=== PATIENT | female | born 1960 | race Caucasian/White ===

== ENCOUNTER 2017-02-16 22:23 | Observation (INO) | payer BC ==
[2017-02-16] MEDS ORDERED: SODIUM CHLORIDE 0.9% 1,000 ML IV STA (23:03)
[2017-02-16] MEDS ORDERED: diphenhydrAMINE 50 MG/ML 1 ML VIAL IVP STA (23:04)
[2017-02-16] MEDS ORDERED: METOCLOPRAMIDE 5 MG/ML 2 ML VIAL IVP STA (23:04)
[2017-02-17] LABS: Basophils # (A) 0.1 k/uL (0-0.2); Basophils % (A) 1 %; CHCM 33.9; Eosinophils # (A) 0.1 k/uL (0-0.7); Eosinophils % (A) 1 %; HCT 42.1 % (34.0-46.0); HDW 2.68; HGB 14.3 gm/dL (11.4-16.0); Luc # (Auto) 0.18; Luc % (Auto) 3; Lymphocytes # (A) 1.7 k/uL (1.0-4.8); Lymphocytes % (A) 23 %; MCH 31.2 pg (25.0-35.0); MCHC 33.9 g/dL (31.0-37.0); MCV 91.9 fL (80.0-100.0); Mean Platelet Volume 8.2; Monocytes # (A) 0.3 k/uL (0-1.0); Monocytes % (A) 4 %; Neutrophils # (A) 5.1 k/uL (1.3-7.7); Neutrophils % (A) 69 %; RBC 4.58 m/uL (3.80-5.40); RDW 12.9 % (11.5-15.5); WBC 7.5 k/uL (3.8-10.6); WBC (Perox) 7.51
[2017-02-17 00:08] LABS: INR 1.1 (<1.1); Partial Thromboplastin Time 23.7 sec (22.0-30.0); Prothrombin Time 10.8 sec (9.0-12.0)
[2017-02-17 00:09] LABS: ALT 49 U/L (9-52); AST 46 U/L (14-36); Alkaline Phosphatase 124 U/L (38-126); Anion Gap 16 mmol/L; Blood Urea Nitrogen 10 mg/dL (7-17); Calcium 9.9 mg/dL (8.4-10.2); Carbon Dioxide 21 mmol/L (22-30); Chloride 105 mmol/L (98-107); Glucose 134 mg/dL (74-99); Magnesium 1.7 mg/dL (1.6-2.3); Non-African American GFR(MDRD) >60 (>60 ml/min/1.73 sqM); Potassium 4.2 mmol/L (3.5-5.1); Sodium 142 mmol/L (137-145); Total Bilirubin 0.5 mg/dL (0.2-1.3); Total Protein 7.6 g/dL (6.3-8.2)
--- NOTE | 2017-02-17 00:16 | XR ---
EXAM: XR Chest, 2 Views. CLINICAL HISTORY: Reason: Chest Pain TECHNIQUE: Frontal and lateral views of the chest. COMPARISON: None FINDINGS: Hardware: None. Lungs/pleura: Low lung volumes. Left basilar atelectasis. No focal consolidation. No pleural effusion or pneumothorax. Prominent overlying soft tissue density. Mild elevation of the right hemidiaphragm. Heart/mediastinum: Mild prominence of the cardiac silhouette is likely accentuated by low lung volumes and technique. Soft tissues: Unremarkable. Bones: No acute fracture. Upper abdomen: Normal. IMPRESSION: Low lung volumes with left basilar atelectasis. No other acute disease.
--- NOTE | 2017-02-17 00:26 | ED ---
Headache HPI - General Source: RN notes reviewed Mode of arrival: EMS Limitations: no limitations <Zoila Hernandez - Last Filed: 02/17/17 00:30> <Giles Good - Last Filed: 02/17/17 01:37> - General Chief Complaint: Headache Stated Complaint: HEADACHE Time Seen by Provider: 02/16/17 22:27 - History of Present Illness Initial Comments: Patient is 48-year-old female chief complaint of few episodes of dizziness today. Patient reports that she did start metformin today. She states that she felt dizzy enough that she had a lay down and started to sweat. She denies any chest pain or shortness of breath. She states that she has a family history of stroke. She reports that she did have some blurriness to her vision as well and this occurred. She reports that she is feeling somewhat better after coming to emergency department. She did arrive via EMS and they gave her IV fluids, Zofran. Patient denies any fever or chills. (Zoila Hernandez) - Related Data Home Medications Medication Instructions Recorded Confirmed Atenolol [Tenormin] 50 mg PO DAILY 02/16/17 02/16/17 Calcium Carbonate/Vitamin D3 1 tab PO DAILY 02/16/17 02/16/17 [Calcium 600-Vit D3 400 Caplet] Gabapentin [Neurontin] 300 mg PO HS 02/16/17 02/16/17 HYDROcodone/APAP 5-325MG [Pfeifer 1 tab PO BID PRN 02/16/17 02/16/17 5-325] Ibuprofen [Motrin] 200 - 800 mg PO Q6HR PRN 02/16/17 02/16/17 Levothyroxine Sodium [Synthroid] 50 mcg PO DAILY 02/16/17 02/16/17 Loratadine [Claritin] 10 mg PO DAILY 02/16/17 02/16/17 Losartan/Hydrochlorothiazide 1 tab PO DAILY 02/16/17 02/16/17 [Hyzaar 50-12.5 Tablet] Lovastatin [Mevacor] 20 mg PO HS 02/16/17 02/16/17 Omeprazole [PriLOSEC] 20 mg PO DAILY 02/16/17 02/16/17 metFORMIN HCL [Glucophage] 500 mg PO DAILY 02/16/17 02/16/17 Allergies Allergy/AdvReac Type Severity Reaction Status Date / Time morphine Allergy Itching Verified 02/16/17 22:46 Review of Systems ROS Other: All systems not noted in ROS Statement are negative. <Zoila Hernandez - Last Filed: 02/17/17 00:30> ROS Other: All systems not noted in ROS Statement are negative. <Giles Good - Last Filed: 02/17/17 01:37> ROS Statement: Those systems with pertinent positive or pertinent negative responses have been documented in the HPI. Past Medical History Past Medical History: Diabetes Mellitus, GERD/Reflux, Hypertension, Thyroid Disorder Additional Past Medical History / Comment(s): Seasonal Allergies History of Any Multi-Drug Resistant Organisms: None Reported Past Surgical History: No Surgical Hx Reported, Cholecystectomy, Hysterectomy Additional Past Surgical History / Comment(s): Colonoscopy Past Psychological History: No Psychological Hx Reported Smoking Status: Never smoker Past Alcohol Use History: None Reported Past Drug Use History: None Reported <Zoila Hernandez - Last Filed: 02/17/17 00:30> General Exam Limitations: no limitations General appearance: alert, in no apparent distress, other (Patient is diaphoretic.) Head exam: Present: atraumatic, normocephalic, normal inspection, other Eye exam: Present: normal appearance, PERRL, EOMI. Absent: scleral icterus, conjunctival injection, periorbital swelling ENT exam: Present: normal exam, mucous membranes moist Neck exam: Present: normal inspection. Absent: tenderness, meningismus, lymphadenopathy Respiratory exam: Present: normal lung sounds bilaterally. Absent: respiratory distress, wheezes, rales, rhonchi, stridor Cardiovascular Exam: Present: regular rate, normal rhythm, normal heart sounds, systolic murmur (Patient has a systolic murmur. She reports that this is new when she was never told this.). Absent: diastolic murmur, rubs, gallop, clicks GI/Abdominal exam: Present: soft, normal bowel sounds. Absent: distended, tenderness, guarding, rebound, rigid Extremities exam: Present: normal inspection, full ROM, normal capillary refill. Absent: tenderness, pedal edema, joint swelling, calf tenderness Back exam: Present: normal inspection Neurological exam: Present: alert, oriented X3, CN II-XII intact Psychiatric exam: Present: normal affect, normal mood <Zoila Hernandez - Last Filed: 02/17/17 00:30> General appearance: alert, in no apparent distress Head exam: Present: atraumatic, normocephalic, normal inspection Eye exam: Present: normal appearance, PERRL, EOMI. Absent: scleral icterus, conjunctival injection, periorbital swelling ENT exam: Present: normal exam, mucous membranes moist Neck exam: Present: normal inspection. Absent: tenderness, meningismus, lymphadenopathy Respiratory exam: Present: normal lung sounds bilaterally. Absent: respiratory distress, wheezes, rales, rhonchi, stridor Cardiovascular Exam: Present: regular rate, normal rhythm, normal heart sounds. Absent: systolic murmur, diastolic murmur, rubs, gallop, clicks GI/Abdominal exam: Present: soft, normal bowel sounds. Absent: distended, tenderness, guarding, rebound, rigid Extremities exam: Present: normal inspection, full ROM, normal capillary refill. Absent: tenderness, pedal edema, joint swelling, calf tenderness Back exam: Present: normal inspection Neurological exam: Present: alert, oriented X3, CN II-XII intact Psychiatric exam: Present: normal affect, normal mood Skin exam: Present: warm, dry, intact, normal color. Absent: rash <Giles Good - Last Filed: 02/17/17 01:37> - General Exam Comments Initial Comments: Pleasant 48-year-old female. Patient is on appear to be in much distress. ( Zoila Hernandez) Course <Zoila Hernandez - Last Filed: 02/17/17 00:30> <Giles Good - Last Filed: 02/17/17 01:37> Vital Signs 02/16/17 02/17/17 02/17/17 22:28 00:29 01:24 Temperature 98.3 F Pulse Rate 73 70 72 Respiratory 18 18 18 Rate Blood Pressure 152/77 136/65 144/68 Blood Pressure [Right Arm Sitting] Blood Pressure [Right Arm Standing] Blood Pressure [Right Arm Supine] O2 Sat by Pulse 97 96 96 Oximetry 02/17/17 01:30 Temperature Pulse Rate Respiratory Rate Blood Pressure Blood Pressure 159/72 [Right Arm Sitting] Blood Pressure 155/74 [Right Arm Standing] Blood Pressure 144/68 [Right Arm Supine] O2 Sat by Pulse Oximetry - Reevaluation(s) Reevaluation #1: 02/17/17 01:37 Patient sore amazes similar symptoms, no resolution (Giles Good) Medical Decision Making - Lab Data Result diagrams: 02/16/17 23:55 02/16/17 23:55 <Zoila Hernandez - Last Filed: 02/17/17 00:30> - Lab Data Result diagrams: 02/16/17 23:55 02/16/17 23:55 <Giles Good - Last Filed: 02/17/17 01:37> - Medical Decision Making Patient is 48-year-old female chief complaint of few episodes of dizziness today. Patient reports that she did start metformin today. She states that she felt dizzy enough that she had a lay down and started to sweat. She denies any chest pain or shortness of breath. She states that she has a family history of stroke. She reports that she did have some blurriness to her vision as well and this occurred. She reports that she is feeling somewhat better after coming to emergency department. She did arrive via EMS and they gave her IV fluids, Zofran. Patient denies any fever or chills. (Zoila Hernandez) 56 female here for evaluation of dizziness weakness not feeling well, patient will be admitted for chest pain observation initial EKG and troponin are negative. Patient with positive systolic murmur, patient be admitted again for cardiac observation telemetry and echocardiography (Giles Good) - Lab Data Lab Results 02/16/17 02/16/17 02/16/17 Range/Units 23:55 23:55 23:55 WBC 7.5 (3.8-10.6) k/uL RBC 4.58 (3.80-5.40) m/uL Hgb 14.3 (11.4-16.0) gm/dL Hct 42.1 (34.0-46.0) % MCV 91.9 (80.0-100.0) fL MCH 31.2 (25.0-35.0) pg MCHC 33.9 (31.0-37.0) g/dL RDW 12.9 (11.5-15.5) % Plt Count 214 (150-450) k/uL Neutrophils % 69 % Lymphocytes % 23 % Monocytes % 4 % Eosinophils % 1 % Basophils % 1 % Neutrophils # 5.1 (1.3-7.7) k/uL Lymphocytes # 1.7 (1.0-4.8) k/uL Monocytes # 0.3 (0-1.0) k/uL Eosinophils # 0.1 (0-0.7) k/uL Basophils # 0.1 (0-0.2) k/uL PT (9.0-12.0) sec INR (<1.1) APTT (22.0-30.0) sec Sodium 142 (137-145) mmol/L Potassium 4.2 (3.5-5.1) mmol/L Chloride 105 (98-107) mmol/L Carbon Dioxide 21 L (22-30) mmol/L Anion Gap 16 mmol/L BUN 10 (7-17) mg/dL Creatinine 0.60 (0.52-1.04) mg/dL Est GFR (MDRD) Af Amer >60 (>60 ml/min/1.73 sqM) Est GFR (MDRD) Non-Af >60 (>60 ml/min/1.73 sqM) Glucose 134 H (74-99) mg/dL Calcium 9.9 (8.4-10.2) mg/dL Magnesium 1.7 (1.6-2.3) mg/dL Total Bilirubin 0.5 (0.2-1.3) mg/dL AST 46 H (14-36) U/L ALT 49 (9-52) U/L Alkaline Phosphatase 124 (38-126) U/L Total Creatine Kinase 76 (30-135) U/L CK-MB (CK-2) 0.4 (0.0-2.4) ng/mL CK-MB (CK-2) Rel Index 0.5 Troponin I <0.012 (0.000-0.034) ng/mL Total Protein 7.6 (6.3-8.2) g/dL Albumin 4.3 (3.5-5.0) g/dL 02/16/17 Range/Units 23:55 WBC (3.8-10.6) k/uL RBC (3.80-5.40) m/uL Hgb (11.4-16.0) gm/dL Hct (34.0-46.0) % MCV (80.0-100.0) fL MCH (25.0-35.0) pg MCHC (31.0-37.0) g/dL RDW (11.5-15.5) % Plt Count (150-450) k/uL Neutrophils % % Lymphocytes % % Monocytes % % Eosinophils % % Basophils % % Neutrophils # (1.3-7.7) k/uL Lymphocytes # (1.0-4.8) k/uL Monocytes # (0-1.0) k/uL Eosinophils # (0-0.7) k/uL Basophils # (0-0.2) k/uL PT 10.8 (9.0-12.0) sec INR 1.1 (<1.1) APTT 23.7 (22.0-30.0) sec Sodium (137-145) mmol/L Potassium (3.5-5.1) mmol/L Chloride (98-107) mmol/L Carbon Dioxide (22-30) mmol/L Anion Gap mmol/L BUN (7-17) mg/dL Creatinine (0.52-1.04) mg/dL Est GFR (MDRD) Af Amer (>60 ml/min/1.73 sqM) Est GFR (MDRD) Non-Af (>60 ml/min/1.73 sqM) Glucose (74-99) mg/dL Calcium (8.4-10.2) mg/dL Magnesium (1.6-2.3) mg/dL Total Bilirubin (0.2-1.3) mg/dL AST (14-36) U/L ALT (9-52) U/L Alkaline Phosphatase (38-126) U/L Total Creatine Kinase (30-135) U/L CK-MB (CK-2) (0.0-2.4) ng/mL CK-MB (CK-2) Rel Index Troponin I (0.000-0.034) ng/mL Total Protein (6.3-8.2) g/dL Albumin (3.5-5.0) g/dL EKG shows normal sinus rhythm. Right bundle branch block. Heriberto 60 bpm. [place] interval 1 a formal scans. QRS duration 1. Hemocyte. QT/QTc is 44/429. No evidence of ST elevation or T-wave inversion. (Zoila Hernandez) Critical Care Time Critical Care Time: Yes Total Critical Care Time: 31 <Giles Good - Last Filed: 02/17/17 01:37> Disposition <Zoila Hernandez - Last Filed: 02/17/17 00:30> <Giles Good - Last Filed: 02/17/17 01:37> Clinical Impression: Chest pain Disposition: ADMITTED IP TO THIS HOSP Condition: Undetermined Referrals: Jarett Diana MD [Primary Care Provider] - 1-2 days
[2017-02-17 00:29] LABS: Creatine Kinase 76 U/L (30-135)
[2017-02-17 00:49] LABS: Creatine Kinase MB 0.4 ng/mL (0.0-2.4); Troponin I <0.012 ng/mL (0.000-0.034)
--- NOTE | 2017-02-17 00:51 | CT ---
EXAM: CT Head Without Intravenous Contrast. CLINICAL HISTORY: Reason: Headache TECHNIQUE: Axial computed tomography images of the head/brain without intravenous contrast. CTDI is 57.40 mGy and DLP is 926.50 mGy-cm This CT exam was performed using one or more of the following dose reduction techniques: automated exposure control, adjustment of the mA and/or kV according to patient size, and/or use of iterative reconstruction technique. COMPARISON: None FINDINGS: Brain: No acute infarct or hemorrhage. No extra-axial fluid collection. No mass effect or midline shift. Ventricles and sulci: Normal. No ventriculomegaly or intraventricular hemorrhage. Skull: Normal. No bony lesion or fracture. Subcutaneous tissues: Normal. Sinuses: Normal. No air-fluid levels or mucosal thickening. Mastoid air cells: Normal. Orbits: Grossly unremarkable. IMPRESSION: No acute intracranial abnormality.
[2017-02-17] MEDS ORDERED: ACETAMINOPHEN TAB 325 MG TAB PO PRN (01:40)
[2017-02-17] MEDS ORDERED: NALOXONE 0.4 MG/ML 1 ML VIAL IV PRN (01:40)
[2017-02-17] MEDS ORDERED: traMADol 50 MG TAB PO PRN (01:40)
[2017-02-17] MEDS ORDERED: ONDANSETRON 4 MG/2 ML VIAL IVP PRN (01:40)
[2017-02-17] MEDS: SODIUM CHLORIDE 0.45% 1,000 ML IV SCH ×2 (02:16→11:04)
[2017-02-17 02:31] VITALS: RESP 16
[2017-02-17 02:44] VITALS: BMI 38.1
[2017-02-17 07:10] LABS: Creatine Kinase MB 0.4 ng/mL (0.0-2.4); Troponin I 0.015 ng/mL (0.000-0.034)
[2017-02-17] MEDS ORDERED: FAMOTIDINE 20 MG TAB PO SCH (09:00)
[2017-02-17 09:03] LABS: Hemoglobin A1C 7.6 % (4.2-6.1)
[2017-02-17 09:12] LABS: Glucose,Whole Blood 136 mg/dL (75-99)
[2017-02-17] MEDS ORDERED: HYDROcodone/APAP 5-325MG 1 EACH TAB PO PRN (10:20)
[2017-02-17] MEDS ORDERED: LORATADINE 10 MG TAB PO SCH (10:30)
[2017-02-17] MEDS ORDERED: metFORMIN 500 MG TAB PO SCH (10:30)
[2017-02-17] MEDS ORDERED: LOSARTAN-HCTZ 50-12.5 MG 1 EACH TAB PO SCH ×2 (10:30→13:00)
[2017-02-17] MEDS ORDERED: ATENOLOL 50 MG TAB PO SCH (10:30)
--- NOTE | 2017-02-17 11:23 | ECHOF ---
Referral Reason:Systolic Murmur, Dizziness MEASUREMENTS -------- HEIGHT: 167.6 cm WEIGHT: 107.0 kg BP: RVIDd: 3.4 cm (< 3.3) IVSd: 1.3 cm (0.6 - 1.1) LVIDd: 4.5 cm (3.9 - 5.3) LVPWd: 1.2 cm (0.6 - 1.1) IVSs: 1.7 cm LVIDs: 2.7 cm LVPWs: 1.7 cm LA Diam: 3.4 cm (2.7 - 3.8) LAESV Index (A-L): 11.22 ml/m Ao Diam: 3.2 cm (2.0 - 3.7) AV Cusp: 1.9 cm (1.5 - 2.6) MV EXCURSION: 16.312 mm (> 18.000) MV EF SLOPE: 134 mm/s (70 - 150) EPSS: 0.6 cm MV E Jordan: 1.06 m/s MV DecT: 241 ms MV A Jordan: 0.88 m/s MV E/A Ratio: 1.20 AV maxP.73 mmHg AV meanP.35 mmHg FINDINGS -------- Sinus rhythm. This was a technically adequate study. The left ventricular size is normal. There is mild concentric left ventricular hypertrophy. Overall left ventricular systolic function is normal with, an EF between 55 - 60 %. The right ventricle is mildly enlarged. Normal LA size by volume 22+/-6 ml/m2. The right atrium is normal in size. There is moderate aortic valve sclerosis. There is mild aortic stenosis present. Peak/mean gradient across the Aortic Valve is 15.73mmHg / 8.35mmHg. The mitral valve is normal. The tricuspid valve appears structurally normal. Trace/mild (physiologic) pulmonic regurgitation. The aortic root size is normal. IVC Not well visulized. There is no pericardial effusion. CONCLUSIONS -------- 1. Sinus rhythm. 2. The tricuspid valve appears structurally normal. 3. Trace/mild (physiologic) pulmonic regurgitation. 4. The aortic root size is normal. 5. IVC Not well visulized. 6. There is no pericardial effusion. 7. This was a technically adequate study. 8. There is mild concentric left ventricular hypertrophy. 9. Overall left ventricular systolic function is normal with, an EF between 55 - 60 %. 10. The right ventricle is mildly enlarged. 11. Normal LA size by volume 22+/-6 ml/m2. 12. There is mild aortic stenosis present. 13. Peak/mean gradient across the Aortic Valve is 15.73mmHg / 8.35mmHg. 14. The mitral valve is normal. PSYCHIATRIC NURSE: Verónica Funes RDCS
[2017-02-17 11:55] LABS: Glucose,Whole Blood 259 mg/dL (75-99)
[2017-02-17] MEDS ORDERED: MECLIZINE 12.5 MG TAB PO PRN (12:51)
--- NOTE | 2017-02-17 12:56 | CONS ---
DATE OF CONSULTATION: This is a 56-year-old female. Primary care physician is Dr. Austin Diana. Patient is admitted to the hospital with an episode of dizziness today and the patient also feels ( ). Patient was recently started on metformin for diabetes. Patient felt dizzy and lightheaded without any clear-cut syncope. Patient also complains of headache and atypical chest pain in the intrascapular area, which is aggravated by local pressure, highly suggestive of local pain, not cardiac in nature. ( ) patient also complains of blurriness of vision and aches and pains. Patient does have a history of hypertension, takes atenolol 50 mg p.o. daily. No obvious cardiac symptoms. Patient's symptoms are consistent with possibly flu-type of symptoms. Other medications include Neurontin 300 mg p.o. at bedtime, O'Brien p.r.n. basis, ibuprofen p.r.n. basis, levothyroxine 50 mcg p.o. daily, Claritin 10 mg p.o. daily, omeprazole 20 mg p.o. daily, metformin 500 mg p.o. daily. Allergic to MORPHINE. Past history remarkable for diabetes, GERD syndrome, hypertension, thyroid disorder. Patient is a nonsmoker. PAST SURGICAL HISTORY: Remarkable for cholecystectomy, hysterectomy. Morbidly obese. Patient has 3 children. Lives with her . Review of systems are essentially unremarkable other than what is stated in the presenting illness. Physical examination revealed moderately obese 56-year-old female not in acute distress, oriented x3 with a pulse rate of 72 beats per minute and regular, blood pressure 40/72, respirations of 16. HEAD: Normocephalic. HEENT: Unremarkable. NECK: Neck is supple. No thyroid enlargement. No bruit noted. Good carotid upstroke bilaterally. Chest is symmetrical. CARDIAC EXAMINATION: Regular rate and rhythm. S1 and S2. Lungs are clinically clear to auscultation and percussion. ABDOMEN: Soft, no organomegaly. Active bowel sounds. EXTREMITIES: Fair peripheral pulses. No pedal edema. UNDERWRITING OPERATIONS MANAGER EXAMINATION: Grossly within normal limits. ASSESSMENT: 1. Possibly influenza, will look at type A and B titers. 2. Hypertension. RECOMMENDATIONS: Will get an echocardiogram to assess LV function. No other cardiac workup at the present time. Patient will be treated symptomatically and will be released and do a stress test as an outpatient at a later time.
[2017-02-17 13:50] LABS: Creatine Kinase 82 U/L (30-135)
[2017-02-17 14:03] LABS: Creatine Kinase MB 0.3 ng/mL (0.0-2.4); Troponin I <0.012 ng/mL (0.000-0.034)
--- NOTE | 2017-02-17 15:11 | US ---
EXAMINATION TYPE: US carotid duplex BILAT DATE OF EXAM: 02/17/2017 1:58 PM COMPARISON: NONE CLINICAL HISTORY: dizziness. Patient takes medication for high blood pressure EXAM MEASUREMENTS: RIGHT: Peak Systolic Velocity (PSV) cm/sec ----- Right CCA: 115.7 ----- Right ICA: 82.0 ----- Right ECA: 166.8 ICA/CCA ratio: 0.7 RIGHT: End Diastole cm/sec ----- Right CCA: 31.1 ----- Right ICA: 16.3 ----- Right ECA: 24.8 LEFT: Peak Systolic Velocity (PSV) cm/sec ----- Left CCA: 122.6 ----- Left ICA: 90.2 ----- Left ECA: 144.9 ICA/CCA ratio: 0.7 LEFT: End Diastole cm/sec ----- Left CCA: 29.3 ----- Left ICA: 31.9 ----- Left ECA: 25.2 VERTEBRALS (direction of flow): Right Vertebral: Antegrade Left Vertebral: Antegrade No significant stenosis seen. Bilateral elevated ECA velocities. Left CCA wall thickening. Plaque see n in proximal right ICA. Plaque seen in left bulb IMPRESSION: 1. No significant stenosis bilaterally.
--- NOTE | 2017-02-17 15:12 | P.HPIM ---
History of Present Illness H&P Date: 02/17/17 Chief Complaint: dizziness HISTORY AND PHYSICAL AND DISCHARGE SUMMARY: This is a 56-year-old female patient of Dr. Jarett Contreras with past medical history of diabetes mellitus type 2, hypothyroidism, hypertension, hyperlipidemia, vitamin D deficiency, gastroesophageal reflux disease, seasonal ALLERGIES, diabetic neuropathy. Patient states that at 7:30 at night she was sitting on the couch and she almost passed out because of dizziness. She had nausea at the time. She ended up running to the bedroom where she had a armando underneath the bed to throw up and when she bent over the dizziness worsened. She ended up falling back onto the couch due to the dizziness and also have profuse sweating. At the same time she had pain in her right shoulder. She complains of a headache. Every time she tried to get up after that she had dizziness and nausea and couldn't get off the couch. She apparently has had chest pain on and off for the past year and had a stress test done that was ordered by Dr. Austin Diana which was negative. This was done at the [facility]. She did not have any follow-up with cardiology. She states she has had an episode of dizziness in the past after she went to a chiropractor and her head was adjusted. She states she had dizziness for 1 day when she went back to the chiropractor and he did another adjustment the dizziness went away and she has never had it again. Patient recently started metformin yesterday. She also follows with Dr. Loera in the past for lumbar back pain and had physical therapy. Troponin was negative on 3 draws. Influenza A and B negative. chest x-ray showed low volumes with left basilar atelectasis and no acute disease. CT of the brain showed no acute intracranial abnormality. echocardiogram reveals EF 55-60%, mild concentric left ventricular hypertrophy, mild aortic stenosis. Patient was evaluated by Dr. Dietrich with no plan for cardiac workup. Carotid Doppler study shows no significant stenosis bilaterally. Patient will be started on meclizine. Noted blood pressure remains elevated and Hyzaar increased. Patient will be monitored for short period and discharged home in stable condition if blood pressure is improved. Review of Systems All systems: negative Constitutional: Denies chills, Denies fever Eyes: denies blurred vision, denies pain Ears, nose, mouth and throat: Reports vertigo, Denies headache, Denies sore throat Cardiovascular: Denies chest pain, Denies shortness of breath Respiratory: Denies cough Gastrointestinal: Denies abdominal pain, Denies diarrhea, Denies nausea, Denies vomiting Genitourinary: Denies dysuria, Denies hematuria Musculoskeletal: Denies myalgias Integumentary: Denies pruritus, Denies rash Neurological: Denies numbness, Denies weakness Psychiatric: Denies anxiety, Denies depression Endocrine: Denies fatigue, Denies weight change Past Medical History Past Medical History: Diabetes Mellitus, GERD/Reflux, Hyperlipidemia, Hypertension, Thyroid Disorder Additional Past Medical History / Comment(s): Seasonal Allergies, diabetic neuropathy, vitamin D deficiency History of Any Multi-Drug Resistant Organisms: None Reported Past Surgical History: Cholecystectomy, Hysterectomy Additional Past Surgical History / Comment(s): Colonoscopy Past Anesthesia/Blood Transfusion Reactions: Postoperative Nausea & Vomiting ( PONV) Past Psychological History: No Psychological Hx Reported Smoking Status: Never smoker Past Alcohol Use History: None Reported Additional Past Alcohol Use History / Comment(s): patient is a lifelong nonsmoker. She denies any medical marijuana, marijuana, street drug or alcohol use. She is . Past Drug Use History: None Reported - Past Family History Mother Family Medical History: CVA/TIA, Deep Vein Thrombosis (DVT), Myocardial Infarction (RI) Additional Family Medical History / Comment(s): Mother has with history of myocardial infarction, stroke, DVT. Father History Unknown: Yes Additional Family Medical History / Comment(s): Dad is alive at age 85 with history of diabetes and hypertension. Brother(s) Additional Family Medical History / Comment(s): Patient has 1 brother and 1 sister with no major medical problems. Daughter(s) Additional Family Medical History / Comment(s): patient has 2 daughters. One has history of hypertension and the second has no major medical problems. Medications and Allergies Home Medications Medication Instructions Recorded Confirmed Type Atenolol [Tenormin] 50 mg PO DAILY 02/16/17 02/16/17 History Calcium Carbonate/Vitamin D3 1 tab PO DAILY 02/16/17 02/16/17 History [Calcium 600-Vit D3 400 Caplet] Gabapentin [Neurontin] 300 mg PO HS 02/16/17 02/16/17 History HYDROcodone/APAP 5-325MG [[place] 1 tab PO BID PRN 02/16/17 02/16/17 History 5-325] Levothyroxine Sodium [Synthroid] 50 mcg PO DAILY 02/16/17 02/16/17 History Loratadine [Claritin] 10 mg PO DAILY 02/16/17 02/16/17 History Lovastatin [Mevacor] 20 mg PO HS 02/16/17 02/16/17 History Omeprazole [PriLOSEC] 20 mg PO DAILY 02/16/17 02/16/17 History metFORMIN HCL [Glucophage] 500 mg PO DAILY 02/16/17 02/16/17 History Allergies Allergy/AdvReac Type Severity Reaction Status Date / Time morphine Allergy Itching Verified 02/17/17 02:34 Physical Exam Vitals: Vital Signs Temp Pulse Pulse Resp BP BP BP 02/17/17 12:00 98 F 77 16 186/86 02/17/17 08:00 16 02/17/17 07:45 98 F 72 16 140/72 02/17/17 03:06 16 02/17/17 02:30 98.1 F 73 16 168/96 02/17/17 02:17 97.1 F L 74 18 139/64 Pulse Ox 02/17/17 12:00 95 02/17/17 08:00 02/17/17 07:45 96 02/17/17 03:06 02/17/17 02:30 97 02/17/17 02:17 97 Intake and Output 02/16/17 02/17/17 02/17/17 22:59 06:59 14:59 Other: # Voids 1 2 Weight 107.1 kg Gen: This is a 56-year-old morbidly obese female. She is sitting in bed and appears to be in no acute distress. HEENT: Head is atraumatic, normocephalic. Pupils equal, round. Sclerae is anicteric. NECK: Supple. No JVD. No lymphadenopathy. No thyromegaly. LUNGS: Clear to auscultation. No wheezes or rhonchi. No intercostal retractions. HEART: Regular rate and rhythm. Systolic murmur. ABDOMEN: Soft. Bowel sounds are present. No masses. No tenderness. EXTREMITIES: No pedal edema. No calf tenderness. NEUROLOGICAL: Patient is awake, alert and oriented x3. Cranial nerves 2 through 12 are grossly intact. Results Results: Laboratory Results WBC 7.5 k/uL (3.8-10.6) 02/16/17 23:55 RBC 4.58 m/uL (3.80-5.40) 02/16/17 23:55 Hgb 14.3 gm/dL (11.4-16.0) 02/16/17 23:55 Hct 42.1 % (34.0-46.0) 02/16/17 23:55 MCV 91.9 fL (80.0-100.0) 02/16/17 23:55 MCH 31.2 pg (25.0-35.0) 02/16/17 23:55 MCHC 33.9 g/dL (31.0-37.0) 02/16/17 23:55 RDW 12.9 % (11.5-15.5) 02/16/17 23:55 Plt Count 214 k/uL (150-450) 02/16/17 23:55 Neutrophils % 69 % 02/16/17 23:55 Lymphocytes % 23 % 02/16/17 23:55 Monocytes % 4 % 02/16/17 23:55 Eosinophils % 1 % 02/16/17 23:55 Basophils % 1 % 02/16/17 23:55 Neutrophils # 5.1 k/uL (1.3-7.7) 02/16/17 23:55 Lymphocytes # 1.7 k/uL (1.0-4.8) 02/16/17 23:55 Monocytes # 0.3 k/uL (0-1.0) 02/16/17 23:55 Eosinophils # 0.1 k/uL (0-0.7) 02/16/17 23:55 Basophils # 0.1 k/uL (0-0.2) 02/16/17 23:55 PT 10.8 sec (9.0-12.0) 02/16/17 23:55 INR 1.1 (<1.1) 02/16/17 23:55 APTT 23.7 sec (22.0-30.0) 02/16/17 23:55 Sodium 142 mmol/L (137-145) 02/16/17 23:55 Potassium 4.2 mmol/L (3.5-5.1) 02/16/17 23:55 Chloride 105 mmol/L (98-107) 02/16/17 23:55 Carbon Dioxide 21 mmol/L (22-30) L 02/16/17 23:55 Anion Gap 16 mmol/L 02/16/17 23:55 BUN 10 mg/dL (7-17) 02/16/17 23:55 Creatinine 0.60 mg/dL (0.52-1.04) 02/16/17 23:55 Est GFR (MDRD) Af Amer >60 (>60 ml/min/1.73 sqM) 02/16/17 23:55 Est GFR (MDRD) Non-Af >60 (>60 ml/min/1.73 sqM) 02/16/17 23:55 Glucose 134 mg/dL (74-99) H 02/16/17 23:55 POC Glucose (mg/dL) 259 mg/dL (75-99) H 02/17/17 11:53 POC Glu Contract Engineer ID Kimi Gracia 02/17/17 11:[address] Glu mg/dL 171 mg/dL 02/17/17 05:42 Hemoglobin A1c 7.6 % (4.2-6.1) H 02/17/17 05:42 Calcium 9.9 mg/dL (8.4-10.2) 02/16/17 23:55 Magnesium 1.7 mg/dL (1.6-2.3) 02/16/17 23:55 Total Bilirubin 0.5 mg/dL (0.2-1.3) 02/16/17 23:55 AST 46 U/L (14-36) H 02/16/17 23:55 ALT 49 U/L (9-52) 02/16/17 23:55 Alkaline Phosphatase 124 U/L (38-126) 02/16/17 23:55 Total Creatine Kinase 82 U/L (30-135) 02/17/17 12:51 CK-MB (CK-2) 0.3 ng/mL (0.0-2.4) 02/17/17 12:51 CK-MB (CK-2) Rel Index 0.4 02/17/17 12:51 Troponin I <0.012 ng/mL (0.000-0.034) 02/17/17 12:51 Total Protein 7.6 g/dL (6.3-8.2) 02/16/17 23:55 Albumin 4.3 g/dL (3.5-5.0) 02/16/17 23:55 Influenza Type A RNA Not Detected (Not Detectd) 02/17/17 10:30 Influenza Type B (PCR) Not Detected (Not Detectd) 02/17/17 10:30 CBC & Chem 7: 02/16/17 23:55 02/16/17 23:55 Labs: Abnormal Lab Results - Last 24 Hours (Table) 02/17/17 02/17/17 02/17/17 Range/Units 05:42 09:09 11:53 POC Glucose (mg/dL) 136 H 259 H (75-99) mg/dL Hemoglobin A1c 7.6 H (4.2-6.1) % Thrombosis Risk Factor Assmnt - Choose All That Apply Each Factor Represents 1 point: Age 41-60 years, Obesity (BMI >25) Each Risk Factor Represents 3 Points: Family history of DVT/PE Thrombosis Risk Factor Assessment Total Risk Factor Score: 5 Thrombosis Risk Factor Assessment Level: High Risk Assessment and Plan Plan: 1. Dizziness most likely due to vertigo. Meclizine started. Orthostatic vital signs are negative. . 2. Hypertension. Hyzaar will be increased to 100 mg. 3. History of snoring, recommend outpatient sleep study. 4. Diabetes mellitus type 2. Continue metformin. 5. Chronic back pain and sciatica. Continue gabapentin 300 mg at bedtime. 6. Hyperlipidemia. Continue lovastatin. 7. Gastroesophageal reflux disease. Continue omeprazole. 8. Hypothyroidism. Continue levothyroxine. Patient placed in the observation unit. Discharge plan:return home Impression and plan of care have been directed as dictated by the signing physician. Gloria Sanchez nurse practitioner acting as scribe for signing physician. Cc: Dr. Jarett Diana Time with Patient: Greater than 30
[2017-02-17 15:26] VITALS: BP 120/77; PULSE 65; TEMP 98.2
[2017-02-17] MEDS ORDERED: GABAPENTIN 300 MG CAP PO SCH (21:00)
[2017-02-17] MEDS ORDERED: ATORVASTATIN 10 MG TAB PO SCH (21:00)
[2017-02-18] MEDS ORDERED: LEVOTHYROXINE 50 MCG TAB PO SCH (06:30)
[2017-02-18] MEDS ORDERED: PANTOPRAZOLE 40 MG TABLET PO SCH (07:30)
[2017-02-18] MEDS ORDERED: LOSARTAN-HCTZ 50-12.5 MG 1 EACH TAB PO SCH (09:00)
== END 2017-02-17 15:50 | disposition home or self-care (01) ==
LOC: EC 22:23 → 3OBS 02-17 01:36
PROVIDERS: ADMIT Internal Medicine Geriatric Medicine; ATTEND Internal Medicine Geriatric Medicine
DX: R42 Dizziness and giddiness (principal); I10 Essential (primary) hypertension; R06.83 Snoring; E11.40 Type 2 diabetes mellitus with diabetic neuropathy, unspecified; M54.30 Sciatica, unspecified side; G89.29 Other chronic pain; E78.5 Hyperlipidemia, unspecified; K21.9 Gastro-esophageal reflux disease without esophagitis; E03.9 Hypothyroidism, unspecified; Z82.3 Family history of stroke; Z79.899 Other long term (current) drug therapy; Z79.84 Long term (current) use of oral hypoglycemic drugs; Z88.5 Allergy status to narcotic agent; E66.01 Morbid (severe) obesity due to excess calories; Z68.38 Body mass index [BMI] 38.0-38.9, adult; R61 Generalized hyperhidrosis; R11.2 Nausea with vomiting, unspecified; M25.511 Pain in right shoulder; R51 Headache; J30.2 Other seasonal allergic rhinitis; E55.9 Vitamin D deficiency, unspecified; Z82.49 Family history of ischemic heart disease and other diseases of the circulatory system; H53.8 Other visual disturbances; R53.1 Weakness; R07.89 Other chest pain
CPT/HCPCS: 96374; 96375; 96361; 99291; 36415; 93005; 93306; 80053; 83036; 82550 ×2; 82553 ×2; 83735; 84484 ×2; 85025; 85610; 85730; 87502; 71020; 93880; 70450; G0378; J1200; J2765

== ENCOUNTER → 2017-11-17 | Outpatient (CLI) | payer BC ==
--- NOTE | 2017-11-19 10:42 | MM ---
Reason for exam: screening (asymptomatic). Last mammogram was performed 1 year and 2 months ago. History: Patient is postmenopausal. Physical Findings: A clinical breast exam by your physician is recommended on an annual basis and results should be correlated with mammographic findings. MG Screening Mammo w CAD Bilateral CC and MLO view(s) were taken. Prior study comparison: September 11, 2016, bilateral MG screening mammo w CAD. September 02, 2015, bilateral MG screening mammo w CAD. There are scattered fibroglandular densities. No significant changes when compared with prior studies. ASSESSMENT: Benign, BI-RAD 2 RECOMMENDATION: Routine screening mammogram of both breasts in 1 year.
== END | disposition home or self-care (01) ==
LOC: RADMAMWWP 16:23
PROVIDERS: ATTEND Family Medicine
DX: Z12.31 Encounter for screening mammogram for malignant neoplasm of breast (principal)

== ENCOUNTER → 2018-05-16 | Outpatient (CLI) | payer BC | END | disposition home or self-care (01) | LOC: LABPAT 15:39 | PROVIDERS: ATTEND Orthopaedic Surgery | DX: Z01.812 Encounter for preprocedural laboratory examination (principal) | CPT/HCPCS: 87070 ==

== ENCOUNTER 2018-05-30 07:30 | Inpatient (IN) | payer BC ==
[2018-05-17 09:33] VITALS: BMI 37.1
--- NOTE | 2018-05-29 10:41 | HP ---
HISTORY AND PHYSICAL REASON FOR ADMISSION: Surgery is 05/30/2018 HISTORY OF PRESENT ILLNESS: Hien Gamino is a 57-year-old patient seen with symptomatic right knee osteoarthritis. We discussed options for treatment. She elected to proceed with right total knee arthroplasty. Consent was obtained, clearance was provided by Dr. Rojas. PAST MEDICAL HISTORY: Hypertension, dil-qfjcxxd-wunoscnss diabetes, gastroesophageal reflux disease, hypothyroidism. PAST SURGICAL HISTORY: Cholecystectomy, carpal tunnel release. Hysterectomy. MEDICATIONS: 1. Gabapentin. 2. Hyzaar. 3. Losartan. 4. Meclizine. 5. Metformin. 6. Metoprolol. 7. Prilosec. 8. Synthroid. ALLERGIES: MORPHINE. SOCIAL HISTORY: Patient denies current tobacco use. PHYSICAL EXAMINATION: Evaluation of the right knee range of motion -2 to 115 degrees. Tenderness along the medial joint line. Crepitus along the medial patellofemoral compartments with range of motion. Pain with patellofemoral compression. Ligaments stable. Hip rotation without pain. Distal neurovascular exam intact. RADIOGRAPHS: Right knee radiographs reveal severe medial and moderate to severe patellofemoral compartment osteoarthritis. IMPRESSION: 1. Right knee osteoarthritis. 2. Hypertension. 3. Hyperlipidemia. 4. Hypothyroidism. 5. Gastroesophageal reflux disease. 6. Neo-axrkpxz-pogynegqc diabetes mellitus. PLAN: Right total knee arthroplasty. Surgery 05/30/2018. MMODL / IJN: [id number] /
[~2018-05-30 07:30] MED LIST: ACETAMINOPHEN TAB 500 MG TAB PO ONE; DEXAMETHASONE SOD PHOSPHATE 10 MG/ML 1 ML VIAL IV ONE; MELOXICAM 7.5 MG TAB PO ONE; MIDAZOLAM 2 MG/2 ML VIAL IV PRN; ONDANSETRON 4 MG/2 ML VIAL IVP ONE; SCOPOLAMINE 1.5MG/72HR PATCH TRANSDERM ONE; TRANEXAMIC ACID 1,000 MG in SODIUM CHLORIDE 0.9% 50 ML IVPB ONE; ceFAZolin IN SWFI 2 GM/20 ML SYRINGE IVP ONE; fentaNYL (PF) 50 MCG/ML 2 ML AMP IV PRN
[2018-05-30 11:25] LABS: Glucose,Whole Blood 125 mg/dL (75-99)
[2018-05-30] MEDS: LACTATED RINGERS 1,000 ML IV SCH ×3 (11:26→22:13)
[2018-05-30] MEDS ORDERED: LIDOCAINE 1% 20 ML VIAL (10MG/ML) FOR IV START INTRADERMA ONE (11:34)
[2018-05-30] MEDS ORDERED: ROPIVACAINE 246.25 MG, EPINEPHrine 0.5 MG, KETOROLAC 30 MG, cloNIDine HCL/PF 80 MCG, WA... MISCELLANE ONE ×10 (13:06→13:45)
[2018-05-30] MEDS ORDERED: TRANEXAMIC ACID 1,000 MG/10 ML VIAL ONE (13:53)
[2018-05-30] MEDS ORDERED: SODIUM CHLORIDE 0.9% 100 ML BAG ONE (13:53)
[2018-05-30] MEDS ORDERED: fentaNYL (PF) 50 MCG/ML 2 ML AMP ONE (13:53)
[2018-05-30] MEDS ORDERED: MIDAZOLAM 2 MG/2 ML VIAL ONE (13:53)
[2018-05-30] MEDS ORDERED: PROPOFOL 10 MG/ML 20 ML VIAL IV ONE (13:53)
[2018-05-30] MEDS ORDERED: LABETALOL 5 MG/ML VIAL MDV ONE (13:53)
[2018-05-30] MEDS ORDERED: ceFAZolin 3,000 MG in SODIUM CHLORIDE 0.9% IRRIGATIO 3,000 ML IRRIGATION ONE (14:30)
[2018-05-30] MEDS ORDERED: LACTATED RINGERS 1,000 ML IV ONE (14:55)
[2018-05-30] MEDS ORDERED: ROPIVACAINE 1,100 MG, SODIUM CHLORIDE 0.9% 330 ML MISCELLANE PRN ×2 (15:31)
--- NOTE | 2018-05-30 15:32 | P.ONQ ---
Anesthesiology Proc Note - PNB - Peripheral Nerve Block Performed Right Adductor Canal Indication: Acute Post-Operative Pain, Requested by physician (Dr Hurt) Sedation Type: Sedate with meaningful contact maintained Preparation: Sterile Dressing Position: Supine Catheter: Indwelling Needle Types: Other (see comment) (Crissy) Needle Size: 100mm (4") Needle Gauge: 21 Technique: Ultrasound Injectate: 0.5% Ropivacaine (see comment for volume) (22cc) Blood Aspirated: No Pain Paresthesia on Injection Noted: No Resistance on Injection: Normal Events: Uneventful and Well Tolerated
[2018-05-30] MEDS ORDERED: NALOXONE 0.4 MG/ML 1 ML VIAL IV PRN (16:05)
[2018-05-30] MEDS ORDERED: ONDANSETRON 4 MG/2 ML VIAL IVP PRN (16:05)
[2018-05-30] MEDS ORDERED: HYDROcodone/APAP 7.5-325MG 1 EACH TAB PO PRN (16:05)
[2018-05-30] MEDS ORDERED: hydrOXYzine PAMOATE 25 MG CAP PO PRN (16:05)
[2018-05-30] MEDS ORDERED: HYDROmorphone 0.5 MG/0.5 ML SYRINGE IVP PRN ×3 (16:05)
--- NOTE | 2018-05-30 16:05 | P.OP ---
Date of Procedure: 05/30/18 Preoperative Diagnosis: Right knee osteoarthritis Postoperative Diagnosis: Right knee osteoarthritis Procedure(s) Performed: Right total knee arthroplasty Implants: 1. Microport evolution MP CS/CR cemented femoral component 2. Microport evolution MP keeled cemented tibial base 3. Microport evolution 12 mm MP CS polyethylene tibial insert 4. Microport advance 35 mm all polyethylene cemented patella Anesthesia: regional (Adductor canal catheter), local, spinal Surgeon: Cliff Hurt Change Management Director #1: Antwon Ruffin Estimated Blood Loss (ml): 50 Pathology: none sent Condition: stable Disposition: PACU Indications for Procedure: 57-year-old patient seen with symptomatic right knee osteoarthritis. After treatment options were discussed, she elected to proceed with total knee arthroplasty. Operative Findings: see description of procedure Description of Procedure: Patient was taken to the operative suite after having an abductor canal catheter placed by the department of anesthesia. Patient underwent a spinal anesthetic by the department of anesthesia. Patient was given preoperative IV intake antibiotics and TXA. A well-padded tourniquet was placed about the right lower extremity. The lower extremity was then prepped and draped in the normal sterile orthopedic fashion. The extremity was elevated, a tourniquet was insufflated to 300. A standard anterior incision was made sharply through skin. Dissection was taken down through the subcutaneous soft tissues down to the extensor mechanism. A medial arthrotomy was performed, patella was everted and knee was flexed. There was advanced osteoarthritis noted. A proximal tibial cutting guide was positioned. Proximal tibial cut was made. A distal intramedullary femoral cutting guide was positioned, distal femoral cut made. We placed the appropriate sizing guide and selected the appropriate size. A distal 4-in-1 femoral cutting block was positioned, distal femoral cuts were made. We now placed a trial femoral component into position, along with an appropriate size tibial tray and insert. We now took the knee through range of motion and had full extension good flexion and good overall soft tissue balance noted. The patella was everted and a flush cut made with patellar quad tendon. We templated the patella, appropriate drill holes were made. An appropriate trial patella was positioned, knee was taken through full range of motion with the patella tracking very nicely. The trial patella was removed. Drill holes were made through the femoral component. All trial components were removed after marking off the appropriate rotation of the tibia. Retractors were now positioned along the proximal tibia. An appropriate keel punch was made with the appropriate size tibial guide. At this point appropriate size implants were chosen and opened. The joint was irrigated copiously with pulse lavage mechanical irrigation. The deep soft tissues were infiltrated with local analgesic. We mixed antibiotic methylmethacrylate. Once the methyl methacrylate was ready, the tibial component was cemented into place removing any excess methylmethacrylate. The femoral component was cemented into place removing the removing any excess methylmethacrylate. We then inserted the appropriate size polyethylene tibial insert. We made sure that it was locked into position. We took the knee into full extension, and then back in a flexion making sure we had removed any excess methylmethacrylate. The patellar component was then cemented down and secured with clamp. Excess methylmethacrylate removed. We kept the knee in full extension, patellar clamp in position until methylmethacrylate had hardened. Once it had hardened the patellar clamp was removed. The knee was taken through full range of motion. The patella tracked nicely. There was good soft tissue balancing. The tourniquet was now released. Additional hemostasis was achieved via electrocautery. A second gram of TXA was given. The wound was irrigated with pulse lavage mechanical irrigation. The superficial soft tissues were infiltrated local analgesic. The extensor mechanism was repaired with Vicryl. We checked the repair with range of motion and it was stable. The subcutaneous soft tissues were repaired with Vicryl in layers. The skin was approximated with pernio/Dermabond. Sterile dressings were applied followed by loose web roll and Gianfranco bandage. The patient was transferred to a bed, and taken to recovery in stable and satisfactory condition. Akbar LEAL assisted with the procedure.
--- NOTE | 2018-05-30 16:40 | XR ---
EXAMINATION TYPE: XR knee limited RT DATE OF EXAM: 05/30/2018 COMPARISON: NONE HISTORY: 57-year-old female evaluation for postoperative abnormality and alignment TECHNIQUE: 2 views FINDINGS: Images show placement of right total knee arthroplasty. Both distal femoral and proximal tibial compo nents of the prosthesis appear well seated without periprosthetic fracture. Alignment is grossly pina omic. Anterior soft tissue swelling with soft tissue air as well as intra-articular air and joint eff usion compatible with recent operation. IMPRESSION: Uncomplicated postoperative appearance right total knee arthroplasty.
[2018-05-30 17:35] LABS: Glucose,Whole Blood 195 mg/dL (75-99)
[2018-05-30 18:20] LABS: Glucose,Whole Blood 171 mg/dL (75-99)
[2018-05-30] MEDS: traMADol 50 MG TAB PO SCH ×2 (18:58→22:07)
[2018-05-30 19:58] LABS: Glucose,Whole Blood 164 mg/dL (75-99)
[2018-05-30] MEDS: HYDROcodone/APAP 7.5-325MG 1 EACH TAB PO PRN (21:01)
[2018-05-30] MEDS ORDERED: FLUTICASONE 50MCG/SPRAY NASAL 16GM EA NOSTRIL PRN (21:13)
[2018-05-30] MEDS: SENNOSIDES-DOCUSATE SODIUM 1 EACH TAB PO SCH (21:56)
[2018-05-30] MEDS: GABAPENTIN 300 MG CAP PO SCH (21:57)
[2018-05-30] MEDS: LORATADINE 10 MG TAB PO SCH (21:57)
[2018-05-30] MEDS: FAMOTIDINE 20 MG TAB PO SCH (21:57)
[2018-05-30] MEDS: ATORVASTATIN 10 MG TAB PO SCH (21:57)
[2018-05-30] MEDS: INSULIN ASPART 100 UNIT/ML 1 ML 10 ML VIAL SQ SCH (22:02)
[2018-05-30] MEDS: ceFAZolin IN SWFI 2 GM/20 ML SYRINGE IVP SCH (23:47)
[2018-05-31] MEDS: LACTATED RINGERS 1,000 ML IV SCH ×3 (04:26→21:29)
[2018-05-31] MEDS: LEVOTHYROXINE 50 MCG TAB PO SCH (05:11)
[2018-05-31] MEDS: HYDROcodone/APAP 7.5-325MG 1 EACH TAB PO PRN ×3 (05:23→16:15)
[2018-05-31 06:50] LABS: Glucose,Whole Blood 116 mg/dL (75-99)
[2018-05-31 07:43] LABS: Basophils % (A) 0 %; Eosinophils % (A) 0 %; HCT 34.4 % (34.0-46.0); HGB 11.5 gm/dL (11.4-16.0); Lymphocytes # (A) 1.7 k/uL (1.0-4.8); Lymphocytes % (A) 17 %; MCH 30.9 pg (25.0-35.0); MCHC 33.6 g/dL (31.0-37.0); Mean Platelet Volume 7.3; Monocytes # (A) 0.5 k/uL (0-1.0); Monocytes % (A) 5 %; Neutrophils # (A) 7.5 k/uL (1.3-7.7); Neutrophils % (A) 76 %; Platelet Count 251 k/uL (150-450); RBC 3.74 m/uL (3.80-5.40); RDW 13.7 % (11.5-15.5); WBC 9.9 k/uL (3.8-10.6)
[2018-05-31] MEDS: ENOXAPARIN 30 MG/0.3 ML SYRINGE SQ SCH ×2 (08:40→20:17)
[2018-05-31] MEDS: MELOXICAM 7.5 MG TAB PO SCH (08:40)
[2018-05-31] MEDS: GLIMEPIRIDE 4 MG TAB PO SCH ×2 (08:41→11:03)
[2018-05-31] MEDS: traMADol 50 MG TAB PO SCH ×4 (08:41→21:31)
[2018-05-31] MEDS: LORATADINE 10 MG TAB PO SCH (08:41)
[2018-05-31] MEDS: metFORMIN 500 MG TAB PO SCH (08:41)
[2018-05-31] MEDS: ceFAZolin IN SWFI 2 GM/20 ML SYRINGE IVP SCH (08:43)
--- NOTE | 2018-05-31 08:52 | P.PN ---
Subjective Progress Note Date: 05/31/18 Principal diagnosis: Status post right total knee arthroplasty Patient seen today resting in her hospital bed, she appears comfortable. She did have some increasing pain with a spinal. She's ambulated with therapy. She denies any headaches, lightheadedness, chest pain or shortness of breath. Objective - Vital Signs Vital signs: Vital Signs Temp 97.8 F 05/31/18 06:45 Pulse 72 05/31/18 06:45 Resp 14 05/31/18 00:24 BP 111/72 05/31/18 06:45 Pulse Ox 93 L 05/31/18 06:45 Intake & Output 05/30/18 05/31/18 05/31/18 18:59 06:59 18:59 Intake Total 1351 780 Output Total 50 400 Balance 1301 380 Weight 104.326 kg Intake: IV 1351 Oral 780 Output: Urine 400 Straight 400 Estimated Blood Loss 50 Other: # Voids 1 - Exam Right lower extremity: Incision is clean, dry, and intact. The prineo tape is in good condition. There is minimal soft tissue swelling and ecchymosis surrounding the medial and lateral aspects of the incision. Calf is soft, no tenderness with palpation. Plantar flexion, dorsiflexion, EHL, FHL are intact. Sensory exam to light touch throughout the extremity is intact, dorsal pedis pulses 2+. - Labs CBC & Chem 7: 05/31/18 06:37 Labs: Abnormal Lab Results - Last 24 Hours (Table) 05/30/18 05/30/18 05/30/18 Range/Units 11:21 17:32 18:17 RBC (3.80-5.40) m/uL POC Glucose (mg/dL) 125 H 195 H 171 H (75-99) mg/dL 05/30/18 05/31/18 05/31/18 Range/Units 19:44 06:37 06:48 RBC 3.74 L (3.80-5.40) m/uL POC Glucose (mg/dL) 164 H 116 H (75-99) mg/dL Assessment and Plan Plan: Assessment: Post op day 1 status post right total knee arthroplasty Plan: Pain control, continue subcu current medication GI and DVT prophylaxis, continue subcu medication. Discharge on Eliquis 2.5 mg twice a day for 14 days Wound care instructions discussed Encourage incentive spirometer Continue daily therapy Medical recommendations Discharge planning: Patient will be likely discharged home tomorrow Time with Patient: Less than 30
[2018-05-31] MEDS: INSULIN ASPART 100 UNIT/ML 1 ML 10 ML VIAL SQ SCH ×4 (08:53→20:17)
[2018-05-31] MEDS ORDERED: FAMOTIDINE 20 MG TAB PO SCH (09:00)
[2018-05-31 11:05] LABS: Glucose,Whole Blood 166 mg/dL (75-99)
--- NOTE | 2018-05-31 11:55 | P.CONS ---
History of Present Illness - Reason for Consult Consult date: 05/31/18 Medical management Requesting physician: Cliff Hurt - Chief Complaint Status post right total knee arthroplasty - History of Present Illness This is a 57-year-old female, patient of [facility]. She has a known past medical history of hypertension, diabetes mellitus, GERD, hypothyroidism and osteoarthritis. Patient has been having right knee pain and underwent a right total knee arthroplasty yesterday with Dr. Hurt. She tolerated surgery well no complications. Estimated blood loss 50 mL. She is lying in bed comfortably. Pain is controlled. She denies any chest pain or shortness of breath. Denies any nausea or vomiting. She reports having gas no bowel movement yet. Denies any difficulty urinating. We've been consulted for medical management. Review of Systems Please refer to HPI otherwise unremarkable Past Medical History Past Medical History: Diabetes Mellitus, GERD/Reflux, Hyperlipidemia, Hypertension, Memory Impairment, Osteoarthritis (OA), Thyroid Disorder Additional Past Medical History / Comment(s): Seasonal Allergies, diabetic neuropathy, vitamin D deficiency, IBS. History of Any Multi-Drug Resistant Organisms: None Reported Past Surgical History: Cholecystectomy, Hysterectomy Additional Past Surgical History / Comment(s): Colonoscopy, bilateral carpal tunnel. Past Anesthesia/Blood Transfusion Reactions: Postoperative Nausea & Vomiting ( PONV) Past Psychological History: No Psychological Hx Reported Smoking Status: Never smoker Past Alcohol Use History: None Reported Additional Past Alcohol Use History / Comment(s): patient is a lifelong nonsmoker. She denies any medical marijuana, marijuana, street drug or alcohol use. She is . Past Drug Use History: None Reported - Past Family History Mother Family Medical History: CVA/TIA, Deep Vein Thrombosis (DVT), Myocardial Infarction ([place]) Additional Family Medical History / Comment(s): Mother with history of myocardial infarction, stroke, DVT. Father History Unknown: Yes Family Medical History: Diabetes Mellitus, Hypertension Additional Family Medical History / Comment(s): Dad is alive at age 85 with history of diabetes and hypertension. Brother(s) Family Medical History: No Reported History Additional Family Medical History / Comment(s): Patient has 1 brother and 1 sister with no major medical problems. Daughter(s) Family Medical History: Cancer, Hypertension Additional Family Medical History / Comment(s): Cervical cancer. Sister(s) Family Medical History: Cancer Additional Family Medical History / Comment(s): Thyroid cancer Medications and Allergies Home Medications Medication Instructions Recorded Confirmed Type Calcium Carbonate/Vitamin D3 1 tab PO QAM 02/16/17 05/30/18 History [Calcium 600-Vit D3 400 Caplet] Gabapentin [Neurontin] 300 mg PO HS 02/16/17 05/30/18 History HYDROcodone/APAP 5-325MG [[place] 1 tab PO BID 02/16/17 05/30/18 History 5-325] Levothyroxine Sodium [Synthroid] 50 mcg PO QAM 02/16/17 05/30/18 History Loratadine [Claritin] 10 mg PO QAM 02/16/17 05/30/18 History Lovastatin [Mevacor] 20 mg PO HS 02/16/17 05/30/18 History Omeprazole [PriLOSEC] 20 mg PO QAM 02/16/17 05/30/18 History metFORMIN HCL [Glucophage] 500 mg PO QA 02/16/17 05/30/18 History Fluticasone Propionate [Flonase 1 spray EA NOSTRIL BID PRN 05/17/18 05/30/18 History Allergy Relief] Glimepiride [Amaryl] 4 mg PO BID@0800,1200 05/17/18 05/30/18 History Losartan/Hydrochlorothiazide 1 tab PO QA 05/17/18 05/30/18 History [Hyzaar 100-25 Tablet] Meclizine [Antivert] 25 mg PO TID PRN 05/17/18 05/30/18 History Metoprolol Tartrate [Lopressor] 50 mg PO QA 05/17/18 05/30/18 History Ranitidine HCl 300 mg PO 05/17/18 05/30/18 History Apixaban [Eliquis] 2.5 mg PO BID #30 tab 05/31/18 Rx Allergies Allergy/AdvReac Type Severity Reaction Status Date / Time morphine Allergy Itching Verified 05/30/18 18:14 Physical Exam Vitals: Vital Signs Temp Pulse Pulse Resp BP Pulse Ox 05/31/18 08:00 72 14 05/31/18 07:45 97.8 F 72 111/72 93 L 05/31/18 06:45 97.8 F 72 111/72 93 L 05/31/18 00:24 97.2 F L 77 14 111/63 94 L 05/30/18 20:25 98.4 F 86 16 125/79 96 05/30/18 17:57 97.7 F 74 16 115/77 95 05/30/18 17:15 76 16 134/76 95 05/30/18 17:00 75 16 125/68 95 05/30/18 16:45 76 16 121/66 95 05/30/18 16:30 79 16 134/77 95 05/30/18 16:19 98.6 F 85 18 129/85 97 Intake and Output 05/30/18 05/31/18 05/31/18 22:59 06:59 14:59 Intake Total 690 240 Output Total 450 Balance 240 240 Intake: IV 150 Oral 540 240 Output: Urine 400 Straight 400 Estimated Blood Loss 50 Other: # Voids 1 Weight 104.326 kg Head normocephalic Neck supple Lungs clear to auscultation bilaterally no wheezing or crackles Heart regular rate and rhythm S1-S2, no rub or gallop Abdomen is soft nontender nondistended positive bowel sounds no hepatosplenomegaly Extremities no edema. Right knee dressing clean dry and intact Neuro alert and orientated to 3 Results CBC & Chem 7: 05/31/18 06:37 Labs: Abnormal Lab Results - Last 24 Hours (Table) 05/30/18 05/30/18 05/30/18 Range/Units 17:32 18:17 19:44 RBC (3.80-5.40) m/uL POC Glucose (mg/dL) 195 H 171 H 164 H (75-99) mg/dL 05/31/18 05/31/18 05/31/18 Range/Units 06:37 06:48 10:58 RBC 3.74 L (3.80-5.40) m/uL POC Glucose (mg/dL) 116 H 166 H (75-99) mg/dL Assessment and Plan Assessment: 1. Status post Right total knee arthroplasty: Continue with current current pain medication. Continue Lovenox for DVT prophylaxis 2. Essential hypertension: Blood pressure on the lower side of 111/72. We will hold the losartan/hydrochlorothiazide. Okay to resume the metoprolol. We will place parameters to hold for systolic blood pressure less than 110 or heart rate less than 55 3. Diabetes mellitus type 2 continue the Amaryl and sliding scale coverage 4. Hyperlipidemia continue Lipitor 5. Hypothyroidism continue Synthroid GI prophylaxis Pepcid and DVT prophylaxis Lovenox Thank you for this consultation. We will continue to follow along with you during patient's hospitalization. I will check routine labs in the morning including a CBC and CMP. Time with Patient: Greater than 30 (Greater than 60% of the total time spent in counseling and coordination of care.I performed an examination of the patient and discussed their management with the physician Beet Topper. I have reviewed the Physician Beet Topper's notes and agree with the documented findings and plan of care)
[2018-05-31] MEDS: METOPROLOL TARTRATE 50 MG TAB PO SCH (13:30)
[2018-05-31 16:55] LABS: Glucose,Whole Blood 190 mg/dL (75-99)
[2018-05-31 19:58] LABS: Glucose,Whole Blood 239 mg/dL (75-99)
[2018-05-31] MEDS: GABAPENTIN 300 MG CAP PO SCH (20:17)
[2018-05-31] MEDS: SENNOSIDES-DOCUSATE SODIUM 1 EACH TAB PO SCH (20:17)
[2018-05-31] MEDS: ATORVASTATIN 10 MG TAB PO SCH (20:17)
[2018-05-31] MEDS: FAMOTIDINE 20 MG TAB PO SCH (20:17)
[2018-06-01] MEDS ORDERED: HYDROcodone/APAP 7.5-325MG 1 EACH TAB ONE (00:28)
[2018-06-01] MEDS: LACTATED RINGERS 1,000 ML IV SCH ×3 (04:56→21:22)
[2018-06-01] MEDS: LEVOTHYROXINE 50 MCG TAB PO SCH (05:38)
[2018-06-01 07:17] LABS: Glucose,Whole Blood 116 mg/dL (75-99)
[2018-06-01 07:36] LABS: Basophils % (A) 0 %; Eosinophils % (A) 0 %; HCT 37.2 % (34.0-46.0); HGB 12.2 gm/dL (11.4-16.0); Lymphocytes # (A) 1.7 k/uL (1.0-4.8); Lymphocytes % (A) 18 %; MCH 30.6 pg (25.0-35.0); MCHC 32.8 g/dL (31.0-37.0); MCV 93.2 fL (80.0-100.0); Mean Platelet Volume 7.2; Monocytes # (A) 0.5 k/uL (0-1.0); Monocytes % (A) 6 %; Neutrophils # (A) 6.7 k/uL (1.3-7.7); Neutrophils % (A) 74 %; Platelet Count 241 k/uL (150-450); RBC 3.99 m/uL (3.80-5.40); RDW 13.8 % (11.5-15.5); WBC 9.1 k/uL (3.8-10.6)
[2018-06-01 07:51] LABS: Albumin 3.5 g/dL (3.5-5.0); Chloride 104 mmol/L (98-107); Glucose 121 mg/dL (74-99); Potassium 4.4 mmol/L (3.5-5.1); Sodium 141 mmol/L (137-145); Total Protein 6.3 g/dL (6.3-8.2)
[2018-06-01 07:52] LABS: ALT 36 U/L (9-52); AST 31 U/L (14-36); Alkaline Phosphatase 93 U/L (38-126); Anion Gap 11 mmol/L; Blood Urea Nitrogen 14 mg/dL (7-17); Calcium 8.6 mg/dL (8.4-10.2); Carbon Dioxide 26 mmol/L (22-30); Total Bilirubin 0.5 mg/dL (0.2-1.3)
[2018-06-01] MEDS: traMADol 50 MG TAB PO SCH ×4 (08:01→21:14)
[2018-06-01] MEDS: GLIMEPIRIDE 4 MG TAB PO SCH ×2 (08:02→13:53)
[2018-06-01] MEDS: ENOXAPARIN 30 MG/0.3 ML SYRINGE SQ SCH ×2 (08:02→21:14)
[2018-06-01] MEDS: INSULIN ASPART 100 UNIT/ML 1 ML 10 ML VIAL SQ SCH ×4 (08:02→21:12)
[2018-06-01] MEDS: MELOXICAM 7.5 MG TAB PO SCH (08:03)
[2018-06-01] MEDS: LORATADINE 10 MG TAB PO SCH (08:03)
[2018-06-01] MEDS: metFORMIN 500 MG TAB PO SCH (08:03)
[2018-06-01] MEDS: METOPROLOL TARTRATE 50 MG TAB PO SCH (08:03)
[2018-06-01] MEDS: HYDROcodone/APAP 7.5-325MG 1 EACH TAB PO PRN ×2 (09:04→16:45)
--- NOTE | 2018-06-01 10:46 | P.PN ---
Subjective Progress Note Date: 06/01/18 Principal diagnosis: Status post right total knee arthroplasty Patient seen today resting in her hospital bed, she appears comfortable. She's ambulated with therapy. She denies any headaches, lightheadedness, chest pain or shortness of breath. Objective - Vital Signs Vital signs: Vital Signs Temp 98.7 F 06/01/18 07:24 Pulse 84 06/01/18 07:24 Resp 16 05/31/18 19:23 BP 130/78 06/01/18 07:24 Pulse Ox 95 06/01/18 07:24 Intake & Output 05/31/18 06/01/18 06/01/18 18:59 06:59 18:59 Intake Total 840 480 360 Output Total 200 Balance 640 480 360 Intake: Oral 840 480 360 Output: Urine 200 Other: # Voids 2 2 - Exam Right lower extremity: Incision is clean, dry, and intact. The prineo tape is in good condition. There is minimal soft tissue swelling and ecchymosis surrounding the medial and lateral aspects of the incision. Calf is soft, no tenderness with palpation. Plantar flexion, dorsiflexion, EHL, FHL are intact. Sensory exam to light touch throughout the extremity is intact, dorsal pedis pulses 2+. - Labs CBC & Chem 7: 06/01/18 06:50 06/01/18 06:50 Labs: Abnormal Lab Results - Last 24 Hours (Table) 05/31/18 05/31/18 05/31/18 Range/Units 10:58 16:47 19:56 Glucose (74-99) mg/dL POC Glucose (mg/dL) 166 H 190 H 239 H (75-99) mg/dL 06/01/18 06/01/18 Range/Units 06:50 06:55 Glucose 121 H (74-99) mg/dL POC Glucose (mg/dL) 116 H (75-99) mg/dL Assessment and Plan Plan: Assessment: Post op day #2 status post right total knee arthroplasty Plan: Pain control, continue subcu current medication GI and DVT prophylaxis, continue subcu medication. Discharge on Eliquis 2.5 mg twice a day for 14 days Wound care instructions discussed Encourage incentive spirometer Continue daily therapy Medical recommendations Discharge planning: Patient will be likely discharged home tomorrow Time with Patient: Less than 30
[2018-06-01 11:26] LABS: Glucose,Whole Blood 190 mg/dL (75-99)
--- NOTE | 2018-06-01 13:18 | P.PN ---
Subjective Progress Note Date: 06/01/18 This is a 57-year-old female, patient of [facility]. She has a known past medical history of hypertension, diabetes mellitus, GERD, hypothyroidism and osteoarthritis. Patient has been having right knee pain and underwent a right total knee arthroplasty yesterday with Dr. Hurt. She tolerated surgery well no complications. Estimated blood loss 50 mL. She is lying in bed comfortably. Pain is controlled. She denies any chest pain or shortness of breath. Denies any nausea or vomiting. She reports having gas no bowel movement yet. Denies any difficulty urinating. We've been consulted for medical management. On 06/01/2018 patient currently sitting up in chair complaint of occasional pain with movement in right knee. Per nursing staff patient had temp of 100.6. Patient denies any urinary symptoms. Patient denies cough, sore throat or any sinus symptoms. Urine and blood culture have been ordered along with chest x-ray. Objective - Vital Signs Vital signs: Vital Signs Temp 98.7 F 06/01/18 07:24 Pulse 84 06/01/18 07:24 Resp 16 05/31/18 19:23 BP 130/78 06/01/18 07:24 Pulse Ox 95 06/01/18 07:24 Intake & Output 05/31/18 06/01/18 06/01/18 18:59 06:59 18:59 Intake Total 840 480 360 Output Total 200 Balance 640 480 360 Intake: Oral 840 480 360 Output: Urine 200 Other: # Voids 2 2 - Exam Head normocephalic Neck supple Lungs clear to auscultation bilaterally no wheezing or crackles Heart regular rate and rhythm S1-S2, no rub or gallop Abdomen is soft nontender nondistended positive bowel sounds no hepatosplenomegaly Extremities no edema. right knee dressing clean dry and intact Neuro alert and orientated to 3 - Labs CBC & Chem 7: 06/01/18 06:50 06/01/18 06:50 Labs: Abnormal Lab Results - Last 24 Hours (Table) 05/31/18 05/31/18 06/01/18 Range/Units 16:47 19:56 06:50 Glucose 121 H (74-99) mg/dL POC Glucose (mg/dL) 190 H 239 H (75-99) mg/dL 06/01/18 06/01/18 Range/Units 06:55 11:21 Glucose (74-99) mg/dL POC Glucose (mg/dL) 116 H 190 H (75-99) mg/dL Assessment and Plan Assessment: 1. Status post Right total knee arthroplasty: Continue with current current pain medication. Continue Lovenox for DVT prophylaxis. Per or so services plan to discharge home tomorrow on eliquis 2.5 mg twice a day for 14 days. 2. Essential hypertension: Blood pressure on the lower side of 111/72. We will hold the losartan/hydrochlorothiazide. Okay to resume the metoprolol. We will place parameters to hold for systolic blood pressure less than 110 or heart rate less than 55. Blood pressure remains marginal. We'll continue to hold losartan/hydrochlorothiazide. Patient has been receiving Lopressor. 3. Diabetes mellitus type 2 continue the Amaryl and sliding scale coverage 4. Hyperlipidemia continue Lipitor 5. Hypothyroidism continue Synthroid 6. Febrile. Per nursing staff patient had a temp of 100.6. Urine and blood cultures have been ordered. Chest x-ray also ordered GI prophylaxis Pepcid and DVT prophylaxis Lovenox I performed an examination of the patient and discussed their management with the Nurse Practitioner. I have reviewed the Nurse Practitioner's notes and agree with the documented findings and plan of care
--- NOTE | 2018-06-01 16:16 | XR ---
EXAMINATION TYPE: XR chest 2V DATE OF EXAM: 06/01/2018 COMPARISON: Chest x-ray February 17, 2017 HISTORY: Fever status post knee replacement yesterday TECHNIQUE: Frontal and lateral views of the chest are obtained. FINDINGS: There is no focal air space opacity, pleural effusion, or pneumothorax seen. The cardiac silhouette size is stable and enlarged. The osseous structures are intact. IMPRESSION: No suspicious acute infiltrate.
[2018-06-01 16:52] LABS: Glucose,Whole Blood 173 mg/dL (75-99)
[2018-06-01 18:30] LABS: Appearance,Urine Clear (Clear); Bilirubin,Urine Negative (Negative); Blood,Urine Negative (Negative); Color,Urine Colorless; Glucose,Urine (UA) 3+ (Negative); Ketones,Urine Negative (Negative); Leukocyte Esterase,Urine Negative (Negative); Nitrite,Urine Negative (Negative); PH, Urine 6.5 (5.0-8.0); Protein,Urine Negative (Negative); Specific Gravity,Urine 1.004 (1.001-1.035); Urobilinogen,Urine <2.0 mg/dL (<2.0)
[2018-06-01 20:39] LABS: Glucose,Whole Blood 260 mg/dL (75-99)
[2018-06-01] MEDS: FAMOTIDINE 20 MG TAB PO SCH (21:13)
[2018-06-01] MEDS: ATORVASTATIN 10 MG TAB PO SCH (21:14)
[2018-06-01] MEDS: GABAPENTIN 300 MG CAP PO SCH (21:14)
[2018-06-01] MEDS: SENNOSIDES-DOCUSATE SODIUM 1 EACH TAB PO SCH (21:16)
[2018-06-02] MEDS: LACTATED RINGERS 1,000 ML IV SCH ×3 (04:15→15:17)
[2018-06-02] MEDS: LEVOTHYROXINE 50 MCG TAB PO SCH (05:43)
[2018-06-02] MEDS: HYDROcodone/APAP 7.5-325MG 1 EACH TAB PO PRN (05:43)
[2018-06-02 06:56] LABS: Glucose,Whole Blood 142 mg/dL (75-99)
[2018-06-02 08:08] LABS: Basophils % (A) 0 %; Eosinophils % (A) 0 %; HCT 34.3 % (34.0-46.0); HGB 11.4 gm/dL (11.4-16.0); Lymphocytes # (A) 1.7 k/uL (1.0-4.8); Lymphocytes % (A) 18 %; MCH 30.5 pg (25.0-35.0); MCHC 33.4 g/dL (31.0-37.0); MCV 91.4 fL (80.0-100.0); Mean Platelet Volume 7.5; Monocytes # (A) 0.7 k/uL (0-1.0); Monocytes % (A) 7 %; Neutrophils # (A) 6.9 k/uL (1.3-7.7); Neutrophils % (A) 73 %; Platelet Count 217 k/uL (150-450); RBC 3.75 m/uL (3.80-5.40); RDW 13.7 % (11.5-15.5); WBC 9.4 k/uL (3.8-10.6)
[2018-06-02] MEDS: INSULIN ASPART 100 UNIT/ML 1 ML 10 ML VIAL SQ SCH ×2 (08:18→13:22)
[2018-06-02] MEDS: GLIMEPIRIDE 4 MG TAB PO SCH ×2 (08:18→13:22)
[2018-06-02] MEDS: ENOXAPARIN 30 MG/0.3 ML SYRINGE SQ SCH (08:18)
[2018-06-02] MEDS: metFORMIN 500 MG TAB PO SCH (08:19)
[2018-06-02] MEDS: MELOXICAM 7.5 MG TAB PO SCH (08:19)
[2018-06-02] MEDS: LORATADINE 10 MG TAB PO SCH (08:20)
[2018-06-02] MEDS: METOPROLOL TARTRATE 50 MG TAB PO SCH (08:20)
[2018-06-02] MEDS: traMADol 50 MG TAB PO SCH ×2 (08:22→13:22)
--- NOTE | 2018-06-02 08:40 | P.PN ---
Subjective Progress Note Date: 06/02/18 Principal diagnosis: Status post right total knee arthroplasty Patient seen today resting in her hospital bed, she appears comfortable. She's ambulated with therapy. She denies any headaches, lightheadedness, chest pain or shortness of breath. Objective - Vital Signs Vital signs: Vital Signs Temp 99.1 F 06/02/18 07:30 Pulse 93 06/02/18 07:30 Resp 18 06/02/18 07:30 BP 149/82 06/02/18 07:30 Pulse Ox 96 06/02/18 00:00 Intake & Output 06/01/18 06/02/18 06/02/18 18:59 06:59 18:59 Intake Total 600 1320 Balance 600 1320 Intake: Oral 600 1320 Other: Voiding Method Toilet # Voids 2 3 # Bowel Movements 0 - Exam Right lower extremity: Incision is clean, dry, and intact. The prineo tape is in good condition. There is minimal soft tissue swelling and ecchymosis surrounding the medial and lateral aspects of the incision. Calf is soft, no tenderness with palpation. Plantar flexion, dorsiflexion, EHL, FHL are intact. Sensory exam to light touch throughout the extremity is intact, dorsal pedis pulses 2+. - Labs CBC & Chem 7: 06/02/18 06:56 06/01/18 06:50 Labs: Abnormal Lab Results - Last 24 Hours (Table) 06/01/18 06/01/18 06/01/18 Range/Units 11:21 16:43 17:15 RBC (3.80-5.40) m/uL POC Glucose (mg/dL) 190 H 173 H (75-99) mg/dL Urine Glucose (UA) 3+ H (Negative) 06/01/18 06/02/18 06/02/18 Range/Units 20:33 06:46 06:56 RBC 3.75 L (3.80-5.40) m/uL POC Glucose (mg/dL) 260 H 142 H (75-99) mg/dL Urine Glucose (UA) (Negative) Microbiology - Last 24 Hours (Table) 06/01/18 17:15 Urine Culture - Preliminary Urine,Voided Assessment and Plan Plan: Assessment: Post op day #3 status post right total knee arthroplasty Plan: Pain control, continue subcu current medication GI and DVT prophylaxis, continue subcu medication. Discharge on Eliquis 2.5 mg twice a day for 14 days Wound care instructions discussed Encourage incentive spirometer Continue daily therapy Medical recommendations Discharge planning: plan for discharge home today Time with Patient: Less than 30
[2018-06-02 08:42] LABS: ALT 39 U/L (9-52); AST 27 U/L (14-36); Albumin 3.3 g/dL (3.5-5.0); Alkaline Phosphatase 100 U/L (38-126); Anion Gap 9 mmol/L; Blood Urea Nitrogen 9 mg/dL (7-17); Calcium 8.9 mg/dL (8.4-10.2); Carbon Dioxide 24 mmol/L (22-30); Chloride 108 mmol/L (98-107); Glucose 138 mg/dL (74-99); Potassium 4.1 mmol/L (3.5-5.1); Sodium 141 mmol/L (137-145); Total Bilirubin 0.5 mg/dL (0.2-1.3); Total Protein 5.9 g/dL (6.3-8.2)
--- NOTE | 2018-06-02 08:44 | P.DS ---
Providers Date of admission: 05/30/18 10:25 Expected date of discharge: 06/02/18 Attending physician: Cliff Hurt Primary care physician: Pura Rojas Hospital Course: Date of admission: 05/30/2018 Date of discharge: 06/02/2018 Admission diagnosis: Status post right total knee arthroplasty Discharge diagnosis: Same Attending physician: Dr. Hurt Surgical procedures: Right total knee arthroplasty Brief history: Patient is a 57-year-old female with a history of progressive primary right knee osteoarthritis. At this point patient has failed conservative treatment measures and has opted to proceed with a elective right total knee arthroplasty. Hospital course: Details of patient's surgery can be found in operative report. Patient tolerated the procedure well and was subsequently transported to orthopedic floor. Patient's orthopeidc and medical care was provided daily. Patient had daily laboratory tests performed for evaluation of overall blood counts. Patient had daily physical therapy to include strengthening range of motion as well as education with walker ambulation. Patient had daily CPM usage as part of their physical therapy program. Patient was treated with Lovenox for their postoperative DVT prophylaxis during their inpatient stay. Patient was noted to have a relatively uneventful postoperative course. Patient reported satisfactory pain control with oral pain medications by postoperative day 0. Patient showed satisfactory progress with physical therapy. Patient moved steadily through the program and had no difficulty meeting the goals by postoperative day 3. Given patient's otherwise satisfactory course and having met physical therapy goals, plan is to discharge patient home on postoperative day 3. Discharge condition/disposition: Patient will be discharged home in stable condition. Discharge medications: Instructions are given on resumption of patient's normal daily medications per primary care recommendation, in addition patient will be prescribed Leopold 7.5 mg/2.5 mg, tramadol 50 mg, Eliquis 2.5mg. Discharge instructions: 1. Wound care and infection precautions, keep incision dry and covered while showering, no lotions, creams, moisturizers. No soaking, tubs, pools, hottubs. Do not scrub over the incision. 2. Weight-bear as tolerated with walker / cane until follow-up. 3. Ice and elevate when necessary. Do not exceed 20 minutes per hour with ice pack. 4. Utilize compression sleeve until seen at first follow up appointment. 5. Visiting nursing care. 6. Home physical therapy including home CPM. 7. Pain meds and anticoagulants per prescription. 8. Pain medication has potential to cause constipation. Increase oral fluid and fiber intake. Contact primary care provider if you have not had a bowel movement within 48 hours after discharge 9. No anti-inflammatory medication until discussed at first post operative visit, this including Motrin, Aleve, Mobic, Diclofenac. 10. Follow up in office at 2 weeks postop with Akbar Ruffin PA-C 11. Follow up with your primary care doctor 7-10 days after discharge. 12. Contact [facility] with any questions, . Procedures: Right total knee arthroplasty Patient Condition at Discharge: Good Plan - Discharge Summary Discharge Rx Participant: Yes New Discharge Prescriptions: New Apixaban [Eliquis] 2.5 mg PO BID #30 tab Docusate [Colace] 100 mg PO DAILY #30 capsule HYDROcodone/APAP 7.5-325MG [Leopold 7.5] 1 - 2 each PO Q6HR PRN #56 tab PRN Reason: Pain traMADol HCl [Ultram] 50 mg PO Q6H PRN #28 tab PRN Reason: Pain No Action metFORMIN HCL [Glucophage] 500 mg PO QAM Lovastatin [Mevacor] 20 mg PO HS Calcium Carbonate/Vitamin D3 [Calcium 600-Vit D3 400 Caplet] 1 tab PO QAM Omeprazole [PriLOSEC] 20 mg PO QAM Loratadine [Claritin] 10 mg PO QAM Levothyroxine Sodium [Synthroid] 50 mcg PO QAM Gabapentin [Neurontin] 300 mg PO HS Meclizine [Antivert] 25 mg PO TID PRN PRN Reason: Vertigo Glimepiride [Amaryl] 4 mg PO BID@0800,1200 Ranitidine HCl 300 mg PO HS Fluticasone Propionate [Flonase Allergy Relief] 1 spray EA NOSTRIL BID PRN PRN Reason: Allergic Reaction Losartan/Hydrochlorothiazide [Hyzaar 100-25 Tablet] 1 tab PO QAM Metoprolol Tartrate [Lopressor] 50 mg PO QAM Discharge Medication List Calcium Carbonate/Vitamin D3 [Calcium 600-Vit D3 400 Caplet] 1 tab PO QAM [History] Gabapentin [Neurontin] 300 mg PO HS 02/16/17 [History] Levothyroxine Sodium [Synthroid] 50 mcg PO QAM 02/16/17 [History] Loratadine [Claritin] 10 mg PO QAM 02/16/17 [History] Lovastatin [Mevacor] 20 mg PO HS 02/16/17 [History] Omeprazole [PriLOSEC] 20 mg PO QAM 02/16/17 [History] metFORMIN HCL [Glucophage] 500 mg PO QAM 02/16/17 [History] Fluticasone Propionate [Flonase Allergy Relief] 1 spray EA NOSTRIL BID PRN 05/17 [History] Glimepiride [Amaryl] 4 mg PO BID@0800,1200 05/17/18 [History] Losartan/Hydrochlorothiazide [Hyzaar 100-25 Tablet] 1 tab PO QAM 05/17/18 [ History] Meclizine [Antivert] 25 mg PO TID PRN 05/17/18 [History] Metoprolol Tartrate [Lopressor] 50 mg PO QAM 05/17/18 [History] Ranitidine HCl 300 mg PO HS 05/17/18 [History] Apixaban [Eliquis] 2.5 mg PO BID #30 tab 05/31/18 [Rx] Docusate [Colace] 100 mg PO DAILY #30 capsule 06/02/18 [Rx] HYDROcodone/APAP 7.5-325MG [Leopold 7.5] 1 - 2 each PO Q6HR PRN #56 tab 06/02/18 [ Rx] traMADol HCl [Ultram] 50 mg PO Q6H PRN #28 tab 06/02/18 [Rx] Follow up Appointment(s)/Referral(s): Antwon Rfufin PAC [PHYSICIAN MASTER DATA ANALYST] - 06/15/18 1:30 pm Pura Rojas DO [Primary Care Provider] - 06/08/18 10:00 am (At [place] office with Audrey) Activity/Diet/Wound Care/Special Instructions: Orthopedic Discharge Instructions: 1. Wound care and infection precautions, keep incision dry and covered while showering, no lotions, creams, moisturizers. No soaking, pools, hot tubs. Do not scrub over incision. 2. Weight-bear as tolerated with walker / cane until follow-up. 3. Ice and elevate when necessary. Do not exceed 20 minutes per hour with ice pack. 4. Utilize compression sleeve until seen at first follow up appointment. 5. Visiting nursing care. 6. Home physical therapy including home CPM. 7. Pain meds and anticoagulants per prescription. 8. Pain medication has potential to cause constipation. Increase oral fluid and fiber intake. Contact primary care provider if you have not had a bowel movement within 48 hours after discharge. 9. No anti-inflammatory medication until discussed at first post operative visit, this including Motrin, Aleve, Mobic, Diclofenac. 10. Follow up in office at 2 weeks postop with Akbar Ruffin PA-C 11. Follow up with your primary care doctor 7-10 days after discharge. 12. Contact [facility] with any questions, . Discharge Disposition: HOME WITH HOME HEALTH SERVICES
[2018-06-02 11:41] LABS: Glucose,Whole Blood 177 mg/dL (75-99)
[2018-06-02] MEDS ORDERED: NYSTATIN 100,000 UNIT/ML SUSP 500,000 UNIT/5 ML CUP PO SCH (13:00)
--- NOTE | 2018-06-02 13:39 | P.PN ---
Subjective Progress Note Date: 06/02/18 This is a 57-year-old female, patient of [facility]. She has a known past medical history of hypertension, diabetes mellitus, GERD, hypothyroidism and osteoarthritis. Patient has been having right knee pain and underwent a right total knee arthroplasty yesterday with Dr. Hurt. She tolerated surgery well no complications. Estimated blood loss 50 mL. She is lying in bed comfortably. Pain is controlled. She denies any chest pain or shortness of breath. Denies any nausea or vomiting. She reports having gas no bowel movement yet. Denies any difficulty urinating. We've been consulted for medical management. On 06/01/2018 patient currently sitting up in chair complaint of occasional pain with movement in right knee. Per nursing staff patient had temp of 100.6. Patient denies any urinary symptoms. Patient denies cough, sore throat or any sinus symptoms. Urine and blood culture have been ordered along with chest x-ray. 06/02/2018 patient has been working with physical therapy. She has been up and ambulating. No further temps. She has no new complaints. Urine culture negative chest x-ray negative. She is still complaining of some soreness in her throat there is some evidence of thrush nystatin swish and swallow has been ordered Objective - Vital Signs Vital signs: Vital Signs Temp 99.1 F 06/02/18 07:30 Pulse 93 06/02/18 07:30 Resp 18 06/02/18 07:30 BP 149/82 06/02/18 07:30 Pulse Ox 96 06/02/18 00:00 Intake & Output 06/01/18 06/02/18 06/02/18 18:59 06:59 18:59 Intake Total 600 1320 200 Balance 600 1320 200 Intake: Oral 600 1320 200 Other: Voiding Method Toilet # Voids 2 3 1 # Bowel Movements 0 - Exam Head normocephalic Neck supple Lungs clear to auscultation bilaterally no wheezing or crackles Heart regular rate and rhythm S1-S2, no rub or gallop Abdomen is soft nontender nondistended positive bowel sounds no hepatosplenomegaly Extremities no edema Neuro alert and orientated to 3 - Labs CBC & Chem 7: 06/02/18 06:56 06/02/18 06:56 Labs: Abnormal Lab Results - Last 24 Hours (Table) 06/01/18 06/01/18 06/01/18 Range/Units 16:43 17:15 20:33 RBC (3.80-5.40) m/uL Chloride (98-107) mmol/L Glucose (74-99) mg/dL POC Glucose (mg/dL) 173 H 260 H (75-99) mg/dL Total Protein (6.3-8.2) g/dL Albumin (3.5-5.0) g/dL Urine Glucose (UA) 3+ H (Negative) 06/02/18 06/02/18 06/02/18 Range/Units 06:46 06:56 06:56 RBC 3.75 L (3.80-5.40) m/uL Chloride 108 H (98-107) mmol/L Glucose 138 H (74-99) mg/dL POC Glucose (mg/dL) 142 H (75-99) mg/dL Total Protein 5.9 L (6.3-8.2) g/dL Albumin 3.3 L (3.5-5.0) g/dL Urine Glucose (UA) (Negative) 06/02/18 Range/Units 11:06 RBC (3.80-5.40) m/uL Chloride (98-107) mmol/L Glucose (74-99) mg/dL POC Glucose (mg/dL) 177 H (75-99) mg/dL Total Protein (6.3-8.2) g/dL Albumin (3.5-5.0) g/dL Urine Glucose (UA) (Negative) Microbiology - Last 24 Hours (Table) 06/01/18 17:15 Urine Culture - Preliminary Urine,Voided Assessment and Plan Assessment: 1. Status post Right total knee arthroplasty: Orthopedics are discharging her on Eliquis 2.5 mg twice a day for DVT prophylaxis 2. Essential hypertension: Patient's blood pressures have improved. She is tolerating the metoprolol. It is okay for her to resume her Hydrocort thiazide/ losartan at home 3. Diabetes mellitus type 2 continue the Amaryl and sliding scale coverage 4. Hyperlipidemia continue Lipitor 5. Hypothyroidism continue Synthroid 6. Oral thrush start nystatin swish and swallow Patient is medically stable for discharge. We'll follow-up with her PCP in 1 week. I performed an examination of the patient and discussed their management with the physician Fan Mail Clerk. I have reviewed the Physician Fan Mail Clerk's notes and agree with the documented findings and plan of care
[2018-06-02 14:20] VITALS: BP 150/84; PULSE 76; RESP 17; TEMP 98.8
== END 2018-06-02 15:47 | disposition home health service (06) | DRG 470 ==
LOC: 2ORMAIN 10:25 → 3SUR 17:25
PROVIDERS: ADMIT Orthopaedic Surgery; ATTEND Orthopaedic Surgery
PROC: 0SRC0J9 Replacement of Right Knee Joint with Synthetic Substitute, Cemented, Open Approach (ICD-10-PCS; principal; 2018-05-30 13:00)
DX: M17.11 Unilateral primary osteoarthritis, right knee (principal); B37.0 Candidal stomatitis; E03.9 Hypothyroidism, unspecified; E11.40 Type 2 diabetes mellitus with diabetic neuropathy, unspecified; E78.5 Hyperlipidemia, unspecified; I10 Essential (primary) hypertension; K21.9 Gastro-esophageal reflux disease without esophagitis; K58.9 Irritable bowel syndrome, unspecified; Z79.01 Long term (current) use of anticoagulants; Z79.84 Long term (current) use of oral hypoglycemic drugs; Z79.899 Other long term (current) drug therapy; Z80.49 Family history of malignant neoplasm of other genital organs; Z80.8 Family history of malignant neoplasm of other organs or systems; Z82.3 Family history of stroke; Z82.49 Family history of ischemic heart disease and other diseases of the circulatory system; Z83.3 Family history of diabetes mellitus; Z90.710 Acquired absence of both cervix and uterus; Z90.49 Acquired absence of other specified parts of digestive tract; Z79.890 Hormone replacement therapy; Z88.5 Allergy status to narcotic agent; R50.9 Fever, unspecified
CPT/HCPCS: 71046; 80053; 81003; 85025; 87040; 87086; 88300

== ENCOUNTER → 2019-05-17 | Outpatient (CLI) | payer BC, OTHER ==
--- NOTE | 2019-05-19 07:56 | MM ---
Reason for exam: screening (asymptomatic). Last mammogram was performed 1 year and 6 months ago. History: Patient is postmenopausal. Physical Findings: A clinical breast exam by your physician is recommended on an annual basis and results should be correlated with mammographic findings. MG 3D Screening Mammo W/Cad Bilateral CC and MLO view(s) were taken. Prior study comparison: November 17, 2017, bilateral MG screening mammo w CAD. September 11, 2016, bilateral MG screening mammo w CAD. There are scattered fibroglandular densities. There is chronic nodularity in the left breast. No significant changes when compared with prior studies. ASSESSMENT: Negative, BI-RAD 1 RECOMMENDATION: Routine screening mammogram of both breasts in 1 year.
== END | disposition home or self-care (01) ==
LOC: RADMAMWWP 14:55
PROVIDERS: ATTEND Pediatrics
DX: Z12.31 Encounter for screening mammogram for malignant neoplasm of breast (principal)
CPT/HCPCS: 77063; 77067

== ENCOUNTER 2020-02-29 15:44 | Inpatient (IN) | payer OTHER ==
[2020-02-29] MEDS ORDERED: ACETAMINOPHEN TAB 325 MG TAB PO STA (16:15)
[2020-02-29] MEDS ORDERED: ALBUTEROL HFA INHALER INHALATION STA (16:28)
[2020-02-29 17:15] LABS: Basophils % (A) 0 %; Eosinophils % (A) 0 %; HCT 32.3 % (34.0-46.0); HGB 11.2 gm/dL (11.4-16.0); Lymphocytes % (A) 10 %; MCH 29.6 pg (25.0-35.0); MCHC 34.6 g/dL (31.0-37.0); MCV 85.5 fL (80.0-100.0); Mean Platelet Volume 8.6; Monocytes # (A) 0.3 k/uL (0-1.0); Monocytes % (A) 4 %; Neutrophils # (A) 7.8 k/uL (1.3-7.7); Neutrophils % (A) 84 %; Platelet Count 245 k/uL (150-450); RBC 3.78 m/uL (3.80-5.40); RDW 13.7 % (11.5-15.5); WBC 9.4 k/uL (3.8-10.6)
--- NOTE | 2020-02-29 17:17 | XR ---
EXAMINATION TYPE: XR chest 1V portable DATE OF EXAM: 02/29/2020 COMPARISON: 06/01/2018 HISTORY: Fever, cough, shortness of breath. Possible COVID19 TECHNIQUE: Single frontal view of the chest is obtained. FINDINGS: There is subtle peripheral patchy opacities are seen near the right costophrenic angle and in the left midlung. Poor delineation of the left hemidiaphragm. Lung apices are well aerated. Cardi omediastinal silhouette is partially obscured but overall grossly unremarkable. Osseous structures ar e intact. IMPRESSION: Faint peripheral opacities although may represent atelectasis could also represent devel oping multifocal lung injury or pneumonia in this patient with suspected COVID19. Progress exams are recommended.
[2020-02-29 17:22] LABS: C Reactive Protein 47.7 mg/L (<10.0); Magnesium 1.3 mg/dL (1.6-2.3); Potassium 3.3 mmol/L (3.5-5.1); Total Bilirubin 0.4 mg/dL (0.2-1.3); Total Protein 7.3 g/dL (6.3-8.2)
[2020-02-29] MEDS ORDERED: SODIUM CHLORIDE 0.9% 1,000 ML IV ONE (17:27)
[2020-02-29 17:28] LABS: Partial Thromboplastin Time 26.3 sec (22.0-30.0)
[2020-02-29 17:32] LABS: D-Dimer 2.05 mg/L FEU (<0.60)
[2020-02-29] MEDS ORDERED: NALOXONE 0.4 MG/ML 1 ML VIAL IV PRN (18:23)
--- NOTE | 2020-02-29 18:25 | ED ---
General Adult HPI - General Chief complaint: Shortness of Breath Stated complaint: Fever, cough, SOB Time Seen by Provider: 02/29/20 15:53 Source: patient, RN notes reviewed, old records reviewed Mode of arrival: ambulatory Limitations: no limitations - History of Present Illness Initial comments: 59-year-old female patient with a past history of diabetes hypertension presents to ED for chief complaint cough shortness of breath for the last week. Reports have gotten worse the last few days. Denies any chest pain. Denies any other complaints. Systemic: Pt denies fatigue, fever/chills, rash. Pt denies weakness, night sweats, weight loss. Neuro: Pt denies headache, visual disturbances, syncope or pre-syncope. HEENT: Pt denies ocular discharge or irritation, otalgia, rhinorrhea, pharyngitis or notable lymphadenopathy. Cardiopulmonary: Pt denies chest pain, heart palpitations, dyspnea on exertion. Abdominal/GI: Pt denies abdominal pain, n/v/d. : Pt denies dysuria, burning w/ urination, frequency/urgency. Denies new onset urinary or bowel incontinence. MSK: Pt denies myalgia, loss of strength or function in extremities. Neuro: Pt denies new onset weakness, paresthesias. - Related Data Home Medications Medication Instructions Recorded Confirmed Calcium Carbonate/Vitamin D3 1 tab PO QAM 02/16/17 02/29/20 [Calcium 600-Vit D3 400 Caplet] Gabapentin [Neurontin] 300 mg PO 02/16/17 02/29/20 Levothyroxine Sodium [Synthroid] 50 mcg PO QAM 02/16/17 02/29/20 Loratadine [Claritin] 10 mg PO QAM 02/16/17 02/29/20 Omeprazole [PriLOSEC] 20 mg PO QAM 02/16/17 02/29/20 metFORMIN HCL [Glucophage] 500 mg PO BID 02/16/17 02/29/20 Fluticasone Propionate [Flonase 1 spray EA NOSTRIL BID PRN 05/17/18 02/29/20 Allergy Relief] Glimepiride [Amaryl] 4 mg PO DAILY 05/17/18 02/29/20 Hydrochlorothiazide 25 mg PO QAM 02/29/20 02/29/20 Hydrocodone/Acetaminophen [[place] 1 tab PO HS 02/29/20 02/29/20 5-325] Losartan Potassium 100 mg PO DAILY 02/29/20 02/29/20 Lovastatin [Mevacor] 40 mg PO HS 02/29/20 02/29/20 Metoprolol Succinate [Toprol XL] 50 mg PO DAILY 02/29/20 02/29/20 Allergies Allergy/AdvReac Type Severity Reaction Status Date / Time morphine Allergy Itching Verified 02/29/20 18:05 Review of Systems ROS Statement: Those systems with pertinent positive or pertinent negative responses have been documented in the HPI. ROS Other: All systems not noted in ROS Statement are negative. Past Medical History Past Medical History: Diabetes Mellitus, GERD/Reflux, Hyperlipidemia, Hypertension, Thyroid Disorder Additional Past Medical History / Comment(s): Seasonal Allergies, diabetic oumar ropathy, vitamin D deficiency History of Any Multi-Drug Resistant Organisms: None Reported Past Surgical History: Cholecystectomy, Hysterectomy Additional Past Surgical History / Comment(s): Colonoscopy Past Anesthesia/Blood Transfusion Reactions: Postoperative Nausea & Vomiting (PONV) Past Psychological History: No Psychological Hx Reported Smoking Status: Never smoker Past Alcohol Use History: None Reported Past Drug Use History: None Reported - Past Family History Mother Family Medical History: CVA/TIA, Deep Vein Thrombosis (DVT), Myocardial Infarction ([place]) Additional Family Medical History / Comment(s): Mother with history of myocardial infarction, stroke, DVT. Father History Unknown: Yes Family Medical History: Diabetes Mellitus, Hypertension Additional Family Medical History / Comment(s): Dad is alive at age 85 with history of diabetes and hypertension. Brother(s) Family Medical History: No Reported History Additional Family Medical History / Comment(s): Patient has 1 brother and 1 sister with no major medical problems. Daughter(s) Family Medical History: Cancer, Hypertension Additional Family Medical History / Comment(s): Cervical cancer. Sister(s) Family Medical History: Cancer Additional Family Medical History / Comment(s): Thyroid cancer General Exam - General Exam Comments Initial Comments: Constitutional: NAD, AOX3, Pt has pleasant affect. HEENT: NC/AT, trachea midline, neck supple, no lymphadenopathy. Posterior pharynx non erythematous, without exudates. External ears appear normal, without discharge. Mucous membranes moist. Eyes PERRLA, EOM intact. There is no scleral icterus. No pallor noted. Cardiopulmonary: RRR, no murmurs, rubs or gallops, no JVD noted. Lungs CTAB in anterior and posterior broderick. No peripheral edema. Abdominal exam: Abdomen soft and non-distended. Abdomen non-tender to palpation in all 4 quadrants. Bowel sounds active in LLQ. No hepatosplenomegaly. No ecchymosis Neuro: CN II-XII grossly intact. No nuchal rigidity. No raccon eyes, no ayala sign, no hemotympanum. No cervical spinal tenderness. MSK: No posterior calf tenderness bilaterally, homans sign negative bilaterally. Posterior tibialis and radial pulse +2 bilaterally. Sensation intact in upper and lower extremities. Full active ROM in upper and lower extremities, 5/5 stregnth. Limitations: no limitations Course Vital Signs 02/29/20 02/29/20 02/29/20 15:47 17:30 19:10 Temperature 100.1 F H 99.2 F 99.1 F Pulse Rate 101 H 85 65 Pulse Rate [ Pulse Oximetery ] Respiratory 20 18 18 Rate Blood Pressure 100/64 110/70 101/67 Blood Pressure [Right Arm] O2 Sat by Pulse 93 L 96 95 Oximetry 02/29/20 20:00 Temperature 98.4 F Pulse Rate Pulse Rate [ 73 Pulse Oximetery ] Respiratory 20 Rate Blood Pressure Blood Pressure 143/73 [Right Arm] O2 Sat by Pulse 94 L Oximetry Medical Decision Making - Medical Decision Making 59-year-old female patient with a past history of diabetes hypertension presents to ED for chief complaint cough shortness of breath for the last week. Reports have gotten worse the last few days. Denies any chest pain. Denies any other complaints. Patient vital signs displayed temperature 100.1F. Patient was administered antipyretic. Physical exam didn't display acute pathology. Patient is in no respiratory distress, saturating on room air satting 96% at time of admission. Laboratory investigations were obtained kidney injury of 3.22. Likely prerenal patient reports that her oral intake has been significantly decreased. LDH elevated, CRP elevated, coronavirus PCR is positive. D-dimer is elevated likely secondary to coronavirus. Chest x-ray displayed faint peripheral opacities which may represent atelectasis or could developing multifocal lung injury. Pt will be admitted for NATALI. Case discussed with Dr. Plascencia. - Lab Data Result diagrams: 02/29/20 16:42 02/29/20 16:42 Lab Results 02/29/20 02/29/20 02/29/20 Range/Units 16:30 16:30 16:42 WBC 9.4 (3.8-10.6) k/uL RBC 3.78 L (3.80-5.40) m/uL Hgb 11.2 L (11.4-16.0) gm/dL Hct 32.3 L (34.0-46.0) % MCV 85.5 (80.0-100.0) fL MCH 29.6 (25.0-35.0) pg MCHC 34.6 (31.0-37.0) g/dL RDW 13.7 (11.5-15.5) % Plt Count 245 (150-450) k/uL Neutrophils % 84 % Lymphocytes % 10 % Monocytes % 4 % Eosinophils % 0 % Basophils % 0 % Neutrophils # 7.8 H (1.3-7.7) k/uL Lymphocytes # 1.0 (1.0-4.8) k/uL Monocytes # 0.3 (0-1.0) k/uL Eosinophils # 0.0 (0-0.7) k/uL Basophils # 0.0 (0-0.2) k/uL PT (9.0-12.0) sec INR (<1.2) APTT (22.0-30.0) sec D-Dimer (<0.60) mg/L FEU Sodium (137-145) mmol/L Potassium (3.5-5.1) mmol/L Chloride (98-107) mmol/L Carbon Dioxide (22-30) mmol/L Anion Gap mmol/L BUN (7-17) mg/dL Creatinine (0.52-1.04) mg/dL Est GFR (CKD-EPI)AfAm (>60 ml/min/1.73 sqM) Est GFR (CKD-EPI)NonAf (>60 ml/min/1.73 sqM) Glucose (74-99) mg/dL Plasma Lactic Acid Gary (0.7-2.0) mmol/L Calcium (8.4-10.2) mg/dL Magnesium (1.6-2.3) mg/dL Total Bilirubin (0.2-1.3) mg/dL AST (14-36) U/L ALT (4-34) U/L Alkaline Phosphatase (38-126) U/L Lactate Dehydrogenase (313-618) U/L Troponin I (0.000-0.034) ng/mL C-Reactive Protein (<10.0) mg/L Total Protein (6.3-8.2) g/dL Albumin (3.5-5.0) g/dL Coronavirus (PCR) Detected A (Not Detectd) Influenza Type A RNA Not Detected (Not Detectd) Influenza Type B (PCR) Not Detected (Not Detectd) 02/29/20 02/29/20 02/29/20 Range/Units 16:42 16:42 16:42 WBC (3.8-10.6) k/uL RBC (3.80-5.40) m/uL Hgb (11.4-16.0) gm/dL Hct (34.0-46.0) % MCV (80.0-100.0) fL MCH (25.0-35.0) pg MCHC (31.0-37.0) g/dL RDW (11.5-15.5) % Plt Count (150-450) k/uL Neutrophils % % Lymphocytes % % Monocytes % % Eosinophils % % Basophils % % Neutrophils # (1.3-7.7) k/uL Lymphocytes # (1.0-4.8) k/uL Monocytes # (0-1.0) k/uL Eosinophils # (0-0.7) k/uL Basophils # (0-0.2) k/uL PT 10.0 (9.0-12.0) sec INR 1.0 (<1.2) APTT 26.3 (22.0-30.0) sec D-Dimer 2.05 H (<0.60) mg/L FEU Sodium 134 L (137-145) mmol/L Potassium 3.3 L (3.5-5.1) mmol/L Chloride 102 (98-107) mmol/L Carbon Dioxide 16 L (22-30) mmol/L Anion Gap 16 mmol/L BUN 48 H (7-17) mg/dL Creatinine 3.22 H (0.52-1.04) mg/dL Est GFR (CKD-EPI)AfAm 17 (>60 ml/min/1.73 sqM) Est GFR (CKD-EPI)NonAf 15 (>60 ml/min/1.73 sqM) Glucose 153 H (74-99) mg/dL Plasma Lactic Acid Gary 0.9 (0.7-2.0) mmol/L Calcium 8.0 L (8.4-10.2) mg/dL Magnesium 1.3 L (1.6-2.3) mg/dL Total Bilirubin 0.4 (0.2-1.3) mg/dL AST 49 H (14-36) U/L ALT 24 (4-34) U/L Alkaline Phosphatase 100 (38-126) U/L Lactate Dehydrogenase 1053 H (313-618) U/L Troponin I (0.000-0.034) ng/mL C-Reactive Protein 47.7 H (<10.0) mg/L Total Protein 7.3 (6.3-8.2) g/dL Albumin 4.0 (3.5-5.0) g/dL Coronavirus (PCR) (Not Detectd) Influenza Type A RNA (Not Detectd) Influenza Type B (PCR) (Not Detectd) 02/29/20 Range/Units 16:42 WBC (3.8-10.6) k/uL RBC (3.80-5.40) m/uL Hgb (11.4-16.0) gm/dL Hct (34.0-46.0) % MCV (80.0-100.0) fL MCH (25.0-35.0) pg MCHC (31.0-37.0) g/dL RDW (11.5-15.5) % Plt Count (150-450) k/uL Neutrophils % % Lymphocytes % % Monocytes % % Eosinophils % % Basophils % % Neutrophils # (1.3-7.7) k/uL Lymphocytes # (1.0-4.8) k/uL Monocytes # (0-1.0) k/uL Eosinophils # (0-0.7) k/uL Basophils # (0-0.2) k/uL PT (9.0-12.0) sec INR (<1.2) APTT (22.0-30.0) sec D-Dimer (<0.60) mg/L FEU Sodium (137-145) mmol/L Potassium (3.5-5.1) mmol/L Chloride (98-107) mmol/L Carbon Dioxide (22-30) mmol/L Anion Gap mmol/L BUN (7-17) mg/dL Creatinine (0.52-1.04) mg/dL Est GFR (CKD-EPI)AfAm (>60 ml/min/1.73 sqM) Est GFR (CKD-EPI)NonAf (>60 ml/min/1.73 sqM) Glucose (74-99) mg/dL Plasma Lactic Acid Gary (0.7-2.0) mmol/L Calcium (8.4-10.2) mg/dL Magnesium (1.6-2.3) mg/dL Total Bilirubin (0.2-1.3) mg/dL AST (14-36) U/L ALT (4-34) U/L Alkaline Phosphatase (38-126) U/L Lactate Dehydrogenase (313-618) U/L Troponin I 0.021 (0.000-0.034) ng/mL C-Reactive Protein (<10.0) mg/L Total Protein (6.3-8.2) g/dL Albumin (3.5-5.0) g/dL Coronavirus (PCR) (Not Detectd) Influenza Type A RNA (Not Detectd) Influenza Type B (PCR) (Not Detectd) - EKG Data -: EKG Interpreted by Me (and Dr. Plascencia) EKG Comments: Ventricular rate 93, DC 146, QRS 134, QT/QTC 374/465. NSR, right bundle-branch block. T wave abnormality consider lateral ischemia. Disposition Clinical Impression: geovanny coronavirus detected, NATALI (acute kidney injury) Disposition: ADMITTED IP TO THIS HOSP Condition: Serious Is patient prescribed a controlled substance at d/c from ED?: No
[2020-02-29] MEDS: SODIUM CHLORIDE 0.9% 1,000 ML IV SCH (19:09)
[2020-02-29] MEDS ORDERED: MAGNESIUM OXIDE 400 MG TAB PO STA (19:41)
[2020-02-29] MEDS ORDERED: POTASSIUM CHLORIDE ER 20 MEQ TAB.ER PO STA (19:41)
[2020-02-29 20:51] LABS: Glucose,Whole Blood 108 mg/dL (75-99)
[2020-02-29] MEDS ORDERED: metFORMIN 500 MG TAB PO SCH (21:00)
[2020-02-29] MEDS: GABAPENTIN 300 MG CAP PO SCH (22:26)
[2020-02-29] MEDS: ENOXAPARIN 30 MG/0.3 ML SYRINGE SQ SCH (22:26)
[2020-02-29] MEDS: HYDROcodone/APAP 5-325MG 1 EACH TAB PO SCH (22:26)
[2020-02-29] MEDS: ATORVASTATIN 10 MG TAB PO SCH (22:26)
[2020-02-29 23:09] LABS: Ferritin 1593.4 ng/mL (10.0-291.0)
[2020-03-01] MEDS ORDERED: CALCIUM CARBONATE 500 MG CHEWABLE PO PRN (00:50)
[2020-03-01] MEDS ORDERED: ALBUTEROL HFA INHALER INHALATION PRN (00:50)
[2020-03-01 06:11] LABS: Glucose,Whole Blood 94 mg/dL (75-99)
[2020-03-01] MEDS: LEVOTHYROXINE 50 MCG TAB PO SCH (06:13)
[2020-03-01] MEDS: PANTOPRAZOLE 40 MG TABLET PO SCH (06:13)
[2020-03-01] MEDS: SODIUM CHLORIDE 0.9% 1,000 ML IV SCH ×2 (06:14→21:00)
[2020-03-01] MEDS: ENOXAPARIN 30 MG/0.3 ML SYRINGE SQ SCH (08:44)
[2020-03-01] MEDS: METOPROLOL SUCCINATE (ER) 50 MG TAB.ER.24H PO SCH (08:44)
[2020-03-01] MEDS ORDERED: LORATADINE 10 MG TAB PO SCH (09:00)
[2020-03-01] MEDS ORDERED: GLIMEPIRIDE 2 MG TAB PO SCH (09:00)
[2020-03-01] MEDS ORDERED: SODIUM CHLORIDE 0.9% 1,000 ML IV SCH (09:45)
--- NOTE | 2020-03-01 10:09 | XR ---
EXAMINATION TYPE: XR chest 1V DATE OF EXAM: 03/01/2020 CLINICAL HISTORY: Difficulty breathing and Covid pneumonia progress study. TECHNIQUE: Single AP portable upright view of the chest is obtained. COMPARISON: Chest x-ray from one day earlier and older studies. FINDINGS: Diffuse multifocal bilateral mid and lower lung opacities remain present. Upper lungs pedro in relatively clear. Silhouetting left hemidiaphragm and heart border again seen. Cardiac silhouette size stable and mildly enlarged. New overlying EKG leads on current study. Osseous structures are int act. IMPRESSION: Multifocal mid to lower lung acute infiltrates redemonstrated. No significant change from one day earlier.
[2020-03-01 10:45] LABS: Amorphous Sediment,Urine Rare /hpf; Appearance,Urine Cloudy (Clear); Bacteria,Urine Moderate /hpf; Bilirubin,Urine Negative (Negative); Blood,Urine Small (Negative); Color,Urine Light Yellow; Glucose,Urine (UA) Trace (Negative); Ketones,Urine Negative (Negative); Leukocyte Esterase,Urine Large (Negative); Nitrite,Urine Negative (Negative); PH, Urine 5.5 (5.0-8.0); Protein,Urine 1+ (Negative); RBC,Urine 1 /hpf (0-5); Specific Gravity,Urine 1.013 (1.001-1.035); Squamous Epithelial Cell,Urine 3 /hpf (0-4); Urobilinogen,Urine <2.0 mg/dL (<2.0); WBC,Urine 82 /hpf (0-5)
[2020-03-01 11:29] LABS: Calcium 7.7 mg/dL (8.4-10.2); Potassium 3.1 mmol/L (3.5-5.1)
[2020-03-01 11:54] LABS: Glucose,Whole Blood 129 mg/dL (75-99)
[2020-03-01] MEDS: HYDROXYCHLOROQUINE SULFATE 200 MG TAB PO SCH ×2 (13:16→21:02)
--- NOTE | 2020-03-01 15:29 | US ---
EXAMINATION TYPE: US kidneys/renal and bladder DATE OF EXAM: 03/01/2020 COMPARISON: NONE CLINICAL HISTORY: RF. Renal failure EXAM MEASUREMENTS: Right Kidney: 10.3 x 4.2 x 5.1 cm Left Kidney: 10.5 x 5.1 x 4.5 cm Right Kidney: no evidence of hydronephrosis Left Kidney: no evidence of hydronephrosis Bladder: not fully distended Bilateral Jets seen: no There is no evidence for hydronephrosis at this point in time. No nephrolithiasis is seen. No catia s are identified. The urinary bladder is incompletely distended. Bilateral ureteral jets are not se en. IMPRESSION: No hydronephrosis or nephrolithiasis.
[2020-03-01] MEDS: ACETAMINOPHEN TAB 325 MG TAB PO PRN (15:51)
[2020-03-01 16:57] LABS: Glucose,Whole Blood 65 mg/dL (75-99)
[2020-03-01 17:11] LABS: Glucose,Whole Blood 67 mg/dL (75-99)
--- NOTE | 2020-03-01 17:56 | P.HPIM ---
History of Present Illness H&P Date: 03/01/20 Chief Complaint: Cough History of presenting complaint: This is a pleasant [address] Sanchez. Chronic stable medical conditions include diabetes, GERD, hyperlipidemia, hypertension, hypothyroid, diabetic peripheral neuropathy. Patient presents with five-day history of cough little phlegm chills tired rundown body aches some headaches 1 or 2 loose stools a short of breath. Presents to the ER. Review of systems: GEN.: Fever or chills EYES: None HEENT: None NECK: None RESPIRATORY: As above CARDIOVASCULAR: None GASTROINTESTINAL: As above GENITOURINARY: None MUSCULOSKELETAL: None LYMPHATICS: None HEMATOLOGICAL: None PSYCHIATRY: None NEUROLOGICAL: None Past medical history to include: Diabetes, GERD, hyperlipidemia, hypertension, hypothyroid, diabetic peripheral neuropathy Social history: Does not smoke or drink alcohol. . Physical examination: VITAL SIGNS: 100.1, 101, 20, 100/64, 93% on room air] GENERAL: BMI 35.6, sitting in the edge of the bed, tired short of breath. EYES: Pupils equal. Conjunctiva normal. HEENT: External appearance of nose and ears normal, oral cavity grossly normal. NECK: JVD not raised; masses not palpable. HEART: First and second heart sounds are normal; no edema. LUNGS: Respiratory rate increased, decreased breath sounds some basal crackles. ABDOMEN: Soft, nontender, liver spleen not palpable, no masses palpable. PSYCH: Alert and oriented x3; mood and affect anxiousl. NEUROLOGICAL: Cranial nerves grossly intact; no facial asymmetry, power and sensation grossly intact. LYMPHATICS: No lymph nodes palpable in the axilla and neck INVESTIGATIONS, reviewed in the clinical context: White count 9.4 hemoglobin 11.2 platelets 245in 3.3 bun 48 creatinine 3.42 Renal function and May 2018 creatinine 0.7 to Magnesium 1.3 ferritin 1593 LDH 1053 CRP 47.7 pro calcitonin 0.30 UA positive for leukoesterase, WBC Coronavirus-PCR detected Influenza type A and type B both negative EKG tracing personally reviewed by me-right bundle-branch block Chest x-ray film personally reviewed by me-bilateral infiltrates Assessment: -Novel coronavirus infected pneumonia, POA -Sepsis, from above, POA -Acute UTI from cystitis, POA -Diabetes mellitus type 2 on oral hypoglycemic -GERD -Hyperlipidemia -Essential hypertension -Hypothyroid -Diabetic peripheral neuropathy -Acute kidney injury likely ATN from sepsis-ruled out chronic component Plan: Patient to be started on antibiotic, black male, zinc,. Home medications were resumed. Also put the patient on Ventolin 4 puffs every 4 scheduled and Symbic ort twice a. IV fluids. Lodosyn DT prophylaxis. Care was discussed with the patient. Questions were answered. Order renal ultrasound. Repeat labs in the morning. Past Medical History Past Medical History: Diabetes Mellitus, GERD/Reflux, Hyperlipidemia, H ypertension, Thyroid Disorder Additional Past Medical History / Comment(s): Seasonal Allergies, diabetic neuropathy, vitamin D deficiency History of Any Multi-Drug Resistant Organisms: None Reported Past Surgical History: Cholecystectomy, Hysterectomy Additional Past Surgical History / Comment(s): Colonoscopy Past Anesthesia/Blood Transfusion Reactions: Postoperative Nausea & Vomiting (PONV) Past Psychological History: No Psychological Hx Reported Smoking Status: Never smoker Past Alcohol Use History: None Reported Past Drug Use History: None Reported - Past Family History Mother Family Medical History: CVA/TIA, Deep Vein Thrombosis (DVT), Myocardial Infarction ([place]) Additional Family Medical History / Comment(s): Mother with history of myocardial infarction, stroke, DVT. Father History Unknown: Yes Family Medical History: Diabetes Mellitus, Hypertension Additional Family Medical History / Comment(s): Dad is alive at age 85 with history of diabetes and hypertension. Brother(s) Family Medical History: No Reported History Additional Family Medical History / Comment(s): Patient has 1 brother and 1 sister with no major medical problems. Daughter(s) Family Medical History: Cancer, Hypertension Additional Family Medical History / Comment(s): Cervical cancer. Sister(s) Family Medical History: Cancer Additional Family Medical History / Comment(s): Thyroid cancer Medications and Allergies Home Medications Medication Instructions Recorded Confirmed Type Calcium Carbonate/Vitamin D3 1 tab PO QA 02/16/17 02/29/20 History [Calcium 600-Vit D3 400 Caplet] Gabapentin [Neurontin] 300 mg PO 02/16/17 02/29/20 History Levothyroxine Sodium [Synthroid] 50 mcg PO QAM 02/16/17 02/29/20 History Loratadine [Claritin] 10 mg PO [facility] 02/16/17 02/29/20 History Omeprazole [PriLOSEC] 20 mg PO [facility] 02/16/17 02/29/20 History metFORMIN HCL [Glucophage] 500 mg PO BID 02/16/17 02/29/20 History Fluticasone Propionate [Flonase 1 spray EA NOSTRIL BID PRN 05/17/18 02/29/20 History Allergy Relief] Glimepiride [Amaryl] 4 mg PO DAILY 05/17/18 02/29/20 History Hydrochlorothiazide 25 mg PO QAM 02/29/20 02/29/20 History Hydrocodone/Acetaminophen [[place] 1 tab PO HS 02/29/20 02/29/20 History 5-325] Losartan Potassium 100 mg PO DAILY 02/29/20 02/29/20 History Lovastatin [Mevacor] 40 mg PO HS 02/29/20 02/29/20 History Metoprolol Succinate [Toprol XL] 50 mg PO DAILY 02/29/20 02/29/20 History Allergies Allergy/AdvReac Type Severity Reaction Status Date / Time morphine Allergy Itching Verified 02/29/20 18:05 Physical Exam Vitals: Vital Signs Temp Pulse Pulse Resp BP BP Pulse Ox 03/01/20 08:30 98.7 F 96 24 149/60 03/01/20 04:00 88 20 150/68 98 03/01/20 00:00 99 F 79 20 148/69 99 02/29/20 23:55 94 L 02/29/20 20:00 98.4 F 73 20 143/73 94 L 02/29/20 19:10 99.1 F 65 18 101/67 95 02/29/20 17:30 99.2 F 85 18 110/70 96 02/29/20 15:47 100.1 F H 101 H 20 100/64 93 L Intake and Output 02/29/20 03/01/20 03/01/20 22:59 06:59 14:59 Intake Total 1140 240 Balance 1140 240 Intake: Intake, IV Titration 600 Amount Sodium Chloride 0.9% 1, 600 000 ml @ 100 mls/hr IV . Q10H [facility] Rx#:[id number] Oral 540 240 Other: Voiding Method Toilet Toilet # Voids 1 # Bowel Movements 0 0 0 Weight 97.069 kg 100 kg Results CBC & Chem 7: 02/29/20 16:42 03/01/20 10:59 Labs: Abnormal Lab Results - Last 24 Hours (Table) 02/29/20 02/29/20 02/29/20 Range/Units 16:30 16:42 16:42 RBC 3.78 L (3.80-5.40) m/uL Hgb 11.2 L (11.4-16.0) gm/dL Hct 32.3 L (34.0-46.0) % Neutrophils # 7.8 H (1.3-7.7) k/uL D-Dimer 2.05 H (<0.60) mg/L FEU Sodium (137-145) mmol/L Potassium (3.5-5.1) mmol/L Carbon Dioxide (22-30) mmol/L BUN (7-17) mg/dL Creatinine (0.52-1.04) mg/dL Glucose (74-99) mg/dL POC Glucose (mg/dL) (75-99) mg/dL Calcium (8.4-10.2) mg/dL Magnesium (1.6-2.3) mg/dL Ferritin (10.0-291.0) ng/mL AST (14-36) U/L Lactate Dehydrogenase (313-618) U/L C-Reactive Protein (<10.0) mg/L Procalcitonin (0.02-0.09) ng/mL Urine Appearance (Clear) Urine Protein (Negative) Urine Glucose (UA) (Negative) Urine Blood (Negative) Ur Leukocyte Esterase (Negative) Urine WBC (0-5) /hpf Amorphous Sediment (None) /hpf Urine Bacteria (None) /hpf Coronavirus (PCR) Detected A (Not Detectd) 02/29/20 02/29/20 02/29/20 Range/Units 16:42 16:42 20:49 RBC (3.80-5.40) m/uL Hgb (11.4-16.0) gm/dL Hct (34.0-46.0) % Neutrophils # (1.3-7.7) k/uL D-Dimer (<0.60) mg/L FEU Sodium 134 L (137-145) mmol/L Potassium 3.3 L (3.5-5.1) mmol/L Carbon Dioxide 16 L (22-30) mmol/L BUN 48 H (7-17) mg/dL Creatinine 3.22 H (0.52-1.04) mg/dL Glucose 153 H (74-99) mg/dL POC Glucose (mg/dL) 108 H (75-99) mg/dL Calcium 8.0 L (8.4-10.2) mg/dL Magnesium 1.3 L (1.6-2.3) mg/dL Ferritin 1593.4 H (10.0-291.0) ng/mL AST 49 H (14-36) U/L Lactate Dehydrogenase 1053 H (313-618) U/L C-Reactive Protein 47.7 H (<10.0) mg/L Procalcitonin 0.30 H (0.02-0.09) ng/mL Urine Appearance (Clear) Urine Protein (Negative) Urine Glucose (UA) (Negative) Urine Blood (Negative) Ur Leukocyte Esterase (Negative) Urine WBC (0-5) /hpf Amorphous Sediment (None) /hpf Urine Bacteria (None) /hpf Coronavirus (PCR) (Not Detectd) 03/01/20 Range/Units 09:55 RBC (3.80-5.40) m/uL Hgb (11.4-16.0) gm/dL Hct (34.0-46.0) % Neutrophils # (1.3-7.7) k/uL D-Dimer (<0.60) mg/L FEU Sodium (137-145) mmol/L Potassium (3.5-5.1) mmol/L Carbon Dioxide (22-30) mmol/L BUN (7-17) mg/dL Creatinine (0.52-1.04) mg/dL Glucose (74-99) mg/dL POC Glucose (mg/dL) (75-99) mg/dL Calcium (8.4-10.2) mg/dL Magnesium (1.6-2.3) mg/dL Ferritin (10.0-291.0) ng/mL AST (14-36) U/L Lactate Dehydrogenase (313-618) U/L C-Reactive Protein (<10.0) mg/L Procalcitonin (0.02-0.09) ng/mL Urine Appearance Cloudy H (Clear) Urine Protein 1+ H (Negative) Urine Glucose (UA) Trace H (Negative) Urine Blood Small H (Negative) Ur Leukocyte Esterase Large H (Negative) Urine WBC 82 H (0-5) /hpf Amorphous Sediment Rare H (None) /hpf Urine Bacteria Moderate H (None) /hpf Coronavirus (PCR) (Not Detectd)
[2020-03-01 18:05] LABS: Glucose,Whole Blood 131 mg/dL (75-99)
--- NOTE | 2020-03-01 18:50 | CONS ---
CONSULTATION REASON FOR CONSULT: Renal failure. HISTORY OF PRESENT ILLNESS: The patient is a 59-year-old female who was admitted to the hospital with complaints of shortness of breath, feeling tired, fatigued, weak. She tested positive for COVID-19. The patient denies any history of kidney diseases. She did use nonsteroidal anti- inflammatory agents, which she has been taking for a few years now. Blood pressure has not been low. Patient has been voiding. She has had good urine output. No complaints of nausea, vomiting or diarrhea. She is complaining of some cough. No significant shortness of breath. PAST MEDICAL HISTORY: Type 2 diabetes, hypertension, gastroesophageal reflux disease, dyslipidemia, hypothyroidism. PAST SURGICAL HISTORY: Cholecystectomy, hysterectomy, colonoscopy. SOCIAL HISTORY: Negative for smoking, drug abuse, alcohol abuse. MEDICATIONS: Medications at home prior to admission included vitamin D3 calcium supplement, Neurontin, Synthroid, Claritin, Prilosec, Glucophage, Amaryl, hydrochlorothiazide, [place], potassium, Mevacor, Toprol. ALLERGIES: ALLERGIES include MORPHINE, which causes itching. REVIEW OF SYSTEMS: As per HPI. Other systems negative. PHYSICAL EXAMINATION: Patient is comfortable, awake, alert, oriented x3, not in any acute distress. Blood pressure is 149/60, heart rate 96 per minute. She is afebrile. Examination of the abdomen reveals it to be soft, obese, nontender. Examination of lower extremities shows no evidence of edema. COOK HELPER PRESERVES exam is grossly intact. LABS: Sodium 135, potassium 3.1, chloride 106. CO2 is 18, BUN 41, creatinine 2.0. UA shows 1+ protein, trace glucose, blood small, WBCs 82, RBCs 1. Influenza was negative. Barba virus PCR was positive. ASSESSMENT: 1. Acute kidney injury associated with barba virus infection and some degree of hypovolemia, currently improved with IV fluids. Patient was also using NSAIDs, which definitely contributed to her acute kidney injury. She is advised to avoid the use of ibuprofen. UA shows pyuria. We will check cultures to rule out underlying urine infection. Check ultrasound of the kidneys. 2. Hypokalemia associated with decreased oral intake, status post replacement. Check magnesium level, which was also actually low, and this needs to be replaced. 3. COVID-19 infection with possible pneumonia. Treatment as per ID. Patient has been started on hydroxychloroquine. 4. Hypomagnesemia, status post replacement. This could be associated with the use of Protonix that patient has been taking for gastroesophageal reflux disease. 5. Hypovolemia. 6. History of diabetes. 7. Dyslipidemia. 8. History of hypertension. Blood pressure is currently not significantly elevated. Will continue to monitor for now. PLAN: Decrease IV fluids. Encourage increased oral intake. Replace potassium. Replace magnesium. Continue with the IV fluids at a lower rate. Check urine culture. Begin treatment for COVID-19 infection. Repeat labs in a.m. Check ultrasound of the kidneys. Thank you for this consultation. Will continue to follow the patient with you during her hospitalization. MMODL / IJN: [id number] /
[2020-03-01] MEDS ORDERED: SYMBICORT 160-4.5 MCG INHALER INHALATION SCH (20:00)
[2020-03-01] MEDS: ALBUTEROL HFA INHALER INHALATION SCH ×2 (20:25)
[2020-03-01 20:37] LABS: Glucose,Whole Blood 89 mg/dL (75-99)
[2020-03-01] MEDS: ZINC SULFATE 220 MG CAP PO SCH (21:00)
[2020-03-01] MEDS: HYDROcodone/APAP 5-325MG 1 EACH TAB PO SCH (21:00)
[2020-03-01] MEDS: GABAPENTIN 300 MG CAP PO SCH (21:01)
[2020-03-01] MEDS: ATORVASTATIN 10 MG TAB PO SCH (21:01)
[2020-03-02 06:05] LABS: Glucose,Whole Blood 74 mg/dL (75-99)
[2020-03-02 06:20] LABS: Glucose,Whole Blood 80 mg/dL (75-99)
[2020-03-02] MEDS: LEVOTHYROXINE 50 MCG TAB PO SCH (06:50)
[2020-03-02] MEDS: SODIUM CHLORIDE 0.9% 1,000 ML IV SCH ×2 (06:50→21:12)
[2020-03-02] MEDS: PANTOPRAZOLE 40 MG TABLET PO SCH (06:50)
[2020-03-02 07:27] LABS: Calcium 7.8 mg/dL (8.4-10.2); Potassium 3.3 mmol/L (3.5-5.1)
[2020-03-02] MEDS: ALBUTEROL HFA INHALER INHALATION SCH ×4 (07:56→19:57)
[2020-03-02] MEDS: ENOXAPARIN 30 MG/0.3 ML SYRINGE SQ SCH (09:22)
[2020-03-02] MEDS: METOPROLOL SUCCINATE (ER) 50 MG TAB.ER.24H PO SCH (09:22)
[2020-03-02] MEDS: ZINC SULFATE 220 MG CAP PO SCH (09:22)
[2020-03-02] MEDS: HYDROXYCHLOROQUINE SULFATE 200 MG TAB PO SCH ×2 (09:22→21:16)
[2020-03-02] MEDS: ACETAMINOPHEN TAB 325 MG TAB PO PRN (09:25)
--- NOTE | 2020-03-02 09:57 | P.CONS ---
History of Present Illness - Reason for Consult Consult date: 03/01/20 COVID 19 infection Requesting physician: Keshawn Mauricio - Chief Complaint shortness of breath and cough x 1 week - History of Present Illness Patient is a 59-year female presenting to the ER yesterday with chief complaints of increasing shortness of breath and cough that has been going on for the last 1 week the patient symptom has been getting worse for the last few days that brought the patient to the hospital patient cough is moderate in intensity and has been dry in nature she is unable to bring up any sputum patient denies having any pleuritic chest pain however has been complaining of increasing shortness of breath associated with it patient denies having any nausea no vomiting abdominal pain and denies having any diarrhea with the symptom the patient was evaluated by the ER physician on arrival to the ER patient did have low-grade fever 100.1 F patient O2 sats around 93% and did require some supplemental oxygen patient did have a normal white count lymphocytes count were normal to patient noticed to have a elevated creatinine 3.32 ferritin was elevated LDH of 1053 and elevated pro CRP urine was mildly positive influenza testing was negative cooper PCR came back positive patient did have a chest x-ray faint peripheral opacity through multiple atelectasis could be developing multifocal lung injury with the coronary testing came back positive infectious disease was consulted for further recommendation about antibiotic therapy. Review of Systems Positive point has been mentioned in HPI rest of the systems are negative Past Medical History Past Medical History: Diabetes Mellitus, GERD/Reflux, Hyperlipidemia, Hypertension, Thyroid Disorder Additional Past Medical History / Comment(s): Seasonal Allergies, diabetic neuropathy, vitamin D deficiency History of Any Multi-Drug Resistant Organisms: None Reported Past Surgical History: Cholecystectomy, Hysterectomy Additional Past Surgical History / Comment(s): Colonoscopy Past Anesthesia/Blood Transfusion Reactions: Postoperative Nausea & Vomiting (PONV) Past Psychological History: No Psychological Hx Reported Smoking Status: Never smoker Past Alcohol Use History: None Reported Past Drug Use History: None Reported - Past Family History Mother Family Medical History: CVA/TIA, Deep Vein Thrombosis (DVT), Myocardial Infarction ([place]) Additional Family Medical History / Comment(s): Mother with history of myocardial infarction, stroke, DVT. Father History Unknown: Yes Family Medical History: Diabetes Mellitus, Hypertension Additional Family Medical History / Comment(s): Dad is alive at age 85 with history of diabetes and hypertension. Brother(s) Family Medical History: No Reported History Additional Family Medical History / Comment(s): Patient has 1 brother and 1 sister with no major medical problems. Daughter(s) Family Medical History: Cancer, Hypertension Additional Family Medical History / Comment(s): Cervical cancer. Sister(s) Family Medical History: Cancer Additional Family Medical History / Comment(s): Thyroid cancer Medications and Allergies Home Medications Medication Instructions Recorded Confirmed Type Calcium Carbonate/Vitamin D3 1 tab PO QAM 02/16/17 02/29/20 History [Calcium 600-Vit D3 400 Caplet] Gabapentin [Neurontin] 300 mg PO HS 02/16/17 02/29/20 History Levothyroxine Sodium [Synthroid] 50 mcg PO QAM 02/16/17 02/29/20 History Loratadine [Claritin] 10 mg PO QAM 02/16/17 02/29/20 History Omeprazole [PriLOSEC] 20 mg PO QAM 02/16/17 02/29/20 History metFORMIN HCL [Glucophage] 500 mg PO BID 02/16/17 02/29/20 History Fluticasone Propionate [Flonase 1 spray EA NOSTRIL BID PRN 05/17/18 02/29/20 History Allergy Relief] Glimepiride [Amaryl] 4 mg PO DAILY 05/17/18 02/29/20 History Hydrochlorothiazide 25 mg PO QAM 02/29/20 02/29/20 History Hydrocodone/Acetaminophen [[place] 1 tab PO HS 02/29/20 02/29/20 History 5-325] Losartan Potassium 100 mg PO DAILY 02/29/20 02/29/20 History Lovastatin [Mevacor] 40 mg PO HS 02/29/20 02/29/20 History Metoprolol Succinate [Toprol XL] 50 mg PO DAILY 02/29/20 02/29/20 History Allergies Allergy/AdvReac Type Severity Reaction Status Date / Time morphine Allergy Itching Verified 02/29/20 18:05 Physical Exam Vitals: Vital Signs Temp Pulse Resp BP Pulse Ox 03/01/20 20:00 98.4 F 77 20 139/60 97 03/01/20 15:15 100.1 F H 79 24 103/66 99 03/01/20 12:05 98.3 F 78 20 111/67 99 03/01/20 08:30 98.7 F 96 24 149/60 96 03/01/20 04:00 88 20 150/68 98 03/01/20 00:00 99 F 79 20 148/69 99 02/29/20 23:55 94 L Intake and Output 03/01/20 03/01/20 03/02/20 14:59 22:59 06:59 Intake Total 360 780 Output Total 300 Balance 360 480 Intake: Oral 360 780 Output: Urine 300 Other: Voiding Method Toilet # Voids 1 2 # Bowel Movements 0 0 GENERAL DESCRIPTION: Middle-aged female lying in bed, no distress. No tachypnea or accessory muscle of respiration use. HEENT: Shows Pallor , no scleral icterus. Oral mucous membrane is dry. NECK: Trachea central, no thyromegaly. LUNGS: Unlabored breathing. Coarse breath sounds the bases bilaterally. No wheeze or crackle. HEART: S1, S2, regular rate and rhythm. ABDOMEN: Soft, no tenderness , guarding or rigidity EXTREMITIES: No edema of feet. SKIN: No rash, no masses palpable. NEUROLOGICAL: The patient is awake, alert, oriented x3, mood and affect normal. Results CBC & Chem 7: 02/29/20 16:42 03/02/20 06:31 Labs: Abnormal Lab Results - Last 24 Hours (Table) 02/29/20 03/01/20 03/01/20 Range/Units 16:42 09:55 10:59 Sodium 135 L (137-145) mmol/L Potassium 3.1 L (3.5-5.1) mmol/L Carbon Dioxide 18 L (22-30) mmol/L BUN 41 H (7-17) mg/dL Creatinine 2.01 H (0.52-1.04) mg/dL Glucose 167 H (74-99) mg/dL POC Glucose (mg/dL) (75-99) mg/dL Calcium 7.7 L (8.4-10.2) mg/dL Procalcitonin 0.30 H (0.02-0.09) ng/mL Urine Appearance Cloudy H (Clear) Urine Protein 1+ H (Negative) Urine Glucose (UA) Trace H (Negative) Urine Blood Small H (Negative) Ur Leukocyte Esterase Large H (Negative) Urine WBC 82 H (0-5) /hpf Amorphous Sediment Rare H (None) /hpf Urine Bacteria Moderate H (None) /hpf 03/01/20 03/01/20 03/01/20 Range/Units 11:51 16:39 17:05 Sodium (137-145) mmol/L Potassium (3.5-5.1) mmol/L Carbon Dioxide (22-30) mmol/L BUN (7-17) mg/dL Creatinine (0.52-1.04) mg/dL Glucose (74-99) mg/dL POC Glucose (mg/dL) 129 H 65 L 67 L (75-99) mg/dL Calcium (8.4-10.2) mg/dL Procalcitonin (0.02-0.09) ng/mL Urine Appearance (Clear) Urine Protein (Negative) Urine Glucose (UA) (Negative) Urine Blood (Negative) Ur Leukocyte Esterase (Negative) Urine WBC (0-5) /hpf Amorphous Sediment (None) /hpf Urine Bacteria (None) /hpf 03/01/20 Range/Units 17:54 Sodium (137-145) mmol/L Potassium (3.5-5.1) mmol/L Carbon Dioxide (22-30) mmol/L BUN (7-17) mg/dL Creatinine (0.52-1.04) mg/dL Glucose (74-99) mg/dL POC Glucose (mg/dL) 131 H (75-99) mg/dL Calcium (8.4-10.2) mg/dL Procalcitonin (0.02-0.09) ng/mL Urine Appearance (Clear) Urine Protein (Negative) Urine Glucose (UA) (Negative) Urine Blood (Negative) Ur Leukocyte Esterase (Negative) Urine WBC (0-5) /hpf Amorphous Sediment (None) /hpf Urine Bacteria (None) /hpf Microbiology - Last 24 Hours (Table) 02/29/20 16:42 Blood Culture - Preliminary Blood No Growth after 24 hours Assessment and Plan Assessment: 1-patient presented to hospital with increasing shortness of breath and cough in this patient who did have evidence of fever with bilateral pulmonary infiltrate patient did have elevated LDH and a CRP high clinical suspicious for acute COVID-19 infection that has been confirmed on his nasopharyngeal swab 2-positive UA possible mild UTI as the patient did have some burning of urine (1) Pneumonia due to COVID-19 virus Current Visit: Yes Status: Acute Code(s): U07.1 - COVID-19; J12.89 - OTHER VIRAL PNEUMONIA SNOMED Code(s): 072605734 (2) UTI (urinary tract infection) Current Visit: Yes Status: Acute Code(s): N39.0 - URINARY TRACT INFECTION, SITE NOT SPECIFIED SNOMED Code(s): 34941182 Plan: 1-we will start the patient on Plaquenil per protocol and add zinc, will watch her respiratory status closely as she may need low-dose steroids if she requiring any increasing level of supplemental oxygen all or at this point because of underlying diabetes 2-droplet isolation and respiratory support 3-Rocephin 1 g daily to cover for urinary tract infection We will follow on clinical condition and cultures to further adjust medication if needed Thank you for this consultation we will follow the patient along with you Time with Patient: Greater than 30
[2020-03-02 11:18] LABS: Glucose,Whole Blood 195 mg/dL (75-99)
[2020-03-02] MEDS: methylPREDNISolone SOD SUCCI 40 MG/ML 1 ML VIAL IV SCH ×2 (12:22→21:12)
[2020-03-02] MEDS ORDERED: POTASSIUM CHLORIDE ER 20 MEQ TAB.ER PO STA (13:28)
--- NOTE | 2020-03-02 13:44 | PN ---
PROGRESS NOTE Patient is seen for followup for acute kidney injury. She has tested positive for COVID-19. Patient is maintained on IV fluids. She is also on hydroxychloroquine, Zithromax, zinc and steroids, currently doing better. Overall, no significant complaints. Renal function has improved with creatinine down to 1.5 from 3.2 on initial admission. Previous creatinine in 2018 was 0.7 mg/dL. PHYSICAL EXAMINATION: On examination today, blood pressure is 123/64, heart rate 65 per minute. She is afebrile. Examination of lower extremities showed there is trace edema noted. Abdomen is soft nontender. SENIOR RESEARCH PROJECT MANAGER exam grossly intact. LABS: Labs show sodium 138, potassium 3.3, chloride 107, BUN 27, creatinine 1.54. UA showed 1+ protein, trace glucose, small blood. Ultrasound of the kidneys was unremarkable with the right kidney 10.3, left kidney 10.5 cm. No cysts or stones are seen. ASSESSMENT: 1. Acute kidney injury, prerenal and some degree of acute tubular necrosis associated with underlying COVID-19 infection. Renal function is improving. Continue with IV fluids. Decrease rate to about 60 mL an hour. Encourage increased oral intake. 2. COVID-19 infection, stable and seems to be improving, maintained on hydroxychloroquine, zinc and steroids and empiric antibiotics as well. 3. Volume depletion seems to have improved. 4. Hypokalemia, status post replacement. 5. Hypomagnesemia, most likely associated with use of proton pump inhibitors, status post replacement. PLAN: Continue IV fluids, decrease rate. Repeat labs in a.m. and replace potassium. MMODL / IJN: [id number] /
[2020-03-02] MEDS ORDERED: AZITHROMYCIN 500 MG TAB PO STA (15:49)
--- NOTE | 2020-03-02 15:49 | P.PN ---
Progress Note - Text Progress Note Date: 03/02/20 Chief Complaint: Cough History of presenting complaint: This is a pleasant [address] Sanchez. Chronic stable medical conditions include diabetes, GERD, hyperlipidemia, hypertension, hypothyroid, diabetic peripheral neuropathy. Patient presents with five-day history of cough little phlegm chills tired rundown body aches some headaches 1 or 2 loose stools a short of breath. Presents to the ER. admitted with-acute UTI and cystitis, sepsis, COVID-19 pneumonia.acute kidney injury-prerenal Started IV ceftriaxone, Plaquenil,IV fluids. Today- short of breath, tired, decreased appetite. date sit at the edge of the bed. Had 1 or 2 loose stools. Review of systems: Was done for constitutional, cardiovascular, GI, pulmonary. relevant finding as above Active Medications Acetaminophen (Tylenol Tab) 650 mg PO Q6HR PRN PRN Reason: Mild Pain or Fever > 100.5 Last Admin: 03/02/20 09:25 Dose: 650 mg Documented by: Hydrocodone Bitart/Acetaminophen ([place] 5-325) 1 each PO [facility] Last Admin: 03/01/20 21:00 Dose: 1 each Documented by: Albuterol Sulfate (Ventolin Hfa Inhaler) 4 puff INHALATION RT-QID [facility] Last Admin: 03/02/20 11:43 Dose: 4 puff Documented by: Atorvastatin Calcium (Lipitor) 10 mg PO [facility] Last Admin: 03/01/20 21:01 Dose: 10 mg Documented by: Calcium Carbonate/Glycine (Tums) 500 mg PO QID PRN PRN Reason: Heartburn Last Admin: 03/01/20 01:53 Dose: 500 mg Documented by: Enoxaparin Sodium (Lovenox) 30 mg SQ DAILY [facility] Last Admin: 03/02/20 09:22 Dose: 30 mg Documented by: Gabapentin (Neurontin) 300 mg PO [facility] Last Admin: 03/01/20 21:01 Dose: 300 mg Documented by: Hydroxychloroquine Sulfate (Plaquenil) 200 mg PO BID [facility] Stop: 03/05/20 21:01 Last Admin: 03/02/20 09:22 Dose: 200 mg Documented by: Ceftriaxone Sodium 1 gm/ (Sodium Chloride) 50 mls @ 100 mls/hr IVPB Q24H [facility] Last Admin: 03/02/20 09:22 Dose: 100 mls/hr Documented by: Sodium Chloride (Saline 0.9%) 1,000 mls @ 60 mls/hr IV .[id number] [facility] Last Admin: 03/02/20 06:50 Dose: 100 mls/hr Documented by: Levothyroxine Sodium (Synthroid) 50 mcg PO QAM@0630 [facility] Last Admin: 03/02/20 06:50 Dose: 50 mcg Documented by: Metformin HCl (Glucophage) 500 mg PO BID [facility] Methylprednisolone Sodium Succinate (Solu-Medrol) 40 mg IV Q12HR [facility] Stop: 03/04/20 23:59 Last Admin: 03/02/20 12:22 Dose: 40 mg Documented by: Metoprolol Succinate (Toprol Xl) 50 mg PO DAILY [facility] Last Admin: 03/02/20 09:22 Dose: 50 mg Documented by: Naloxone HCl (Narcan) 0.2 mg IV Q2M PRN PRN Reason: Opioid Reversal Pantoprazole Sodium (Protonix) 40 mg PO AC-BRKFST [facility] Last Admin: 03/02/20 06:50 Dose: 40 mg Documented by: Zinc Sulfate (Orazinc) 220 mg PO DAILY [facility] Last Admin: 03/02/20 09:22 Dose: 220 mg Documented by: Physical examination: VITAL SIGNS: 98, 65, 16, 123/64, 94% on 4 L GENERAL: BMI 35.6, laying in bed, short of breath EYES: Pupils equal. Conjunctiva normal. HEENT: External appearance of nose and ears normal, oral cavity grossly normal. NECK: JVD not raised; masses not palpable. HEART: First and second heart sounds are normal; no edema. LUNGS: Respiratory rate increased, decreased breath sounds some basal crackles. ABDOMEN: Soft, nontender, liver spleen not palpable, no masses palpable. PSYCH: Alert and oriented x3; mood and affect anxiousl. INVESTIGATIONS, reviewed in the clinical context: Potassium 3.3 bun 27 creatinine 1.54CRP 90Accu-Chek this morning 74 Previous testing White count 9.4 hemoglobin 11.2 platelets 245in 3.3 bun 48 creatinine 3.42 Renal function and May 2018 creatinine 0.7 to Magnesium 1.3 ferritin 1593 LDH 1053 CRP 47.7 pro calcitonin 0.30 UA positive for leukoesterase, WBC Coronavirus-PCR detected Influenza type A and type B both negative EKG tracing personally reviewed by me-right bundle-branch block Chest x-ray film personally reviewed by me-bilateral infiltrates Assessment: -Novel coronavirus infected pneumonia, POA, slow to improve -Acute hypoxic respiratory failure from above, POA -Sepsis, from above, POA -Acute UTI from cystitis, POA -Diabetes mellitus type 2 on oral hypoglycemic, uncontrolled with hypoglycemia -GERD -Hyperlipidemia -Essential hypertension -Hypothyroid -Diabetic peripheral neuropathy -Acute kidney injury likely ATN from sepsis-improving Plan: continue with ceftriaxone, black male, IV Solu-Medrol, saline, oral zinc. We'll add Zithromax. Discussed with patient.
[2020-03-02 16:29] LABS: Glucose,Whole Blood 382 mg/dL (75-99)
[2020-03-02] MEDS: INSULIN ASPART (NovoLOG) 100 UNIT/ML VIAL SQ SCH ×2 (17:28→22:43)
--- NOTE | 2020-03-02 19:50 | PN ---
PROGRESS NOTE DATE OF SERVICE: 03/02/2020 REASON FOR FOLLOWUP: Acute Covid-19 infection. INTERVAL HISTORY: The patient is currently afebrile. No fever since yesterday afternoon. She is breathing slightly comfortably. Still requiring about 4 L nasal cannula. The patient denies having any chest pain. Minimal dry cough. No nausea, vomiting, abdominal pain or diarrhea. PHYSICAL EXAMINATION: Blood pressure 115/68 with a pulse of 76, temperature 98.5. She is 94% on 4 L nasal cannula. General description is a middle-aged female up in the in no distress. Respiratory system: Unlabored breathing, decreased intensity of breath sounds. No wheeze. Heart S1, S2. Regular rate and rhythm. Abdomen soft, no tenderness. LABS: BUN of 27, creatinine 1.54. DIAGNOSTIC IMPRESSION AND PLAN: 1. Patient with acute COVID-19 pneumonia. Patient is being treated with Zithromax and Plaquenil along with zinc and a low-dose steroid has been added and we will monitor clinical course closely. 2. Patient with a component of urinary tract infection. Urine culture pending. The patient is covered with Rocephin. MMODL / IJN: [id number] /
[2020-03-02 20:34] LABS: Glucose,Whole Blood 376 mg/dL (75-99)
[2020-03-02] MEDS: HYDROcodone/APAP 5-325MG 1 EACH TAB PO SCH (21:11)
[2020-03-02] MEDS: ATORVASTATIN 10 MG TAB PO SCH (21:11)
[2020-03-02] MEDS: metFORMIN 500 MG TAB PO SCH (21:11)
[2020-03-02] MEDS: GABAPENTIN 300 MG CAP PO SCH (21:11)
[2020-03-02] MEDS ORDERED: INSULIN ASPART (NovoLOG) 100 UNIT/ML VIAL SQ ONE (21:23)
[2020-03-02] MEDS: GLIMEPIRIDE 4 MG TAB PO SCH (23:24)
[2020-03-02] MEDS: INSULIN DETEMIR (LEVEMIR) 100 UNIT/ML SYR SQ SCH (23:35)
[2020-03-03 02:40] LABS: Glucose,Whole Blood 195 mg/dL (75-99)
[2020-03-03 05:44] LABS: Glucose,Whole Blood 176 mg/dL (75-99)
[2020-03-03] MEDS: PANTOPRAZOLE 40 MG TABLET PO SCH (06:50)
[2020-03-03] MEDS: LEVOTHYROXINE 50 MCG TAB PO SCH (06:50)
[2020-03-03] MEDS: SODIUM CHLORIDE 0.9% 1,000 ML IV SCH (06:51)
[2020-03-03] MEDS: INSULIN ASPART (NovoLOG) 100 UNIT/ML VIAL SQ SCH ×4 (06:51→21:07)
[2020-03-03] MEDS: ENOXAPARIN 30 MG/0.3 ML SYRINGE SQ SCH (07:56)
[2020-03-03] MEDS: GLIMEPIRIDE 4 MG TAB PO SCH ×2 (07:56→21:08)
[2020-03-03] MEDS: methylPREDNISolone SOD SUCCI 40 MG/ML 1 ML VIAL IV SCH ×2 (07:56→21:07)
[2020-03-03] MEDS: METOPROLOL SUCCINATE (ER) 50 MG TAB.ER.24H PO SCH (07:56)
[2020-03-03] MEDS: metFORMIN 500 MG TAB PO SCH ×2 (07:56→21:07)
[2020-03-03] MEDS: ZINC SULFATE 220 MG CAP PO SCH (07:56)
[2020-03-03] MEDS: AZITHROMYCIN 250 MG TAB PO SCH (07:56)
[2020-03-03] MEDS: ALBUTEROL HFA INHALER INHALATION SCH ×4 (08:39→20:01)
[2020-03-03 08:44] LABS: Potassium 3.6 mmol/L (3.5-5.1)
[2020-03-03] MEDS: HYDROXYCHLOROQUINE SULFATE 200 MG TAB PO SCH ×2 (09:34→21:07)
[2020-03-03 12:00] LABS: Glucose,Whole Blood 239 mg/dL (75-99)
--- NOTE | 2020-03-03 14:11 | PN ---
PROGRESS NOTE The patient is seen for followup for acute kidney injury associated with COVID-19 infection in [facility], currently nonoliguric. Renal function has been improving. Serum creatinine is down to 1.3 from 3.2 on initial admission. The patient also had an element of volume overload. She is maintained on IV fluids. The IV fluids were decreased to 60 mL an hour yesterday. The patient denies any significant chest pain. She denies any new shortness of breath. She has had good urine output. PHYSICAL EXAMINATION: On examination, blood pressure is 122/66, heart rate of 73 per minute. She is afebrile. Examination of the lower extremities shows trace edema. INTERNAL SPECIALIST exam grossly intact. ABDOMEN: Soft, obese, nontender. LABS: Show sodium 138, potassium 3.6, chloride 109, CO2 is 19, BUN 20, creatinine 1.3. ASSESSMENT: 1. Acute kidney injury, acute tubular necrosis and secondary to hypovolemia currently improved. This is acute kidney injury associated with underlying Covid-19 infection. Renal function continues to improve. Maintain IV fluids. Decrease rate further if the patient continues to have good oral intake. 2. Covid-19 pneumonia maintained on Zithromax, Plaquenil, zinc and low-dose steroids. 3. Pyuria rule out urinary tract infection, currently asymptomatic. 4. Hypokalemia, status post replacement. 5. Hypomagnesemia associated with proton pump inhibitor, status post replacement. PLAN: Continue IV fluids for now. Hep-Lock IV in a.m. Continue to encourage increased oral intake. Avoid nephrotoxic medications. MMODL / IJN: [id number] /
--- NOTE | 2020-03-03 15:08 | P.PN ---
Progress Note - Text Progress Note Date: 03/03/20 Chief Complaint: Cough History of presenting complaint: This is a pleasant [address] Sanchez. Chronic stable medical conditions include diabetes, GERD, hyperlipidemia, hypertension, hypothyroid, diabetic peripheral neuropathy. Patient presents with five-day history of cough little phlegm chills tired rundown body aches some headaches 1 or 2 loose stools a short of breath. Presents to the ER. admitted with-acute UTI and cystitis, sepsis, COVID-19 pneumonia.acute kidney injury-prerenal Started IV ceftriaxone, Plaquenil,IV fluids. Today- feeling a bit better today. Less cough. Did sit up in a chair. Appetite slowly improving. Review of systems: Was done for constitutional, cardiovascular, GI, pulmonary. relevant finding as above Active Medications Acetaminophen (Tylenol Tab) 650 mg PO Q6HR PRN PRN Reason: Mild Pain or Fever > 100.5 Last Admin: 03/02/20 09:25 Dose: 650 mg Documented by: Hydrocodone Bitart/Acetaminophen ([place] 5-325) 1 each PO [facility] Last Admin: 03/02/20 21:11 Dose: 1 each Documented by: Albuterol Sulfate (Ventolin Hfa Inhaler) 4 puff INHALATION RT-QID [facility] Last Admin: 03/03/20 12:15 Dose: 4 puff Documented by: Atorvastatin Calcium (Lipitor) 10 mg PO [facility] Last Admin: 03/02/20 21:11 Dose: 10 mg Documented by: Azithromycin (Zithromax) 250 mg PO DAILY [facility] Stop: 03/06/20 09:01 Last Admin: 03/03/20 07:56 Dose: 250 mg Documented by: Calcium Carbonate/Glycine (Tums) 500 mg PO QID PRN PRN Reason: Heartburn Last Admin: 03/01/20 01:53 Dose: 500 mg Documented by: Enoxaparin Sodium (Lovenox) 30 mg SQ DAILY [facility] Last Admin: 03/03/20 07:56 Dose: 30 mg Documented by: Gabapentin (Neurontin) 300 mg PO HS [facility] Last Admin: 03/02/20 21:11 Dose: 300 mg Documented by: Glimepiride (Amaryl) 4 mg PO BID [facility] Last Admin: 03/03/20 07:56 Dose: 4 mg Documented by: Hydroxychloroquine Sulfate (Plaquenil) 200 mg PO BID [facility] Stop: 03/05/20 21:01 Last Admin: 03/03/20 09:34 Dose: 200 mg Documented by: Ceftriaxone Sodium 1 gm/ (Sodium Chloride) 50 mls @ 100 mls/hr IVPB Q24H [facility] Last Admin: 03/03/20 12:45 Dose: 100 mls/hr Documented by: Sodium Chloride (Saline 0.9%) 1,000 mls @ 60 mls/hr IV .[id number] [facility] Last Admin: 03/03/20 06:51 Dose: 60 mls/hr Documented by: Insulin Aspart (Novolog) 0 unit SQ ACHS [facility]; Protocol Last Admin: 03/03/20 12:44 Dose: 100 unit Documented by: Insulin Detemir (Levemir) 14 unit SQ HS [facility] Last Admin: 03/02/20 23:35 Dose: 14 unit Documented by: Levothyroxine Sodium (Synthroid) 50 mcg PO QAM@0630 [facility] Last Admin: 03/03/20 06:50 Dose: 50 mcg Documented by: Metformin HCl (Glucophage) 500 mg PO BID [facility] Last Admin: 03/03/20 07:56 Dose: 500 mg Documented by: Methylprednisolone Sodium Succinate (Solu-Medrol) 40 mg IV Q12HR [facility] Stop: 03/04/20 23:59 Last Admin: 03/03/20 07:56 Dose: 40 mg Documented by: Metoprolol Succinate (Toprol Xl) 50 mg PO DAILY [facility] Last Admin: 03/03/20 07:56 Dose: 50 mg Documented by: Naloxone HCl (Narcan) 0.2 mg IV Q2M PRN PRN Reason: Opioid Reversal Pantoprazole Sodium (Protonix) 40 mg PO AC-BRKFST [facility] Last Admin: 03/03/20 06:50 Dose: 40 mg Documented by: Zinc Sulfate (Orazinc) 220 mg PO DAILY [facility] Last Admin: 03/03/20 07:56 Dose: 220 mg Documented by: Physical examination: VITAL SIGNS: 98, 71, 24, 123/73, 94% on 4 L GENERAL: Sitting at the edge of the bed, looking better PSYCH: Alert and oriented x3; mood and affect anxiousl. EYES: Pupils equal. Conjunctiva normal. HEENT: External appearance of nose and ears normal, Additional physical examination per nursing HEART: First and second heart sounds are normal; no edema. LUNGS: Respiratory rate increased, decreased breath sounds some basal crackles. ABDOMEN: Soft, nontender,, no masses palpable. INVESTIGATIONS, reviewed in the clinical context: Potassium 3.6 bun 20 creatinine 1.31 Previous testing White count 9.4 hemoglobin 11.2 platelets 245in 3.3 bun 48 creatinine 3.42 Renal function and May 2018- creatinine 0.7 to Magnesium 1.3 ferritin 1593 LDH 1053 CRP 47.7 pro calcitonin 0.30 UA positive for leukoesterase, WBC Coronavirus-PCR detected Influenza type A and type B both negative EKG tracing personally reviewed by me-right bundle-branch block Chest x-ray film personally reviewed by me-bilateral infiltrates Assessment: -Novel coronavirus infected pneumonia, POA, slow to improve -Acute hypoxic respiratory failure from above, POA -Sepsis, from above, POA -Acute UTI from cystitis, POA -Diabetes mellitus type 2 on oral hypoglycemic, uncontrolled with hypoglycemia -GERD -Hyperlipidemia -Essential hypertension -Hypothyroid -Diabetic peripheral neuropathy -Acute kidney injury likely ATN from sepsis-improving Plan: continue with ceftriaxone, plaquenil, IV Solu-Medrol, saline, oral zinc. Zithromax. Discussed with patient.
[2020-03-03 17:29] LABS: Glucose,Whole Blood 252 mg/dL (75-99)
[2020-03-03] MEDS ORDERED: POTASSIUM CHLORIDE ER 20 MEQ TAB.ER PO STA (17:46)
[2020-03-03 20:52] LABS: Glucose,Whole Blood 245 mg/dL (75-99)
[2020-03-03] MEDS ORDERED: INSULIN DETEMIR (LEVEMIR) 100 UNIT/ML SYR SQ SCH (21:00)
[2020-03-03] MEDS: ATORVASTATIN 10 MG TAB PO SCH (21:07)
[2020-03-03] MEDS: GABAPENTIN 300 MG CAP PO SCH (21:07)
[2020-03-03] MEDS: INSULIN DETEMIR (LEVEMIR) 100 UNIT/ML SYR SQ SCH (21:08)
[2020-03-03] MEDS: HYDROcodone/APAP 5-325MG 1 EACH TAB PO SCH (21:08)
--- NOTE | 2020-03-03 22:19 | PN ---
PROGRESS NOTE DATE OF SERVICE: 03/03/2020 REASON FOR FOLLOWUP: Acute COVID-19 pneumonia. INTERVAL HISTORY: The patient is currently afebrile. Patient is breathing slightly comfortably. Denies having any chest pain. Still has some cough which is dry in nature. No nausea, no vomiting. No abdominal pain. No diarrhea. PHYSICAL EXAMINATION: Blood pressure 133/75 with a pulse of 68. Temperature 97.7. He is 99% on 4 L nasal cannula. General description is a middle-aged female lying in bed in no distress. Respiratory system: Unlabored breathing. Few coarse crackles at the bases. No wheeze. HEART: S1, S2. Regular rate and rhythm. ABDOMEN: Soft, no tenderness. LABS: BUN of 20, creatinine 1.31. DIAGNOSTIC IMPRESSION AND PLAN: Patient with acute COVID-19 pneumonia. Patient is currently covered with Plaquenil, zinc, Solu-Medrol. should be Hep-Lock to keep the patient in negative panels. We will monitor clinical course closely. MMODL / IJN: [id number] /
[2020-03-04 06:23] LABS: Glucose,Whole Blood 59 mg/dL (75-99)
[2020-03-04 06:44] LABS: Glucose,Whole Blood 69 mg/dL (75-99)
[2020-03-04 07:02] LABS: C Reactive Protein 22.1 mg/L (<10.0); Calcium 8.9 mg/dL (8.4-10.2); Magnesium 1.4 mg/dL (1.6-2.3)
[2020-03-04 07:02] LABS: Glucose,Whole Blood 96 mg/dL (75-99)
[2020-03-04] MEDS: ALBUTEROL HFA INHALER INHALATION SCH ×4 (07:05→18:42)
[2020-03-04] MEDS ORDERED: Magnesium Replacement Protocol 1 EACH MISC MISCELLANE PRN (07:56)
--- NOTE | 2020-03-04 08:41 | P.PN ---
Subjective Patient is seen in follow for acute kidney injury. Renal function is gradually improving. Creatinine 1.25 today. No vomiting or diarrhea. Good urine output. Vital signs are stable. General: The patient appeared well nourished and normally developed. HEENT: Head exam is unremarkable. Neck is without jugular venous distension. LUNGS: Breath sounds decreased. HEART: Rate and Rhythm are regular. First and second heart sounds normal. No murmurs, rubs or gallops. ABDOMEN: Nontender. No distention. EXTREMITITES: No edema. Objective - Vital Signs Vital signs: Vital Signs Temp 97.9 F 03/04/20 04:00 Pulse 61 03/04/20 04:00 Resp 22 03/04/20 04:00 BP 135/78 03/04/20 04:00 Pulse Ox 95 03/04/20 07:05 Intake & Output 03/03/20 03/04/20 03/04/20 18:59 06:59 18:59 Intake Total 1800 240 Balance 1800 240 Weight 100.5 kg Intake: Intake, IV Titration 480 Amount Sodium Chloride 0.9% 1, 480 000 ml @ 60 mls/hr IV . [id number] [facility] Rx#:[id number] Oral 1320 240 Other: Voiding Method Toilet Toilet # Voids 2 1 - Labs CBC & Chem 7: 02/29/20 16:42 03/04/20 06:24 Labs: Abnormal Lab Results - Last 24 Hours (Table) 03/03/20 03/03/20 03/03/20 Range/Units 08:18 11:40 17:13 Chloride 109 H (98-107) mmol/L Carbon Dioxide 19 L (22-30) mmol/L BUN 20 H (7-17) mg/dL Creatinine 1.31 H (0.52-1.04) mg/dL Glucose 226 H (74-99) mg/dL POC Glucose (mg/dL) 239 H 252 H (75-99) mg/dL Calcium 8.0 L (8.4-10.2) mg/dL Magnesium (1.6-2.3) mg/dL C-Reactive Protein (<10.0) mg/L 03/03/20 03/04/20 03/04/20 Range/Units 20:51 06:22 06:24 Chloride 113 H (98-107) mmol/L Carbon Dioxide 18 L (22-30) mmol/L BUN 25 H (7-17) mg/dL Creatinine 1.25 H (0.52-1.04) mg/dL Glucose 55 L (74-99) mg/dL POC Glucose (mg/dL) 245 H 59 L (75-99) mg/dL Calcium (8.4-10.2) mg/dL Magnesium 1.4 L (1.6-2.3) mg/dL C-Reactive Protein 22.1 H (<10.0) mg/L 03/04/20 Range/Units 06:43 Chloride (98-107) mmol/L Carbon Dioxide (22-30) mmol/L BUN (7-17) mg/dL Creatinine (0.52-1.04) mg/dL Glucose (74-99) mg/dL POC Glucose (mg/dL) 69 L (75-99) mg/dL Calcium (8.4-10.2) mg/dL Magnesium (1.6-2.3) mg/dL C-Reactive Protein (<10.0) mg/L Microbiology - Last 24 Hours (Table) 02/29/20 16:42 Blood Culture - Preliminary Blood No Growth after 72 hours Assessment and Plan Plan: Assessment: 1. Acute kidney injury secondary to ATN secondary to COVID-19 infection. Renal function gradually improving. Creatinine 1.25 today. 2. Covid-19 pneumonia maintained on azithromycin and Plaquenil. 3. Hypomagnesemia from poor oral intake. 4. Diabetes mellitus. 5. Metabolic acidosis secondary to acute kidney injury and IV fluids. Plan: Encouraged oral intake. Avoid nephrotoxins. Replace magnesium. 2 g IV today. Continue to monitor renal function and urine output.
[2020-03-04] MEDS: methylPREDNISolone SOD SUCCI 40 MG/ML 1 ML VIAL IV SCH (09:26)
[2020-03-04] MEDS: PANTOPRAZOLE 40 MG TABLET PO SCH (09:27)
[2020-03-04] MEDS: LEVOTHYROXINE 50 MCG TAB PO SCH (09:27)
[2020-03-04] MEDS: INSULIN ASPART (NovoLOG) 100 UNIT/ML VIAL SQ SCH ×4 (09:27→20:15)
[2020-03-04] MEDS: METOPROLOL SUCCINATE (ER) 50 MG TAB.ER.24H PO SCH (09:27)
[2020-03-04] MEDS: metFORMIN 500 MG TAB PO SCH ×2 (09:27→20:12)
[2020-03-04] MEDS: ACETAMINOPHEN TAB 325 MG TAB PO PRN ×2 (09:27→16:44)
[2020-03-04] MEDS: ENOXAPARIN 30 MG/0.3 ML SYRINGE SQ SCH (09:28)
[2020-03-04] MEDS: MAGNESIUM SULFATE-D5W PMX 1 GM in DEXTROSE/WATER 1 100ML.BAG IVPB SCH ×2 (09:28→12:04)
[2020-03-04] MEDS: GLIMEPIRIDE 4 MG TAB PO SCH ×2 (09:28→21:02)
[2020-03-04] MEDS: ZINC SULFATE 220 MG CAP PO SCH (09:29)
[2020-03-04] MEDS: AZITHROMYCIN 250 MG TAB PO SCH (09:29)
[2020-03-04] MEDS: HYDROXYCHLOROQUINE SULFATE 200 MG TAB PO SCH ×2 (09:29→20:12)
[2020-03-04 11:52] LABS: Glucose,Whole Blood 161 mg/dL (75-99)
[2020-03-04 16:36] LABS: Glucose,Whole Blood 327 mg/dL (75-99)
[2020-03-04 18:14] LABS: Glucose,Whole Blood 303 mg/dL (75-99)
--- NOTE | 2020-03-04 18:14 | P.PN ---
Progress Note - Text Progress Note Date: 03/04/20 Chief Complaint: Cough History of presenting complaint: This is a pleasant [address] Sanchez. Chronic stable medical conditions include diabetes, GERD, hyperlipidemia, hypertension, hypothyroid, diabetic peripheral neuropathy. Patient presents with five-day history of cough little phlegm chills tired rundown body aches some headaches 1 or 2 loose stools a short of breath. Presents to the ER. admitted with-acute UTI and cystitis, sepsis, COVID-19 pneumonia.acute kidney injury-prerenal Started IV ceftriaxone, Plaquenil,IV fluids. Today- feeling a bit better today. Less cough. Did sit up in a chair. Appetite much improved. Breathing better Review of systems: Was done for constitutional, cardiovascular, GI, pulmonary. relevant finding as above Active Medications Acetaminophen (Tylenol Tab) 650 mg PO Q6HR PRN PRN Reason: Mild Pain or Fever > 100.5 Last Admin: 03/04/20 16:44 Dose: 650 mg Documented by: Hydrocodone Bitart/Acetaminophen ([place] 5-325) 1 each PO [facility] Last Admin: 03/03/20 21:08 Dose: 1 each Documented by: Albuterol Sulfate (Ventolin Hfa Inhaler) 4 puff INHALATION RT-QID [facility] Last Admin: 03/04/20 15:29 Dose: 4 puff Documented by: Atorvastatin Calcium (Lipitor) 10 mg PO [facility] Last Admin: 03/03/20 21:07 Dose: 10 mg Documented by: Azithromycin (Zithromax) 250 mg PO DAILY [facility] Stop: 03/06/20 09:01 Last Admin: 03/04/20 09:29 Dose: 250 mg Documented by: Calcium Carbonate/Glycine (Tums) 500 mg PO QID PRN PRN Reason: Heartburn Last Admin: 03/01/20 01:53 Dose: 500 mg Documented by: Enoxaparin Sodium (Lovenox) 40 mg SQ DAILY [facility] Gabapentin (Neurontin) 300 mg PO [facility] Last Admin: 03/03/20 21:07 Dose: 300 mg Documented by: Glimepiride (Amaryl) 4 mg PO BID [facility] Last Admin: 03/04/20 09:28 Dose: 4 mg Documented by: Hydroxychloroquine Sulfate (Plaquenil) 200 mg PO BID [facility] Stop: 03/05/20 21:01 Last Admin: 03/04/20 09:29 Dose: 200 mg Documented by: Ceftriaxone Sodium 1 gm/ (Sodium Chloride) 50 mls @ 100 mls/hr IVPB Q24H [facility] Last Admin: 03/04/20 12:03 Dose: 100 mls/hr Documented by: Insulin Aspart (Novolog) 0 unit SQ ACHS [facility]; Protocol Last Admin: 03/04/20 16:43 Dose: 8 unit Documented by: Insulin Detemir (Levemir) 14 unit SQ HS [facility] Last Admin: 03/03/20 21:08 Dose: 14 unit Documented by: Levothyroxine Sodium (Synthroid) 50 mcg PO QAM@0630 [facility] Last Admin: 03/04/20 09:27 Dose: Not Given Documented by: Metformin HCl (Glucophage) 500 mg PO BID [facility] Last Admin: 03/04/20 09:27 Dose: 500 mg Documented by: Metoprolol Succinate (Toprol Xl) 50 mg PO DAILY [facility] Last Admin: 03/04/20 09:27 Dose: 50 mg Documented by: Miscellaneous Information (Magnesium Per Protocol) 1 each [place] DAILY PRN; Protocol PRN Reason: Per Protocol Naloxone HCl (Narcan) 0.2 mg IV Q2M PRN PRN Reason: Opioid Reversal Pantoprazole Sodium (Protonix) 40 mg PO AC-BRKFST [facility] Last Admin: 03/04/20 09:27 Dose: 40 mg Documented by: Prednisone () 30 mg PO DAILY [facility] Zinc Sulfate (Orazinc) 220 mg PO DAILY [facility] Last Admin: 03/04/20 09:29 Dose: 220 mg Documented by: Physical examination: VITAL SIGNS: 97.7, 68, 24, 152/77, 97% on 2 L GENERAL: Sitting at the edge of the bed, doing better PSYCH: Alert and oriented x3; mood and affect less anxious. Rest of the exam noted per nursing INVESTIGATIONS, reviewed in the clinical context: Potassium 4 bun 25 creatinine 1.25 Previous testing White count 9.4 hemoglobin 11.2 platelets 245in 3.3 bun 48 creatinine 3.42 Renal function and May 2018- creatinine 0.7 to Magnesium 1.3 ferritin 1593 LDH 1053 CRP 47.7 pro calcitonin 0.30 UA positive for leukoesterase, WBC Coronavirus-PCR detected Influenza type A and type B both negative EKG tracing personally reviewed by me-right bundle-branch block Chest x-ray film personally reviewed by me-bilateral infiltrates Assessment: -Novel coronavirus infected pneumonia, POA, improving -Acute hypoxic respiratory failure from above, POA, improving -Sepsis, from above, POA -Acute UTI from cystitis, POA -Diabetes mellitus type 2 on oral hypoglycemic, uncontrolled with hypoglycemia -GERD -Hyperlipidemia -Essential hypertension -Hypothyroid -Diabetic peripheral neuropathy -Acute kidney injury likely ATN from sepsis-improving Plan: continue with ceftriaxone, plaquenil, I, saline, oral zinc. Zithromax. DC Solu-Medrol. Switched to prednisone 30 mg. Encouraged to sit up on a chair. Used to I's. Taper off oxygen.
[2020-03-04 19:56] LABS: Glucose,Whole Blood 253 mg/dL (75-99)
[2020-03-04] MEDS: INSULIN DETEMIR (LEVEMIR) 100 UNIT/ML SYR SQ SCH (20:12)
[2020-03-04] MEDS: ATORVASTATIN 10 MG TAB PO SCH (20:12)
[2020-03-04] MEDS: HYDROcodone/APAP 5-325MG 1 EACH TAB PO SCH (20:12)
[2020-03-04] MEDS: GABAPENTIN 300 MG CAP PO SCH (20:12)
[2020-03-04] MEDS: SODIUM BICARBONATE TAB 650 MG TAB PO SCH ×2 (20:19→21:02)
[2020-03-04] MEDS: predniSONE 10 MG TAB PO SCH (20:19)
--- NOTE | 2020-03-04 22:19 | PN ---
PROGRESS NOTE DATE OF SERVICE: 03/04/2020 REASON FOR FOLLOWUP: Acute COVID-19 infection. INTERVAL HISTORY: The patient is currently afebrile. She is breathing slightly comfortably. Denies having any chest pain. Occasional cough. No nausea, no vomiting. No abdominal pain or diarrhea. PHYSICAL EXAMINATION: Blood pressure 149/71 with a pulse of 71, temperature 97.9. She is 95% on 2 L nasal cannula. General description is a middle-aged female up in the chair in no distress. RESPIRATORY SYSTEM: Unlabored breathing with decreased intensity of breath sounds. No wheeze. HEART: S1, S2. Regular rate and rhythm. ABDOMEN: Soft. No tenderness. LABS: No new labs have been obtained today except the creatinine of 1.25. DIAGNOSTIC IMPRESSION AND PLAN: Patient with acute COVID-19 pneumonia. Patient seems to have shown clinical improvement. She has completed her 5-day course of Plaquenil. Continue Zithromax. continue and monitor clinical course closely. MMODL / IJN: [id number] /
[2020-03-05] MEDS: INSULIN ASPART (NovoLOG) 100 UNIT/ML VIAL SQ SCH ×4 (06:05→20:22)
[2020-03-05 06:06] LABS: Glucose,Whole Blood 62 mg/dL (75-99)
[2020-03-05] MEDS: PANTOPRAZOLE 40 MG TABLET PO SCH (06:24)
[2020-03-05] MEDS: LEVOTHYROXINE 50 MCG TAB PO SCH (06:24)
[2020-03-05 06:25] LABS: Glucose,Whole Blood 70 mg/dL (75-99)
[2020-03-05 06:39] LABS: Calcium 8.3 mg/dL (8.4-10.2); Magnesium 1.7 mg/dL (1.6-2.3); Potassium 4.1 mmol/L (3.5-5.1)
[2020-03-05] MEDS: ALBUTEROL HFA INHALER INHALATION SCH ×4 (07:11→19:46)
--- NOTE | 2020-03-05 08:43 | P.PN ---
Subjective Patient is seen in follow for acute kidney injury. Renal function is gradually improving. Creatinine 1.11 today. No vomiting or diarrhea. Good urine output. Vital signs are stable. General: The patient appeared well nourished and normally developed. HEENT: Head exam is unremarkable. Neck is without jugular venous distension. LUNGS: Breath sounds decreased. HEART: Rate and Rhythm are regular. First and second heart sounds normal. No murmurs, rubs or gallops. ABDOMEN: Nontender. No distention. EXTREMITITES: No edema. Objective - Vital Signs Vital signs: Vital Signs Temp 98.3 F 03/05/20 04:05 Pulse 61 03/05/20 04:05 Resp 24 03/05/20 04:05 BP 134/79 03/05/20 04:05 Pulse Ox 96 03/05/20 04:05 Intake & Output 03/04/20 03/05/20 03/05/20 18:59 06:59 18:59 Intake Total 1320 550 Output Total 350 Balance 1320 200 Weight 99.8 kg Intake: Intake, IV Titration 250 Amount Magnesium Sulfate-D5w Pmx 200 1 gm In Dextrose/Water 1 100ml.bag @ 100 mls/hr IVPB Q1H TEZ Rx#: [id number] cefTRIAXone 1 gm In 50 Sodium Chloride 0.9% 50 ml @ 100 mls/hr IVPB Q24H TEZ Rx#:[id number] Oral 1070 550 Output: Urine 350 Other: Voiding Method Toilet # Voids 3 2 # Bowel Movements 1 - Labs CBC & Chem 7: 02/29/20 16:42 03/05/20 05:23 Labs: Abnormal Lab Results - Last 24 Hours (Table) 03/04/20 03/04/20 03/04/20 Range/Units 11:37 16:34 18:04 Chloride (98-107) mmol/L Carbon Dioxide (22-30) mmol/L BUN (7-17) mg/dL Creatinine (0.52-1.04) mg/dL Glucose (74-99) mg/dL POC Glucose (mg/dL) 161 H 327 H 303 H (75-99) mg/dL Calcium (8.4-10.2) mg/dL 03/04/20 03/05/20 03/05/20 Range/Units 19:55 05:23 06:04 Chloride 112 H (98-107) mmol/L Carbon Dioxide 17 L (22-30) mmol/L BUN 27 H (7-17) mg/dL Creatinine 1.11 H (0.52-1.04) mg/dL Glucose 50 L (74-99) mg/dL POC Glucose (mg/dL) 253 H 62 L (75-99) mg/dL Calcium 8.3 L (8.4-10.2) mg/dL 03/05/20 Range/Units 06:23 Chloride (98-107) mmol/L Carbon Dioxide (22-30) mmol/L BUN (7-17) mg/dL Creatinine (0.52-1.04) mg/dL Glucose (74-99) mg/dL POC Glucose (mg/dL) 70 L (75-99) mg/dL Calcium (8.4-10.2) mg/dL Microbiology - Last 24 Hours (Table) 02/29/20 16:42 Blood Culture - Preliminary Blood No Growth after 96 hours Assessment and Plan Plan: Assessment: 1. Acute kidney injury secondary to ATN secondary to COVID-19 infection. Renal function gradually improving. Creatinine 1.11 today. 2. Covid-19 pneumonia maintained on azithromycin and Plaquenil. 3. Hypomagnesemia from poor oral intake. Better post replacement. 4. Diabetes mellitus. 5. Metabolic acidosis secondary to acute kidney injury and IV fluids maintained on oral bicarbonate. Plan: Encouraged oral intake. Avoid nephrotoxins. Continue to monitor renal function and urine output.
[2020-03-05] MEDS: metFORMIN 500 MG TAB PO SCH ×2 (09:09→20:22)
[2020-03-05] MEDS: ENOXAPARIN 40 MG/0.4 ML SYRINGE SQ SCH (09:09)
[2020-03-05] MEDS: SODIUM BICARBONATE TAB 650 MG TAB PO SCH ×3 (09:09→20:22)
[2020-03-05] MEDS: ACETAMINOPHEN TAB 325 MG TAB PO PRN (09:09)
[2020-03-05] MEDS: METOPROLOL SUCCINATE (ER) 50 MG TAB.ER.24H PO SCH (09:09)
[2020-03-05] MEDS: predniSONE 10 MG TAB PO SCH (09:09)
[2020-03-05] MEDS: HYDROXYCHLOROQUINE SULFATE 200 MG TAB PO SCH ×2 (09:10→22:08)
[2020-03-05] MEDS: AZITHROMYCIN 250 MG TAB PO SCH (09:10)
[2020-03-05] MEDS: ZINC SULFATE 220 MG CAP PO SCH (09:10)
[2020-03-05] MEDS: GLIMEPIRIDE 4 MG TAB PO SCH (09:10)
[2020-03-05 12:02] LABS: Glucose,Whole Blood 82 mg/dL (75-99)
--- NOTE | 2020-03-05 15:29 | PN ---
PROGRESS NOTE DATE OF SERVICE: 03/05/2020 INTERVAL HISTORY: The patient is currently afebrile. She is breathing comfortably on room air. Denies having any chest pain or increasing cough. No nausea. No vomiting. No abdominal pain. No diarrhea. PHYSICAL EXAMINATION: Blood pressure 172/88 with a pulse of 79, temperature 98.8. She is 94% on room air. General description is a middle-aged female up in the bed in no distress. RESPIRATORY SYSTEM: Unlabored breathing. Decreased intensity of breath sounds at the bases. No wheeze. HEART: S1, S2. Regular rate and rhythm. ABDOMEN: Soft. No tenderness. LABS: Creatinine is 1.11. DIAGNOSTIC IMPRESSION AND PLAN: Patient with acute COVID-19 pneumonia. Patient clinically responding to the Plaquenil, which she will continue as of today, along with zinc. Solu-Medrol has been discontinued. Monitor clinical course closely. MMODL / IJN: [id number] /
[2020-03-05 17:17] LABS: Glucose,Whole Blood 279 mg/dL (75-99)
--- NOTE | 2020-03-05 17:36 | P.PN ---
Progress Note - Text Progress Note Date: 03/05/20 Chief Complaint: Cough History of presenting complaint: This is a pleasant [address] Sanchez. Chronic stable medical conditions include diabetes, GERD, hyperlipidemia, hypertension, hypothyroid, diabetic peripheral neuropathy. Patient presents with five-day history of cough little phlegm chills tired rundown body aches some headaches 1 or 2 loose stools a short of breath. Presents to the ER. admitted with-acute UTI and cystitis, sepsis, COVID-19 pneumonia.acute kidney injury-prerenal Started IV ceftriaxone, Plaquenil,IV fluids. Today- feeling much improved today. Appetite much improved. Oxygen being taken off. Less tired. Up to the bathroom. Some nasal stuffiness. Review of systems: Was done for constitutional, cardiovascular, GI, pulmonary. relevant finding as above Active Medications Acetaminophen (Tylenol Tab) 650 mg PO Q6HR PRN PRN Reason: Mild Pain or Fever > 100.5 Last Admin: 03/05/20 09:09 Dose: 650 mg Documented by: Hydrocodone Bitart/Acetaminophen ([place] 5-325) 1 each PO [facility] Last Admin: 03/04/20 20:12 Dose: 1 each Documented by: Albuterol Sulfate (Ventolin Hfa Inhaler) 4 puff INHALATION RT-QID [facility] Last Admin: 03/05/20 15:27 Dose: 4 puff Documented by: Atorvastatin Calcium (Lipitor) 10 mg PO [facility] Last Admin: 03/04/20 20:12 Dose: 10 mg Documented by: Azithromycin (Zithromax) 250 mg PO DAILY [facility] Stop: 03/06/20 09:01 Last Admin: 03/05/20 09:10 Dose: 250 mg Documented by: Calcium Carbonate/Glycine (Tums) 500 mg PO QID PRN PRN Reason: Heartburn Last Admin: 03/01/20 01:53 Dose: 500 mg Documented by: Enoxaparin Sodium (Lovenox) 40 mg SQ DAILY [facility] Last Admin: 03/05/20 09:09 Dose: 40 mg Documented by: Gabapentin (Neurontin) 300 mg PO [facility] Last Admin: 03/04/20 20:12 Dose: 300 mg Documented by: Glimepiride (Amaryl) 4 mg PO BID [facility] Last Admin: 03/05/20 09:10 Dose: 4 mg Documented by: Hydroxychloroquine Sulfate (Plaquenil) 200 mg PO BID [facility] Stop: 03/05/20 21:01 Last Admin: 03/05/20 09:10 Dose: 200 mg Documented by: Ceftriaxone Sodium 1 gm/ (Sodium Chloride) 50 mls @ 100 mls/hr IVPB Q24H [facility] Last Admin: 03/05/20 12:23 Dose: 100 mls/hr Documented by: Insulin Aspart (Novolog) 0 unit SQ ACHS [facility]; Protocol Last Admin: 03/05/20 12:15 Dose: Not Given Documented by: Insulin Detemir (Levemir) 14 unit SQ HS [facility] Last Admin: 03/04/20 20:12 Dose: 14 unit Documented by: Levothyroxine Sodium (Synthroid) 50 mcg PO QAM@0630 [facility] Last Admin: 03/05/20 06:24 Dose: 50 mcg Documented by: Metformin HCl (Glucophage) 500 mg PO BID [facility] Last Admin: 03/05/20 09:09 Dose: 500 mg Documented by: Metoprolol Succinate (Toprol Xl) 50 mg PO DAILY [facility] Last Admin: 03/05/20 09:09 Dose: 50 mg Documented by: Miscellaneous Information (Magnesium Per Protocol) 1 each MISCELLANE DAILY PRN; Protocol PRN Reason: Per Protocol Naloxone HCl (Narcan) 0.2 mg IV Q2M PRN PRN Reason: Opioid Reversal Pantoprazole Sodium (Protonix) 40 mg PO AC-BRKFST [facility] Last Admin: 03/05/20 06:24 Dose: 40 mg Documented by: Prednisone () 30 mg PO DAILY [facility] Last Admin: 03/05/20 09:09 Dose: 30 mg Documented by: Sodium Bicarbonate (Sodium Bicarbonate Tab) 650 mg PO TID [facility] Last Admin: 03/05/20 09:09 Dose: 650 mg Documented by: Zinc Sulfate (Orazinc) 220 mg PO DAILY [facility] Last Admin: 03/05/20 09:10 Dose: 220 mg Documented by: Physical examination: VITAL SIGNS: 98.3, 71, 22, 135/58, 98% on 2 L GENERAL: Sitting at the edge of the bed, stable PSYCH: Alert and oriented x3; mood and affect less anxious. Rest of the exam noted per nursing INVESTIGATIONS, reviewed in the clinical context: Potassium 4.1 bun 27 creatinine 1.11 Accu-Cheks 62, 70 Previous testing White count 9.4 hemoglobin 11.2 platelets 245in 3.3 bun 48 creatinine 3.42 Renal function and May 2018- creatinine 0.7 to Magnesium 1.3 ferritin 1593 LDH 1053 CRP 47.7 pro calcitonin 0.30 UA positive for leukoesterase, WBC Coronavirus-PCR detected Influenza type A and type B both negative EKG tracing personally reviewed by me-right bundle-branch block Chest x-ray film personally reviewed by me-bilateral infiltrates Assessment: -Novel coronavirus infected pneumonia, POA, improving -Acute hypoxic respiratory failure from above, POA, improving -Sepsis, from above, POA -Acute UTI from cystitis, POA -Diabetes mellitus type 2 on oral hypoglycemic, uncontrolled with hypoglycemia -GERD -Hyperlipidemia -Essential hypertension -Hypothyroid -Diabetic peripheral neuropathy -Acute kidney injury likely ATN from sepsis-improving Plan: We'll DC the p.m. dose of Amaryl. Patient to continue dose of Plaquenil and Zithromax. Encouraged the patient to ambulate. Hopefully discharge tomorrow. Discussed with patient. Continue sodium bicarbonate. Repeat CRP tomorrow
[2020-03-05 20:01] LABS: Glucose,Whole Blood 239 mg/dL (75-99)
[2020-03-05] MEDS: HYDROcodone/APAP 5-325MG 1 EACH TAB PO SCH (20:22)
[2020-03-05] MEDS: INSULIN DETEMIR (LEVEMIR) 100 UNIT/ML SYR SQ SCH (20:22)
[2020-03-05] MEDS: GABAPENTIN 300 MG CAP PO SCH (20:22)
[2020-03-05] MEDS: ATORVASTATIN 10 MG TAB PO SCH (20:23)
[2020-03-05 22:34] VITALS: RESP 18
[2020-03-06 06:16] LABS: Glucose,Whole Blood 64 mg/dL (75-99)
[2020-03-06] MEDS: INSULIN ASPART (NovoLOG) 100 UNIT/ML VIAL SQ SCH ×2 (06:23→11:53)
[2020-03-06] MEDS: PANTOPRAZOLE 40 MG TABLET PO SCH (06:25)
[2020-03-06] MEDS: LEVOTHYROXINE 50 MCG TAB PO SCH (06:25)
[2020-03-06 06:31] LABS: Glucose,Whole Blood 75 mg/dL (75-99)
[2020-03-06 07:17] LABS: Potassium 4.1 mmol/L (3.5-5.1)
[2020-03-06 07:21] LABS: C Reactive Protein 7.3 mg/L (<10.0); Calcium 8.8 mg/dL (8.4-10.2)
[2020-03-06] MEDS ORDERED: GLIMEPIRIDE 4 MG TAB PO SCH (07:30)
[2020-03-06] MEDS: ALBUTEROL HFA INHALER INHALATION SCH ×2 (08:13→11:54)
[2020-03-06 08:20] LABS: Basophils # (A) 0.1 k/uL (0-0.2); Basophils % (A) 1 %; Eosinophils # (A) 0.1 k/uL (0-0.7); Eosinophils % (A) 1 %; HCT 32.3 % (34.0-46.0); HGB 10.6 gm/dL (11.4-16.0); Lymphocytes # (A) 2.1 k/uL (1.0-4.8); Lymphocytes % (A) 20 %; MCH 29.3 pg (25.0-35.0); Mean Platelet Volume 8.6; Monocytes # (A) 0.8 k/uL (0-1.0); Monocytes % (A) 8 %; Neutrophils # (A) 7.2 k/uL (1.3-7.7); Neutrophils % (A) 67 %; Platelet Count 400 k/uL (150-450); RBC 3.63 m/uL (3.80-5.40); RDW 13.6 % (11.5-15.5); WBC 10.8 k/uL (3.8-10.6)
[2020-03-06 08:42] VITALS: BP 115/63; PULSE 76; TEMP 98.3
[2020-03-06] MEDS: ENOXAPARIN 40 MG/0.4 ML SYRINGE SQ SCH (08:42)
[2020-03-06] MEDS: AZITHROMYCIN 250 MG TAB PO SCH (08:43)
[2020-03-06] MEDS: ZINC SULFATE 220 MG CAP PO SCH (08:43)
[2020-03-06] MEDS: predniSONE 10 MG TAB PO SCH (08:43)
[2020-03-06] MEDS: METOPROLOL SUCCINATE (ER) 50 MG TAB.ER.24H PO SCH (08:43)
[2020-03-06] MEDS: SODIUM BICARBONATE TAB 650 MG TAB PO SCH (08:43)
[2020-03-06] MEDS: metFORMIN 500 MG TAB PO SCH (08:43)
--- NOTE | 2020-03-06 11:23 | P.PN ---
Subjective Patient is seen in follow for acute kidney injury. Renal function is stable. Creatinine 1.14 today. No vomiting or diarrhea. Good urine output. Vital signs are stable. General: The patient appeared well nourished and normally developed. HEENT: Head exam is unremarkable. Neck is without jugular venous distension. LUNGS: Breath sounds decreased. HEART: Rate and Rhythm are regular. First and second heart sounds normal. No murmurs, rubs or gallops. ABDOMEN: Nontender. No distention. EXTREMITITES: No edema. Objective - Vital Signs Vital signs: Vital Signs Temp 98.3 F 03/06/20 08:00 Pulse 76 03/06/20 08:00 Resp 18 03/06/20 08:00 BP 115/63 03/06/20 08:00 Pulse Ox 95 03/06/20 08:00 Intake & Output 03/05/20 03/06/20 03/06/20 18:59 06:59 18:59 Intake Total 420 240 Output Total 121 Balance 420 -121 240 Weight 99 kg Intake: Oral 420 240 Output: Urine 121 Other: Voiding Method Toilet # Voids 1 # Bowel Movements 1 - Labs CBC & Chem 7: 03/06/20 06:27 03/06/20 06:27 Labs: Abnormal Lab Results - Last 24 Hours (Table) 03/05/20 03/05/20 03/06/20 Range/Units 17:14 20:00 06:15 WBC (3.8-10.6) k/uL RBC (3.80-5.40) m/uL Hgb (11.4-16.0) gm/dL Hct (34.0-46.0) % Chloride (98-107) mmol/L Carbon Dioxide (22-30) mmol/L BUN (7-17) mg/dL Creatinine (0.52-1.04) mg/dL Glucose (74-99) mg/dL POC Glucose (mg/dL) 279 H 239 H 64 L (75-99) mg/dL 03/06/20 03/06/20 Range/Units 06:27 06:27 WBC 10.8 H (3.8-10.6) k/uL RBC 3.63 L (3.80-5.40) m/uL Hgb 10.6 L (11.4-16.0) gm/dL Hct 32.3 L (34.0-46.0) % Chloride 111 H (98-107) mmol/L Carbon Dioxide 20 L (22-30) mmol/L BUN 25 H (7-17) mg/dL Creatinine 1.14 H (0.52-1.04) mg/dL Glucose 65 L (74-99) mg/dL POC Glucose (mg/dL) (75-99) mg/dL Microbiology - Last 24 Hours (Table) 02/29/20 16:42 Blood Culture - Preliminary Blood No Growth after 120 hours Assessment and Plan Plan: Assessment: 1. Acute kidney injury secondary to ATN secondary to COVID-19 infection. Renal function stable. Creatinine 1.14 today. 2. Covid-19 pneumonia maintained on azithromycin and Plaquenil. 3. Hypomagnesemia from poor oral intake. Better post replacement. 4. Diabetes mellitus. 5. Metabolic acidosis secondary to acute kidney injury and IV fluids maintained on oral bicarbonate. Better. Plan: Encouraged oral intake. Avoid nephrotoxins. Continue to monitor renal function and urine output.
[2020-03-06 11:26] LABS: Glucose,Whole Blood 197 mg/dL (75-99)
--- NOTE | 2020-03-06 19:43 | P.DS ---
Providers Date of admission: 02/29/20 18:24 Expected date of discharge: 03/06/20 Attending physician: Keshawn Mauricio Consults: 02/29/20 18:23 Consult Physician Stat Consulting Provider: Lizette Garcia Consult Reason/Comments: NATALI, coronavirus Do you want consulting provider notified?: Yes 03/01/20 09:42 Consult Physician Urgent Consulting Provider: Viki Bentley Consult Reason/Comments: covid 19 Do you want consulting provider notified?: Yes Primary care physician: Bernard Sanchez [facility] Course: Chief Complaint: Cough History of presenting complaint: This is a pleasant [address] Sanchez. Chronic stable medical conditions include diabetes, GERD, hyperlipidemia, hypertension, hypothyroid, diabetic peripheral neuropathy. Patient presents with five-day history of cough little phlegm chills tired rundown body aches some headaches 1 or 2 loose stools a short of breath. Presents to the ER. admitted with-acute UTI and cystitis, sepsis, COVID-19 pneumonia.acute kidney injury-prerenal Started IV ceftriaxone, Plaquenil,IV fluids. Creatinine dropped from 3.22 down to 1.11 Today- done much better. Up in bed. Ambulatory in the room. Tolerating a diet. Breathing much improved. Discussed with the patient. Patient counseled about quarantine.Discussion and discharge planning more than 35 minutes Consultation: Dr. Crockett from nephrology Dr. Bentley from ID Physical examination: VITAL SIGNS: 98.3, 76, 18, 115/63, 95% on room air GENERAL: Sitting at the edge of the bed, much better PSYCH: Alert and oriented x3; mood and affect less anxious. Rest of the exam noted per nursing INVESTIGATIONS, reviewed in the clinical context: Potassium 4.1 bun 27 creatinine 1.11 Accu-Cheks 62, 70 Previous testing White count 9.4 hemoglobin 11.2 platelets 245in 3.3 bun 48 creatinine 3.42 Renal function and May 2018- creatinine 0.7 to Magnesium 1.3 ferritin 1593 LDH 1053 CRP 47.7 pro calcitonin 0.30 UA positive for leukoesterase, WBC Coronavirus-PCR detected Influenza type A and type B both negative EKG tracing personally reviewed by me-right bundle-branch block Chest x-ray film personally reviewed by me-bilateral infiltrates Assessment: -Novel coronavirus infected pneumonia, POA, i -Acute hypoxic respiratory failure from above, POA, -Sepsis, from above, POA -Acute UTI from cystitis, POA -Diabetes mellitus type 2 on oral hypoglycemic, uncontrolled with hypoglycemia -GERD -Hyperlipidemia -Essential hypertension -Hypothyroid -Diabetic peripheral neuropathy -Acute kidney injury likely ATN from sepsis-improving Disposition: Home Patient Condition at Discharge: Stable Plan - Discharge Summary Discharge Rx Participant: Yes New Discharge Prescriptions: New predniSONE 30 mg PO DAILY #12 tab Sodium Bicarbonate Tab 650 mg PO TID #30 tab Continue metFORMIN HCL [Glucophage] 500 mg PO BID Calcium Carbonate/Vitamin D3 [Calcium 600-Vit D3 400 Caplet] 1 tab PO QAM Omeprazole [PriLOSEC] 20 mg PO QAM Levothyroxine Sodium [Synthroid] 50 mcg PO QAM Gabapentin [Neurontin] 300 mg PO HS Glimepiride [Amaryl] 4 mg PO DAILY Fluticasone Propionate [Flonase Allergy Relief] 1 spray EA NOSTRIL BID PRN PRN Reason: Allergy Symptoms Metoprolol Succinate [Toprol XL] 50 mg PO DAILY Lovastatin [Mevacor] 40 mg PO HS Hydrocodone/Acetaminophen [[place] 5-325] 1 tab PO HS Changed Loratadine [Claritin] 5 mg PO BID #0 Discontinued Losartan Potassium 100 mg PO DAILY Hydrochlorothiazide 25 mg PO QAM Discharge Medication List Calcium Carbonate/Vitamin D3 [Calcium 600-Vit D3 400 Caplet] 1 tab PO QAM 02/16/17 [History] Gabapentin [Neurontin] 300 mg PO HS 02/16/17 [History] Levothyroxine Sodium [Synthroid] 50 mcg PO QAM 02/16/17 [History] Omeprazole [PriLOSEC] 20 mg PO QAM 02/16/17 [History] metFORMIN HCL [Glucophage] 500 mg PO BID 02/16/17 [History] Fluticasone Propionate [Flonase Allergy Relief] 1 spray EA NOSTRIL BID PRN 05/17/18 [History] Glimepiride [Amaryl] 4 mg PO DAILY 05/17/18 [History] Hydrocodone/Acetaminophen [[place] 5-325] 1 tab PO HS 02/29/20 [History] Lovastatin [Mevacor] 40 mg PO HS 02/29/20 [History] Metoprolol Succinate [Toprol XL] 50 mg PO DAILY 02/29/20 [History] Loratadine [Claritin] 5 mg PO BID #0 03/06/20 [Rx] Sodium Bicarbonate Tab 650 mg PO TID #30 tab 03/06/20 [Rx] predniSONE 30 mg PO DAILY #12 tab 03/06/20 [Rx] Follow up Appointment(s)/Referral(s): Bernard Sanchez MD [Primary Care Provider] - 03/12/20 2:00 pm Patient Instructions/Handouts: Pneumonitis (DC), Acute Kidney Injury (DC) Activity/Diet/Wound Care/Special Instructions: covid quarantine - instructions given Discharge Disposition: HOME SELF-CARE
== END 2020-03-06 12:58 | disposition home or self-care (01) | DRG 871 ==
LOC: EC 15:44 → 3SCARD 18:24
PROVIDERS: ADMIT Hospitalist; ATTEND Hospitalist
DX: A41.89 Other specified sepsis (principal); U07.1 COVID-19; J96.01 Acute respiratory failure with hypoxia; J12.89 Other viral pneumonia; N17.0 Acute kidney failure with tubular necrosis; E87.2 Acidosis; R65.20 Severe sepsis without septic shock; E11.649 Type 2 diabetes mellitus with hypoglycemia without coma; E11.42 Type 2 diabetes mellitus with diabetic polyneuropathy; K21.9 Gastro-esophageal reflux disease without esophagitis; I10 Essential (primary) hypertension; E78.5 Hyperlipidemia, unspecified; J30.2 Other seasonal allergic rhinitis; E03.9 Hypothyroidism, unspecified; N30.90 Cystitis, unspecified without hematuria; E86.1 Hypovolemia; E87.6 Hypokalemia; E83.42 Hypomagnesemia; E87.70 Fluid overload, unspecified; R74.0 Nonspecific elevation of levels of transaminase and lactic acid dehydrogenase [LDH]; E66.9 Obesity, unspecified; Z68.35 Body mass index [BMI] 35.0-35.9, adult; Z79.890 Hormone replacement therapy; Z79.84 Long term (current) use of oral hypoglycemic drugs; Z79.899 Other long term (current) drug therapy; Z90.710 Acquired absence of both cervix and uterus; Z90.49 Acquired absence of other specified parts of digestive tract; Z88.5 Allergy status to narcotic agent; Z82.49 Family history of ischemic heart disease and other diseases of the circulatory system; Z82.3 Family history of stroke; Z83.2 Family history of diseases of the blood and blood-forming organs and certain disorders involving the immune mechanism; Z83.3 Family history of diabetes mellitus; Z80.49 Family history of malignant neoplasm of other genital organs; Z80.8 Family history of malignant neoplasm of other organs or systems
CPT/HCPCS: 36415; 71045; 76770; 80048; 80053; 81001; 82728; 83605; 83615; 83735; 84145; 84484; 85025; 85379; 85610; 85730; 86140; 87040; 87502; 87635; 93005; 94640; 94760; 96360; 99285

== ENCOUNTER → 2020-04-17 | Outpatient (CLI) | payer OTHER ==
--- NOTE | 2020-04-18 18:00 | ECHOF ---
Referral Reason:R01.1 Cardiac murmur MEASUREMENTS -------- HEIGHT: 167.6 cm WEIGHT: 97.1 kg BP: IVSd: 1.4 cm (0.6 - 1.1) LVIDd: 3.3 cm (3.9 - 5.3) LVPWd: 1.5 cm (0.6 - 1.1) IVSs: 2.0 cm LVIDs: 1.7 cm LVPWs: 2.0 cm RVIDd: 2.9 cm (< 3.3) LAESV Index (A-L): 13.87 ml/m Ao Diam: 3.0 cm (2.0 - 3.7) LA Diam: 3.0 cm (2.7 - 3.8) AV Cusp: 0.9 cm (1.5 - 2.6) EPSS: 0.7 cm MV E Jordan: 0.68 m/s MV DecT: 296 ms MV A Jordan: 0.79 m/s MV E/A Ratio: 0.87 AV maxP.02 mmHg AV meanP.21 mmHg RAP: 5.00 mmHg RVSP: 23.52 mmHg MV EF SLOPE: 132.22 mm/s (70 - 150) MV EXCURSION: 15.97 mm (> 18.000) FINDINGS -------- Sinus rhythm. This was a technically adequate study. The left ventricular size is normal. There is moderate concentric left ventricular hypertrophy. O verall left ventricular systolic function is normal with, an EF between 55 - 60 %. The right ventricle is normal in size. The left atrial size is normal. Normal LA size by volume 22+/-6 ml/m2. The right atrial size is normal. Interatrial and interventricular septum intact. Aortic valve is trileaflet and is mildly thickened. There is mild aortic stenosis present. Peak/m [place] gradient across the Aortic Valve is 25.02mmHg / 16.21mmHg. The mitral valve is normal. The mitral valve leaflets are mildly thickened. Mild mitral annular c alcification present. There is trace mitral regurgitation. The tricuspid valve appears structurally normal. Mild tricuspid regurgitation present. Right vent ricular systolic pressure is normal at < 35 mmHg. There is no pulmonic regurgitation present. The aortic root size is normal. Normal inferior vena cava with normal inspiratory collapse consistent with estimated right atrial pre ssure of 5 mmHg. There is no pericardial effusion. CONCLUSIONS -------- 1. Sinus rhythm. 2. This was a technically adequate study. 3. The left ventricular size is normal. 4. There is moderate concentric left ventricular hypertrophy. 5. Overall left ventricular systolic function is normal with, an EF between 55 - 60 %. 6. The right ventricle is normal in size. 7. The left atrial size is normal. 8. Normal LA size by volume 22+/-6 ml/m2. 9. The right atrial size is normal. 10. Interatrial and interventricular septum intact. 11. Aortic valve is trileaflet and is mildly thickened. 12. There is mild aortic stenosis present. 13. Peak/mean gradient across the Aortic Valve is 25.02mmHg / 16.21mmHg. 14. The mitral valve is normal. 15. The mitral valve leaflets are mildly thickened. 16. Mild mitral annular calcification present. 17. There is trace mitral regurgitation. 18. The tricuspid valve appears structurally normal. 19. Mild tricuspid regurgitation present. 20. Right ventricular systolic pressure is normal at < 35 mmHg. 21. There is no pulmonic regurgitation present. 22. The aortic root size is normal. 23. Normal inferior vena cava with normal inspiratory collapse consistent with estimated right atrial pressure of 5 mmHg. 24. There is no pericardial effusion. FREIGHT CLAIM INVESTIGATOR: Tamia Enamorado RDCS
== END | disposition home or self-care (01) ==
LOC: RADECHMAIN 15:00
PROVIDERS: ATTEND Physician Assistant
DX: I07.1 Rheumatic tricuspid insufficiency (principal); I35.0 Nonrheumatic aortic (valve) stenosis
CPT/HCPCS: 93306

== ENCOUNTER 2020-10-16 17:01 | Emergency (ER) | payer OTHER ==
[2020-10-16 17:26] VITALS: BP 138/83; PULSE 72; RESP 18; TEMP 98.9
[2020-10-16] MEDS ORDERED: ONDANSETRON 4 MG/2 ML VIAL IVP STA (18:42)
[2020-10-16] MEDS ORDERED: SODIUM CHLORIDE 0.9% 1,000 ML IV STA (18:42)
--- NOTE | 2020-10-16 18:43 | ED ---
Nausea/Vomiting/Diarrhea HPI - General Chief complaint: Nausea/Vomiting/Diarrhea Stated complaint: nausea Time Seen by Provider: 10/16/20 18:26 Source: patient, RN notes reviewed, old records reviewed Mode of arrival: ambulatory Limitations: no limitations - History of Present Illness Initial comments: 59-year-old female she presents today for evaluation. Patient has evaluation regards to nausea vomiting. Patient has nausea vomiting diarrhea symptoms that felt just like her prior coronavirus infection. MD complaint: nausea, vomiting, diarrhea, abdominal pain -: days(s) Description of Vomiting: food contents Description of Diarrhea: water Associated Abdominal Pain: Yes Location: diffuse Radiation: none Severity: moderate Severity scale (1-10): 4 Quality: aching Consistency: constant Improves with: none Worsens with: none Context: other Associated Symptoms: denies other symptoms - Related Data Home Medications Medication Instructions Recorded Confirmed Calcium Carbonate/Vitamin D3 1 tab PO QAM 02/16/17 10/16/20 [Calcium 600-Vit D3 400 Caplet] Gabapentin [Neurontin] 300 mg PO HS 02/16/17 10/16/20 Omeprazole [PriLOSEC] 20 mg PO QAM 02/16/17 10/16/20 metFORMIN HCL [Glucophage] 500 mg PO BID 02/16/17 10/16/20 Glimepiride [Amaryl] 4 mg PO W/SUPPER 05/17/18 10/16/20 Hydrocodone/Acetaminophen [[place] 1 tab PO HS 02/29/20 10/16/20 5-325] Lovastatin [Mevacor] 40 mg PO HS 02/29/20 10/16/20 Metoprolol Succinate [Toprol XL] 50 mg PO DAILY 02/29/20 10/16/20 Cranberry Fruit Extract [Cranberry] 500 mg PO DAILY 10/16/20 10/16/20 Ergocalciferol [Vitamin D2] 50,000 unit PO TH 10/16/20 10/16/20 Famotidine [Pepcid] 40 mg PO DAILY 10/16/20 10/16/20 Levothyroxine Sodium [Euthyrox] 50 mcg PO DAILY 10/16/20 10/16/20 Loratadine [Claritin] 10 mg PO DAILY 10/16/20 10/16/20 Losartan Potassium 100 mg PO DAILY 10/16/20 10/16/20 hydroCHLOROthiazide [Hydrodiuril] 25 mg PO DAILY 10/16/20 10/16/20 Previous Rx's Medication Instructions Recorded Ondansetron Odt [Zofran ODT] 4 mg PO Q8HR PRN #10 tab 10/16/20 Allergies Allergy/AdvReac Type Severity Reaction Status Date / Time morphine Allergy Itching Verified 10/16/20 19:10 Review of Systems ROS Statement: Those systems with pertinent positive or pertinent negative responses have been documented in the HPI. ROS Other: All systems not noted in ROS Statement are negative. Past Medical History Past Medical History: Diabetes Mellitus, GERD/Reflux, Hyperlipidemia, Hypertension, Thyroid Disorder Additional Past Medical History / Comment(s): Seasonal Allergies, diabetic neuropathy, vitamin D deficiency History of Any Multi-Drug Resistant Organisms: None Reported Past Surgical History: Cholecystectomy, Hysterectomy Additional Past Surgical History / Comment(s): Colonoscopy Past Anesthesia/Blood Transfusion Reactions: Postoperative Nausea & Vomiting (PONV) Past Psychological History: No Psychological Hx Reported Smoking Status: Never smoker Past Alcohol Use History: None Reported Past Drug Use History: None Reported - Past Family History Mother Family Medical History: CVA/TIA, Deep Vein Thrombosis (DVT), Myocardial Infarction ([place]) Additional Family Medical History / Comment(s): Mother with history of myocardial infarction, stroke, DVT. Father History Unknown: Yes Family Medical History: Diabetes Mellitus, Hypertension Additional Family Medical History / Comment(s): Dad is alive at age 85 with history of diabetes and hypertension. Brother(s) Family Medical History: No Reported History Additional Family Medical History / Comment(s): Patient has 1 brother and 1 sister with no major medical problems. Daughter(s) Family Medical History: Cancer, Hypertension Additional Family Medical History / Comment(s): Cervical cancer. Sister(s) Family Medical History: Cancer Additional Family Medical History / Comment(s): Thyroid cancer General Exam Limitations: no limitations General appearance: alert, in no apparent distress Head exam: Present: atraumatic, normocephalic, normal inspection Eye exam: Present: normal appearance, PERRL, EOMI. Absent: scleral icterus, conjunctival injection, periorbital swelling ENT exam: Present: normal exam, mucous membranes moist Neck exam: Present: normal inspection. Absent: tenderness, meningismus, lymp hadenopathy Respiratory exam: Present: normal lung sounds bilaterally. Absent: respiratory distress, wheezes, rales, rhonchi, stridor Cardiovascular Exam: Present: regular rate, normal rhythm, normal heart sounds. Absent: systolic murmur, diastolic murmur, rubs, gallop, clicks GI/Abdominal exam: Present: soft, normal bowel sounds. Absent: distended, tenderness, guarding, rebound, rigid Extremities exam: Present: normal inspection, full ROM, normal capillary refill. Absent: tenderness, pedal edema, joint swelling, calf tenderness Back exam: Present: normal inspection Neurological exam: Present: alert, oriented X3, CN II-XII intact Psychiatric exam: Present: normal affect, normal mood Skin exam: Present: warm, dry, intact, normal color. Absent: rash Course Vital Signs 10/16/20 17:22 Temperature 98.9 F Pulse Rate 72 Respiratory 18 Rate Blood Pressure 138/83 O2 Sat by Pulse 98 Oximetry - Reevaluation(s) Reevaluation #1: 10/16/20 20:09 medical record is reviewed Reevaluation #2: 10/16/20 20:09 patient has no complaints Reevaluation #3: 10/16/20 20:09 pataient informed of results ok for discharge,questions answered Medical Decision Making - Medical Decision Making 59 female to the ED co weakness, NVD, feeling well and ok for discharge - Lab Data Result diagrams: 10/16/20 19:09 10/16/20 19:09 Lab Results 10/16/20 10/16/20 10/16/20 Range/Units 19:09 19:09 19:09 WBC 6.0 (3.8-10.6) k/uL RBC 3.96 (3.80-5.40) m/uL Hgb 12.0 (11.4-16.0) gm/dL Hct 36.1 (34.0-46.0) % MCV 91.3 (80.0-100.0) fL MCH 30.4 (25.0-35.0) pg MCHC 33.3 (31.0-37.0) g/dL RDW 13.7 (11.5-15.5) % Plt Count 284 (150-450) k/uL MPV 7.6 Neutrophils % 57 % Lymphocytes % 33 % Monocytes % 6 % Eosinophils % 2 % Basophils % 1 % Neutrophils # 3.5 (1.3-7.7) k/uL Lymphocytes # 2.0 (1.0-4.8) k/uL Monocytes # 0.4 (0-1.0) k/uL Eosinophils # 0.1 (0-0.7) k/uL Basophils # 0.1 (0-0.2) k/uL Sodium 135 L (137-145) mmol/L Potassium 4.5 (3.5-5.1) mmol/L Chloride 106 (98-107) mmol/L Carbon Dioxide 20 L (22-30) mmol/L Anion Gap 9 mmol/L BUN 23 H (7-17) mg/dL Creatinine 1.17 H (0.52-1.04) mg/dL Est GFR (CKD-EPI)AfAm 58 (>60 ml/min/1.73 sqM) Est GFR (CKD-EPI)NonAf 50 (>60 ml/min/1.73 sqM) Glucose 137 H (74-99) mg/dL Plasma Lactic Acid Gary 1.7 (0.7-2.0) mmol/L Calcium 9.6 (8.4-10.2) mg/dL Magnesium 1.8 (1.6-2.3) mg/dL Total Bilirubin 0.3 (0.2-1.3) mg/dL AST 30 (14-36) U/L ALT 20 (4-34) U/L Alkaline Phosphatase 126 (38-126) U/L Lactate Dehydrogenase 403 (313-618) U/L C-Reactive Protein 8.1 (<10.0) mg/L Total Protein 7.4 (6.3-8.2) g/dL Albumin 4.2 (3.5-5.0) g/dL - EKG Data -: EKG Interpreted by Me (EKG is sinus rhythm 65 MN 176 QRS 120 QTc 449) Disposition Clinical Impression: Dehydration, Gastroenteritis, Nausea & vomiting Disposition: HOME SELF-CARE Condition: Good Instructions (If sedation given, give patient instructions): Acute Nausea and Vomiting (ED), Acute Diarrhea (ED) Prescriptions: Ondansetron Odt [Zofran ODT] 4 mg PO Q8HR PRN #10 tab PRN Reason: nausea/vomiting Is patient prescribed a controlled substance at d/c from ED?: No Referrals: Bernard Sanchez MD [Primary Care Provider] - 1-2 days
[2020-10-16 19:20] LABS: Basophils # (A) 0.1 k/uL (0-0.2); Basophils % (A) 1 %; Eosinophils # (A) 0.1 k/uL (0-0.7); Eosinophils % (A) 2 %; HCT 36.1 % (34.0-46.0); Lymphocytes % (A) 33 %; MCH 30.4 pg (25.0-35.0); MCHC 33.3 g/dL (31.0-37.0); MCV 91.3 fL (80.0-100.0); Mean Platelet Volume 7.6; Monocytes # (A) 0.4 k/uL (0-1.0); Monocytes % (A) 6 %; Neutrophils # (A) 3.5 k/uL (1.3-7.7); Neutrophils % (A) 57 %; Platelet Count 284 k/uL (150-450); RBC 3.96 m/uL (3.80-5.40); RDW 13.7 % (11.5-15.5)
[2020-10-16 19:32] LABS: Albumin 4.2 g/dL (3.5-5.0); C Reactive Protein 8.1 mg/L (<10.0); Calcium 9.6 mg/dL (8.4-10.2); Magnesium 1.8 mg/dL (1.6-2.3); Potassium 4.5 mmol/L (3.5-5.1); Total Bilirubin 0.3 mg/dL (0.2-1.3); Total Protein 7.4 g/dL (6.3-8.2)
[2020-10-16] MEDS ORDERED: ONDANSETRON 4 MG ODT STARTER PACK 2 TAB BTL PO STA (20:00)
== END 2020-10-16 21:23 | disposition home or self-care (01) ==
LOC: EC 17:01
DX: K52.9 Noninfective gastroenteritis and colitis, unspecified (principal); E86.0 Dehydration; K21.9 Gastro-esophageal reflux disease without esophagitis; E78.5 Hyperlipidemia, unspecified; I10 Essential (primary) hypertension; E07.9 Disorder of thyroid, unspecified; E11.40 Type 2 diabetes mellitus with diabetic neuropathy, unspecified; Z90.49 Acquired absence of other specified parts of digestive tract; Z90.710 Acquired absence of both cervix and uterus; Z20.828 Contact with and (suspected) exposure to other viral communicable diseases; Z79.84 Long term (current) use of oral hypoglycemic drugs; Z79.890 Hormone replacement therapy; Z79.899 Other long term (current) drug therapy; Z88.5 Allergy status to narcotic agent
CPT/HCPCS: 99284; 96374; 96361; 36415; 93005; 80053; 83605; 83615; 83735; 85025; 86140; 87040; U0003; J2405; S0119

== ENCOUNTER → 2020-11-19 | Outpatient (CLI) | payer OTHER ==
--- NOTE | 2020-11-20 14:09 | MM ---
Reason for exam: screening (asymptomatic). Last mammogram was performed 1 year and 6 months ago. History: Patient is postmenopausal. Physical Findings: A clinical breast exam by your physician is recommended on an annual basis and results should be correlated with mammographic findings. MG Screening Mammo w CAD Bilateral CC and MLO view(s) were taken. Prior study comparison: May 17, 2019, bilateral MG 3d screening mammo w/cad. November 17, 2017, bilateral MG screening mammo w CAD. There are scattered fibroglandular densities. No significant changes when compared with prior studies. ASSESSMENT: Benign, BI-RAD 2 RECOMMENDATION: Routine screening mammogram of both breasts in 1 year.
== END | disposition home or self-care (01) ==
LOC: RADMAMWWP 15:04
PROVIDERS: ATTEND Pediatrics
DX: Z12.31 Encounter for screening mammogram for malignant neoplasm of breast (principal)
CPT/HCPCS: 77067

== ENCOUNTER → 2021-03-28 | Outpatient (CLI) | payer OTHER ==
--- NOTE | 2021-03-28 20:55 | XR ---
EXAMINATION TYPE: XR shoulder complete RT DATE OF EXAM: 03/28/2021 COMPARISON: NONE HISTORY: Shoulder pain TECHNIQUE: 3 views FINDINGS: I see no fracture nor dislocation. Glenohumeral joint is intact. There are no pathologic ca lcifications. IMPRESSION: Negative right shoulder exam. No fracture.
--- NOTE | 2021-03-28 21:06 | XR ---
EXAMINATION TYPE: XR knee complete LT DATE OF EXAM: 03/28/2021 COMPARISON: NONE HISTORY: Knee pain TECHNIQUE: 3 views FINDINGS: There is some narrowing of the medial joint space. There is spurring of the femoral and tib ial condyles medially. There is mild spurring on the patella. There is no sign of joint effusion. I s ee no fracture. IMPRESSION: There are some osteoarthritic hypertrophic changes. No fracture seen.
== END | disposition home or self-care (01) ==
LOC: RADXRMAIN 17:08
PROVIDERS: ATTEND Pediatrics
DX: M17.12 Unilateral primary osteoarthritis, left knee (principal); M25.511 Pain in right shoulder

== ENCOUNTER 2021-10-30 07:49 | Day surgery (SDC) | payer OTHER ==
[2021-10-28 11:50] VITALS: BMI 36.1
[~2021-10-30 07:49] MED LIST changes: -ACETAMINOPHEN TAB 500 MG TAB PO ONE; -DEXAMETHASONE SOD PHOSPHATE 10 MG/ML 1 ML VIAL IV ONE; +LACTATED RINGERS 1,000 ML IV SCH; +LIDOCAINE 1% (10MG/ML) FOR IV START INTRADERMA PRN; -MELOXICAM 7.5 MG TAB PO ONE; -MIDAZOLAM 2 MG/2 ML VIAL IV PRN; -ONDANSETRON 4 MG/2 ML VIAL IVP ONE; -SCOPOLAMINE 1.5MG/72HR PATCH TRANSDERM ONE; -TRANEXAMIC ACID 1,000 MG in SODIUM CHLORIDE 0.9% 50 ML IVPB ONE; -ceFAZolin IN SWFI 2 GM/20 ML SYRINGE IVP ONE; -fentaNYL (PF) 50 MCG/ML 2 ML AMP IV PRN
[2021-10-30 08:10] VITALS: TEMP 98.5
[2021-10-30] MEDS ORDERED: LACTATED RINGERS 1,000 ML IV ONE (08:11)
[2021-10-30 08:21] LABS: Glucose,Whole Blood 133 mg/dL (75-99)
[2021-10-30] MEDS ORDERED: ONDANSETRON 4 MG/2 ML VIAL ONE (08:31)
[2021-10-30] MEDS ORDERED: DEXAMETHASONE SOD PHOSPHATE 4 MG/ML 1 ML VIAL IVP ONE (08:34)
[2021-10-30] MEDS ORDERED: GLUCAGON 1 MG/ML VIAL ONE (09:01)
[2021-10-30] MEDS ORDERED: PROPOFOL 10 MG/ML 20 ML VIAL IV ONE (09:01)
--- NOTE | 2021-10-30 09:03 | P.GSHP ---
History of Present Illness H&P Date: 10/30/21 Chief Complaint: Screening colonoscopy Is a 60-year-old female presents today for screening colonoscopy. Patient denies a significant GI complaints. Past Medical History Past Medical History: Diabetes Mellitus, GERD/Reflux, Hyperlipidemia, Hypertension, Thyroid Disorder Additional Past Medical History / Comment(s): Hx Covid 02/2020. "Start of Alzheimer's". Seasonal Allergies, Diabetic Neuropathy, Vitamin D Deficiency, heart murmur. History of Any Multi-Drug Resistant Organisms: None Reported Past Surgical History: Cholecystectomy, Hysterectomy, Orthopedic Surgery Additional Past Surgical History / Comment(s): Colonoscopy, right knee surgery. Past Anesthesia/Blood Transfusion Reactions: Motion Sickness, Postoperative Nausea & Vomiting (PONV) Past Psychological History: Anxiety Smoking Status: Never smoker Past Alcohol Use History: None Reported Past Drug Use History: None Reported - Past Family History Mother Family Medical History: CVA/TIA, Deep Vein Thrombosis (DVT), Myocardial Infarction ([place]) Additional Family Medical History / Comment(s): Mother with history of myocardial infarction, stroke, DVT. Father History Unknown: Yes Family Medical History: Diabetes Mellitus, Hypertension Additional Family Medical History / Comment(s): Dad is alive at age 85 with history of diabetes and hypertension. Brother(s) Family Medical History: No Reported History Additional Family Medical History / Comment(s): Patient has 1 brother and 1 sister with no major medical problems. Daughter(s) Family Medical History: Cancer, Hypertension Additional Family Medical History / Comment(s): Cervical cancer. Sister(s) Family Medical History: Cancer Additional Family Medical History / Comment(s): Thyroid cancer. Medications and Allergies Home Medications Medication Instructions Recorded Confirmed Type Gabapentin [Neurontin] 300 mg PO HS 02/16/17 10/28/21 History Omeprazole [PriLOSEC] 20 mg PO QAM 02/16/17 10/28/21 History metFORMIN HCL [Glucophage] 500 mg PO QID 02/16/17 10/28/21 History Glimepiride [Amaryl] 2 mg PO BID 05/17/18 10/28/21 History Hydrocodone/Acetaminophen [[place] 1 tab PO HS PRN 02/29/20 10/28/21 History 5-325] Metoprolol Succinate [Toprol XL] 50 mg PO QAM 02/29/20 10/28/21 History Cranberry Fruit Extract [Cranberry] 500 mg PO DAILY 10/16/20 10/28/21 History Ergocalciferol [Vitamin D2] 50,000 unit PO TH 10/16/20 10/28/21 History Famotidine [Pepcid] 40 mg PO DAILY 10/16/20 10/28/21 History Levothyroxine Sodium [Euthyrox] 50 mcg PO QAM 10/16/20 10/28/21 History Loratadine [Claritin] 10 mg PO DAILY 10/16/20 10/28/21 History Losartan Potassium 100 mg PO QAM 10/16/20 10/28/21 History Ondansetron Odt [Zofran ODT] 4 mg PO Q8HR PRN #10 tab 10/16/20 10/28/21 Rx hydroCHLOROthiazide [Hydrodiuril] 25 mg PO QAM 10/16/20 10/28/21 History Albuterol Sulfate [Proair Hfa] 1 - 2 puff INHALATION Q6HR PRN 10/28/21 10/28/21 History Calcium Carbonate/Vitamin D3 1 each PO DAILY 10/28/21 10/28/21 History [Calcium 600-D3 20 mcg (800 Unit)] Rosuvastatin [Crestor] 20 mg PO HS 10/28/21 10/28/21 History Allergies Allergy/AdvReac Type Severity Reaction Status Date / Time morphine Allergy Itching Verified 10/28/21 11:24 Surgical - Exam Vital Signs Temp Pulse Resp BP Pulse Ox 98.5 F 78 18 159/83 98 10/30/21 08:09 10/30/21 08:09 10/30/21 08:09 10/30/21 08:09 10/30/21 08:09 - General well developed, well nourished, no distress - Eyes PERRL - ENT normal pinna - Neck no masses - Respiratory normal expansion - Cardiovascular Rhythm: regular - Abdomen Abdomen: soft, non tender Results - Labs Abnormal Lab Results - Last 24 Hours (Table) 10/30/21 Range/Units 08:19 POC Glucose (mg/dL) 133 H (75-99) mg/dL Assessment and Plan Assessment: Performed screening colonoscopy
--- NOTE | 2021-10-30 09:20 | P.OP ---
Description of Procedure: Date of Procedure: 10/30/21 Preoperative Diagnosis: Screening colonoscopy Postoperative Diagnosis: Rectal polyp Severe diverticulosis Procedure(s) Performed: Colonoscopy Anesthesia: MAC Surgeon: Ho Leon Pathology: other (Rectal polyp) Condition: stable Disposition: PACU Description of Procedure: Patient's placed on the endoscopy table in the lateral position. She received IV sedation. The digital rectal exam was performed which revealed a few internal hemorrhoids. Flexible colonoscope was then placed patient anus and passed throughout the colon. The patient had extensive diverticular changes and sigmoid colon. The scope could not be passed beyond the sigmoid colon due to extensive diverticular disease. Scope was then brought back and the rectum there was a peduncular polyp seen this removed with the snare. Scope withdrawn for patient. Patient scheduled for a barium enema. Additional CC's: Bernard Sanchez
[2021-10-30 09:28] VITALS: RESP 16
[2021-10-30 09:41] VITALS: BP 121/74; PULSE 66
== END 2021-10-30 09:56 | disposition home or self-care (01) ==
LOC: ORWHC2ENDO 07:49
PROVIDERS: ATTEND Surgery
DX: Z12.11 Encounter for screening for malignant neoplasm of colon (principal); D12.8 Benign neoplasm of rectum; K57.30 Diverticulosis of large intestine without perforation or abscess without bleeding; K64.8 Other hemorrhoids; E11.40 Type 2 diabetes mellitus with diabetic neuropathy, unspecified; K21.9 Gastro-esophageal reflux disease without esophagitis; E78.5 Hyperlipidemia, unspecified; I10 Essential (primary) hypertension; E07.9 Disorder of thyroid, unspecified; Z86.16 Personal history of COVID-19; G30.9 Alzheimer's disease, unspecified; Z79.84 Long term (current) use of oral hypoglycemic drugs; Z79.890 Hormone replacement therapy; Z79.899 Other long term (current) drug therapy; E55.9 Vitamin D deficiency, unspecified; J30.2 Other seasonal allergic rhinitis; Z88.5 Allergy status to narcotic agent; Z90.710 Acquired absence of both cervix and uterus; Z90.49 Acquired absence of other specified parts of digestive tract
CPT/HCPCS: 45338; 88305; J1610; J1100; J2405; J2704; 45385

== ENCOUNTER → 2022-01-08 | Outpatient (CLI) | payer OTHER ==
--- NOTE | 2022-01-09 09:40 | MM ---
Reason for exam: screening (asymptomatic). Last mammogram was performed 1 year and 2 months ago. History: Patient is postmenopausal. Physical Findings: A clinical breast exam by your physician is recommended on an annual basis and results should be correlated with mammographic findings. MG Screening Mammo w CAD Bilateral CC and MLO view(s) were taken. Prior study comparison: November 19, 2020, bilateral MG screening mammo w CAD. May 17, 2019, bilateral MG 3d screening mammo w/cad. The breast tissue is heterogeneously dense. This may lower the sensitivity of mammography. Nodular density upper outer left breast zone C. This finding is changed when compared with previous exams. ASSESSMENT: Incomplete: need additional imaging evaluation, BI-RAD 0 RECOMMENDATION: Special view mammogram and ultrasound of the left breast. [facility] will attempt to contact patient to return for supplemental views and ultrasound.
== END | disposition home or self-care (01) ==
LOC: RADMAMWWP 14:17
PROVIDERS: ATTEND Pediatrics
DX: Z12.31 Encounter for screening mammogram for malignant neoplasm of breast (principal); Z78.0 Asymptomatic menopausal state
CPT/HCPCS: 77067

== ENCOUNTER 2022-01-09 07:40 | Inpatient (IN) | payer OTHER ==
[2022-02-05 00:57] LABS: Basophils # (A) 0.06 X 10*3/uL (0.00-0.10); Basophils % (A) 0.5 %; Eosinophils # (A) 0.14 X 10*3/uL (0.04-0.35); Eosinophils % (A) 1.2 %; HCT 37.8 % (37.2-46.3); HGB 11.6 g/dL (12.0-15.0); Immature Grans, Automated 0.4 %; Lymphocytes # (A) 2.24 X 10*3/uL (0.90-5.00); Lymphocytes % (A) 19.1 %; MCH 30.1 pg (27.0-32.0); MCHC 30.7 g/dL (32.0-37.0); MCV 97.9 fL (80.0-97.0); Mean Platelet Volume 11.3 fL (9.5-12.2); Monocytes # (A) 0.65 X 10*3/uL (0.20-1.00); Monocytes % (A) 5.5 %; NRBC Per 100 WBC 0 /100 WBCS (0.0-0.0); Neutrophils # (A) 8.61 X 10*3/uL (1.80-7.70); Neutrophils % (A) 73.3 %; Platelet Count 287 X 10*3/uL (140-440); RBC 3.86 X 10*6/uL (4.10-5.20); RDW 13.9 % (11.5-14.5); WBC 11.75 X 10*3/uL (4.50-10.00)
[2022-02-05 02:01] LABS: Anion Gap 15.5 mmol/L (10.00-18.00); Carbon Dioxide 18.5 mmol/L (20.0-27.5); Potassium 4.7 mmol/L (3.5-5.5)
[2022-02-06] MEDS ORDERED: ACETAMINOPHEN TAB 500 MG TAB PO PRN (05:00)
[2022-02-06] MEDS ORDERED: metroNIDAZOLE-NS PMX 500 MG in SALINE 1 100ML.BAG IVPB PRN (05:00)
[2022-02-06] MEDS ORDERED: HEPARIN SODIUM,PORCINE/PF 5,000 UNIT/0.5 ML SYRINGE SQ PRN (05:00)
[2022-02-06] MEDS ORDERED: ONDANSETRON 4 MG/2 ML VIAL IVP ONE (05:48)
[2022-02-06] MEDS ORDERED: SCOPOLAMINE 1 MG/72 HR PATCH TRANSDERM ONE (05:48)
[2022-02-06] MEDS ORDERED: MIDAZOLAM 2 MG/2 ML VIAL IV PRN (05:48)
[2022-02-06] MEDS ORDERED: DEXAMETHASONE SOD PHOSPHATE 4 MG/ML 1 ML VIAL IV ONE (05:48)
[2022-02-06] MEDS ORDERED: fentaNYL (PF) 50 MCG/ML 2 ML AMP IV PRN (07:00)
[2022-02-06] MEDS: LACTATED RINGERS 1,000 ML IV SCH (11:54)
[2022-02-06 11:56] LABS: Glucose,Whole Blood 310 mg/dL (75-99)
[2022-02-06] MEDS ORDERED: INSULIN ASPART (NovoLOG) 100 UNIT/ML VIAL SQ ONE (12:00)
[2022-02-06] MEDS ORDERED: MIDAZOLAM 2 MG/2 ML VIAL IVP ONE (12:04)
--- NOTE | 2022-02-06 12:25 | P.ANPRN ---
Procedure Note - Anesthesia - Epidural/Spinal Epidural Continuous Time Out Performed: Yes Date of Procedure: 02/06/22 Procedure Start Time: 12:03 Procedure Stop Time: 12:14 Location of Patient: PreOp Indication: Acute Post-Operative Pain, Analgesia, Requested by Surgeon Sedation Type: Sedate with meaningful contact maintained Preparation: Sterile Dressing Position: Sitting Catheter: Indwelling Needle Guage: 18 Injectate: Test Dose Lidocaine1.5% w/1:200,000 epi (2 cc) Narrative: L1- L2 Space identified. 2cc of 1% lidcoaine infiltrated. BAY to air, Epdural space identified at 5cms. Catheter threaded to 11 cms. No blood or CSF aspirated. Test dose negative Blood Aspirated: No Pain Paresthesia on Injection Noted: No Events: Uneventful and Well Tolerated
[2022-02-06] MEDS ORDERED: NALOXONE 0.4 MG/ML 1 ML VIAL IV PRN (12:26)
[2022-02-06] MEDS ORDERED: ROPIVACAINE 250 MG, HYDROMORPHONE (PF) 5 MG in SODIUM CHLORIDE 0.9% 200 ML EPIDURAL PRN (12:26)
[2022-02-06] MEDS ORDERED: NALBUPHINE 10 MG/ML (1 ML AMP) IV PRN (12:26)
[2022-02-06] MEDS ORDERED: LIDOCAINE 1% INJ 10MG/ML (20 ML MDV) ONE (12:49)
[2022-02-06] MEDS ORDERED: SUGAMMADEX SODIUM 200 MG/2 ML SDV IV ONE (12:49)
[2022-02-06] MEDS ORDERED: fentaNYL (PF) 50 MCG/ML 2 ML AMP ONE (12:49)
[2022-02-06] MEDS ORDERED: ePHEDrine 50 MG/ML 1 ML VIAL ONE (12:49)
[2022-02-06] MEDS ORDERED: ROCURONIUM 10 MG/ML (5 ML VIAL) IV ONE (12:49)
[2022-02-06] MEDS ORDERED: GLYCOPYRROLATE 0.2 MG/ML 2 ML VIAL ONE (12:49)
[2022-02-06] MEDS ORDERED: NEOSTIGMINE 1 MG/ML 10 ML VIAL ONE (12:49)
[2022-02-06] MEDS ORDERED: MIDAZOLAM 2 MG/2 ML VIAL ONE (12:49)
[2022-02-06] MEDS ORDERED: SUCCINYLCHOLINE CHLORIDE 100 MG/5 ML SYR IV ONE (12:49)
[2022-02-06] MEDS ORDERED: PROPOFOL 10 MG/ML 20 ML VIAL IV ONE (12:49)
--- NOTE | 2022-02-06 13:05 | P.GSHP ---
History of Present Illness H&P Date: 02/06/22 Chief Complaint: Diverticulitis This is a 61-year-old female who presents today for low anterior resection. Patient's had issues of chronic diverticulitis. Patient's aware the risks of colostomy, wound infection and bleeding. Past Medical History Past Medical History: Diabetes Mellitus, GERD/Reflux, Hyperlipidemia, Hypertension, Thyroid Disorder Additional Past Medical History / Comment(s): Hx Covid 02/2020. "Start of Alzheimer's". Seasonal Allergies, Diabetic Neuropathy, Vitamin D Deficiency, heart murmur. History of Any Multi-Drug Resistant Organisms: None Reported Past Surgical History: Cholecystectomy, Hysterectomy, Orthopedic Surgery Additional Past Surgical History / Comment(s): Colonoscopy, right knee surgery. Past Anesthesia/Blood Transfusion Reactions: Motion Sickness, Postoperative Nausea & Vomiting (PONV) Additional Past Alcohol Use History / Comment(s): patient is a lifelong nonsmoker. She denies any medical marijuana, marijuana, street drug or alcohol use. She is . - Past Family History Mother Family Medical History: CVA/TIA, Deep Vein Thrombosis (DVT), Myocardial Infarction ([place]) Additional Family Medical History / Comment(s): Mother with history of myocardial infarction, stroke, DVT. Father History Unknown: Yes Family Medical History: Diabetes Mellitus, Hypertension Additional Family Medical History / Comment(s): Dad is alive at age 85 with history of diabetes and hypertension. Brother(s) Family Medical History: No Reported History Additional Family Medical History / Comment(s): Patient has 1 brother and 1 sister with no major medical problems. Daughter(s) Family Medical History: Cancer, Hypertension Additional Family Medical History / Comment(s): Cervical cancer. Sister(s) Family Medical History: Cancer Additional Family Medical History / Comment(s): Thyroid cancer. Medications and Allergies Home Medications Medication Instructions Recorded Confirmed Type Gabapentin [Neurontin] 300 mg PO HS 02/16/17 02/04/22 History Omeprazole [PriLOSEC] 20 mg PO QAM 02/16/17 02/04/22 History metFORMIN HCL [Glucophage] 500 mg PO TID 02/16/17 02/04/22 History Glimepiride [Amaryl] 2 mg PO BID 05/17/18 02/04/22 History Hydrocodone/Acetaminophen [[place] 1 tab PO HS PRN 02/29/20 02/04/22 History 5-325] Metoprolol Succinate [Toprol XL] 50 mg PO QAM 02/29/20 02/04/22 History Cranberry Fruit Extract [Cranberry] 500 mg PO DAILY 10/16/20 02/04/22 History Ergocalciferol [Vitamin D2] 50,000 unit PO TH 10/16/20 02/04/22 History Levothyroxine Sodium [Euthyrox] 50 mcg PO QAM 10/16/20 02/04/22 History Loratadine [Claritin] 10 mg PO DAILY 10/16/20 02/04/22 History Losartan Potassium 100 mg PO QAM 10/16/20 02/04/22 History hydroCHLOROthiazide [Hydrodiuril] 25 mg PO QAM 10/16/20 02/04/22 History Albuterol Sulfate [Proair Hfa] 1 - 2 puff INHALATION Q6HR PRN 10/28/21 02/04/22 History Calcium Carbonate/Vitamin D3 1 each PO DAILY 10/28/21 02/04/22 History [Calcium 600-D3 20 mcg (800 Unit)] Rosuvastatin [Crestor] 40 mg PO HS 10/28/21 02/04/22 History Acetaminophen [Tylenol] 500 mg PO Q4-6H PRN 02/06/22 02/06/22 History Allergies Allergy/AdvReac Type Severity Reaction Status Date / Time morphine Allergy Itching Verified 02/06/22 11:28 Surgical - Exam Vital Signs Temp Pulse Resp BP Pulse Ox 98.4 F 80 20 115/70 96 02/06/22 11:37 02/06/22 11:37 02/06/22 11:37 02/06/22 11:37 02/06/22 11:37 - General well developed, well nourished, no distress - Eyes PERRL - ENT normal pinna - Neck no masses - Respiratory normal expansion - Cardiovascular Rhythm: regular - Abdomen Abdomen: soft, non tender Results - Labs 02/04/22 16:07 02/04/22 16:07 Abnormal Lab Results - Last 24 Hours (Table) 02/06/22 Range/Units 11:55 POC Glucose (mg/dL) 310 H (75-99) mg/dL Assessment and Plan Assessment: History of chronic diverticula is. We'll perform a low anterior resection.
[2022-02-06] MEDS ORDERED: LACTATED RINGERS 1,000 ML IV ONE ×3 (13:55→16:48)
[2022-02-06] MEDS ORDERED: METOCLOPRAMIDE 5 MG/ML 2 ML VIAL IVP PRN (14:33)
[2022-02-06] MEDS ORDERED: ONDANSETRON 4 MG/2 ML VIAL IVP PRN (14:33)
--- NOTE | 2022-02-06 14:33 | P.OP ---
Date of Procedure: 02/06/22 Preoperative Diagnosis: Diverticulitis Postoperative Diagnosis: Diverticulitis Procedure(s) Performed: Low anterior resection Takedown splenic flexure Anesthesia: NATHALY Surgeon: Ho Leon Estimated Blood Loss (ml): 100 Pathology: other (Left colon) Condition: stable Disposition: PACU Description of Procedure: The patient's placed on the operating table in the dorsal 5 position after receiving general endotracheal tube anesthesia. Her abdomen and perineum was prepped and draped in sterile fashion. The abdomen was entered through a low midline incision. The Bookwalter tract with wound. There were adhesions to the sigmoid colon. These were lysed with sharp dissection. The; and left colon mobilized by dividing the white line of [place]. The area of diverticular disease extending to the distal transverse colon. At this point the splenic flexure was taken down with sharp dissection with cautery. The transverse colon mobilized by dividing the omentum off the transverse colon. At this point using the contour stapler the rectum was then transected. Using the Enseal device mesentery the bowel was divided. The anvil for the 25 mm EEA stapler was placed into the proximal colon by making a opening on the distal transverse colon. The anvil with the spike was then placed in the colon. And then the colon was transected with the ADONAY stapler. The spike was driven through the proximal staple line. The opening in the colon was closed with 3-0 GI silk suture. The mesentery the bowel was then divided using the Enseal device and the specimen sent to pathology. At this point the abdomen. There is no bleeding seen. The bioinformatics assistant then placed the dilator patient anus. And then the stapler is placed into the patient's anus. The spelled patent stapler was positioned at the distal staple line. The spike was then driven through the staple line. The anvil To the stapler. And then the stapler closed and fired. 2 intact tissue rings were withdrawn from the stapler. Using a hydro-transitional care nurse The proximal colon was occluded proximal to the staple line. Then using the rigid sigmoidoscope the rectum was insufflated with air. There was no evidence of leakage of air. The abdomen was irrigated. The fascia was closed with looped #1 PDS suture. The skin was closed tristen. Several small Telfa nata were placed the wound. Sterile dressing applied. Patient top she will was sent to recovery room in stable condition.
[2022-02-06] MEDS ORDERED: ALBUMIN HUMAN 5% (12.5gm) 250 ML BOTTLE IVPB ONE (17:18)
[2022-02-06] MEDS ORDERED: ROPIVACAINE 250 MG in SODIUM CHLORIDE 0.9% 200 ML EPIDURAL PRN (18:33)
[2022-02-06] MEDS ORDERED: HYDROmorphone 0.5 MG/0.5 ML SYRINGE IVP ONE ×3 (18:34→19:20)
[2022-02-06] MEDS ORDERED: HYDROmorphone 0.5 MG/0.5 ML SYRINGE IVP PRN (18:38)
[2022-02-06 19:09] LABS: HCT 30.3 % (34.0-46.0); HGB 9.9 gm/dL (11.4-16.0); MCH 30.6 pg (25.0-35.0); MCHC 32.8 g/dL (31.0-37.0); MCV 93.5 fL (80.0-100.0); Mean Platelet Volume 8.3; Platelet Count 264 k/uL (150-450); RBC 3.24 m/uL (3.80-5.40); WBC 9.6 k/uL (3.8-10.6)
[2022-02-06 19:18] LABS: Calcium 8.7 mg/dL (8.4-10.2); Potassium 4.1 mmol/L (3.5-5.1)
[2022-02-06 19:55] LABS: Band Neutrophils % 3 %; Lymphocytes # (M) 1.25 k/uL (1.0-4.8); Monocytes # (M) 0.19 k/uL (0-1.0); Neutrophils % (M) 82 %; Nucleated Red Blood Cells 0 /100 WBC (0-0); Total Cells Counted 100
[2022-02-06] MEDS: HEPARIN SODIUM,PORCINE/PF 5,000 UNIT/0.5 ML SYRINGE SQ SCH (21:56)
[2022-02-06] MEDS: D5-0.45% NACL WITH KCL 20MEQ/L 1,000 ML IV SCH (21:56)
[2022-02-06] MEDS: FAMOTIDINE 20 MG/2 ML VIAL IV SCH (21:56)
[2022-02-06] MEDS ORDERED: diphenhydrAMINE 50 MG/ML 1 ML VIAL IVP STA (22:16)
[2022-02-06] MEDS: diphenhydrAMINE 50 MG/ML 1 ML VIAL IVP PRN (23:00)
[2022-02-07] MEDS: D5-0.45% NACL WITH KCL 20MEQ/L 1,000 ML IV SCH ×2 (00:36→08:17)
[2022-02-07] MEDS: LACTATED RINGERS 1,000 ML IV SCH ×2 (01:45→12:48)
[2022-02-07] MEDS: HEPARIN SODIUM,PORCINE/PF 5,000 UNIT/0.5 ML SYRINGE SQ SCH ×3 (04:35→21:19)
[2022-02-07 07:30] LABS: Glucose,Whole Blood 240 mg/dL (75-99)
[2022-02-07] MEDS: FAMOTIDINE 20 MG/2 ML VIAL IV SCH ×2 (08:17→21:19)
--- NOTE | 2022-02-07 09:02 | P.PN ---
Progress Note - Text Progress Note Date: 02/07/22 (734) Anesthesia Postop day 1 Status post low anterior resection with epidural Day 2 Patient seen and examined. Doing well . Patient is complaining of some pain in upper abdomen. Explained breakthrough medicines are available every 3 hours. Heparin subcu every 8 5000. Platelets were good at 264 post surgery.. VAS 4 at rest. Up to 8 with movement. No current nausea or vomiting. Mild pruritus Benadryl available. Ropivacaine 0.1% at 5 mL an hour. Opiate was removed from epidural solution as it was leading to hypotension in the recovery room. Vital signs stable this morning. Objective: Vital signs reviewed Lungs: Good chest excursion Abdomen: Appears nondistended Other: Epidural Site Intact without induration. Dressing intact Neuro: No apparent motor block. Sensory within normal limits. Assessment: Status post low anterior resection postop day 1 Plan: Continue current care with your medical management. Anticipate reevaluation tomorrow.
[2022-02-07] MEDS: ALVIMOPAN 12 MG CAPSULE PO SCH ×2 (09:23→21:19)
--- NOTE | 2022-02-07 11:21 | P.PN ---
Progress Note - Text Progress Note Date: 02/07/22 The patient is status post low anterior resection for diverticulitis. She is doing fairly well. She has minimal complaints of pain. On exam vital signs are stable. Abdomen is soft. Incision is clean dry intact. Patient will receive supportive care. We'll advance her diet once her bowel fu nction is improved.
[2022-02-07 11:42] LABS: Glucose,Whole Blood 319 mg/dL (75-99)
[2022-02-07] MEDS ORDERED: INSULIN ASPART (NovoLOG) 100 UNIT/ML VIAL SQ STA (12:43)
--- NOTE | 2022-02-07 13:16 | P.CONS ---
History of Present Illness - Reason for Consult Consult date: 02/07/22 Medical management Requesting physician: Ho Leon - Chief Complaint Abdominal surgery - History of Present Illness This is a pleasant 60-year-old patient who follows Dr. Sanchez. Chronic stable medical conditions include diabetes mellitus type 2, GERD, hypertension, hyperlipidemia, hypothyroid, diabetic peripheral neuropathy. Patient been having issues with chronic diverticulitis. Yesterday he underwent low anterior resection by Dr. Leon. Today patient sitting up in a recliner. Binder in place. Abdominal pain. Accu-Cheks are running higher. Change D5W to LR. No nausea vomiting. She no fever no chills. Past a small amount of stool. Review of systems: GEN.: Tired EYES: None HEENT: None NECK: None RESPIRATORY: None CARDIOVASCULAR: None GASTROINTESTINAL: As above GENITOURINARY: Alonzo catheter MUSCULOSKELETAL: None LYMPHATICS: None HEMATOLOGICAL: None PSYCHIATRY: None NEUROLOGICAL: None Past medical history to include: Diabetes, GERD, hypertension, hyperlipidemia, hypothyroid, diabetic peripheral neuropathy, vitamin D deficiency, anxiety Social history: Nonsmoker. No alcohol. Family history: Mother of a heart attack. Stroke DVT Physical examination: VITAL SIGNS: 98.4, 94, 18, 90 assess 62, 97% to liters GENERAL: BMI 34.4, sitting up in a recliner, awake. EYES: Pupils equal. Conjunctiva normal. HEENT: External appearance of nose and ears normal, oral cavity grossly normal. NECK: JVD not raised; masses not palpable. HEART: First and second heart sounds are normal; no edema. LUNGS: Respiratory rate normal; clear to auscultation. ABDOMEN: Soft, tender, liver spleen not palpable, no masses palpable abdominal binder in place.. PSYCH: Alert and oriented x3; mood and affect normal. MUSCULOSKELETAL:No Clubbing/cyanosis;muscles-grossly intact NEUROLOGICAL: Cranial nerves grossly intact; no facial asymmetry, power and sensation grossly intact. LYMPHATICS: No lymph nodes palpable in the axilla and neck INVESTIGATIONS, reviewed in the clinical context: White count 9.6 hemoglobin 9.9 platelets 264 potassium 4.1 BUN 18 creatinine 1.16 Accu-Cheks to 40, 319 EKG tracing personally reviewed by me-sinus rhythm. Right bundle branch block. Assessment and plan: -Low anterior resection for chronic diverticulitis liquid diet. Abdominal binder. IV fluids. -Diabetes mellitus type 2, chronically on oral hypoglycemic. Uncontrolled with hyperglycemia DC D5W. Changed to LR. Sliding scale insulin. Start Amaryl. -Diabetic peripheral neuropathy Neurontin 300 mg daily at bedtime -Hypothyroidism Levothyroxine 50 g daily -Essential hypertension Toprol-XL 50 mg a day -Hyperlipidemia Crestor 40 mg daily at bedtime -GERD Prilosec 20 mg daily Home medications resumed. Follow Accu-Cheks. Change D5W to LR. Diet advanced per surgery. Activity as tolerated. Care was discussed with the patient. Questions answered. Thank you Dr. Leon Past Medical History Past Medical History: Diabetes Mellitus, GERD/Reflux, Hyperlipidemia, Hypertension, Thyroid Disorder Additional Past Medical History / Comment(s): Hx Covid 02/2020. "Start of Alzheimer's". Seasonal Allergies, Diabetic Neuropathy, Vitamin D Deficiency, heart murmur. History of Any Multi-Drug Resistant Organisms: None Reported Past Surgical History: Cholecystectomy, Hysterectomy, Orthopedic Surgery Additional Past Surgical History / Comment(s): Colonoscopy, right knee surgery. Past Anesthesia/Blood Transfusion Reactions: Motion Sickness, Postoperative Nausea & Vomiting (PONV) Additional Past Alcohol Use History / Comment(s): patient is a lifelong nonsmoker. She denies any medical marijuana, marijuana, street drug or alcohol use. She is . - Past Family History Mother Family Medical History: CVA/TIA, Deep Vein Thrombosis (DVT), Myocardial Infarction (PR) Additional Family Medical History / Comment(s): Mother with history of myocardial infarction, stroke, DVT. Father History Unknown: Yes Family Medical History: Diabetes Mellitus, Hypertension Additional Family Medical History / Comment(s): Dad is alive at age 85 with history of diabetes and hypertension. Brother(s) Family Medical History: No Reported History Additional Family Medical History / Comment(s): Patient has 1 brother and 1 sister with no major medical problems. Daughter(s) Family Medical History: Cancer, Hypertension Additional Family Medical History / Comment(s): Cervical cancer. Sister(s) Family Medical History: Cancer Additional Family Medical History / Comment(s): Thyroid cancer. Medications and Allergies Home Medications Medication Instructions Recorded Confirmed Type Gabapentin [Neurontin] 300 mg PO HS 02/16/02/04/22 History Omeprazole [PriLOSEC] 20 mg PO QA 02/16/17 02/04/22 History metFORMIN HCL [Glucophage] 500 mg PO TID 02/16/17 02/04/22 History Glimepiride [Amaryl] 2 mg PO BID 05/17/18 02/04/22 History Hydrocodone/Acetaminophen [[place] 1 tab PO HS PRN 02/29/20 02/04/22 History 5-325] Metoprolol Succinate [Toprol XL] 50 mg PO QAM 02/29/20 02/04/22 History Cranberry Fruit Extract [Cranberry] 500 mg PO DAILY 10/16/20 02/04/22 History Ergocalciferol [Vitamin D2] 50,000 unit PO TH 10/16/20 02/04/22 History Levothyroxine Sodium [Euthyrox] 50 mcg PO QAM 10/16/20 02/04/22 History Loratadine [Claritin] 10 mg PO DAILY 10/16/20 02/04/22 History Losartan Potassium 100 mg PO QAM 10/16/20 02/04/22 History hydroCHLOROthiazide [Hydrodiuril] 25 mg PO QAM 10/16/20 02/04/22 History Albuterol Sulfate [Proair Hfa] 1 - 2 puff INHALATION Q6HR PRN 10/28/21 02/04/22 History Calcium Carbonate/Vitamin D3 1 each PO DAILY 10/28/21 02/04/22 History [Calcium 600-D3 20 mcg (800 Unit)] Rosuvastatin [Crestor] 40 mg PO HS 10/28/21 02/04/22 History Acetaminophen [Tylenol] 500 mg PO Q4-6H PRN 02/06/22 02/06/22 History Allergies Allergy/AdvReac Type Severity Reaction Status Date / Time morphine Allergy Itching Verified 02/06/22 11:28 Physical Exam Vitals: Vital Signs Temp Pulse Resp BP BP BP Pulse Ox 02/07/22 06:45 98.4 F 84 18 98/62 97 02/07/22 05:59 98.6 F 82 16 95/58 94 L 02/07/22 02:00 98.9 F 85 16 109/66 95 02/06/22 23:30 82 16 95/56 98 02/06/22 23:15 65 16 77/38 98 02/06/22 23:00 66 17 68/42 97 03/18/22 22:30 98.3 F 77 17 81/46 98 1822 22:00 84 16 94/45 98 1822 21:30 98.0 F 81 16 84/48 97 1822 21:00 78 16 95/56 99 1822 20:35 97 16 02/06/22 20:30 98.1 F 82 17 91/52 97 02/06/22 20:15 74 16 90/51 98 02/06/22 20:00 98.1 F 97 14 86/52 97 1822 19:40 77 16 105/50 99 02/06/22 19:25 78 16 100/58 98 02/06/22 19:05 69 16 101/52 96 02/06/22 18:47 74 16 91/47 97 02/06/22 18:30 70 18 84/52 98 02/06/22 18:20 80 16 79/40 98 02/06/22 18:15 72 16 81/52 93 L 02/06/22 18:00 71 16 85/50 99 02/06/22 17:45 78 16 87/50 95 02/06/22 17:30 97 14 84/51 98 02/06/22 17:15 75 14 90/53 99 02/06/22 17:10 90/52 90/53 02/06/22 17:00 65 12 87/49 98 02/06/22 16:45 67 14 92/52 99 02/06/22 16:30 62 14 92/55 97 02/06/22 16:15 59 L 12 91/54 98 02/06/22 16:10 91/55 02/06/22 16:00 55 L 12 89/52 99 02/06/22 15:45 67 14 92/50 97 18 15:30 55 L 12 105/53 95 02/06/22 15:15 57 L 14 115/55 95 02/06/22 15:00 61 14 114/59 94 L 1822 14:45 55 L 16 120/58 95 02/06/22 14:29 98.2 F 63 14 147/67 96 02/06/22 11:55 98.4 F 80 20 115/70 96 02/06/22 11:37 98.4 F 80 20 115/70 96 Intake and Output 02/06/22 02/07/22 02/07/22 22:59 06:59 14:59 Intake Total 1800 1540 Output Total 155 300 Balance 1645 1240 Intake: IV 1800 Intake, IV Titration 1540 Amount D5-0.45% NaCl with KCl 1500 20Meq/l 1,000 ml @ 125 mls/hr IV .Q8H TE[facility] Rx#: [id number] Ropivacaine 250 mg In 40 Sodium Chloride 0.9% 200 ml @ 5 mls/hr EPIDURAL . Q24H PRN Rx#:[id number] Output: Urine 155 300 Other: Voiding Method Indwelling Catheter Indwelling Catheter Results CBC & Chem 7: 02/06/22 18:47 02/06/22 18:47 Labs: Abnormal Lab Results - Last 24 Hours (Table) 02/06/22 02/06/22 02/06/22 Range/Units 11:55 18:47 18:47 RBC 3.24 L (3.80-5.40) m/uL Hgb 9.9 L (11.4-16.0) gm/dL Hct 30.3 L (34.0-46.0) % Neutrophils # (Manual) 8.10 H (1.3-7.7) k/uL Sodium 136 L (137-145) mmol/L BUN 18 H (7-17) mg/dL Creatinine 1.16 H (0.52-1.04) mg/dL Glucose 196 H (74-99) mg/dL POC Glucose (mg/dL) 310 H (75-99) mg/dL 02/07/22 Range/Units 07:29 RBC (3.80-5.40) m/uL Hgb (11.4-16.0) gm/dL Hct (34.0-46.0) % Neutrophils # (Manual) (1.3-7.7) k/uL Sodium (137-145) mmol/L BUN (7-17) mg/dL Creatinine (0.52-1.04) mg/dL Glucose (74-99) mg/dL POC Glucose (mg/dL) 240 H (75-99) mg/dL
[2022-02-07 17:10] LABS: Glucose,Whole Blood 302 mg/dL (75-99)
[2022-02-07] MEDS: GLIMEPIRIDE 2 MG TAB PO SCH (17:37)
[2022-02-07] MEDS: INSULIN ASPART (NovoLOG) 100 UNIT/ML VIAL SQ SCH (17:37)
[2022-02-07 19:26] LABS: Glucose,Whole Blood 344 mg/dL (75-99)
[2022-02-07] MEDS ORDERED: INSULIN DETEMIR (LEVEMIR) 100 UNIT/ML SYR SQ SCH (21:00)
[2022-02-07] MEDS: diphenhydrAMINE 50 MG/ML 1 ML VIAL IVP PRN (21:20)
[2022-02-08] MEDS: LACTATED RINGERS 1,000 ML IV SCH ×2 (02:02→17:15)
[2022-02-08] MEDS: HEPARIN SODIUM,PORCINE/PF 5,000 UNIT/0.5 ML SYRINGE SQ SCH ×3 (04:49→21:06)
[2022-02-08 07:34] LABS: Glucose,Whole Blood 214 mg/dL (75-99)
[2022-02-08] MEDS: FAMOTIDINE 20 MG/2 ML VIAL IV SCH ×2 (08:38→21:06)
[2022-02-08] MEDS: ALVIMOPAN 12 MG CAPSULE PO SCH ×2 (08:38→21:06)
[2022-02-08] MEDS: GLIMEPIRIDE 2 MG TAB PO SCH ×2 (08:38→17:59)
[2022-02-08] MEDS: INSULIN ASPART (NovoLOG) 100 UNIT/ML VIAL SQ SCH ×3 (08:38→17:59)
--- NOTE | 2022-02-08 10:48 | P.PN ---
Progress Note - Text Progress Note Date: 02/08/22 (8231) Anesthesia Postop day #2 Status post low anterior resection with epidural day #3 Patient seen and examined. Doing well complaining of mild pain.. VAS 6 out of 10. Explained to patient that she has breakthrough medicine available to use. Denies nausea or vomiting. Mild pruritus.. Epidural increased last night to 6 mL an hour. Ropivacaine 0.1% at 6 mL an hour. Objective: Vital signs reviewed Lungs: Good chest excursion Abdomen: Appears nondistended Other: Epidural Site Intact without induration. Dressing intact Neuro: No apparent motor block. Sensory within normal limits. Assessment: Status post low anterior resection postop day #2 Plan: Continue current care with your medical management. Anticipate discontinued catheter tomorrow.
--- NOTE | 2022-02-08 10:52 | P.PN ---
Progress Note - Text Progress Note Date: 02/08/22 The patient is postoperative day 2 from low anterior resection. She is doing fairly well. She has some complaints of incisional pain. She's had no significant bowel function. On exam vital signs are stable. Abdomen soft. Incision is clean dry intact. Status post sigmoid colectomy. Patient will continue receive supportive care.
[2022-02-08 11:48] LABS: Glucose,Whole Blood 234 mg/dL (75-99)
--- NOTE | 2022-02-08 16:01 | P.PN ---
Progress Note - Text Progress Note Date: 02/08/22 - Chief Complaint Abdominal surgery Hospital course This is a pleasant 60-year-old patient who follows Dr. Sanchez. Chronic stable medical conditions include diabetes mellitus type 2, GERD, hypertension, hyperlipidemia, hypothyroid, diabetic peripheral neuropathy. Patient been having issues with chronic diverticulitis. Yesterday he underwent low anterior resection by Dr. Leon. Today patient sitting up in a recliner. Binder in place. Abdominal pain. Accu-Cheks are running higher. Change D5W to LR. No nausea vomiting. She no fever no chills. Past a small amount of stool. February 08: Reclining in bed. Liquid diet. No BM or flatus. Some abdominal pain. Active Medications Alvimopan (Alvimopan 12 Mg Capsule) 12 mg PO BID [facility] Stop: 02/13/22 21:01 Last Admin: 02/08/22 08:38 Dose: 12 mg Documented by: Diphenhydramine HCl (Diphenhydramine 50 Mg/Ml 1 Ml Vial) 50 mg IVP Q6HR PRN PRN Reason: Itching Last Admin: 02/07/22 21:20 Dose: 50 mg Documented by: Famotidine (Famotidine 20 Mg/2 Ml Vial) 20 mg IV BID [facility] Last Admin: 02/08/22 08:38 Dose: 20 mg Documented by: Glimepiride (Glimepiride 2 Mg Tab) 2 mg PO AC-BID [facility] Last Admin: 02/08/22 08:38 Dose: 2 mg Documented by: Heparin Sodium (Porcine) (Heparin Sodium,Porcine/Pf 5,000 Unit/0.5 Ml Syringe) 5,000 unit SQ Q8H [facility] Last Admin: 02/08/22 12:48 Dose: 5,000 unit Documented by: Hydromorphone HCl (Hydromorphone 0.5 Mg/0.5 Ml Syringe) 0.5 mg IVP Q3HR PRN PRN Reason: Pain Ropivacaine 250 mg/ Sodium (Chloride) 250 mls @ 5 mls/hr EPIDURAL .Q24H PRN; Protocol PRN Reason: Pain Control Last Admin: 02/08/22 06:48 Dose: 6 mls/hr Documented by: Lactated Ringer's (Lactated Ringers) 1,000 mls @ 75 mls/hr IV .[id number] [facility] Last Admin: 02/08/22 02:02 Dose: 75 mls/hr Documented by: Insulin Aspart (Insulin Aspart (Novolog) 100 Unit/Ml Vial) 0 unit SQ AC-TID [facility]; Protocol Last Admin: 02/08/22 12:48 Dose: 3 unit Documented by: Metoclopramide HCl (Metoclopramide 5 Mg/Ml 2 Ml Vial) 10 mg IVP Q6HR PRN PRN Reason: Nausea and Vomiting Nalbuphine HCl (Nalbuphine 10 Mg/Ml (1 Ml Amp)) 2.5 mg IV Q4HR PRN PRN Reason: Itching Naloxone HCl (Naloxone 0.4 Mg/Ml 1 Ml Vial) 0.2 mg IV Q2M PRN PRN Reason: Opioid Reversal Ondansetron HCl (Ondansetron 4 Mg/2 Ml Vial) 4 mg IVP Q8HR PRN PRN Reason: Nausea And Vomiting Past medical history to include: Diabetes, GERD, hypertension, hyperlipidemia, hypothyroid, diabetic peripheral neuropathy, vitamin D deficiency, anxiety Social history: Nonsmoker. No alcohol. Family history: Mother of a heart attack. Stroke DVT Physical examination: VITAL SIGNS: 99, 80, 18, 140/80, 96% on 2 L GENERAL: Reclining in bed, awake. EYES: Pupils equal. Conjunctiva normal. HEENT: External appearance of nose and ears normal, oral cavity grossly normal. NECK: JVD not raised; masses not palpable. HEART: First and second heart sounds are normal; no edema. LUNGS: Respiratory rate normal; clear to auscultation. ABDOMEN: Soft, tender, liver spleen not palpable, no masses palpable abdominal binder in place.. PSYCH: Alert and oriented x3; mood and affect normal. MUSCULOSKELETAL:No Clubbing/cyanosis;muscles-grossly intact INVESTIGATIONS, reviewed in the clinical context: White count 9.6 hemoglobin 9.9 platelets 264 potassium 4.1 BUN 18 creatinine 1.16 Accu-Cheks to 40, 319 EKG tracing personally reviewed by me-sinus rhythm. Right bundle branch block. Assessment and plan: -Low anterior resection for chronic diverticulitis liquid diet. Abdominal binder. IV fluids. -Diabetes mellitus type 2, chronically on oral hypoglycemic. Uncontrolled with hyperglycemia Sliding scale insulin. Amaryl. -Diabetic peripheral neuropathy Neurontin 300 mg daily at bedtime -Hypothyroidism Levothyroxine 50 g daily -Essential hypertension Toprol-XL 50 mg a day -Hyperlipidemia Crestor 40 mg daily at bedtime -GERD Prilosec 20 mg daily Follow Accu-Cheks. Clear liquid diet.. Activity as tolerated. Care was discussed with the patient. Add Levemir 8 units at night. Thank you Dr. Leon
[2022-02-08 17:45] LABS: Glucose,Whole Blood 228 mg/dL (75-99)
[2022-02-08 20:33] LABS: Glucose,Whole Blood 268 mg/dL (75-99)
[2022-02-08] MEDS: diphenhydrAMINE 50 MG/ML 1 ML VIAL IVP PRN (21:06)
[2022-02-09] MEDS: LACTATED RINGERS 1,000 ML IV SCH ×2 (01:36→16:39)
[2022-02-09] MEDS: HEPARIN SODIUM,PORCINE/PF 5,000 UNIT/0.5 ML SYRINGE SQ SCH ×3 (04:39→20:45)
[2022-02-09] MEDS: diphenhydrAMINE 50 MG/ML 1 ML VIAL IVP PRN (04:39)
[2022-02-09 07:42] LABS: Glucose,Whole Blood 165 mg/dL (75-99)
[2022-02-09] MEDS: FAMOTIDINE 20 MG/2 ML VIAL IV SCH ×2 (08:47→20:45)
[2022-02-09] MEDS: GLIMEPIRIDE 2 MG TAB PO SCH ×2 (08:47→17:46)
[2022-02-09] MEDS: ALVIMOPAN 12 MG CAPSULE PO SCH ×2 (08:47→20:45)
[2022-02-09] MEDS: INSULIN ASPART (NovoLOG) 100 UNIT/ML VIAL SQ SCH ×3 (08:47→17:46)
[2022-02-09] MEDS: HYDROcodone/APAP 5-325MG 1 EACH TAB PO PRN ×3 (10:17→20:45)
[2022-02-09 11:04] LABS: Basophils % (A) 0 %; Eosinophils # (A) 0.1 k/uL (0-0.7); Eosinophils % (A) 1 %; HCT 29.7 % (34.0-46.0); HGB 9.5 gm/dL (11.4-16.0); Lymphocytes # (A) 1.3 k/uL (1.0-4.8); Lymphocytes % (A) 13 %; MCH 30.3 pg (25.0-35.0); MCHC 31.9 g/dL (31.0-37.0); Monocytes # (A) 0.5 k/uL (0-1.0); Monocytes % (A) 5 %; Neutrophils # (A) 7.6 k/uL (1.3-7.7); Neutrophils % (A) 77 %; Platelet Count 235 k/uL (150-450); RBC 3.12 m/uL (3.80-5.40); RDW 13.6 % (11.5-15.5); WBC 9.9 k/uL (3.8-10.6)
[2022-02-09 11:17] LABS: African American GFR (CKD) 60 (>60 ml/min/1.73 sqM); Anion Gap 8 mmol/L; Blood Urea Nitrogen 10 mg/dL (7-17); Calcium 8.4 mg/dL (8.4-10.2); Carbon Dioxide 22 mmol/L (22-30); Chloride 106 mmol/L (98-107); Glucose 207 mg/dL (74-99); Non-African American GFR(CKD) 52 (>60 ml/min/1.73 sqM); Potassium 3.8 mmol/L (3.5-5.1); Sodium 136 mmol/L (137-145)
--- NOTE | 2022-02-09 11:57 | P.PN ---
Subjective Progress Note Date: 02/09/22 CHIEF COMPLAINT: Diverticulitis HISTORY OF PRESENT ILLNESS: Patient is postop day #3 status post lower anterior resection and takedown of splenic flexure. Patient is scheduled to have epidural and Alonzo catheter removed today. She did have a temp of 100.2 this morning. White count normal at 9.9 Hgb 9.5 platelets 235 creatinine 1.14. Patient denies any flatus or bowel movement. PHYSICAL EXAM: VITAL SIGNS: Reviewed. GENERAL: Well-developed in no acute distress. HEENT: No sclera icterus. Extraocular movements grossly intact. Moist buccal mucosa. Head is atraumatic, normocephalic. ABDOMEN: Soft. Nondistended. Incision site clean dry and intact [address] NEUROLOGIC: Alert and oriented. Cranial nerves II through XII grossly intact. ASSESSMENT: 1. Diverticulitis status post lower anterior resection and takedown of splenic flexure PLAN: -Epidural and Alonzo catheter to be discontinued today -[place] added for oral pain medication -Continue IV Dilaudid -Continue clear liquids -Continue local wound care -Encouraged patient to ambulate and use incentive spirometer -DVT prophylaxis subcu heparin and GI prophylaxis pepcid Physician Operations [employer] note has been reviewed by physician. Signing provider agrees with the documented findings, assessment, and plan of care. Objective - Vital Signs Vital signs: Vital Signs Temp 100.2 F H 02/09/22 04:39 Pulse 85 02/09/22 04:39 Resp 20 02/09/22 04:39 BP 158/81 02/09/22 04:39 Pulse Ox 98 02/09/22 04:39 Intake & Output 02/08/22 02/09/22 02/09/22 18:59 06:59 18:59 Intake Total 900 900 Output Total 1500 3100 Balance -600 -2200 Intake: Intake, IV Titration 900 900 Amount Lactated Ringers 1,000 ml 900 900 @ 75 mls/hr IV .[id number] [facility] Rx#:[id number] Output: Urine 1500 3100 Other: Voiding Method Indwelling Catheter Indwelling Catheter - Labs CBC & Chem 7: 02/09/22 10:34 02/09/22 10:34 Labs: Abnormal Lab Results - Last 24 Hours (Table) 02/08/22 02/08/22 02/09/22 Range/Units 17:43 20:31 07:41 RBC (3.80-5.40) m/uL Hgb (11.4-16.0) gm/dL Hct (34.0-46.0) % Sodium (137-145) mmol/L Creatinine (0.52-1.04) mg/dL Glucose (74-99) mg/dL POC Glucose (mg/dL) 228 H 268 H 165 H (75-99) mg/dL 02/09/22 02/09/22 Range/Units 10:34 10:34 RBC 3.12 L (3.80-5.40) m/uL Hgb 9.5 L (11.4-16.0) gm/dL Hct 29.7 L (34.0-46.0) % Sodium 136 L (137-145) mmol/L Creatinine 1.14 H (0.52-1.04) mg/dL Glucose 207 H (74-99) mg/dL POC Glucose (mg/dL) (75-99) mg/dL
[2022-02-09 12:39] LABS: Glucose,Whole Blood 187 mg/dL (75-99)
--- NOTE | 2022-02-09 12:48 | XR ---
EXAMINATION TYPE: XR abdomen 2V DATE OF EXAM: 02/09/2022 COMPARISON: NONE HISTORY: Pain TECHNIQUE: One view abdominal series FINDINGS: The osseous structures are intact. The bowel gas pattern is nonspecific. Surgical tristen noted. Gera cification pelvis likely vascular. Arthropathy hips and severe degenerative change lower lumbar spine . Prominent bowel loops in the right abdomen with air-fluid levels. Subsegmental changes at both lung bases. IMPRESSION: 1. Nonspecific abdomen. Dilated bowel throughout abdomen and scattered air-fluid levels. Ileus or pa rtial obstruction in the differential diagnosis. 2. Bibasilar infiltrate
--- NOTE | 2022-02-09 15:52 | P.PN ---
Progress Note - Text Progress Note Date: 02/09/22 - Chief Complaint Abdominal surgery Hospital course This is a pleasant 60-year-old patient who follows Dr. Sanchez. Chronic stable medical conditions include diabetes mellitus type 2, GERD, hypertension, hyperlipidemia, hypothyroid, diabetic peripheral neuropathy. Patient been having issues with chronic diverticulitis. Yesterday he underwent low anterior resection by Dr. Leon. Today patient sitting up in a recliner. Binder in place. Abdominal pain. Accu-Cheks are running higher. Change D5W to LR. No nausea vomiting. She no fever no chills. Past a small amount of stool. February 08: Reclining in bed. Liquid diet. No BM or flatus. Some abdominal pain. February 09: In bed. No BM or flatus. Some abdominal distention. No nausea vomiting. Remains on clear liquid diet. Abdominal x-ray did confirm ileus Active Medications Hydrocodone Bitart/Acetaminophen (Hydrocodone/[place]ap 5-325mg 1 Each Tab) 1 each PO Q4HR PRN PRN Reason: Pain Last Admin: 02/09/22 14:18 Dose: 1 each Documented by: Alvimopan (Alvimopan 12 Mg Capsule) 12 mg PO BID [facility] Stop: 02/13/22 21:01 Last Admin: 02/09/22 08:47 Dose: 12 mg Documented by: Diphenhydramine HCl (Diphenhydramine 50 Mg/Ml 1 Ml Vial) 50 mg IVP Q6HR PRN PRN Reason: Itching Last Admin: 02/09/22 04:39 Dose: 50 mg Documented by: Famotidine (Famotidine 20 Mg/2 Ml Vial) 20 mg IV BID [facility] Last Admin: 02/09/22 08:47 Dose: 20 mg Documented by: Glimepiride (Glimepiride 2 Mg Tab) 2 mg PO AC-BID [facility] Last Admin: 02/09/22 08:47 Dose: 2 mg Documented by: Heparin Sodium (Porcine) (Heparin Sodium,Porcine/Pf 5,000 Unit/0.5 Ml Syringe) 5,000 unit SQ Q8H [facility] Last Admin: 02/09/22 12:51 Dose: 5,000 unit Documented by: Hydromorphone HCl (Hydromorphone 0.5 Mg/0.5 Ml Syringe) 0.5 mg IVP Q3HR PRN PRN Reason: Pain Lactated Ringer's (Lactated Ringers) 1,000 mls @ 75 mls/hr IV .[id number] [facility] Last Admin: 02/09/22 01:36 Dose: 75 mls/hr Documented by: Insulin Aspart (Insulin Aspart (Novolog) 100 Unit/Ml Vial) 0 unit SQ AC-TID [facility]; Protocol Last Admin: 02/09/22 12:51 Dose: 2 unit Documented by: Metoclopramide HCl (Metoclopramide 5 Mg/Ml 2 Ml Vial) 10 mg IVP Q6HR PRN PRN Reason: Nausea and Vomiting Nalbuphine HCl (Nalbuphine 10 Mg/Ml (1 Ml Amp)) 2.5 mg IV Q4HR PRN PRN Reason: Itching Naloxone HCl (Naloxone 0.4 Mg/Ml 1 Ml Vial) 0.2 mg IV Q2M PRN PRN Reason: Opioid Reversal Ondansetron HCl (Ondansetron 4 Mg/2 Ml Vial) 4 mg IVP Q8HR PRN PRN Reason: Nausea And Vomiting Past medical history to include: Diabetes, GERD, hypertension, hyperlipidemia, hypothyroid, diabetic peripheral neuropathy, vitamin D deficiency, anxiety Social history: Nonsmoker. No alcohol. Family history: Mother of a heart attack. Stroke DVT Physical examination: VITAL SIGNS: 98.7, 73, 22, 161/81, 94% on 2 L GENERAL: Reclining in bed, awake. Tired EYES: Pupils equal. Conjunctiva normal. HEENT: External appearance of nose and ears normal, oral cavity grossly normal. NECK: JVD not raised; masses not palpable. HEART: First and second heart sounds are normal; no edema. LUNGS: Respiratory rate normal; clear to auscultation. ABDOMEN: Soft, tender, liver spleen not palpable, no masses palpable abdominal binder in place.. Some distention. Hyperactive bowel sounds. Dressing in place PSYCH: Alert and oriented x3; mood and affect normal. MUSCULOSKELETAL:No Clubbing/cyanosis;muscles-grossly intact INVESTIGATIONS, reviewed in the clinical context: February 09: White count 9.9 hemoglobin 9.5 potassium 3.8 creatinine 1.14 Abdominal x-ray film personally reviewed by me: Air-fluid levels. White count 9.6 hemoglobin 9.9 platelets 264 potassium 4.1 BUN 18 creatinine 1.16 Accu-Cheks to 40, 319 EKG tracing personally reviewed by me-sinus rhythm. Right bundle branch block. Assessment and plan: -Low anterior resection for chronic diverticulitis Clear liquid diet. IV fluids. -Acute postop ileus: No diagnosis We'll discuss with surgery -Diabetes mellitus type 2, chronically on oral hypoglycemic. Uncontrolled with hyperglycemia Sliding scale insulin. Amaryl. -Diabetic peripheral neuropathy Neurontin 300 mg daily at bedtime -Hypothyroidism Levothyroxine 50 g daily -Essential hypertension Toprol-XL 50 mg a day -Hyperlipidemia Crestor 40 mg daily at bedtime -GERD Prilosec 20 mg daily Clinical suspicion of ileus confirmed with x-ray. Other medications to continue. Patient started on Lantus last night. Follow with surgery. Thank you Dr. Leon
[2022-02-09 17:15] LABS: Glucose,Whole Blood 203 mg/dL (75-99)
[2022-02-09 20:58] LABS: Glucose,Whole Blood 285 mg/dL (75-99)
[2022-02-10] MEDS: HEPARIN SODIUM,PORCINE/PF 5,000 UNIT/0.5 ML SYRINGE SQ SCH ×3 (04:38→19:41)
[2022-02-10] MEDS: LACTATED RINGERS 1,000 ML IV SCH ×2 (04:40→19:46)
[2022-02-10] MEDS: HYDROcodone/APAP 5-325MG 1 EACH TAB PO PRN ×4 (04:44→19:41)
[2022-02-10 07:21] LABS: Glucose,Whole Blood 152 mg/dL (75-99)
[2022-02-10] MEDS: INSULIN ASPART (NovoLOG) 100 UNIT/ML VIAL SQ SCH ×3 (08:15→18:30)
[2022-02-10] MEDS: FAMOTIDINE 20 MG/2 ML VIAL IV SCH ×2 (09:05→19:41)
[2022-02-10] MEDS: GLIMEPIRIDE 2 MG TAB PO SCH ×2 (09:05→18:30)
[2022-02-10 09:31] LABS: African American GFR (CKD) 63 (>60 ml/min/1.73 sqM); Anion Gap 7 mmol/L; Blood Urea Nitrogen 10 mg/dL (7-17); Calcium 8.5 mg/dL (8.4-10.2); Carbon Dioxide 20 mmol/L (22-30); Chloride 107 mmol/L (98-107); Glucose 240 mg/dL (74-99); Non-African American GFR(CKD) 54 (>60 ml/min/1.73 sqM); Potassium 3.9 mmol/L (3.5-5.1); Sodium 134 mmol/L (137-145)
[2022-02-10 09:43] LABS: HCT 29.5 % (34.0-46.0); HGB 9.7 gm/dL (11.4-16.0); MCH 30.9 pg (25.0-35.0); MCHC 32.8 g/dL (31.0-37.0); MCV 94.4 fL (80.0-100.0); Mean Platelet Volume 8.1; Platelet Count 286 k/uL (150-450); RBC 3.12 m/uL (3.80-5.40); WBC 8.7 k/uL (3.8-10.6)
[2022-02-10 11:22] LABS: Glucose,Whole Blood 189 mg/dL (75-99)
--- NOTE | 2022-02-10 11:57 | P.PN ---
Progress Note - Text 02/09/22 651am 61-year-old female status post exploratory lap by Dr. Leon. Patient seen and evaluated for postop pain control, epidural solution running at 6 mL an hour with a VAS of 6 at movement, her VAS is 0 at rest. Dressing clean dry and intact, plan to DC epidural nurse informed
--- NOTE | 2022-02-10 12:47 | P.PN ---
Subjective Progress Note Date: 02/10/22 CHIEF COMPLAINT: Diverticulitis HISTORY OF PRESENT ILLNESS: Patient is postop day #4 status post lower anterior resection and takedown of splenic flexure. Patient reports that her pain is controlled. Epidural was discontinued yesterday. She did have flatus and bowel movement. Did have some nausea last night which is now improved. She is afebrile. WBC 8.7 hemoglobin 9.7 platelet is 286 sodium is 134 and creatinine is 1.09 Patient seen and examined with Dr. ramirez PHYSICAL EXAM: VITAL SIGNS: Reviewed. GENERAL: Well-developed in no acute distress. HEENT: No sclera icterus. Extraocular movements grossly intact. Moist buccal mucosa. Head is atraumatic, normocephalic. ABDOMEN: Soft. Nondistended. Incision site clean dry and intact has [address] NEUROLOGIC: Alert and oriented. Cranial nerves II through XII grossly intact. ASSESSMENT: 1. Diverticulitis status post lower anterior resection and takedown of splenic flexure PLAN: -Advance diet to full liquids -Continue pain medication as needed -Encourage patient to shower today -Continue incentive spirometer use -Encourage patient to increase activity level -Anticipate discharge possibly tomorrow -DVT prophylaxis subcu heparin and GI prophylaxis pepcid Physician Truck Car [employer]er note has been reviewed by physician. Signing provider agrees with the documented findings, assessment, and plan of care. Objective - Vital Signs Vital signs: Vital Signs Temp 98.4 F 02/10/22 12:15 Pulse 74 02/10/22 12:15 Resp 18 02/10/22 12:15 BP 145/81 02/10/22 12:15 Pulse Ox 95 02/10/22 12:15 Intake & Output 02/09/22 02/10/22 02/10/22 18:59 06:59 18:59 Intake Total 800 Output Total 250 3100 Balance -250 -2300 Intake: Intake, IV Titration 600 Amount Lactated Ringers 1,000 ml 600 @ 75 mls/hr IV .[id number] Rx#:[id number] Oral 200 Output: Urine 250 3100 Uretheral (Alonzo) 250 Other: Voiding Method Indwelling Catheter Toilet # Voids 3 14 # Bowel Movements 1 1 1 - Labs CBC & Chem 7: 02/10/22 09:03 02/10/22 09:03 Labs: Abnormal Lab Results - Last 24 Hours (Table) 02/09/22 02/09/22 02/10/22 Range/Units 17:13 20:55 07:14 RBC (3.80-5.40) m/uL Hgb (11.4-16.0) gm/dL Hct (34.0-46.0) % Sodium (137-145) mmol/L Carbon Dioxide (22-30) mmol/L Creatinine (0.52-1.04) mg/dL Glucose (74-99) mg/dL POC Glucose (mg/dL) 203 H 285 H 152 H (75-99) mg/dL 02/10/22 02/10/22 02/10/22 Range/Units 09:03 09:03 11:11 RBC 3.12 L (3.80-5.40) m/uL Hgb 9.7 L (11.4-16.0) gm/dL Hct 29.5 L (34.0-46.0) % Sodium 134 L (137-145) mmol/L Carbon Dioxide 20 L (22-30) mmol/L Creatinine 1.09 H (0.52-1.04) mg/dL Glucose 240 H (74-99) mg/dL POC Glucose (mg/dL) 189 H (75-99) mg/dL
--- NOTE | 2022-02-10 15:49 | P.PN ---
Progress Note - Text Progress Note Date: 02/10/22 - Chief Complaint Abdominal surgery Hospital course This is a pleasant 60-year-old patient who follows Dr. Sanchez. Chronic stable medical conditions include diabetes mellitus type 2, GERD, hypertension, hyperlipidemia, hypothyroid, diabetic peripheral neuropathy. Patient been having issues with chronic diverticulitis. Yesterday he underwent low anterior resection by Dr. Leon. Today patient sitting up in a recliner. Binder in place. Abdominal pain. Accu-Cheks are running higher. Change D5W to LR. No nausea vomiting. She no fever no chills. Past a small amount of stool. February 08: Reclining in bed. Liquid diet. No BM or flatus. Some abdominal pain. February 09: In bed. No BM or flatus. Some abdominal distention. No nausea vomiting. Remains on clear liquid diet. Abdominal x-ray did confirm ileus February 10: Patient had a bowel movement. Abdomen less distended. Diet advanced to full liquid. Feeling better. Active Medications Hydrocodone Bitart/Acetaminophen (Hydrocodone/Apap 5-325mg 1 Each Tab) 1 each PO Q4HR PRN PRN Reason: Pain Last Admin: 02/10/22 15:44 Dose: 1 each Documented by: Diphenhydramine HCl (Diphenhydramine 50 Mg/Ml 1 Ml Vial) 50 mg IVP Q6HR PRN PRN Reason: Itching Last Admin: 02/09/22 04:39 Dose: 50 mg Documented by: Famotidine (Famotidine 20 Mg/2 Ml Vial) 20 mg IV BID [facility] Last Admin: 02/10/22 09:05 Dose: 20 mg Documented by: Glimepiride (Glimepiride 2 Mg Tab) 2 mg PO AC-BID [facility] Last Admin: 02/10/22 09:05 Dose: 2 mg Documented by: Heparin Sodium (Porcine) (Heparin Sodium,Porcine/Pf 5,000 Unit/0.5 Ml Syringe) 5,000 unit SQ Q8H [facility] Last Admin: 02/10/22 13:09 Dose: 5,000 unit Documented by: Hydromorphone HCl (Hydromorphone 0.5 Mg/0.5 Ml Syringe) 0.5 mg IVP Q3HR PRN PRN Reason: Pain Lactated Ringer's (Lactated Ringers) 1,000 mls @ 75 mls/hr IV .[id number] [facility] Last Admin: 02/10/22 04:40 Dose: 75 mls/hr Documented by: Insulin Aspart (Insulin Aspart (Novolog) 100 Unit/Ml Vial) 0 unit SQ AC-TID [facility]; Protocol Last Admin: 02/10/22 13:09 Dose: 2 unit Documented by: Metoclopramide HCl (Metoclopramide 5 Mg/Ml 2 Ml Vial) 10 mg IVP Q6HR PRN PRN Reason: Nausea and Vomiting Nalbuphine HCl (Nalbuphine 10 Mg/Ml (1 Ml Amp)) 2.5 mg IV Q4HR PRN PRN Reason: Itching Naloxone HCl (Naloxone 0.4 Mg/Ml 1 Ml Vial) 0.2 mg IV Q2M PRN PRN Reason: Opioid Reversal Ondansetron HCl (Ondansetron 4 Mg/2 Ml Vial) 4 mg IVP Q8HR PRN PRN Reason: Nausea And Vomiting Past medical history to include: Diabetes, GERD, hypertension, hyperlipidemia, hypothyroid, diabetic peripheral neuropathy, vitamin D deficiency, anxiety Social history: Nonsmoker. No alcohol. Family history: Mother of a heart attack. Stroke DVT Physical examination: VITAL SIGNS: 98.4, 74, 18, 145/81, 95% room air GENERAL: Up in a chair awake. EYES: Pupils equal. Conjunctiva normal. HEENT: External appearance of nose and ears normal, oral cavity grossly normal. NECK: JVD not raised; masses not palpable. HEART: First and second heart sounds are normal; no edema. LUNGS: Respiratory rate normal; clear to auscultation. ABDOMEN: Soft, tender, liver spleen not palpable, no masses palpable abdominal binder in place.. Less distention. Bowel sounds present PSYCH: Alert and oriented x3; mood and affect normal. MUSCULOSKELETAL:No Clubbing/cyanosis;muscles-grossly intact INVESTIGATIONS, reviewed in the clinical context: February 10: White count 8.7 hemoglobin 9.7 potassium 3.9 creatinine 1.09 February 09: White count 9.9 hemoglobin 9.5 potassium 3.8 creatinine 1.14 Abdominal x-ray film personally reviewed by me: Air-fluid levels. White count 9.6 hemoglobin 9.9 platelets 264 potassium 4.1 BUN 18 creatinine 1.16 Accu-Cheks to 40, 319 EKG tracing personally reviewed by me-sinus rhythm. Right bundle branch block. Assessment and plan: -Low anterior resection for chronic diverticulitis Clear liquid diet. IV fluids. -Acute postop ileus: Clinically better Patient had a bowel movement -Diabetes mellitus type 2, chronically on oral hypoglycemic. Uncontrolled with hyperglycemia Sliding scale insulin. Amaryl. -Diabetic peripheral neuropathy Neurontin 300 mg daily at bedtime -Hypothyroidism Levothyroxine 50 g daily -Essential hypertension Toprol-XL 50 mg a day -Hyperlipidemia Crestor 40 mg daily at bedtime -GERD Prilosec 20 mg daily Had a bowel movement. Doing better. Diet advanced to full liquid. Increase activity. Thank you Dr. Leon
[2022-02-10 17:12] LABS: Glucose,Whole Blood 213 mg/dL (75-99)
[2022-02-10 20:57] LABS: Glucose,Whole Blood 201 mg/dL (75-99)
[2022-02-11] MEDS: HYDROcodone/APAP 5-325MG 1 EACH TAB PO PRN ×4 (03:04→21:09)
[2022-02-11] MEDS: HEPARIN SODIUM,PORCINE/PF 5,000 UNIT/0.5 ML SYRINGE SQ SCH ×3 (03:04→21:10)
[2022-02-11 07:07] LABS: Glucose,Whole Blood 128 mg/dL (75-99)
[2022-02-11] MEDS: INSULIN ASPART (NovoLOG) 100 UNIT/ML VIAL SQ SCH ×3 (07:35→17:30)
[2022-02-11] MEDS: GLIMEPIRIDE 2 MG TAB PO SCH ×2 (08:30→17:25)
[2022-02-11] MEDS: FAMOTIDINE 20 MG/2 ML VIAL IV SCH ×2 (09:07→21:09)
[2022-02-11] MEDS: LACTATED RINGERS 1,000 ML IV SCH (11:37)
[2022-02-11 11:43] LABS: Glucose,Whole Blood 257 mg/dL (75-99)
[2022-02-11] MEDS: METOPROLOL SUCCINATE (ER) 50 MG TAB.ER.24H PO SCH (13:31)
[2022-02-11] MEDS: LEVOTHYROXINE 50 MCG TAB PO SCH (13:31)
[2022-02-11] MEDS: metFORMIN 500 MG TAB PO SCH ×3 (13:31→21:09)
[2022-02-11] MEDS: hydroCHLOROthiazide 25 MG TAB PO SCH (13:31)
--- NOTE | 2022-02-11 15:29 | P.PN ---
Subjective Progress Note Date: 02/11/22 CHIEF COMPLAINT: Diverticulitis HISTORY OF PRESENT ILLNESS: Patient is postop day #5 status post lower anterior resection and takedown of splenic flexure. Patient reports that her pain is controlled. She denies any nausea vomiting. She is having bowel movements and flatus. She does report that she has difficulty with getting out of the bed. She has worked with physical therapy. She does not feel ready quite yet for discharge. Afebrile. No new labs Patient seen and examined with Dr. ramirez PHYSICAL EXAM: VITAL SIGNS: Reviewed. GENERAL: Well-developed in no acute distress. HEENT: No sclera icterus. Extraocular movements grossly intact. Moist buccal mucosa. Head is atraumatic, normocephalic. ABDOMEN: Soft. Nondistended. Incision site clean dry and intact has [address] NEUROLOGIC: Alert and oriented. Cranial nerves II through XII grossly intact. ASSESSMENT: 1. Diverticulitis status post lower anterior resection and takedown of splenic flexure PLAN: -Advance diet to regular -Continue pain medication as needed -Continue incentive spirometer use -Encourage patient to increase activity level -Anticipate discharge possibly tomorrow -DVT prophylaxis subcu heparin and GI prophylaxis pepcid Physician Manager [employer] note has been reviewed by physician. Signing provider agrees with the documented findings, assessment, and plan of care. Objective - Vital Signs Vital signs: Vital Signs Temp 98.3 F 02/11/22 12:51 Pulse 75 02/11/22 12:51 Resp 22 02/11/22 12:51 BP 153/87 02/11/22 12:51 Pulse Ox 96 02/11/22 12:51 Intake & Output 02/10/22 02/11/22 02/11/22 18:59 06:59 18:59 Intake Total 900 200 Balance 900 200 Intake: Intake, IV Titration 900 Amount Lactated Ringers 1,000 ml 900 @ 75 mls/hr IV .[id number] [facility] Rx#:[id number] Oral 200 Other: Voiding Method Toilet Toilet Toilet # Voids 8 4 # Bowel Movements 1 1 - Labs CBC & Chem 7: 02/10/22 09:03 02/10/22 09:03 Labs: Abnormal Lab Results - Last 24 Hours (Table) 02/10/22 02/10/22 02/11/22 Range/Units 17:11 20:38 07:06 POC Glucose (mg/dL) 213 H 201 H 128 H (75-99) mg/dL 02/11/22 Range/Units 11:36 POC Glucose (mg/dL) 257 H (75-99) mg/dL
--- NOTE | 2022-02-11 16:28 | P.PN ---
Progress Note - Text Progress Note Date: 02/11/22 - Chief Complaint Abdominal surgery Hospital course This is a pleasant 60-year-old patient who follows Dr. Sanchez. Chronic stable medical conditions include diabetes mellitus type 2, GERD, hypertension, hyperlipidemia, hypothyroid, diabetic peripheral neuropathy. Patient been having issues with chronic diverticulitis. Yesterday he underwent low anterior resection by Dr. Leon. Today patient sitting up in a recliner. Binder in place. Abdominal pain. Accu-Cheks are running higher. Change D5W to LR. No nausea vomiting. She no fever no chills. Past a small amount of stool. February 08: Reclining in bed. Liquid diet. No BM or flatus. Some abdominal pain. February 09: In bed. No BM or flatus. Some abdominal distention. No nausea vomiting. Remains on clear liquid diet. Abdominal x-ray did confirm ileus February 10: Patient had a bowel movement. Abdomen less distended. Diet advanced to full liquid. Feeling better. February 11: Tolerate full liquid diet. Had a bowel movement. Didn't ambulate. Diet advanced to regular. No nausea vomiting. Abdominal pain much better. Active Medications Hydrocodone Bitart/Acetaminophen (Hydrocodone/Apap 5-325mg 1 Each Tab) 1 each PO Q4HR PRN PRN Reason: Pain Last Admin: 02/11/22 13:35 Dose: 1 each Documented by: Atorvastatin Calcium (Atorvastatin 80 Mg Tab) 80 mg PO HS [facility] Diphenhydramine HCl (Diphenhydramine 50 Mg/Ml 1 Ml Vial) 50 mg IVP Q6HR PRN PRN Reason: Itching Last Admin: 02/09/22 04:39 Dose: 50 mg Documented by: Famotidine (Famotidine 20 Mg/2 Ml Vial) 20 mg IV BID [facility] Last Admin: 02/11/22 09:07 Dose: 20 mg Documented by: Gabapentin (Gabapentin 300 Mg Cap) 300 mg PO HS [facility] Glimepiride (Glimepiride 2 Mg Tab) 2 mg PO AC-BID [facility] Last Admin: 02/11/22 08:30 Dose: 2 mg Documented by: Heparin Sodium (Porcine) (Heparin Sodium,Porcine/Pf 5,000 Unit/0.5 Ml Syringe) 5,000 unit SQ Q8H [facility] Last Admin: 02/11/22 13:32 Dose: 5,000 unit Documented by: Hydrochlorothiazide (Hydrochlorothiazide 25 Mg Tab) 25 mg PO QAM [facility] Last Admin: 02/11/22 13:31 Dose: 25 mg Documented by: Hydromorphone HCl (Hydromorphone 0.5 Mg/0.5 Ml Syringe) 0.5 mg IVP Q3HR PRN PRN Reason: Pain Lactated Ringer's (Lactated Ringers) 1,000 mls @ 75 mls/hr IV .[id number] [facility] Last Admin: 02/11/22 11:37 Dose: Not Given Documented by: Insulin Aspart (Insulin Aspart (Novolog) 100 Unit/Ml Vial) 0 unit SQ AC-TID [facility]; Protocol Last Admin: 02/11/22 13:32 Dose: 4 unit Documented by: Levothyroxine Sodium (Levothyroxine 50 Mcg Tab) 50 mcg PO 0630 [facility] Last Admin: 02/11/22 13:31 Dose: 50 mcg Documented by: Metformin HCl (Metformin 500 Mg Tab) 500 mg PO TID [facility] Last Admin: 02/11/22 13:31 Dose: 500 mg Documented by: Metoclopramide HCl (Metoclopramide 5 Mg/Ml 2 Ml Vial) 10 mg IVP Q6HR PRN PRN Reason: Nausea and Vomiting Metoprolol Succinate (Metoprolol Succinate (Er) 50 Mg Tab.Er.24h) 50 mg PO [facility] Last Admin: 02/11/22 13:31 Dose: 50 mg Documented by: Nalbuphine HCl (Nalbuphine 10 Mg/Ml (1 Ml Amp)) 2.5 mg IV Q4HR PRN PRN Reason: Itching Naloxone HCl (Naloxone 0.4 Mg/Ml 1 Ml Vial) 0.2 mg IV Q2M PRN PRN Reason: Opioid Reversal Ondansetron HCl (Ondansetron 4 Mg/2 Ml Vial) 4 mg IVP Q8HR PRN PRN Reason: Nausea And Vomiting Past medical history to include: Diabetes, GERD, hypertension, hyperlipidemia, hypothyroid, diabetic peripheral neuropathy, vitamin D deficiency, anxiety Social history: Nonsmoker. No alcohol. Family history: Mother of a heart attack. Stroke DVT Physical examination: VITAL SIGNS: 98.3, 75, 22, 153/87, 6% room air GENERAL: Up in a chair awake. EYES: Pupils equal. Conjunctiva normal. HEENT: External appearance of nose and ears normal, oral cavity grossly normal. NECK: JVD not raised; masses not palpable. HEART: First and second heart sounds are normal; no edema. LUNGS: Respiratory rate normal; clear to auscultation. ABDOMEN: Soft, much decreased tender, liver spleen not palpable, no masses palpable abdominal binder in place.. PSYCH: Alert and oriented x3; mood and affect normal. MUSCULOSKELETAL:No Clubbing/cyanosis;muscles-grossly intact INVESTIGATIONS, reviewed in the clinical context: February 10: White count 8.7 hemoglobin 9.7 potassium 3.9 creatinine 1.09 February 09: White count 9.9 hemoglobin 9.5 potassium 3.8 creatinine 1.14 Abdominal x-ray film personally reviewed by me: Air-fluid levels. White count 9.6 hemoglobin 9.9 platelets 264 potassium 4.1 BUN 18 creatinine 1.16 Accu-Cheks to 40, 319 EKG tracing personally reviewed by me-sinus rhythm. Right bundle branch block. Assessment and plan: -Low anterior resection for chronic diverticulitis full liquid diet. IV fluids. -Acute postop ileus: Clinically better Patient had a bowel movement -Diabetes mellitus type 2, chronically on oral hypoglycemic. Uncontrolled with hyperglycemia Sliding scale insulin. Amaryl. -Diabetic peripheral neuropathy Neurontin 300 mg daily at bedtime -Hypothyroidism Levothyroxine 50 g daily -Essential hypertension Toprol-XL 50 mg a day -Hyperlipidemia Crestor 40 mg daily at bedtime -GERD Prilosec 20 mg daily -Acute postprocedure blood loss anemia expected from surgery Add ferrous sulfate Doing better. Diet advanced. Increase activity. Discussed with patient. DC IV fluids Thank you Dr. Leon
[2022-02-11 17:02] LABS: Glucose,Whole Blood 220 mg/dL (75-99)
[2022-02-11] MEDS: FERROUS SULFATE 325 MG TAB PO SCH (17:25)
[2022-02-11 20:06] LABS: Glucose,Whole Blood 183 mg/dL (75-99)
[2022-02-11] MEDS ORDERED: ATORVASTATIN 80 MG TAB PO SCH (21:00)
[2022-02-11] MEDS ORDERED: GABAPENTIN 300 MG CAP PO SCH (21:00)
[2022-02-12] MEDS: LEVOTHYROXINE 50 MCG TAB PO SCH (04:20)
[2022-02-12] MEDS: HEPARIN SODIUM,PORCINE/PF 5,000 UNIT/0.5 ML SYRINGE SQ SCH ×2 (04:20→13:01)
[2022-02-12] MEDS: HYDROcodone/APAP 5-325MG 1 EACH TAB PO PRN ×3 (04:23→13:04)
[2022-02-12 07:35] LABS: Glucose,Whole Blood 153 mg/dL (75-99)
[2022-02-12] MEDS: FERROUS SULFATE 325 MG TAB PO SCH (08:37)
[2022-02-12] MEDS: hydroCHLOROthiazide 25 MG TAB PO SCH (08:37)
[2022-02-12] MEDS: metFORMIN 500 MG TAB PO SCH (08:37)
[2022-02-12] MEDS: GLIMEPIRIDE 2 MG TAB PO SCH (08:39)
[2022-02-12] MEDS: FAMOTIDINE 20 MG/2 ML VIAL IV SCH (08:39)
[2022-02-12] MEDS: INSULIN ASPART (NovoLOG) 100 UNIT/ML VIAL SQ SCH ×2 (08:39→13:01)
[2022-02-12] MEDS: METOPROLOL SUCCINATE (ER) 50 MG TAB.ER.24H PO SCH (08:48)
[2022-02-12 08:50] VITALS: RESP 14
[2022-02-12 10:10] LABS: Basophils # (A) 0.06 X 10*3/uL (0.00-0.10); Basophils % (A) 0.5 %; Eosinophils % (A) 3.5 %; HGB 9.8 g/dL (12.0-15.0); Immature Grans, Automated 1.6 %; Lymphocytes # (A) 2.68 X 10*3/uL (0.90-5.00); Lymphocytes % (A) 23.1 %; MCH 29.2 pg (27.0-32.0); MCHC 30.6 g/dL (32.0-37.0); MCV 95.2 fL (80.0-97.0); Mean Platelet Volume 10.3 fL (9.5-12.2); Monocytes # (A) 0.96 X 10*3/uL (0.20-1.00); Monocytes % (A) 8.3 %; NRBC Per 100 WBC 0.2 /100 WBCS (0.0-0.0); Platelet Count 369 X 10*3/uL (140-440); RBC 3.36 X 10*6/uL (4.10-5.20); RDW 13.8 % (11.5-14.5); WBC 11.58 X 10*3/uL (4.50-10.00)
[2022-02-12 10:16] LABS: African American GFR (CKD) 56.3 (60.0-200.0); Anion Gap 14.1 mmol/L (10.00-18.00); BUN/Creat Ratio 7.23 Ratio (12.00-20.00); Blood Urea Nitrogen 8.6 mg/dL (9.0-27.0); Calcium 9.1 mg/dL (8.7-10.3); Carbon Dioxide 22.1 mmol/L (20.0-27.5); Non-African American GFR(CKD) 48.6 (60.0-200.0); Potassium 4.2 mmol/L (3.5-5.5)
[2022-02-12 10:42] VITALS: BMI 34.3
[2022-02-12 11:26] LABS: Glucose,Whole Blood 194 mg/dL (75-99)
[2022-02-12 12:50] VITALS: BP 124/76; PULSE 71; TEMP 98
--- NOTE | 2022-02-12 13:19 | P.DS ---
Providers Date of admission: 02/06/22 11:02 Expected date of discharge: 02/12/22 Attending physician: Ho Leon Consults: 02/06/22 14:33 Consult Physician Routine Consulting Provider: Keshawn Mauricio Consult Reason/Comments: Medical management Do you want consulting provider notified?: Yes Primary care physician: Bernard Sanchez Hospital Course: Discharge diagnosis 1. Diverticulitis status post lower anterior resection and takedown of splenic flexure 2. Leukocytosis Hospital course This is a 61-year-old female with history of issues of chronic diverticulitis. She is status post lower anterior resection and takedown of splenic flexure. She tolerated surgery well. Her pain is controlled. She is having bowel movements. She is tolerating diet. She's afebrile. She is up and ambulating. Incision site is clean dry and intact. White count is elevated 11.58. She'll be discharged home with antibiotics. Patient is stable for discharge. Please refer to chart for any further details. Physician Blue Le[employer] Sorter note has been reviewed by physician. Signing provider agrees with the documented findings, assessment, and plan of care. Patient Condition at Discharge: Stable Plan - Discharge Summary Discharge Rx Participant: Yes New Discharge Prescriptions: New Levofloxacin [Levaquin] 500 mg PO DAILY 7 Days #7 tab HYDROcodone/APAP 5-325MG [[place] 5-325] 1 tab PO Q6HR PRN 3 Days #12 tab PRN Reason: Pain Continue metFORMIN HCL [Glucophage] 500 mg PO TID Omeprazole [PriLOSEC] 20 mg PO QAM Gabapentin [Neurontin] 300 mg PO HS Glimepiride [Amaryl] 2 mg PO BID Metoprolol Succinate [Toprol XL] 50 mg PO QAM Hydrocodone/Acetaminophen [[place] 5-325] 1 tab PO HS PRN PRN Reason: Pain hydroCHLOROthiazide [Hydrodiuril] 25 mg PO QAM Levothyroxine Sodium [Euthyrox] 50 mcg PO QAM Ergocalciferol [Vitamin D2 (DRISDOL)] 50,000 unit PO TH Rosuvastatin [Crestor] 40 mg PO HS Calcium Carbonate/Vitamin D3 [Calcium 600-D3 20 mcg (800 Unit)] 1 each PO DAILY Albuterol Sulfate [Proair Hfa] 1 - 2 puff INHALATION Q6HR PRN PRN Reason: Shortness Of Breath Discontinued Cranberry Fruit Extract [Cranberry] 500 mg PO DAILY Losartan Potassium 100 mg PO QAM Loratadine [Claritin] 10 mg PO DAILY Acetaminophen [Tylenol] 500 mg PO Q4-6H PRN PRN Reason: Pain Discharge Medication List Gabapentin [Neurontin] 300 mg PO HS 02/16/17 [History] Omeprazole [PriLOSEC] 20 mg PO QAM 02/16/17 [History] metFORMIN HCL [Glucophage] 500 mg PO TID 02/16/17 [History] Glimepiride [Amaryl] 2 mg PO BID 05/17/18 [History] Hydrocodone/Acetaminophen [[place] 5-325] 1 tab PO HS PRN 02/29/20 [History] Metoprolol Succinate [Toprol XL] 50 mg PO QAM 02/29/20 [History] Ergocalciferol [Vitamin D2 (DRISDOL)] 50,000 unit PO TH 10/16/20 [History] Levothyroxine Sodium [Euthyrox] 50 mcg PO QAM 10/16/20 [History] hydroCHLOROthiazide [Hydrodiuril] 25 mg PO QAM 10/16/20 [History] Albuterol Sulfate [Proair Hfa] 1 - 2 puff INHALATION Q6HR PRN 10/28/21 [History] Calcium Carbonate/Vitamin D3 [Calcium 600-D3 20 mcg (800 Unit)] 1 each PO DAILY 10/28/21 [History] Rosuvastatin [Crestor] 40 mg PO HS 10/28/21 [History] HYDROcodone/APAP 5-325MG [[place] 5-325] 1 tab PO Q6HR PRN 3 Days #12 tab 02/12/22 [Rx] Levofloxacin [Levaquin] 500 mg PO DAILY 7 Days #7 tab 02/12/22 [Rx] Follow up Appointment(s)/Referral(s): Bernard Sanchez MD [Primary Care Provider] - 1 Week Ho Leon MD [STAFF PHYSICIAN] - 1 Week Activity/Diet/Wound Care/Special Instructions: No driving while taking [place] No lifting over 10 pounds You may shower. No soaking or tub baths for 2 weeks Very light activity until you are reevaluated at your follow up appointment with your surgeon Marine peace daily Discharge Disposition: HOME WITH HOME HEALTH SERVICES
--- NOTE | 2022-02-12 17:45 | P.PN ---
Progress Note - Text Progress Note Date: 02/12/22 - Chief Complaint Abdominal surgery Hospital course This is a pleasant 60-year-old patient who follows Dr. Sanchez. Chronic stable medical conditions include diabetes mellitus type 2, GERD, hypertension, hyperlipidemia, hypothyroid, diabetic peripheral neuropathy. Patient been having issues with chronic diverticulitis. Yesterday he underwent low anterior resection by Dr. Leon. Today patient sitting up in a recliner. Binder in place. Abdominal pain. Accu-Cheks are running higher. Change D5W to LR. No nausea vomiting. She no fever no chills. Past a small amount of stool. February 08: Reclining in bed. Liquid diet. No BM or flatus. Some abdominal pain. February 09: In bed. No BM or flatus. Some abdominal distention. No nausea vomiting. Remains on clear liquid diet. Abdominal x-ray did confirm ileus February 10: Patient had a bowel movement. Abdomen less distended. Diet advanced to full liquid. Feeling better. February 11: Tolerate full liquid diet. Had a bowel movement. Didn't ambulate. Diet advanced to regular. No nausea vomiting. Abdominal pain much better. February 12: Tolerating regular diet. Has some loose stools. Pain well controlled. Up and about. Feeling well. Current medications reviewed Past medical history to include: Diabetes, GERD, hypertension, hyperlipidemia, hypothyroid, diabetic peripheral neuropathy, vitamin D deficiency, anxiety Social history: Nonsmoker. No alcohol. Family history: Mother of a heart attack. Stroke DVT Physical examination: VITAL SIGNS: 98, 74 14, 124/76, 95% room air GENERAL: Up in a chair awake. EYES: Pupils equal. Conjunctiva normal. HEENT: External appearance of nose and ears normal, oral cavity grossly normal. NECK: JVD not raised; masses not palpable. HEART: First and second heart sounds are normal; no edema. LUNGS: Respiratory rate normal; clear to auscultation. ABDOMEN: Soft, minimal tenderness, liver spleen not palpable, no masses palpable abdominal binder in place.. PSYCH: Alert and oriented x3; mood and affect normal. MUSCULOSKELETAL:No Clubbing/cyanosis;muscles-grossly intact INVESTIGATIONS, reviewed in the clinical context: February 12: White count 9.5 hemoglobin 9.8 potassium 4.2 creatinine 1.2 Abdominal x-ray film personally reviewed by me: Air-fluid levels. White count 9.6 hemoglobin 9.9 platelets 264 potassium 4.1 BUN 18 creatinine 1.16 Accu-Cheks to 40, 319 EKG tracing personally reviewed by me-sinus rhythm. Right bundle branch block. Assessment and plan: -Low anterior resection for chronic diverticulitis Regular diet. -Acute postop ileus: Clinically improved Having bowel movements -Diabetes mellitus type 2, chronically on oral hypoglycemic. Sliding scale insulin. Amaryl. -Diabetic peripheral neuropathy Neurontin 300 mg daily at bedtime -Hypothyroidism Levothyroxine 50 g daily -Essential hypertension Toprol-XL 50 mg a day -Hyperlipidemia Crestor 40 mg daily at bedtime -GERD Prilosec 20 mg daily -Acute postprocedure blood loss anemia expected from surgery Add ferrous sulfate Continue current medication treatment plan. Discussed the patient. Follow-up with Dr. Sanchez upon discharge. Thank you Dr. Leon
--- NOTE | 2022-04-28 13:07 | CDI ---
Documentation Clarification Form From: Romelia Davidson Admit Date: 02/06/2022 11:02:00 AM Patient Name: Hien Gamino Visit Number: [id number] Discharge Date: 02/12/2022 02:52:00 PM ATTENTION: The Clinical Documentation Specialists (CDI) and [facility] Coding Staff appreciate your assistance in clarifying documentation. Please respond to the clarification below the line at the bottom and electronically sign. The CDI & [facility] Coding staff will review the response and follow-up if needed. Please note: Queries are made part of the Legal Health Record. If you have any questions, please contact the author of this message via ITS. Dr. Ho Leon Acute postop ileus is documented in the IM PN on 02/09. Additional clarification is requested regarding the relationship, if any, that exists between the diagnosis and the procedure. Patients Admitting Diagnosis: Diverticulitis Post-Operative Diagnosis: Diverticulitis Procedure performed 02/06: Low anterior resection, takedown splenic flexure History/Risk Factors: 61yo w/ a h/o chronic diverticulitis, GERD, DM type 2 Clinical Indicators: Per surg PN on 02/09, pt denied flatus or bm. IM PN on 02/09 noted that the clinical suspicion of ileus confirmed with x-ray. Per surg PN on 02/10, the pt did have a flatus and bm and the diet was advanced to full liquid diet. IM PN on 02/10 noted the acute postop ileus was clinically better, the pt had a bm, abdominal distension decreased and bowel sounds were present. Abd x-ray 02/09: dilated bowel throughout abdomen and scattered air-fluid levels. Ileus or partial obstruction in the differential diagnosis Treatment: monitoring What relationship, if any, exists between the diagnosis of post-op ileus and the procedure: [ ] is a complication of surgical procedure [ ] is an expected outcome of the surgical procedure [ xx] is related to patients co-morbid condition(s) of chronic diverticulitis & not a complication of the procedure [ ] is not clinically significant [ ] Other please specify [ ] Unable to determine (Template Last Revised: January 2021) MTDD
== END 2022-02-12 14:52 | disposition home health service (06) | DRG 330 ==
LOC: 2ORMAIN 02-06 11:02 → 5NMEDONC 02-06 14:57
PROVIDERS: ADMIT Surgery; ATTEND Surgery
PROC: 0DNW0ZZ Release Peritoneum, Open Approach (ICD-10-PCS; 2022-02-06)
PROC: 0DBG0ZZ Excision of Left Large Intestine, Open Approach (ICD-10-PCS; 2022-02-06)
PROC: 0DJD8ZZ Inspection of Lower Intestinal Tract, Via Natural or Artificial Opening Endoscopic (ICD-10-PCS; 2022-02-06)
PROC: 0DBN0ZZ Excision of Sigmoid Colon, Open Approach (ICD-10-PCS; principal; 2022-02-06 12:30)
DX: K57.32 Diverticulitis of large intestine without perforation or abscess without bleeding (principal); K56.7 Ileus, unspecified; D62 Acute posthemorrhagic anemia; F02.80 Dementia in other diseases classified elsewhere, unspecified severity, without behavioral disturbance, psychotic disturbance, mood disturbance, and anxiety; F41.9 Anxiety disorder, unspecified; G30.9 Alzheimer's disease, unspecified; I10 Essential (primary) hypertension; K21.9 Gastro-esophageal reflux disease without esophagitis; E55.9 Vitamin D deficiency, unspecified; I45.10 Unspecified right bundle-branch block; J30.2 Other seasonal allergic rhinitis; K66.0 Peritoneal adhesions (postprocedural) (postinfection); E78.5 Hyperlipidemia, unspecified; E11.42 Type 2 diabetes mellitus with diabetic polyneuropathy; E03.9 Hypothyroidism, unspecified; D72.829 Elevated white blood cell count, unspecified; E11.65 Type 2 diabetes mellitus with hyperglycemia; L29.9 Pruritus, unspecified; Z79.4 Long term (current) use of insulin; Z79.899 Other long term (current) drug therapy; Z80.49 Family history of malignant neoplasm of other genital organs; Z80.8 Family history of malignant neoplasm of other organs or systems; Z82.3 Family history of stroke; Z82.49 Family history of ischemic heart disease and other diseases of the circulatory system; Z83.3 Family history of diabetes mellitus; Z86.16 Personal history of COVID-19; Z79.84 Long term (current) use of oral hypoglycemic drugs; Z90.49 Acquired absence of other specified parts of digestive tract; Z90.710 Acquired absence of both cervix and uterus; Z88.5 Allergy status to narcotic agent; Z79.890 Hormone replacement therapy
CPT/HCPCS: 74019; 80048; 80051; 85025; 85027; 86850; 86900; 86901; 88307; 93005

== ENCOUNTER → 2022-01-20 | Outpatient (CLI) | payer OTHER ==
--- NOTE | 2022-01-20 14:33 | MM ---
Reason for exam: additional evaluation requested from abnormal screening. Last mammogram was performed less than 1 month ago. History: Patient is postmenopausal. Physical Findings: A clinical breast exam by your physician is recommended on an annual basis and results should be correlated with mammographic findings. MG Work Up Mamm w CAD LT Spot compression CC, spot compression MLO, and LM view(s) were taken of the left breast. Prior study comparison: January 08, 2022, bilateral MG screening mammo w CAD. November 19, 2020, bilateral MG screening mammo w CAD. There are scattered fibroglandular densities. There is no discrete abnormality persists on additional views. These results were verbally communicated with the patient and result sheet given to the patient on 01/20/22. ASSESSMENT: Benign, BI-RAD 2 RECOMMENDATION: Return to routine screening mammogram schedule for both breasts.
== END | disposition home or self-care (01) ==
LOC: RADMAMWWP 13:55
PROVIDERS: ATTEND Pediatrics
DX: R92.8 Other abnormal and inconclusive findings on diagnostic imaging of breast (principal); Z78.0 Asymptomatic menopausal state
CPT/HCPCS: 77065

== ENCOUNTER → 2022-02-04 | Outpatient (CLI) | payer OTHER | END | disposition home or self-care (01) | LOC: LABPAT 15:15 | PROVIDERS: ATTEND Surgery | DX: Z01.812 Encounter for preprocedural laboratory examination (principal); K57.32 Diverticulitis of large intestine without perforation or abscess without bleeding | CPT/HCPCS: 80051; 85025; 86850; 86900; 86901; 93005 ==

== ENCOUNTER 2022-06-18 17:51 | Emergency (ER) | payer OTHER ==
[2022-06-18 18:02] VITALS: RESP 18; TEMP 99.9
[2022-06-18] MEDS ORDERED: ONDANSETRON 4 MG/2 ML VIAL IVP STA (18:11)
[2022-06-18] MEDS ORDERED: KETOROLAC 15 MG/ML 1 ML VIAL IVP STA (18:11)
[2022-06-18] MEDS ORDERED: SODIUM CHLORIDE 0.9% 1,000 ML IV STA (18:11)
[2022-06-18] MEDS ORDERED: ACETAMINOPHEN TAB 500 MG TAB PO STA (18:12)
--- NOTE | 2022-06-18 18:17 | ED ---
Female Urogenital HPI - General Chief complaint: Urogenital Stated complaint: fever Time Seen by Provider: 06/18/22 18:02 Source: patient, family, RN notes reviewed Mode of arrival: ambulatory Limitations: no limitations - History of Present Illness Initial comments: This is a 61-year-old female who presents to the emergency department with fevers and burning with urination. Patient states that this started 2 weeks ago and only lasted a couple of days. It then resolved for a few days and returned one week ago. Her primary care physician called in a 7 day course of Macrobid which she finished today, however he did not evaluate her in the office or obtain a sample of her urine. Patient states that she has felt no relief, and feels like she is getting worse. She is now complaining of pain in both sides of the back. She has also started to develop fevers. Today, her temperature was 102.3F. She took Tylenol a couple of hours before coming to the emergency department. Also reports some mild nausea. Does not believe she has ever had a urinary tract infection this bad before. Denies any concern for STD exposure. Denies any history of kidney stones. Denies any sore throat, cough, dyspnea, chest pain, palpitations, abdominal pain, vomiting, diarrhea, or headaches. MD Complaint: dysuria Onset/Timin -: days(s) Worsens with: urination Patient : No Associated Symptoms: nausea/vomiting, fever/chills - Related Data Home Medications Medication Instructions Recorded Confirmed Gabapentin [Neurontin] 300 mg PO HS 02/16/17 06/18/22 Omeprazole [PriLOSEC] 20 mg PO DAILY 02/16/17 06/18/22 metFORMIN HCL [Glucophage] 1,000 mg PO BID 02/16/17 06/18/22 Glimepiride [Amaryl] 4 mg PO DAILY 05/17/18 06/18/22 Metoprolol Succinate [Toprol XL] 50 mg PO DAILY 02/29/20 06/18/22 Ergocalciferol [Vitamin D2 50,000 unit PO Q7D 10/16/20 06/18/22 (DRISDOL)] Levothyroxine Sodium [Euthyrox] 50 mcg PO DAILY 10/16/20 06/18/22 hydroCHLOROthiazide [Hydrodiuril] 25 mg PO DAILY 10/16/20 06/18/22 Loratadine [Claritin] 10 mg PO DAILY 06/18/22 06/18/22 Losartan Potassium 100 mg PO DAILY 06/18/22 06/18/22 Nitrofurantoin Monohyd/M-Cryst 100 mg PO Q12HR 06/18/22 06/18/22 [Macrobid] Rosuvastatin Calcium [Crestor] 40 mg PO DAILY 06/18/22 06/18/22 Previous Rx's Medication Instructions Recorded Cephalexin [Keflex] 1,000 mg PO Q12HR 10 Days #40 cap 06/18/22 Ondansetron Odt [Zofran Odt] 4 mg PO Q8HR PRN #10 tab 06/18/22 Allergies Allergy/AdvReac Type Severity Reaction Status Date / Time morphine Allergy Itching Verified 06/18/22 18:48 Review of Systems ROS Statement: Those systems with pertinent positive or pertinent negative responses have been documented in the HPI. ROS Other: All systems not noted in ROS Statement are negative. Past Medical History Past Medical History: Diabetes Mellitus, GERD/Reflux, Hyperlipidemia, Hypertension, Thyroid Disorder Additional Past Medical History / Comment(s): Hx Covid 02/2020. "Start of Alzheimer's". Seasonal Allergies, Diabetic Neuropathy, Vitamin D Deficiency, heart murmur. History of Any Multi-Drug Resistant Organisms: None Reported Past Surgical History: Cholecystectomy, Hysterectomy, Orthopedic Surgery Additional Past Surgical History / Comment(s): Colonoscopy, right knee surgery. Past Anesthesia/Blood Transfusion Reactions: Motion Sickness, Postoperative Nausea & Vomiting (PONV) Past Psychological History: Anxiety Smoking Status: Never smoker Past Alcohol Use History: None Reported Past Drug Use History: None Reported - Past Family History Mother Family Medical History: CVA/TIA, Deep Vein Thrombosis (DVT), Myocardial Infarction ([place]) Additional Family Medical History / Comment(s): Mother with history of myocardial infarction, stroke, DVT. Father History Unknown: Yes Family Medical History: Diabetes Mellitus, Hypertension Additional Family Medical History / Comment(s): Dad is alive at age 85 with history of diabetes and hypertension. Brother(s) Family Medical History: No Reported History Additional Family Medical History / Comment(s): Patient has 1 brother and 1 sister with no major medical problems. Daughter(s) Family Medical History: Cancer, Hypertension Additional Family Medical History / Comment(s): Cervical cancer. Sister(s) Family Medical History: Cancer Additional Family Medical History / Comment(s): Thyroid cancer. General Exam Limitations: no limitations General appearance: alert, in distress Head exam: Present: atraumatic, normocephalic, normal inspection Respiratory exam: Present: normal lung sounds bilaterally. Absent: respiratory distress, wheezes, rales, rhonchi, stridor Cardiovascular Exam: Present: regular rate, normal rhythm, normal heart sounds. Absent: systolic murmur, diastolic murmur, rubs, gallop, clicks GI/Abdominal exam: Present: soft, normal bowel sounds. Absent: distended, tenderness, guarding, rebound, rigid Back exam: Present: CVA tenderness (R), CVA tenderness (L) Neurological exam: Present: alert, oriented X3, CN II-XII intact Psychiatric exam: Present: normal affect, normal mood Skin exam: Present: warm, dry, intact, normal color. Absent: rash Course Vital Signs 06/18/22 06/18/22 17:56 20:19 Temperature 99.9 F H Pulse Rate 89 79 Respiratory 18 18 Rate Blood Pressure 128/76 112/67 O2 Sat by Pulse 97 95 Oximetry Medical Decision Making - Medical Decision Making This is a 61-year-old female who presents to the emergency department for dysuria, fevers, and nausea. Lab work consistent with dehydration and computed tomography scan was nonactionable. Patient's urinalysis was relatively unremarkable, however given the symptoms of dysuria and flank pain, as well as nausea and the fever, will treat her as if she has developed a pyelonephritis. She was given IV fluids, Zofran, Tylenol, and Toradol in the emergency department. Dose of ceftriaxone was administered. Ten-day course of Keflex was sent to the pharmacy for possible pyelonephritis. Zofran was prescribed as well in the event she continues to have any nausea. If symptoms persist despite use of the Keflex, other infectious causes should be considered. At this time, there is no other clear cause for her symptoms. Return precautions reviewed in depth, the patient is instructed to return to the emergency department with any new, worsening, or concerning symptoms. Patient verbalized understanding. This case was discussed in detail with the attending ED physician. Presentation, findings, and treatment plan discussed in detail as well. - Lab Data Result diagrams: 06/18/22 18:15 06/18/22 18:15 Lab Results 06/18/22 06/18/22 06/18/22 Range/Units 18:15 18:15 18:15 WBC 8.2 (3.8-10.6) k/uL RBC 3.83 (3.80-5.40) m/uL Hgb 11.6 (11.4-16.0) gm/dL Hct 35.2 (34.0-46.0) % MCV 91.9 (80.0-100.0) fL MCH 30.4 (25.0-35.0) pg MCHC 33.1 (31.0-37.0) g/dL RDW 14.6 (11.5-15.5) % Plt Count 270 (150-450) k/uL MPV 7.7 Neutrophils % 89 % Lymphocytes % 4 % Monocytes % 4 % Eosinophils % 1 % Basophils % 0 % Neutrophils # 7.2 (1.3-7.7) k/uL Lymphocytes # 0.3 L (1.0-4.8) k/uL Monocytes # 0.3 (0-1.0) k/uL Eosinophils # 0.1 (0-0.7) k/uL Basophils # 0.0 (0-0.2) k/uL Sodium 137 (137-145) mmol/L Potassium 4.5 (3.5-5.1) mmol/L Chloride 106 (98-107) mmol/L Carbon Dioxide 19 L (22-30) mmol/L Anion Gap 12 mmol/L BUN 21 H (7-17) mg/dL Creatinine 1.50 H (0.52-1.04) mg/dL Est GFR (CKD-EPI)AfAm 43 (>60 ml/min/1.73 sqM) Est GFR (CKD-EPI)NonAf 37 (>60 ml/min/1.73 sqM) Glucose 195 H (74-99) mg/dL Lactic Ac Sepsis Rflx Plasma Lactic Acid Gary (0.7-2.0) mmol/L Calcium 9.5 (8.4-10.2) mg/dL Total Bilirubin 0.4 (0.2-1.3) mg/dL AST 21 (14-36) U/L ALT 14 (4-34) U/L Alkaline Phosphatase 131 H (38-126) U/L Total Protein 7.6 (6.3-8.2) g/dL Albumin 4.4 (3.5-5.0) g/dL Urine Color Yellow Urine Appearance Cloudy H (Clear) Urine pH 5.5 (5.0-8.0) Ur Specific [place] 1.018 (1.001-1.035) Urine Protein 1+ H (Negative) Urine Glucose (UA) 1+ H (Negative) Urine Ketones Negative (Negative) Urine Blood Small H (Negative) Urine Nitrite Negative (Negative) Urine Bilirubin Negative (Negative) Urine Urobilinogen <2.0 (<2.0) mg/dL Ur Leukocyte Esterase Negative (Negative) Urine RBC <1 (0-5) /hpf Urine WBC 5 (0-5) /hpf Ur Squamous Epith Cells 3 (0-4) /hpf Urine Bacteria Rare H (None) /hpf Hyaline Casts 1 (0-2) /lpf Urine Mucus Rare H (None) /hpf 06/18/22 06/18/22 Range/Units 18:15 18:52 WBC (3.8-10.6) k/uL RBC (3.80-5.40) m/uL Hgb (11.4-16.0) gm/dL Hct (34.0-46.0) % MCV (80.0-100.0) fL MCH (25.0-35.0) pg MCHC (31.0-37.0) g/dL RDW (11.5-15.5) % Plt Count (150-450) k/uL MPV Neutrophils % % Lymphocytes % % Monocytes % % Eosinophils % % Basophils % % Neutrophils # (1.3-7.7) k/uL Lymphocytes # (1.0-4.8) k/uL Monocytes # (0-1.0) k/uL Eosinophils # (0-0.7) k/uL Basophils # (0-0.2) k/uL Sodium (137-145) mmol/L Potassium (3.5-5.1) mmol/L Chloride (98-107) mmol/L Carbon Dioxide (22-30) mmol/L Anion Gap mmol/L BUN (7-17) mg/dL Creatinine (0.52-1.04) mg/dL Est GFR (CKD-EPI)AfAm (>60 ml/min/1.73 sqM) Est GFR (CKD-EPI)NonAf (>60 ml/min/1.73 sqM) Glucose (74-99) mg/dL Lactic Ac Sepsis Rflx Y Plasma Lactic Acid Gary 2.2 H* (0.7-2.0) mmol/L Calcium (8.4-10.2) mg/dL Total Bilirubin (0.2-1.3) mg/dL AST (14-36) U/L ALT (4-34) U/L Alkaline Phosphatase (38-126) U/L Total Protein (6.3-8.2) g/dL Albumin (3.5-5.0) g/dL Urine Color Urine Appearance (Clear) Urine pH (5.0-8.0) Ur Specific [place] (1.001-1.035) Urine Protein (Negative) Urine Glucose (UA) (Negative) Urine Ketones (Negative) Urine Blood (Negative) Urine Nitrite (Negative) Urine Bilirubin (Negative) Urine Urobilinogen (<2.0) mg/dL Ur Leukocyte Esterase (Negative) Urine RBC (0-5) /hpf Urine WBC (0-5) /hpf Ur Squamous Epith Cells (0-4) /hpf Urine Bacteria (None) /hpf Hyaline Casts (0-2) /lpf Urine Mucus (None) /hpf - Radiology Data Radiology results: report reviewed, image reviewed Disposition Clinical Impression: Pyelonephritis Disposition: HOME SELF-CARE Instructions (If sedation given, give patient instructions): Urinary Tract Infection in Women (ED), Kidney Infection (ED) Additional Instructions: Return to the emergency department with any new, worsening, or concerning symptoms. Take the antibiotic as prescribed for 10 days. Use the Zofran up to every 8 hours as needed for nausea and vomiting. Take Tylenol as needed for pain and fevers. Follow up with your primary care provider in 1-2 days. Prescriptions: Cephalexin [Keflex] 1,000 mg PO Q12HR 10 Days #40 cap Ondansetron Odt [Zofran Odt] 4 mg PO Q8HR PRN #10 tab PRN Reason: Nausea And Vomiting Is patient prescribed a controlled substance at d/c from ED?: No Referrals: Bernard Sanchez MD [Primary Care Provider] - 1-2 days
[2022-06-18 18:37] LABS: Basophils % (A) 0 %; Eosinophils # (A) 0.1 k/uL (0-0.7); Eosinophils % (A) 1 %; HCT 35.2 % (34.0-46.0); HGB 11.6 gm/dL (11.4-16.0); Lymphocytes # (A) 0.3 k/uL (1.0-4.8); Lymphocytes % (A) 4 %; MCH 30.4 pg (25.0-35.0); MCHC 33.1 g/dL (31.0-37.0); MCV 91.9 fL (80.0-100.0); Mean Platelet Volume 7.7; Monocytes # (A) 0.3 k/uL (0-1.0); Monocytes % (A) 4 %; Neutrophils # (A) 7.2 k/uL (1.3-7.7); Neutrophils % (A) 89 %; Platelet Count 270 k/uL (150-450); RBC 3.83 m/uL (3.80-5.40); RDW 14.6 % (11.5-15.5); WBC 8.2 k/uL (3.8-10.6)
[2022-06-18 18:42] LABS: Appearance,Urine Cloudy (Clear); Bacteria,Urine Rare /hpf; Bilirubin,Urine Negative (Negative); Blood,Urine Small (Negative); Color,Urine Yellow; Glucose,Urine (UA) 1+ (Negative); Hyaline Casts,Urine 1 /lpf (0-2); Ketones,Urine Negative (Negative); Leukocyte Esterase,Urine Negative (Negative); Mucus,Urine Rare /hpf; Nitrite,Urine Negative (Negative); PH, Urine 5.5 (5.0-8.0); Protein,Urine 1+ (Negative); RBC,Urine <1 /hpf (0-5); Specific Gravity,Urine 1.018 (1.001-1.035); Squamous Epithelial Cell,Urine 3 /hpf (0-4); Urobilinogen,Urine <2.0 mg/dL (<2.0); WBC,Urine 5 /hpf (0-5)
[2022-06-18 18:47] LABS: Albumin 4.4 g/dL (3.5-5.0); Calcium 9.5 mg/dL (8.4-10.2); Potassium 4.5 mmol/L (3.5-5.1); Total Bilirubin 0.4 mg/dL (0.2-1.3); Total Protein 7.6 g/dL (6.3-8.2)
--- NOTE | 2022-06-18 19:26 | CT ---
EXAMINATION TYPE: CT abdomen pelvis wo con DATE OF EXAM: 06/18/2022 HISTORY: rt sided flank pain CT DLP: 993.3 mGycm. Automated Exposure Control for Dose Reduction was Utilized. TECHNIQUE: CT scan of the abdomen and pelvis is performed without oral or IV contrast. COMPARISON: NONE FINDINGS: Within the limitations of a non-contrast study, the following observations are made. LUNG BASES: No acute process. LIVER/GB: No acute process. PANCREAS: No acute process. SPLEEN: No significant abnormality is seen. ADRENALS: No significant abnormality is seen. KIDNEYS: No acute process. 1 mm nonobstructing right renal calcification 1 mm nonobstructing left eff usion noted. BOWEL: No significant abnormality is seen. Appendix unremarkable. LYMPH NODES: No greater than 1cm abdominal or pelvic lymph nodes are appreciated. OSSEOUS STRUCTURES: No significant abnormality is seen. IMPRESSION: No acute process.
[2022-06-18] MEDS ORDERED: cefTRIAXone IN SWFI 1,000 MG/10 ML SYRINGE IVP STA (19:43)
[2022-06-18 20:27] VITALS: BP 112/67; PULSE 79
== END 2022-06-18 20:47 | disposition home or self-care (01) ==
LOC: EC 17:51
DX: N12 Tubulo-interstitial nephritis, not specified as acute or chronic (principal); E11.9 Type 2 diabetes mellitus without complications; I10 Essential (primary) hypertension; K21.9 Gastro-esophageal reflux disease without esophagitis; E78.5 Hyperlipidemia, unspecified; E07.9 Disorder of thyroid, unspecified; Z86.16 Personal history of COVID-19; Z88.5 Allergy status to narcotic agent; Z79.899 Other long term (current) drug therapy; Z79.84 Long term (current) use of oral hypoglycemic drugs; Z79.890 Hormone replacement therapy
CPT/HCPCS: 36415; 80053; 83605; 85025; 81001; 74176; 99284; 96374; 96375; 96361; J2405; J0696; J1885

== ENCOUNTER → 2023-03-02 | Outpatient (CLI) | payer OTHER ==
--- NOTE | 2023-03-03 14:48 | MM ---
Reason for Exam: Screening (asymptomatic). Last mammogram was performed 1 year(s) and 2 month(s) ago. Patient History: Menarche at age 9. First Full-Term at age 19. Hysterectomy at age 42. Postmenopausal. Patient has history of breast feeding. Risk Values: Taniya 5 year model risk: 1.6%. NCI Lifetime model risk: 6.4%. Prior Study Comparison: 11/19/2020 Bilateral Screening Mammogram, [facility]. 01/08/2022 Bilateral Screening Mammogram, [facility]. 01/20/2022 Left Diagnostic Mammogram, [facility]. Tissue Density: The breast tissue is heterogeneously dense. This may lower the sensitivity of mammography. Findings: Analyzed By CAD. There is no suspicious group of microcalcifications or new suspicious mass in either breast. Overall Assessment: Negative, BI-RAD 1 Management: Screening Mammogram of both breasts in 1 year. A clinical breast exam by your physician is recommended on an annual basis and results should be correlated with mammographic findings. [facility] will attempt to contact patient to return for supplemental views and ultrasound if indicated. Electronically signed and approved by: Javier Bedoya DO
== END | disposition home or self-care (01) ==
LOC: RADMAMWWP 16:18
PROVIDERS: ATTEND Pediatrics
DX: Z12.31 Encounter for screening mammogram for malignant neoplasm of breast (principal); Z78.0 Asymptomatic menopausal state
CPT/HCPCS: 77067

== ENCOUNTER 2023-04-04 19:42 | Inpatient (IN) | payer OTHER ==
[2023-04-04 20:03] LABS: Glucose,Whole Blood 185 mg/dL (70-110)
[2023-04-04] MEDS ORDERED: SODIUM CHLORIDE 0.9% 500 ML 500 ML IV STA (20:26)
[2023-04-04] MEDS ORDERED: SODIUM CHLORIDE 0.9% 1,000 ML IV STA (20:26)
--- NOTE | 2023-04-04 20:29 | ED ---
Weakness HPI - General Chief complaint: Weakness Stated complaint: Weakness, fatigue Time Seen by Provider: 04/04/23 20:04 Source: patient, family, RN notes reviewed Mode of arrival: wheelchair Limitations: no limitations - History of Present Illness Initial comments: 62-year-old female to the emergency Department with complaints of generalized weakness for the past 2 days with fevers chills and some sweats she also started having dysuria 2 days ago and was started on antibiotics at that time she's feeling worse not better she states she's had decreased oral intake decreased appetite her daughter states that she's been acting somewhat confused over last 2 days also. No overt headache no overt cough rhinorrhea noted other complaints other than voicing some chest discomfort when she tries to breathe or move around. She points to the anterior chest. Nothing at rest. MD Complaint: generalized weakness - Related Data Home Medications Medication Instructions Recorded Confirmed Gabapentin [Neurontin] 300 mg PO HS 02/16/17 04/04/23 Omeprazole [PriLOSEC] 20 mg PO DAILY 02/16/17 04/04/23 metFORMIN HCL [Glucophage] 1,000 mg PO BID 02/16/17 04/04/23 Metoprolol Succinate [Toprol XL] 50 mg PO DAILY 02/29/20 04/04/23 Ergocalciferol [Vitamin D2 50,000 unit PO TH 10/16/20 04/04/23 (DRISDOL)] Levothyroxine Sodium [Euthyrox] 50 mcg PO DAILY 10/16/20 04/04/23 Loratadine [Claritin] 10 mg PO DAILY 06/18/22 04/04/23 Rosuvastatin Calcium [Crestor] 40 mg PO HS 06/18/22 04/04/23 Acetaminophen Tab [Tylenol] 1,000 mg PO Q6HR PRN 01/25/23 04/04/23 Cranberry Fruit Extract [Cranberry] 500 mg PO DAILY 01/25/23 04/04/23 Dapagliflozin Propanediol [Farxiga] 10 mg PO DAILY 01/25/23 04/04/23 Ezetimibe [Zetia] 10 mg PO HS 01/25/23 04/04/23 Meclizine HCl [Antivert] 25 mg PO DAILY PRN 01/25/23 04/04/23 Glimepiride [Amaryl] 4 mg PO DAILY 04/04/23 04/04/23 Nitrofurantoin Monohyd/M-Cryst 100 mg PO Q12HR 04/04/23 04/04/23 [Macrobid] Previous Rx's Medication Instructions Recorded Losartan Potassium 100 mg PO HS #0 01/28/23 Allergies Allergy/AdvReac Type Severity Reaction Status Date / Time morphine Allergy Itching Verified 04/04/23 21:05 Review of Systems ROS Statement: Those systems with pertinent positive or pertinent negative responses have been documented in the HPI. ROS Other: All systems not noted in ROS Statement are negative. Past Medical History Past Medical History: Diabetes Mellitus, GERD/Reflux, Hyperlipidemia, Hypertension, Thyroid Disorder Additional Past Medical History / Comment(s): Hx Covid 02/2020. "Start of Alzheimer's". Seasonal Allergies, Diabetic Neuropathy, Vitamin D Deficiency, heart murmur. History of Any Multi-Drug Resistant Organisms: None Reported Past Surgical History: Cholecystectomy, Hysterectomy, Orthopedic Surgery Additional Past Surgical History / Comment(s): Colonoscopy, right knee surgery. Past Anesthesia/Blood Transfusion Reactions: Motion Sickness, Postoperative Nausea & Vomiting (PONV) Past Psychological History: Anxiety Smoking Status: Never smoker Past Alcohol Use History: None Reported Past Drug Use History: None Reported - Past Family History Mother Family Medical History: CVA/TIA, Deep Vein Thrombosis (DVT), Myocardial Infarction (CO) Additional Family Medical History / Comment(s): Mother with history of m yocardial infarction, stroke, DVT. Father History Unknown: Yes Family Medical History: Diabetes Mellitus, Hypertension Additional Family Medical History / Comment(s): Dad is alive at age 85 with history of diabetes and hypertension. Brother(s) Family Medical History: No Reported History Additional Family Medical History / Comment(s): Patient has 1 brother and 1 sister with no major medical problems. Daughter(s) Family Medical History: Cancer, Hypertension Additional Family Medical History / Comment(s): Cervical cancer. Sister(s) Family Medical History: Cancer Additional Family Medical History / Comment(s): Thyroid cancer. General Exam - General Exam Comments Initial Comments: This is a well-developed well-nourished awake alert oriented 4 female Limitations: no limitations General appearance: alert, in no apparent distress Head exam: Present: atraumatic, normocephalic, normal inspection Eye exam: Present: normal appearance, PERRL, EOMI. Absent: scleral icterus, conjunctival injection, periorbital swelling ENT exam: Present: mucous membranes dry Neck exam: Present: normal inspection, full ROM, other. Absent: tenderness, meningismus, lymphadenopathy Respiratory exam: Present: normal lung sounds bilaterally, chest wall tenderness (No stridor JVD or bruits. Chest wall with costal sternal margins no step-off or crepitation.). Absent: respiratory distress, wheezes, rales, rhonchi, strido r Cardiovascular Exam: Present: regular rate, normal rhythm, systolic murmur. Absent: diastolic murmur, rubs, gallop, clicks GI/Abdominal exam: Present: soft, normal bowel sounds. Absent: distended, tenderness, guarding, rebound, rigid Extremities exam: Present: normal inspection, full ROM, normal capillary refill. Absent: tenderness, pedal edema, joint swelling, calf tenderness Back exam: Present: normal inspection Neurological exam: Present: alert, oriented X3, CN II-XII intact Psychiatric exam: Present: normal affect, normal mood Skin exam: Present: warm, dry, intact, normal color. Absent: rash Course Vital Signs 04/04/23 04/04/23 04/04/23 19:55 21:29 23:10 Temperature 99.6 F Pulse Rate 94 84 87 Respiratory 16 16 16 Rate Blood Pressure 120/74 124/59 145/86 O2 Sat by Pulse 95 95 95 Oximetry EKG Findings - EKG Results: EKG: interpreted by ERMD (EKG interpreted by me sinus rhythm 87 NC interval 140 QRS duration 133 QT since QTC 373/417) the branch block pattern no acute ST-T wave changes) Medical Decision Making - Medical Decision Making I did discuss findings with the patient and her daughter as well as with Dr. Mauricio patient will be admitted for IV hydration neuro checks and IV antibiotics.Was pt. sent in by a medical professional or institution (, PA, OPTICAL FABRICATION TECHNICIAN, urgent care, hospital, or prison...) When possible be specific @ -No Did you speak to anyone other than the patient for history (EMS, parent, family, police, friend...)? What history was obtained from this source @ -Patient's daughter Did you review nursing and triage notes (agree or disagree)? Why? @ -I reviewed and agree with nursing and triage notes Were old charts reviewed (outside hosp., previous admission, EMS record, old EKG, old radiological studies, urgent care reports/EKG's, prison records)? Report findings @ -No old charts were reviewed Differential Diagnosis (chest pain, altered mental status, abdominal pain women, abdominal pain men, vaginal bleeding, weakness, fever, dyspnea, syncope, headache, dizziness, GI bleed, back pain, seizure, CVA, palpatations, mental health, musculoskeletal)? @ -Urinary tract infection, altered mental status and dehydration EKG interpreted by me (3pts min.). @ -As above X-rays interpreted by me (1pt min.). @ -As above CT interpreted by me (1pt min.). @ -None done U/S interpreted by me (1pt. min.). @ -None done What testing was considered but not performed or refused? (CT, X-rays, U/S, labs)? Why? @ -None What meds were considered but not given or refused? Why? @ -None Did you discuss the management of the patient with other professionals (professionals i.e. , PA, OPTICAL FABRICATION TECHNICIAN, lab, RT, psych nurse, social security assessor, fisher scallop, teacher, [place] [employer] police officer, director of casework)? Give summary @ -Dr. Mauricio Was smoking cessation discussed for >3mins.? @ -No Was critical care preformed (if so, how long)? @ -No Were there social determinants of health that impacted care today? How? (Homelessness, low income, unemployed, alcoholism, drug addiction, transportation, low edu. Level, literacy, decrease access to med. care, care home, rehab)? @ -No Was there de-escalation of care discussed even if they declined (Discuss DNR or withdrawal of care, Hospice)? DNR status @ -No What co-morbidities impacted this encounter? (DM, HTN, Smoking, COPD, CAD, Cancer, CVA, ARF, Chemo, Hep., AIDS, mental health diagnosis, sleep apnea, morbid obesity)? @ -Urinary tract infection, diabetes, hypertension Was patient admitted / discharged? Hospital course, mention meds given and route, prescriptions, significant lab abnormalities, going to OR and other pertinent info. @ -The patient was admitted for inpatient IV fluids IV antibiotics outpatient treatment failure Undiagnosed new problem with uncertain prognosis? @ -No Drug Therapy requiring intensive monitoring for toxicity (Heparin, Nitro, Insulin, Cardizem)? @ -No Were any procedures done? @ -No Diagnosis/symptom? @ -default Acute, or Chronic, or Acute on Chronic? @ -Acute Uncomplicated (without systemic symptoms) or Complicated (systemic symptoms)? @ -Complicated Side effects of treatment? @ -No Exacerbation, Progression, or Severe Exacerbation? @ -Progression Poses a threat to life or bodily function? How? (Chest pain, [place], CO, pneumonia, PE, COPD, DKA, ARF, appy, cholecystitis, CVA, Diverticulitis, Homicidal, Suicidal, threat to staff... and all critical care pts) @ -No - Lab Data Result diagrams: 04/04/23 20:26 04/04/23 20:26 Lab Results 04/04/23 04/04/23 04/04/23 Range/Units 20:01 20:26 20:26 WBC 15.2 H (3.8-10.6) k/uL RBC 4.38 (3.80-5.40) m/uL Hgb 12.2 (11.4-16.0) gm/dL Hct 38.5 (34.0-46.0) % MCV 87.9 D (80.0-100.0) fL MCH 27.8 (25.0-35.0) pg MCHC 31.6 (31.0-37.0) g/dL RDW 14.0 (11.5-15.5) % Plt Count 239 (150-450) k/uL MPV 8.8 Neutrophils % 91 % Lymphocytes % 3 % Monocytes % 3 % Eosinophils % 1 % Basophils % 0 % Neutrophils # 13.9 H (1.3-7.7) k/uL Lymphocytes # 0.5 L (1.0-4.8) k/uL Monocytes # 0.5 (0-1.0) k/uL Eosinophils # 0.2 (0-0.7) k/uL Basophils # 0.0 (0-0.2) k/uL PT 10.1 (9.0-12.0) sec INR 0.9 (<1.2) APTT 22.9 (22.0-30.0) sec Sodium (137-145) mmol/L Potassium (3.5-5.1) mmol/L Chloride (98-107) mmol/L Carbon Dioxide (22-30) mmol/L Anion Gap mmol/L BUN (7-17) mg/dL Creatinine (0.52-1.04) mg/dL Est GFR (CKD-EPI)AfAm (>60 ml/min/1.73 sqM) Est GFR (CKD-EPI)NonAf (>60 ml/min/1.73 sqM) Glucose (74-99) mg/dL POC Glucose (mg/dL) 185 H (70-110) mg/dL POC Glu Structural Manager ID Miki Guerrero Plasma Lactic Acid Gary (0.7-2.0) mmol/L Calcium (8.4-10.2) mg/dL Magnesium (1.6-2.3) mg/dL Total Bilirubin (0.2-1.3) mg/dL AST (14-36) U/L ALT (4-34) U/L Alkaline Phosphatase (38-126) U/L Troponin I (0.000-0.034) ng/mL NT-Pro-B Natriuret Pep pg/mL Total Protein (6.3-8.2) g/dL Albumin (3.5-5.0) g/dL Urine Color Urine Appearance (Clear) Urine pH (5.0-8.0) Ur Specific [place] (1.001-1.035) Urine Protein (Negative) Urine Glucose (UA) (Negative) Urine Ketones (Negative) Urine Blood (Negative) Urine Nitrite (Negative) Urine Bilirubin (Negative) Urine Urobilinogen (<2.0) mg/dL Ur Leukocyte Esterase (Negative) Urine RBC (0-5) /hpf Urine WBC (0-5) /hpf Ur Squamous Epith Cells (0-4) /hpf Urine Bacteria (None) /hpf Urine Mucus (None) /hpf Influenza Type A (PCR) (Not Detectd) Influenza Type B (PCR) (Not Detectd) RSV (PCR) (Not Detectd) SARS-CoV-2 (PCR) (Not Detectd) 04/04/23 04/04/23 04/04/23 Range/Units 20:26 20:26 20:26 WBC (3.8-10.6) k/uL RBC (3.80-5.40) m/uL Hgb (11.4-16.0) gm/dL Hct (34.0-46.0) % MCV (80.0-100.0) fL MCH (25.0-35.0) pg MCHC (31.0-37.0) g/dL RDW (11.5-15.5) % Plt Count (150-450) k/uL MPV Neutrophils % % Lymphocytes % % Monocytes % % Eosinophils % % Basophils % % Neutrophils # (1.3-7.7) k/uL Lymphocytes # (1.0-4.8) k/uL Monocytes # (0-1.0) k/uL Eosinophils # (0-0.7) k/uL Basophils # (0-0.2) k/uL PT (9.0-12.0) sec INR (<1.2) APTT (22.0-30.0) sec Sodium 135 L (137-145) mmol/L Potassium 4.0 (3.5-5.1) mmol/L Chloride 100 (98-107) mmol/L Carbon Dioxide 19 L (22-30) mmol/L Anion Gap 16 mmol/L BUN 14 (7-17) mg/dL Creatinine 1.04 (0.52-1.04) mg/dL Est GFR (CKD-EPI)AfAm 66 (>60 ml/min/1.73 sqM) Est GFR (CKD-EPI)NonAf 57 (>60 ml/min/1.73 sqM) Glucose 181 H (74-99) mg/dL POC Glucose (mg/dL) (70-110) mg/dL POC Glu Structural Manager ID Plasma Lactic Acid Gary 1.6 (0.7-2.0) mmol/L Calcium 9.1 (8.4-10.2) mg/dL Magnesium 1.6 (1.6-2.3) mg/dL Total Bilirubin 1.2 (0.2-1.3) mg/dL AST 24 (14-36) U/L ALT 16 (4-34) U/L Alkaline Phosphatase 76 (38-126) U/L Troponin I (0.000-0.034) ng/mL NT-Pro-B Natriuret Pep pg/mL Total Protein 7.2 (6.3-8.2) g/dL Albumin 4.1 (3.5-5.0) g/dL Urine Color Light Yellow Urine Appearance Clear (Clear) Urine pH 5.5 (5.0-8.0) Ur Specific [place] 1.024 (1.001-1.035) Urine Protein 1+ H (Negative) Urine Glucose (UA) 4+ H (Negative) Urine Ketones 2+ H (Negative) Urine Blood Trace H (Negative) Urine Nitrite Negative (Negative) Urine Bilirubin Negative (Negative) Urine Urobilinogen <2.0 (<2.0) mg/dL Ur Leukocyte Esterase Trace H (Negative) Urine RBC 3 (0-5) /hpf Urine WBC 18 H (0-5) /hpf Ur Squamous Epith Cells 1 (0-4) /hpf Urine Bacteria Rare H (None) /hpf Urine Mucus Rare H (None) /hpf Influenza Type A (PCR) (Not Detectd) Influenza Type B (PCR) (Not Detectd) RSV (PCR) (Not Detectd) SARS-CoV-2 (PCR) (Not Detectd) 04/04/23 04/04/23 04/04/23 Range/Units 20:26 20:26 20:26 WBC (3.8-10.6) k/uL RBC (3.80-5.40) m/uL Hgb (11.4-16.0) gm/dL Hct (34.0-46.0) % MCV (80.0-100.0) fL MCH (25.0-35.0) pg MCHC (31.0-37.0) g/dL RDW (11.5-15.5) % Plt Count (150-450) k/uL MPV Neutrophils % % Lymphocytes % % Monocytes % % Eosinophils % % Basophils % % Neutrophils # (1.3-7.7) k/uL Lymphocytes # (1.0-4.8) k/uL Monocytes # (0-1.0) k/uL Eosinophils # (0-0.7) k/uL Basophils # (0-0.2) k/uL PT (9.0-12.0) sec INR (<1.2) APTT (22.0-30.0) sec Sodium (137-145) mmol/L Potassium (3.5-5.1) mmol/L Chloride (98-107) mmol/L Carbon Dioxide (22-30) mmol/L Anion Gap mmol/L BUN (7-17) mg/dL Creatinine (0.52-1.04) mg/dL Est GFR (CKD-EPI)AfAm (>60 ml/min/1.73 sqM) Est GFR (CKD-EPI)NonAf (>60 ml/min/1.73 sqM) Glucose (74-99) mg/dL POC Glucose (mg/dL) (70-110) mg/dL POC Glu Structural Manager ID Plasma Lactic Acid Gary (0.7-2.0) mmol/L Calcium (8.4-10.2) mg/dL Magnesium (1.6-2.3) mg/dL Total Bilirubin (0.2-1.3) mg/dL AST (14-36) U/L ALT (4-34) U/L Alkaline Phosphatase (38-126) U/L Troponin I <0.012 (0.000-0.034) ng/mL NT-Pro-B Natriuret Pep 574 pg/mL Total Protein (6.3-8.2) g/dL Albumin (3.5-5.0) g/dL Urine Color Urine Appearance (Clear) Urine pH (5.0-8.0) Ur Specific [place] (1.001-1.035) Urine Protein (Negative) Urine Glucose (UA) (Negative) Urine Ketones (Negative) Urine Blood (Negative) Urine Nitrite (Negative) Urine Bilirubin (Negative) Urine Urobilinogen (<2.0) mg/dL Ur Leukocyte Esterase (Negative) Urine RBC (0-5) /hpf Urine WBC (0-5) /hpf Ur Squamous Epith Cells (0-4) /hpf Urine Bacteria (None) /hpf Urine Mucus (None) /hpf Influenza Type A (PCR) Not Detected (Not Detectd) Influenza Type B (PCR) Not Detected (Not Detectd) RSV (PCR) Not Detected (Not Detectd) SARS-CoV-2 (PCR) Not Detected (Not Detectd) - Radiology Data Interpreted by me: I did interpret the x-rays no acute processes are seen. CT no acute process also. This is interpreted by me. Disposition Clinical Impression: Urinary tract infection, Acute febrile illness, Dehydration, Acute confusion, Leukocytosis, Failure of outpatient treatment Disposition: ADMITTED IP TO THIS HOSP Condition: Fair Referrals: Bernard Sanchez MD [Primary Care Provider] - 1-2 days Decision Date: 04/05/23 Decision Time: 00:00
--- NOTE | 2023-04-04 21:17 | XR ---
EXAMINATION TYPE: XR chest 2V DATE OF EXAM: 04/04/2023 COMPARISON: 01/25/23 HISTORY: Shortness of breath TECHNIQUE: Frontal and lateral views of the chest are obtained. FINDINGS: Scattered senescent parenchymal changes noted. Hyperinflation compatible with COPD. No evidence for infiltrate. No evidence for atelectasis. Heart size is stable. Mediastinal structures are stable and grossly unremarkable. No evidence for hilar prominence. Degenerative changes dorsal spine. IMPRESSION: 1. No evidence for acute pulmonary disease.
[2023-04-04 21:27] LABS: Basophils % (A) 0 %; Eosinophils # (A) 0.2 k/uL (0-0.7); Eosinophils % (A) 1 %; HCT 38.5 % (34.0-46.0); HGB 12.2 gm/dL (11.4-16.0); Lymphocytes # (A) 0.5 k/uL (1.0-4.8); Lymphocytes % (A) 3 %; MCH 27.8 pg (25.0-35.0); MCHC 31.6 g/dL (31.0-37.0); Mean Platelet Volume 8.8; Monocytes # (A) 0.5 k/uL (0-1.0); Monocytes % (A) 3 %; Neutrophils # (A) 13.9 k/uL (1.3-7.7); Neutrophils % (A) 91 %; Platelet Count 239 k/uL (150-450); RBC 4.38 m/uL (3.80-5.40); WBC 15.2 k/uL (3.8-10.6)
[2023-04-04 21:32] LABS: INR 0.9 (<1.2); Partial Thromboplastin Time 22.9 sec (22.0-30.0); Prothrombin Time 10.1 sec (9.0-12.0)
[2023-04-04 21:33] LABS: Appearance,Urine Clear (Clear); Bacteria,Urine Rare /hpf; Bilirubin,Urine Negative (Negative); Blood,Urine Trace (Negative); Color,Urine Light Yellow; Glucose,Urine (UA) 4+ (Negative); Leukocyte Esterase,Urine Trace (Negative); Mucus,Urine Rare /hpf; Nitrite,Urine Negative (Negative); PH, Urine 5.5 (5.0-8.0); Protein,Urine 1+ (Negative); RBC,Urine 3 /hpf (0-5); Specific Gravity,Urine 1.024 (1.001-1.035); Squamous Epithelial Cell,Urine 1 /hpf (0-4); Urobilinogen,Urine <2.0 mg/dL (<2.0); WBC,Urine 18 /hpf (0-5)
[2023-04-04 21:34] LABS: MCV 87.9 fL (80.0-100.0)
[2023-04-04 21:35] LABS: Albumin 4.1 g/dL (3.5-5.0); Calcium 9.1 mg/dL (8.4-10.2); Magnesium 1.6 mg/dL (1.6-2.3); Total Bilirubin 1.2 mg/dL (0.2-1.3); Total Protein 7.2 g/dL (6.3-8.2)
[2023-04-04 22:03] LABS: Ketones,Urine 2+ (Negative)
--- NOTE | 2023-04-04 23:27 | CT ---
EXAM: CT Head Without Intravenous Contrast CLINICAL HISTORY: ITS.REASON CT Reason: Altered mental status TECHNIQUE: Axial computed tomography images of the head/brain without intravenous contrast. CTDI is 49.2 mGy and DLP is 1159.4 mGy-cm. This CT exam was performed using one or more of the following dose reduction techniques: automated exposure control, adjustment of the mA and/or kV according to patient size, and/or use of iterative reconstruction technique. COMPARISON: No relevant prior studies available. FINDINGS: No acute intracranial hemorrhage. No midline shift or mass effect. The territorial bledsoe-white matter differentiation is maintained throughout. Age-related cerebral volume loss. Periventricular and subcortical white matter hypoattenuation, consistent with chronic microangiopathy. The visualized orbits appear grossly unremarkable. The calvarium is intact. The visualized paranasal sinuses and mastoid air cells are grossly clear. IMPRESSION: No acute intracranial hemorrhage, midline shift, or mass effect.
[2023-04-05] MEDS ORDERED: NALOXONE 0.4 MG/ML 1 ML VIAL IV PRN (00:25)
[2023-04-05] MEDS ORDERED: cefTRIAXone IN SWFI 1,000 MG/10 ML SYRINGE IVP STA (00:25)
[2023-04-05] MEDS: SODIUM CHLORIDE 0.9% 1,000 ML IV SCH ×4 (01:13→17:52)
[2023-04-05] MEDS: ACETAMINOPHEN TAB 325 MG TAB PO PRN (02:18)
[2023-04-05] MEDS: LEVOTHYROXINE 50 MCG TAB PO SCH (07:10)
[2023-04-05] MEDS ORDERED: NON FORMULARY DRUG (Cranberry Fruit Extract [Cranberry] 500 MG Tablet) PO SCH (09:00)
[2023-04-05] MEDS ORDERED: MECLIZINE 25 MG TAB PO PRN (09:00)
[2023-04-05] MEDS: PANTOPRAZOLE 40 MG TABLET PO SCH (10:26)
[2023-04-05] MEDS: metFORMIN 500 MG TAB PO SCH ×2 (10:26→21:05)
[2023-04-05] MEDS: LORATADINE 10 MG TAB PO SCH (10:26)
[2023-04-05] MEDS: METOPROLOL SUCCINATE (ER) 50 MG TAB.ER.24H PO SCH (10:28)
[2023-04-05] MEDS: GLIMEPIRIDE 4 MG TAB PO SCH (11:23)
[2023-04-05] MEDS: DAPAGLIFLOZIN PROPANEDIOL 10 MG TABLET PO SCH (11:23)
[2023-04-05 12:01] LABS: Glucose,Whole Blood 149 mg/dL (70-110)
[2023-04-05 17:12] LABS: Glucose,Whole Blood 223 mg/dL (70-110)
[2023-04-05] MEDS ORDERED: DEXTROSE 50% SYRINGE 50 ML IVP PRN ×2 (17:36)
[2023-04-05] MEDS: INSULIN ASPART (NovoLOG) 100 UNIT/ML VIAL SQ SCH ×2 (17:52→21:04)
[2023-04-05] MEDS ORDERED: CALCIUM CARBONATE 500 MG CHEWABLE PO PRN (19:34)
[2023-04-05] MEDS ORDERED: LACTULOSE 20 GM/30 ML CUP PO PRN (19:34)
[2023-04-05] MEDS ORDERED: LORazepam 0.5 MG TAB PO PRN (19:34)
[2023-04-05] MEDS ORDERED: MELATONIN 3 MG TABLET PO PRN (19:34)
[2023-04-05] MEDS ORDERED: ONDANSETRON 4 MG/2 ML VIAL IVP PRN (19:34)
--- NOTE | 2023-04-05 19:36 | P.HPIM ---
History of Present Illness H&P Date: 04/05/23 Chief Complaint: Abdominal pain This is a pleasant [address] Sanchez. Chronic stable medical conditions include diabetes, GERD, hyperlipidemia, hypertension, hypothyroid, diabetic peripheral neuropathy. Patient for a few days started having urinary symptoms. Frequency dysuria. 5 days ago went to see her family doctor or symptoms of UTI. Was prescribed Macro bid. That she did not start until Wednesday. Wednesday she started having nausea vomiting. Increasing lower abdominal pain. Had a bowel movement yesterday. Finally presented to ER. Decreased appetite tired rundown. Review of systems: GEN.: Fever , tired, decreased appetite EYES: None HEENT: None NECK: None RESPIRATORY: As above CARDIOVASCULAR: None GASTROINTESTINAL: As above GENITOURINARY: As above MUSCULOSKELETAL: None LYMPHATICS: None HEMATOLOGICAL: None PSYCHIATRY: None NEUROLOGICAL: None Past medical history to include: Diabetes, GERD, hypertension, hyperlipidemia, hypothyroid, diabetic peripheral neuropathy, vitamin D deficiency, anxiety Social history: Nonsmoker. No alcohol. Physical examination: VITAL SIGNS: 99.6, 94, 16, 120/74, 95% room air GENERAL: BMI 33.9, laying in bed awake tired. EYES: Pupils equal. Conjunctiva normal. HEENT: External appearance of nose and ears normal, oral cavity grossly normal. NECK: JVD not raised; masses not palpable. HEART: First and second heart sounds are normal; no edema. LUNGS: Respiratory rate normal; clear to auscultation. ABDOMEN: Soft, mild suprapubic tenderness no guarding rigidity, liver spleen not palpable, no masses palpable. PSYCH: Alert and oriented x3; mood and affect normal. MUSCULOSKELETAL:No Clubbing/cyanosis;muscles-grossly intact. OA NEUROLOGICAL: Cranial nerves grossly intact; no facial asymmetry, power and sensation grossly intact. LYMPHATICS: No lymph nodes palpable in the axilla and neck INVESTIGATIONS, reviewed in the clinical context: White count 15.2 hemoglobin 12.2 platelets 239 sodium 135 potassium 4 creatinine 1.04 UA positive for leukoesterase, WBC EKG tracing personally reviewed by me-sinus rhythm. Right bundle-branch block Chest x-ray film personally reviewed by me-unremarkable Previous testing: CT abdomen pelvis without contrast [January 2023]: Ventral wall hernia, rectal hernia and additional hernia continuous of bowel. No evidence of obstruction. Assessment and plan: -Acute severe cystitis with UTI having failed outpatient treatment with Macrob id. Accompanied by nausea vomiting abdominal pain IV ceftriaxone. IV fluids -Diabetes mellitus type 2, chronically on oral hypoglycemic. Sliding scale insulin. Accu-Cheks -Diabetic peripheral neuropathy Neurontin 300 mg daily at bedtime -Hypothyroidism Levothyroxine 50 g daily -Essential hypertension Toprol-XL 50 mg -Hyperlipidemia Crestor 40 mg daily at bedtime -GERD Prilosec 20 mg daily -Full code IV fluids. IV ceftriaxone. Follow Accu-Cheks. Soft diet. Discussed with gali de la cruz. Past Medical History Past Medical History: Diabetes Mellitus, GERD/Reflux, Hyperlipidemia, Hypertension, Thyroid Disorder Additional Past Medical History / Comment(s): Hx Covid 02/2020. "Start of Alzheimer's". Seasonal Allergies, Diabetic Neuropathy, Vitamin D Deficiency, heart murmur. History of Any Multi-Drug Resistant Organisms: None Reported Past Surgical History: Cholecystectomy, Hysterectomy, Orthopedic Surgery Additional Past Surgical History / Comment(s): Colonoscopy, right knee surgery. Past Anesthesia/Blood Transfusion Reactions: Motion Sickness, Postoperative Nausea & Vomiting (PONV) Past Psychological History: Anxiety Smoking Status: Never smoker Past Alcohol Use History: None Reported Past Drug Use History: None Reported - Past Family History Mother Family Medical History: CVA/TIA, Deep Vein Thrombosis (DVT), Myocardial Infarction (SD) Additional Family Medical History / Comment(s): Mother with history of myocardial infarction, stroke, DVT. Father History Unknown: Yes Family Medical History: Diabetes Mellitus, Hypertension Additional Family Medical History / Comment(s): Dad is alive at age 85 with history of diabetes and hypertension. Brother(s) Family Medical History: No Reported History Additional Family Medical History / Comment(s): Patient has 1 brother and 1 sister with no major medical problems. Daughter(s) Family Medical History: Cancer, Hypertension Additional Family Medical History / Comment(s): Cervical cancer. Sister(s) Family Medical History: Cancer Additional Family Medical History / Comment(s): Thyroid cancer. Medications and Allergies Home Medications Medication Instructions Recorded Confirmed Type Gabapentin [Neurontin] 300 mg PO HS 02/16/17 04/04/23 History Omeprazole [PriLOSEC] 20 mg PO DAILY 02/16/17 04/04/23 History metFORMIN HCL [Glucophage] 1,000 mg PO BID 02/16/17 04/04/23 History Metoprolol Succinate [Toprol XL] 50 mg PO DAILY 02/29/20 04/04/23 History Ergocalciferol [Vitamin D2 50,000 unit PO TH 10/16/20 04/04/23 History (DRISDOL)] Levothyroxine Sodium [Euthyrox] 50 mcg PO DAILY 10/16/20 04/04/23 History Loratadine [Claritin] 10 mg PO DAILY 06/18/22 04/04/23 History Rosuvastatin Calcium [Crestor] 40 mg PO HS 06/18/22 04/04/23 History Acetaminophen Tab [Tylenol] 1,000 mg PO Q6HR PRN 01/25/23 04/04/23 History Cranberry Fruit Extract [Cranberry] 500 mg PO DAILY 01/25/23 04/04/23 History Dapagliflozin Propanediol [Farxiga] 10 mg PO DAILY 01/25/23 04/04/23 History Ezetimibe [Zetia] 10 mg PO HS 01/25/23 04/04/23 History Meclizine HCl [Antivert] 25 mg PO DAILY PRN 01/25/23 04/04/23 History Losartan Potassium 100 mg PO HS #0 01/28/23 04/04/23 Rx Glimepiride [Amaryl] 4 mg PO DAILY 04/04/23 04/04/23 History Nitrofurantoin Monohyd/M-Cryst 100 mg PO Q12HR 04/04/23 04/04/23 History [Macrobid] Allergies Allergy/AdvReac Type Severity Reaction Status Date / Time morphine Allergy Itching Verified 04/04/23 21:05 Physical Exam Vitals: Vital Signs Temp Pulse Resp BP Pulse Ox 04/05/23 07:32 98.6 F 78 18 135/71 98 04/05/23 02:21 87 16 118/76 94 L 04/04/23 23:10 87 16 145/86 95 04/04/23 21:29 84 16 124/59 95 04/04/23 19:55 99.6 F 94 16 120/74 95 Intake and Output 04/04/23 04/05/23 04/05/23 22:59 06:59 14:59 Other: Weight 95.254 kg Results CBC & Chem 7: 04/04/23 20:26 04/04/23 20:26 Labs: Abnormal Lab Results - Last 24 Hours (Table) 04/04/23 04/04/23 04/04/23 Range/Units 20:01 20:26 20:26 WBC 15.2 H (3.8-10.6) k/uL Neutrophils # 13.9 H (1.3-7.7) k/uL Lymphocytes # 0.5 L (1.0-4.8) k/uL Sodium (137-145) mmol/L Carbon Dioxide (22-30) mmol/L Glucose (74-99) mg/dL POC Glucose (mg/dL) 185 H (70-110) mg/dL Urine Protein 1+ H (Negative) Urine Glucose (UA) 4+ H (Negative) Urine Ketones 2+ H (Negative) Urine Blood Trace H (Negative) Ur Leukocyte Esterase Trace H (Negative) Urine WBC 18 H (0-5) /hpf Urine Bacteria Rare H (None) /hpf Urine Mucus Rare H (None) /hpf 04/04/23 Range/Units 20:26 WBC (3.8-10.6) k/uL Neutrophils # (1.3-7.7) k/uL Lymphocytes # (1.0-4.8) k/uL Sodium 135 L (137-145) mmol/L Carbon Dioxide 19 L (22-30) mmol/L Glucose 181 H (74-99) mg/dL POC Glucose (mg/dL) (70-110) mg/dL Urine Protein (Negative) Urine Glucose (UA) (Negative) Urine Ketones (Negative) Urine Blood (Negative) Ur Leukocyte Esterase (Negative) Urine WBC (0-5) /hpf Urine Bacteria (None) /hpf Urine Mucus (None) /hpf
[2023-04-05] MEDS ORDERED: cefTRIAXone 1,000 MG VIAL (IM USE) IM SCH (21:00)
[2023-04-05] MEDS: ENOXAPARIN 40 MG/0.4 ML SYRINGE SQ SCH (21:04)
[2023-04-05] MEDS: LOSARTAN 50 MG TAB PO SCH (21:05)
[2023-04-05] MEDS: EZETIMIBE 10 MG TAB PO SCH (21:05)
[2023-04-05] MEDS: ATORVASTATIN 80 MG TAB PO SCH (21:05)
[2023-04-05] MEDS: GABAPENTIN 300 MG CAP PO SCH (21:05)
[2023-04-06] MEDS: LEVOTHYROXINE 50 MCG TAB PO SCH (05:19)
[2023-04-06 06:02] LABS: African American GFR (CKD) 83 (>60 ml/min/1.73 sqM); Anion Gap 8 mmol/L; Blood Urea Nitrogen 12 mg/dL (7-17); Calcium 7.7 mg/dL (8.4-10.2); Carbon Dioxide 20 mmol/L (22-30); Chloride 112 mmol/L (98-107); Glucose 116 mg/dL (74-99); Non-African American GFR(CKD) 72 (>60 ml/min/1.73 sqM); Potassium 3.5 mmol/L (3.5-5.1); Sodium 140 mmol/L (137-145)
[2023-04-06 06:07] LABS: Basophils % (A) 0 %; Eosinophils # (A) 0.5 k/uL (0-0.7); Eosinophils % (A) 10 %; HCT 31.8 % (34.0-46.0); HGB 10.1 gm/dL (11.4-16.0); Lymphocytes # (A) 1.2 k/uL (1.0-4.8); Lymphocytes % (A) 23 %; MCH 28.6 pg (25.0-35.0); MCHC 31.8 g/dL (31.0-37.0); MCV 90.1 fL (80.0-100.0); Mean Platelet Volume 8.2; Monocytes # (A) 0.2 k/uL (0-1.0); Monocytes % (A) 5 %; Neutrophils % (A) 58 %; Platelet Count 185 k/uL (150-450); RBC 3.53 m/uL (3.80-5.40); RDW 14.3 % (11.5-15.5); WBC 5.2 k/uL (3.8-10.6)
[2023-04-06 07:52] LABS: Glucose,Whole Blood 101 mg/dL (70-110)
[2023-04-06] MEDS: metFORMIN 500 MG TAB PO SCH ×2 (09:26→20:33)
[2023-04-06] MEDS: ENOXAPARIN 40 MG/0.4 ML SYRINGE SQ SCH (09:26)
[2023-04-06] MEDS: PANTOPRAZOLE 40 MG TABLET PO SCH (09:27)
[2023-04-06] MEDS: METOPROLOL SUCCINATE (ER) 50 MG TAB.ER.24H PO SCH (09:27)
[2023-04-06] MEDS: LORATADINE 10 MG TAB PO SCH (09:27)
[2023-04-06] MEDS: SODIUM CHLORIDE 0.9% 1,000 ML IV SCH ×3 (09:31→22:23)
[2023-04-06] MEDS: DAPAGLIFLOZIN PROPANEDIOL 10 MG TABLET PO SCH (09:44)
[2023-04-06] MEDS: GLIMEPIRIDE 4 MG TAB PO SCH (09:44)
[2023-04-06] MEDS: INSULIN ASPART (NovoLOG) 100 UNIT/ML VIAL SQ SCH ×4 (09:46→20:34)
[2023-04-06 11:40] LABS: Glucose,Whole Blood 225 mg/dL (70-110)
[2023-04-06 12:37] LABS: Glucose,Whole Blood 184 mg/dL (70-110)
[2023-04-06] MEDS: PSYLLIUM HUSK 100% 6 GM PACKET PO SCH ×2 (12:47→20:34)
[2023-04-06 17:09] LABS: Glucose,Whole Blood 139 mg/dL (70-110)
--- NOTE | 2023-04-06 17:55 | P.PN ---
Progress Note - Text Progress Note Date: 04/06/23 Chief Complaint: Abdominal pain This is a pleasant [address] Sanchez. Chronic stable medical conditions include diabetes, GERD, hyperlipidemia, hypertension, hypothyroid, diabetic peripheral neuropathy. Patient for a few days started having urinary symptoms. Frequency dysuria. 5 days ago went to see her family doctor or symptoms of UTI. Was prescribed Macrobid. That she did not start until Wednesday. Wednesday she started having nausea vomiting. Increasing lower abdominal pain. Had a bowel movement yesterday. Finally presented to ER. Decreased appetite tired rundown. April 06: Patient still having diarrhea. Appetite better. Having significant itching in the pelvic area. Presence of high school agriculture teacher respiratory therapist, pelvic area showed evidence of intertriginous aracelis. Nystatin started. Local hygiene discussed. Still having some urine symptoms. Active Medications Acetaminophen (Acetaminophen Tab 325 Mg Tab) 650 mg PO Q6HR PRN PRN Reason: Mild Pain or Fever > 100.5 Last Admin: 04/06/23 00:00 Dose: 650 mg Atorvastatin Calcium (Atorvastatin 80 Mg Tab) 80 mg PO [facility] Last Admin: 04/05/23 21:05 Dose: 80 mg Calcium Carbonate/Glycine (Calcium Carbonate 500 Mg Chewable) 1,000 mg PO Q4HR PRN PRN Reason: Dyspepsia Dapagliflozin (Dapagliflozin Propanediol 10 Mg Tablet) 10 mg PO DAILY [facility] Last Admin: 04/06/23 09:44 Dose: 10 mg Dextrose/Water (Dextrose 50% Syringe 50 Ml) 25 ml IVP PER PROTOCOL PRN; Protocol PRN Reason: Hypoglycemia Dextrose/Water (Dextrose 50% Syringe 50 Ml) 50 ml IVP PER PROTOCOL PRN; Protocol PRN Reason: Hypoglycemia Ezetimibe (Ezetimibe 10 Mg Tab) 10 mg PO [facility] Last Admin: 04/05/23 21:05 Dose: 10 mg Enoxaparin Sodium (Enoxaparin 40 Mg/0.4 Ml Syringe) 40 mg SQ DAILY [facility] Last Admin: 04/06/23 09:26 Dose: 40 mg Ergocalciferol (Ergocalciferol 1,250 Mcg (50,000 Iu) Capsule) 1,250 mcg PO Th@0900 [facility] Gabapentin (Gabapentin 300 Mg Cap) 300 mg PO [facility] Last Admin: 04/05/23 21:05 Dose: 300 mg Glimepiride (Glimepiride 4 Mg Tab) 4 mg PO DAILY [facility] Last Admin: 04/06/23 09:44 Dose: 4 mg Sodium Chloride (Saline 0.9%) 1,000 mls @ 130 mls/hr IV .[id number] [facility] Last Admin: 04/06/23 09:31 Dose: 130 mls/hr Ceftriaxone Sodium 1 gm/ (Sodium Chloride) 50 mls @ 100 mls/hr IVPB Q12H [facility] Last Admin: 04/06/23 09:25 Dose: 100 mls/hr Insulin Aspart (Insulin Aspart (Novolog) 100 Unit/Ml Vial) 0 unit SQ ACHS [facility]; Protocol Last Admin: 04/06/23 13:01 Dose: 4 unit Lactulose (Lactulose 20 Gm/30 Ml Cup) 20 gm PO DAILY PRN PRN Reason: Constipation Levothyroxine Sodium (Levothyroxine 50 Mcg Tab) 50 mcg PO DAILY@0630 [facility] Last Admin: 04/06/23 05:19 Dose: 50 mcg Loratadine (Loratadine 10 Mg Tab) 10 mg PO DAILY [facility] Last Admin: 04/06/23 09:27 Dose: 10 mg Lorazepam (Lorazepam 0.5 Mg Tab) 0.5 mg PO Q6HR PRN PRN Reason: Anxiety Losartan Potassium (Losartan 50 Mg Tab) 100 mg PO HS [facility] Last Admin: 04/05/23 21:05 Dose: 100 mg Meclizine HCl (Meclizine 25 Mg Tab) 25 mg PO DAILY PRN PRN Reason: Vertigo Melatonin (Melatonin 3 Mg Tablet) 3 mg PO HS PRN PRN Reason: Insomnia Metformin HCl (Metformin 500 Mg Tab) 1,000 mg PO BID [facility] Last Admin: 04/06/23 09:26 Dose: 1,000 mg Metoprolol Succinate (Metoprolol Succinate (Er) 50 Mg Tab.Er.24h) 50 mg PO DAILY [facility] Last Admin: 04/06/23 09:27 Dose: 50 mg Naloxone HCl (Naloxone 0.4 Mg/Ml 1 Ml Vial) 0.2 mg IV Q2M PRN PRN Reason: Opioid Reversal Nystatin (Nystatin 100,000 Unit/Gm Powd 15 Gm) 1 applic TOPICAL TID [facility]; Protocol Ondansetron HCl (Ondansetron 4 Mg/2 Ml Vial) 4 mg IVP Q8HR PRN PRN Reason: Nausea And Vomiting Pantoprazole Sodium (Pantoprazole 40 Mg Tablet) 40 mg PO DAILY [facility] Last Admin: 04/06/23 09:27 Dose: 40 mg Psyllium Hydrophilic Mucilloid (Psyllium Husk 100% 6 Gm Packet) 6 gm PO BID [facility] Last Admin: 04/06/23 12:47 Dose: 6 gm Past medical history to include: Diabetes, GERD, hypertension, hyperlipidemia, hypothyroid, diabetic peripheral neuropathy, vitamin D deficiency, anxiety Social history: Nonsmoker. No alcohol. Physical examination: VITAL SIGNS: 98.3, 65, 16, 1 57 x 75, 95% room air GENERAL: BMI 33.9, comfortable EYES: Pupils equal. Conjunctiva normal. HEENT: External appearance of nose and ears normal, oral cavity grossly normal. NECK: JVD not raised; masses not palpable. HEART: First and second heart sounds are normal; no edema. LUNGS: Respiratory rate normal; clear to auscultation. ABDOMEN: Soft, mild suprapubic tenderness no guarding rigidity, liver spleen not palpable, no masses palpable. Pelvic area [area of intertriginous candidiasis] PSYCH: Alert and oriented x3; mood and affect normal. MUSCULOSKELETAL:No Clubbing/cyanosis;muscles-grossly intact. OA INVESTIGATIONS, reviewed in the clinical context: April 06: White count 5.2 hemoglobin 10.1 platelets 185 potassium 3.5 crit 0.86 White count 15.2 hemoglobin 12.2 platelets 239 sodium 135 potassium 4 creatinine 1.04 UA positive for leukoesterase, WBC EKG tracing personally reviewed by me-sinus rhythm. Right bundle-branch block Chest x-ray film personally reviewed by me-unremarkable Previous testing: CT abdomen pelvis without contrast [January 2023]: Ventral wall hernia, rectal hernia and additional hernia continuous of bowel. No evidence of obstruction. Assessment and plan: -Acute severe cystitis with UTI having failed outpatient treatment with Macrobid. Accompanied by nausea vomiting abdominal pain IV ceftriaxone. IV fluids -Diabetes mellitus type 2, chronically on oral hypoglycemic. Sliding scale insulin. Accu-Cheks -Diabetic peripheral neuropathy Neurontin 300 mg daily at bedtime -Hypothyroidism Levothyroxine 50 g daily -Intertriginous candidiasis in the pelvic area Topical nystatin -Essential hypertension Toprol-XL 50 mg -Hyperlipidemia Crestor 40 mg daily at bedtime -GERD Prilosec 20 mg daily -Full code IV fluids. IV ceftriaxone. Topical nystatin. Add Metamucil
[2023-04-06] MEDS: NYSTATIN 100,000 UNIT/GM POWD 15 GM TOPICAL SCH ×3 (18:44→21:05)
[2023-04-06] MEDS: LOSARTAN 50 MG TAB PO SCH (20:33)
[2023-04-06] MEDS: GABAPENTIN 300 MG CAP PO SCH (20:33)
[2023-04-06] MEDS: ATORVASTATIN 80 MG TAB PO SCH (20:33)
[2023-04-06] MEDS: EZETIMIBE 10 MG TAB PO SCH (20:34)
[2023-04-06 20:36] LABS: Glucose,Whole Blood 161 mg/dL (70-110)
[2023-04-06] MEDS: ACETAMINOPHEN TAB 325 MG TAB PO PRN ×2 (23:57)
[2023-04-07] MEDS: SODIUM CHLORIDE 0.9% 1,000 ML IV SCH (05:29)
[2023-04-07] MEDS: LEVOTHYROXINE 50 MCG TAB PO SCH (05:29)
[2023-04-07] MEDS: ACETAMINOPHEN TAB 325 MG TAB PO PRN (06:02)
[2023-04-07 07:12] LABS: Glucose,Whole Blood 94 mg/dL (70-110)
[2023-04-07] MEDS: INSULIN ASPART (NovoLOG) 100 UNIT/ML VIAL SQ SCH ×2 (07:24→12:35)
[2023-04-07 07:31] LABS: African American GFR (CKD) 81 (>60 ml/min/1.73 sqM); Anion Gap 12 mmol/L; Blood Urea Nitrogen 10 mg/dL (7-17); Carbon Dioxide 17 mmol/L (22-30); Chloride 111 mmol/L (98-107); Glucose 95 mg/dL (74-99); Non-African American GFR(CKD) 70 (>60 ml/min/1.73 sqM); Potassium 3.5 mmol/L (3.5-5.1); Sodium 140 mmol/L (137-145)
[2023-04-07] MEDS: DAPAGLIFLOZIN PROPANEDIOL 10 MG TABLET PO SCH (08:42)
[2023-04-07] MEDS: ENOXAPARIN 40 MG/0.4 ML SYRINGE SQ SCH (08:42)
[2023-04-07] MEDS: GLIMEPIRIDE 4 MG TAB PO SCH (08:42)
[2023-04-07] MEDS: METOPROLOL SUCCINATE (ER) 50 MG TAB.ER.24H PO SCH (08:43)
[2023-04-07] MEDS: NYSTATIN 100,000 UNIT/GM POWD 15 GM TOPICAL SCH (08:43)
[2023-04-07] MEDS: PSYLLIUM HUSK 100% 6 GM PACKET PO SCH (08:43)
[2023-04-07] MEDS: PANTOPRAZOLE 40 MG TABLET PO SCH (08:43)
[2023-04-07] MEDS: LORATADINE 10 MG TAB PO SCH (08:43)
[2023-04-07] MEDS: metFORMIN 500 MG TAB PO SCH (08:43)
[2023-04-07 11:10] LABS: Glucose,Whole Blood 201 mg/dL (70-110)
[2023-04-07 13:27] VITALS: BP 146/82; PULSE 54; RESP 18; TEMP 98.1
--- NOTE | 2023-04-07 17:32 | P.DS ---
Providers Date of admission: 04/05/23 00:26 Expected date of discharge: 04/07/23 Attending physician: Keshawn Mauricio Primary care physician: Bernard Sanchez [facility] Course: Chief Complaint: Abdominal pain This is a pleasant [address] Sanchez. Chronic stable medical conditions include diabetes, GERD, hyperlipidemia, hypertension, hypothyroid, diabetic peripheral neuropathy. Patient for a few days started having urinary symptoms. Frequency dysuria. 5 days ago went to see her family doctor or symptoms of UTI. Was prescribed Macrobid. That she did not start until Wednesday. Wednesday she started having nausea vomiting. Increasing lower abdominal pain. Had a bowel movement yesterday. Finally presented to ER. Decreased appetite tired rundown. April 06: Patient still having diarrhea. Appetite better. Having significant itching in the pelvic area. Presence of chaperon respiratory therapist, pelvic area showed evidence of intertriginous aracelis. Nystatin started. Local hygiene discussed. Still having some urine symptoms. April 07: Diarrhea resolved. Doing well. Eating better. Urine symptoms much improved. Patient continued 3 days more of Ceftin. Nystatin powder to continue. Questions answered. Past medical history to include: Diabetes, GERD, hypertension, hyperlipidemia, hypothyroid, diabetic peripheral neuropathy, vitamin D deficiency, anxiety Social history: Nonsmoker. No alcohol. Physical examination: VITAL SIGNS: 98.1, 54, 18, 1 4682, 97% room air GENERAL: BMI 33.9, comfortable EYES: Pupils equal. Conjunctiva normal. HEENT: External appearance of nose and ears normal, oral cavity grossly normal. NECK: JVD not raised; masses not palpable. HEART: First and second heart sounds are normal; no edema. LUNGS: Respiratory rate normal; clear to auscultation. ABDOMEN: Soft, mild suprapubic tenderness no guarding rigidity, liver spleen not palpable, no masses palpable. Pelvic area [area of intertriginous candidiasis] PSYCH: Alert and oriented x3; mood and affect normal. MUSCULOSKELETAL:No Clubbing/cyanosis;muscles-grossly intact. OA INVESTIGATIONS, reviewed in the clinical context: April 06: White count 5.2 hemoglobin 10.1 platelets 185 potassium 3.5 crit 0.86 White count 15.2 hemoglobin 12.2 platelets 239 sodium 135 potassium 4 creatinine 1.04 UA positive for leukoesterase, WBC EKG tracing personally reviewed by ri-sinus rhythm. Right bundle-branch block Chest x-ray film personally reviewed by me-unremarkable Previous testing: CT abdomen pelvis without contrast [January 2023]: Ventral wall hernia, rectal hernia and additional hernia continuous of bowel. No evidence of obstruction. Assessment and plan: -Acute severe cystitis with UTI having failed outpatient treatment with Macrobid. Accompanied by nausea vomiting abdominal pain: Improved IV ceftriaxone. IV fluids. 3 days more of Ceftin -Diabetes mellitus type 2, chronically on oral hypoglycemic. Sliding scale insulin. Accu-Cheks -Diabetic peripheral neuropathy Neurontin 300 mg daily at bedtime -Hypothyroidism Levothyroxine 50 g daily -Intertriginous candidiasis in the pelvic area Topical nystatin twice a day. Local Hygiene discussed -Essential hypertension Toprol-XL 50 mg -Hyperlipidemia Crestor 40 mg daily at bedtime -GERD Prilosec 20 mg daily -Full code Disposition: Home Plan - Discharge Summary Discharge Rx Participant: Yes New Discharge Prescriptions: New Nystatin 100,000 Unit/gm Powd [Mycostatin Powder] 1 applic TOPICAL TID each Cefuroxime [Ceftin] 250 mg PO BID 3 Days #6 tab Psyllium Husk 100% [Metamucil Packet] 6 gm PO DAILY PRN #30 packet PRN Reason: Diarrhea Continue Omeprazole [PriLOSEC] 20 mg PO DAILY Gabapentin [Neurontin] 300 mg PO HS Metoprolol Succinate [Toprol XL] 50 mg PO DAILY Loratadine [Claritin] 10 mg PO DAILY Acetaminophen Tab [Tylenol] 1,000 mg PO Q6HR PRN PRN Reason: Pain Rosuvastatin Calcium [Crestor] 40 mg PO HS Ezetimibe [Zetia] 10 mg PO HS Losartan Potassium 100 mg PO HS #0 Discontinued Meclizine HCl [Antivert] 25 mg PO DAILY PRN PRN Reason: Vertigo Nitrofurantoin Monohyd/M-Cryst [Macrobid] 100 mg PO Q12HR No Action metFORMIN HCL [Glucophage] 1,000 mg PO BID Levothyroxine Sodium [Euthyrox] 50 mcg PO DAILY Ergocalciferol [Vitamin D2 (DRISDOL)] 50,000 unit PO TH Glimepiride [Amaryl] 4 mg PO DAILY Cranberry Fruit Extract [Cranberry] 500 mg PO DAILY Dapagliflozin Propanediol [Farxiga] 10 mg PO DAILY Discharge Medication List Gabapentin [Neurontin] 300 mg PO HS 02/16/17 [History] Omeprazole [PriLOSEC] 20 mg PO DAILY 02/16/17 [History] metFORMIN HCL [Glucophage] 1,000 mg PO BID 02/16/17 [History] Metoprolol Succinate [Toprol XL] 50 mg PO DAILY 02/29/20 [History] Ergocalciferol [Vitamin D2 (DRISDOL)] 50,000 unit PO TH 10/16/20 [History] Levothyroxine Sodium [Euthyrox] 50 mcg PO DAILY 10/16/20 [History] Loratadine [Claritin] 10 mg PO DAILY 06/18/22 [History] Rosuvastatin Calcium [Crestor] 40 mg PO HS 06/18/22 [History] Acetaminophen Tab [Tylenol] 1,000 mg PO Q6HR PRN 01/25/23 [History] Cranberry Fruit Extract [Cranberry] 500 mg PO DAILY 01/25/23 [History] Dapagliflozin Propanediol [Farxiga] 10 mg PO DAILY 01/25/23 [History] Ezetimibe [Zetia] 10 mg PO HS 01/25/23 [History] Losartan Potassium 100 mg PO HS #0 01/28/23 [Rx] Glimepiride [Amaryl] 4 mg PO DAILY 04/04/23 [History] Cefuroxime [Ceftin] 250 mg PO BID 3 Days #6 tab 04/07/23 [Rx] Nystatin 100,000 Unit/gm Powd [Mycostatin Powder] 1 applic TOPICAL TID each 04/07/23 [Rx] Psyllium Husk 100% [Metamucil Packet] 6 gm PO DAILY PRN #30 packet 04/07/23 [Rx] Follow up Appointment(s)/Referral(s): Bernard Sanchez MD [Primary Care Provider] - 04/09/23 2:00 pm Patient Instructions/Handouts: Dehydration (DC)
[2023-04-08] MEDS ORDERED: NON FORMULARY DRUG (Ergocalciferol 50,000 UNIT Cap) PO SCH (09:00)
[2023-04-08] MEDS ORDERED: ERGOCALCIFEROL 1,250 MCG (50,000 IU) CAPSULE PO SCH (09:00)
== END 2023-04-07 16:05 | disposition home or self-care (01) | DRG 463 ==
LOC: EC 19:42 → 5NMEDONC 04-05 00:26
PROVIDERS: ADMIT Hospitalist; ATTEND Hospitalist
DX: N30.00 Acute cystitis without hematuria (principal); E11.42 Type 2 diabetes mellitus with diabetic polyneuropathy; G30.9 Alzheimer's disease, unspecified; F02.80 Dementia in other diseases classified elsewhere, unspecified severity, without behavioral disturbance, psychotic disturbance, mood disturbance, and anxiety; E78.5 Hyperlipidemia, unspecified; E03.9 Hypothyroidism, unspecified; B37.2 Candidiasis of skin and nail; E86.0 Dehydration; I10 Essential (primary) hypertension; I45.10 Unspecified right bundle-branch block; K21.9 Gastro-esophageal reflux disease without esophagitis; R19.7 Diarrhea, unspecified; Z20.822 Contact with and (suspected) exposure to COVID-19; Z28.311 Partially vaccinated for COVID-19; Z86.16 Personal history of COVID-19; Z88.5 Allergy status to narcotic agent; Z79.84 Long term (current) use of oral hypoglycemic drugs; Z79.899 Other long term (current) drug therapy; Z79.890 Hormone replacement therapy; Z79.891 Long term (current) use of opiate analgesic
CPT/HCPCS: 36415; 70450; 71046; 80048; 80053; 81001; 82330; 83036; 83605; 83735; 83880; 84484; 85025; 85610; 85730; 87040; 87324; 87636; 93005; 94760; 96361; 96374

== ENCOUNTER 2023-07-02 21:18 | Emergency (ER) | payer OTHER ==
[2023-07-02 21:29] VITALS: TEMP 97.3
--- NOTE | 2023-07-02 22:02 | ED ---
General Adult HPI - General Chief complaint: ENT Stated complaint: Covid + sore throat Time Seen by Provider: 07/02/23 21:32 Source: patient Mode of arrival: ambulatory Limitations: no limitations - History of Present Illness Initial comments: This patient is a 62-year-old woman who presents to have evaluation for a constellation of symptoms related to recent Covid. The patient states that starting on Wednesday she began having some congestion, sore throat, cough. She states that yesterday she had a test and was found to be Covid +. She states that she was not given any medication. The main symptoms concerning her are congestion and sore throat but she is also feeling somewhat lightheaded when she is up and walking around. denies chest pain. She denies dyspnea. She has had some mild intermittent nausea, but no vomiting or diarrhea. Onset/Timin -: days(s) Severity scale (1-10): 0 Consistency: constant Improves with: none Worsens with: none Associated Symptoms: cough Treatments Prior to Arrival: none - Related Data Home Medications Medication Instructions Recorded Confirmed Gabapentin [Neurontin] 300 mg PO HS 02/16/17 04/04/23 Omeprazole [PriLOSEC] 20 mg PO DAILY 02/16/17 04/04/23 metFORMIN HCL [Glucophage] 1,000 mg PO BID 02/16/17 04/04/23 Metoprolol Succinate [Toprol XL] 50 mg PO DAILY 02/29/20 04/04/23 Ergocalciferol [Vitamin D2 50,000 unit PO TH 10/16/20 04/04/23 (DRISDOL)] Levothyroxine Sodium [Euthyrox] 50 mcg PO DAILY 10/16/20 04/04/23 Loratadine [Claritin] 10 mg PO DAILY 06/18/22 04/04/23 Rosuvastatin Calcium [Crestor] 40 mg PO HS 06/18/22 04/04/23 Acetaminophen Tab [Tylenol] 1,000 mg PO Q6HR PRN 01/25/23 04/04/23 Cranberry Fruit Extract [Cranberry] 500 mg PO DAILY 01/25/23 04/04/23 Dapagliflozin Propanediol [Farxiga] 10 mg PO DAILY 01/25/23 04/04/23 Ezetimibe [Zetia] 10 mg PO HS 01/25/23 04/04/23 Glimepiride [Amaryl] 4 mg PO DAILY 04/04/23 04/04/23 Previous Rx's Medication Instructions Recorded Losartan Potassium 100 mg PO HS #0 01/28/23 Cefuroxime [Ceftin] 250 mg PO BID 3 Days #6 tab 04/07/23 Nystatin 100,000 Unit/gm Powd 1 applic TOPICAL TID each 04/07/23 [Mycostatin Powder] Psyllium Husk 100% [Metamucil 6 gm PO DAILY PRN #30 packet 04/07/23 Packet] Nirmatrelvir/Ritonavir [Paxlovid 1 each PO ONCE #1 pack 07/03/23 2X150 mg-100 mg (Eua)] Allergies Allergy/AdvReac Type Severity Reaction Status Date / Time morphine Allergy Itching Verified 07/02/23 21:29 Review of Systems ROS Statement: Those systems with pertinent positive or pertinent negative responses have been documented in the HPI. ROS Other: All systems not noted in ROS Statement are negative. Constitutional: Denies: fever, chills, weakness ENT: Reports: throat pain, congestion Respiratory: Reports: cough. Denies: dyspnea, wheezes, hemoptysis Cardiovascular: Denies: chest pain, palpitations, edema, syncope Gastrointestinal: Reports: nausea. Denies: abdominal pain, vomiting, diarrhea, melena, hematochezia Genitourinary: Denies: dysuria, hematuria Musculoskeletal: Denies: back pain Skin: Denies: rash Neurological: Denies: headache, weakness Past Medical History Past Medical History: Diabetes Mellitus, GERD/Reflux, Hyperlipidemia, Hyp ertension, Thyroid Disorder Additional Past Medical History / Comment(s): Hx Covid 02/2020. "Start of Alzheimer's". Seasonal Allergies, Diabetic Neuropathy, Vitamin D Deficiency, heart murmur. History of Any Multi-Drug Resistant Organisms: None Reported Past Surgical History: Cholecystectomy, Hysterectomy, Orthopedic Surgery Additional Past Surgical History / Comment(s): Colonoscopy, right knee surgery. Past Anesthesia/Blood Transfusion Reactions: Motion Sickness, Postoperative Nausea & Vomiting (PONV) Past Psychological History: Anxiety Smoking Status: Never smoker Past Alcohol Use History: None Reported Past Drug Use History: None Reported - Past Family History Mother Family Medical History: CVA/TIA, Deep Vein Thrombosis (DVT), Myocardial Infarction ([place]) Additional Family Medical History / Comment(s): Mother with history of myocardial infarction, stroke, DVT. Father History Unknown: Yes Family Medical History: Diabetes Mellitus, Hypertension Additional Family Medical History / Comment(s): Dad is alive at age 85 with history of diabetes and hypertension. Brother(s) Family Medical History: No Reported History Additional Family Medical History / Comment(s): Patient has 1 brother and 1 sister with no major medical problems. Daughter(s) Family Medical History: Cancer, Hypertension Additional Family Medical History / Comment(s): Cervical cancer. Sister(s) Family Medical History: Cancer Additional Family Medical History / Comment(s): Thyroid cancer. General Exam Limitations: no limitations General appearance: alert, in no apparent distress Head exam: Present: atraumatic, normocephalic Eye exam: Present: normal appearance. Absent: scleral icterus, conjunctival injection Neck exam: Present: normal inspection, full ROM. Absent: meningismus Respiratory exam: Present: normal lung sounds bilaterally. Absent: respiratory distress, wheezes, rales, rhonchi, stridor Cardiovascular Exam: Present: regular rate, normal rhythm, normal heart sounds. Absent: systolic murmur, diastolic murmur, rubs, gallop GI/Abdominal exam: Present: soft. Absent: distended, tenderness, guarding, rebound, rigid, mass Extremities exam: Present: normal inspection, normal capillary refill. Absent: pedal edema, calf tenderness Back exam: Present: normal inspection. Absent: CVA tenderness (R), CVA tenderness (L) Neurological exam: Present: alert Skin exam: Present: warm, dry, intact, normal color. Absent: rash Course Vital Signs 07/02/23 07/02/23 07/02/23 21:20 21:25 23:50 Temperature 97.3 F L Pulse Rate 75 75 71 Respiratory 18 20 18 Rate Blood Pressure 125/74 130/71 108/67 O2 Sat by Pulse 96 96 98 Oximetry 07/03/23 00:35 Temperature Pulse Rate 74 Respiratory 18 Rate Blood Pressure 118/70 O2 Sat by Pulse 98 Oximetry Medical Decision Making - Medical Decision Making The patient had chest x-ray which I interpreted as being negative for acute infiltrate, pneumothorax, congestive heart failure Was pt. sent in by a medical professional or institution (, PA, REGRINDER OPERATOR, urgent care, hospital, or longterm...) When possible be specific @ -[No] Did you speak to anyone other than the patient for history (EMS, parent, family, police, friend...)? What history was obtained from this source @ -[No] Did you review nursing and triage notes (agree or disagree)? Why? @ -[I reviewed and agree with nursing and triage notes] Were old charts reviewed (outside hosp., previous admission, EMS record, old EKG, old radiological studies, urgent care reports/EKG's, longterm records)? Report findings @ -[No old charts were reviewed] Differential Diagnosis (chest pain, altered mental status, abdominal pain women, abdominal pain men, vaginal bleeding, weakness, fever, dyspnea, syncope, headache, dizziness, GI bleed, back pain, seizure, CVA, palpatations, mental health, musculoskeletal)? @ -[not applicable] EKG interpreted by me (3pts min.). @ -[As above] X-rays interpreted by me (1pt min.). @ -[As above CT interpreted by me (1pt min.). @ -[None done] U/S interpreted by me (1pt. min.). @ -[None done] What testing was considered but not performed or refused? (CT, X-rays, U/S, labs)? Why? @ -[None] What meds were considered but not given or refused? Why? @ -[None] Did you discuss the management of the patient with other professionals (professionals i.e. , PA, REGRINDER OPERATOR, lab, RT, psych nurse, psychiatric social worker, criminal defense lawyer, teacher, workplace rehabilitation officer, showcase trimmer)? Give summary @ -[No] Was smoking cessation discussed for >3mins.? @ -[No] Was critical care preformed (if so, how long)? @ -[No] Were there social determinants of health that impacted care today? How? (Homelessness, low income, unemployed, alcoholism, drug addiction, transportation, low edu. Level, literacy, decrease access to med. care, fpc, rehab)? @ -[No] Was there de-escalation of care discussed even if they declined (Discuss DNR or withdrawal of care, Hospice)? DNR status @ -[No] What co-morbidities impacted this encounter? (DM, HTN, Smoking, COPD, CAD, Cancer, CVA, ARF, Chemo, Hep., AIDS, mental health diagnosis, sleep apnea, morbid obesity)? @ -[None] Was patient admitted / discharged? Hospital course, mention meds given and route, prescriptions, significant lab abnormalities, going to OR and other pertinent info. @ -['s patient is 62-year-old woman presenting to have evaluation after diagnosis of COVID-19 infection. The patient does have mild hyperglycemia, mild dehydration. She is feeling better following IV fluids. The patient is not having dyspnea and has normal pulse oximetry readings. We discussed appropriate further care and follow-up as well as return parameters. Patient is given ou tpatient course of medications Undiagnosed new problem with uncertain prognosis? @ -[No] Drug Therapy requiring intensive monitoring for toxicity (Heparin, Nitro, Insulin, Cardizem)? @ -[No] Were any procedures done? @ -[No] Diagnosis/symptom? @ -[Acute COVID-19 infection Acute hyperglycemia Acute dehydration Acute, or Chronic, or Acute on Chronic? @ -[default] Uncomplicated (without systemic symptoms) or Complicated (systemic symptoms)? @ -[Uncomplicated Side effects of treatment? @ -[No] Exacerbation, Progression, or Severe Exacerbation? @ -[No] Poses a threat to life or bodily function? How? (Chest pain, [place], [place], pneumonia, PE, COPD, DKA, ARF, appy, cholecystitis, CVA, Diverticulitis, Homicidal, Suicidal, threat to staff... and all critical care pts) @ -[No] - Lab Data Result diagrams: 07/02/23 22:22 07/02/23 22:22 Lab Results 07/02/23 07/02/23 07/02/23 Range/Units 22:22 22:22 22:22 WBC (3.8-10.6) k/uL RBC (3.80-5.40) m/uL Hgb (11.4-16.0) gm/dL Hct (34.0-46.0) % MCV (80.0-100.0) fL MCH (25.0-35.0) pg MCHC (31.0-37.0) g/dL RDW (11.5-15.5) % Plt Count (150-450) k/uL MPV Neutrophils % % Lymphocytes % % Monocytes % % Eosinophils % % Basophils % % Neutrophils # (1.3-7.7) k/uL Lymphocytes # (1.0-4.8) k/uL Monocytes # (0-1.0) k/uL Eosinophils # (0-0.7) k/uL Basophils # (0-0.2) k/uL Sodium 137 (137-145) mmol/L Potassium 4.1 (3.5-5.1) mmol/L Chloride 108 H (98-107) mmol/L Carbon Dioxide 16 L (22-30) mmol/L Anion Gap 13 mmol/L BUN 22 H (7-17) mg/dL Creatinine 1.26 H (0.52-1.04) mg/dL Est GFR (CKD-EPI)AfAm 52 (>60 ml/min/1.73 sqM) Est GFR (CKD-EPI)NonAf 45 (>60 ml/min/1.73 sqM) Glucose 269 H (74-99) mg/dL Plasma Lactic Acid Gary 1.4 (0.7-2.0) mmol/L Calcium 8.7 (8.4-10.2) mg/dL Magnesium 2.1 (1.6-2.3) mg/dL Total Bilirubin 0.6 (0.2-1.3) mg/dL AST 29 (14-36) U/L ALT 26 (4-34) U/L Alkaline Phosphatase 105 (38-126) U/L Troponin I <0.012 (0.000-0.034) ng/mL Total Protein 7.2 (6.3-8.2) g/dL Albumin 3.9 (3.5-5.0) g/dL 07/02/23 Range/Units 22:22 WBC 8.0 (3.8-10.6) k/uL RBC 3.56 L (3.80-5.40) m/uL Hgb 10.5 L (11.4-16.0) gm/dL Hct 31.0 L (34.0-46.0) % MCV 87.2 (80.0-100.0) fL MCH 29.5 (25.0-35.0) pg MCHC 33.8 (31.0-37.0) g/dL RDW 15.3 (11.5-15.5) % Plt Count 261 (150-450) k/uL MPV 8.0 Neutrophils % 68 % Lymphocytes % 22 % Monocytes % 4 % Eosinophils % 4 % Basophils % 0 % Neutrophils # 5.4 (1.3-7.7) k/uL Lymphocytes # 1.8 (1.0-4.8) k/uL Monocytes # 0.3 (0-1.0) k/uL Eosinophils # 0.3 (0-0.7) k/uL Basophils # 0.0 (0-0.2) k/uL Sodium (137-145) mmol/L Potassium (3.5-5.1) mmol/L Chloride (98-107) mmol/L Carbon Dioxide (22-30) mmol/L Anion Gap mmol/L BUN (7-17) mg/dL Creatinine (0.52-1.04) mg/dL Est GFR (CKD-EPI)AfAm (>60 ml/min/1.73 sqM) Est GFR (CKD-EPI)NonAf (>60 ml/min/1.73 sqM) Glucose (74-99) mg/dL Plasma Lactic Acid Gary (0.7-2.0) mmol/L Calcium (8.4-10.2) mg/dL Magnesium (1.6-2.3) mg/dL Total Bilirubin (0.2-1.3) mg/dL AST (14-36) U/L ALT (4-34) U/L Alkaline Phosphatase (38-126) U/L Troponin I (0.000-0.034) ng/mL Total Protein (6.3-8.2) g/dL Albumin (3.5-5.0) g/dL Disposition Clinical Impression: COVID-19 Disposition: HOME SELF-CARE Condition: Fair Instructions (If sedation given, give patient instructions): COVID-19 (Coronav irus Disease 2019) (ED) Prescriptions: Nirmatrelvir/Ritonavir [Paxlovid 2X150 mg-100 mg (Eua)] 1 each PO ONCE #1 pack Is patient prescribed a controlled substance at d/c from ED?: No Referrals: Bernard Sanchez MD [Primary Care Provider] - 1-2 days
[2023-07-02 22:52] LABS: Basophils % (A) 0 %; Eosinophils # (A) 0.3 k/uL (0-0.7); Eosinophils % (A) 4 %; HGB 10.5 gm/dL (11.4-16.0); Lymphocytes # (A) 1.8 k/uL (1.0-4.8); Lymphocytes % (A) 22 %; MCH 29.5 pg (25.0-35.0); MCHC 33.8 g/dL (31.0-37.0); MCV 87.2 fL (80.0-100.0); Monocytes # (A) 0.3 k/uL (0-1.0); Monocytes % (A) 4 %; Neutrophils # (A) 5.4 k/uL (1.3-7.7); Neutrophils % (A) 68 %; Platelet Count 261 k/uL (150-450); RBC 3.56 m/uL (3.80-5.40); RDW 15.3 % (11.5-15.5)
[2023-07-02 23:02] LABS: ALT 26 U/L (4-34); AST 29 U/L (14-36); African American GFR (CKD) 52 (>60 ml/min/1.73 sqM); Albumin 3.9 g/dL (3.5-5.0); Alkaline Phosphatase 105 U/L (38-126); Anion Gap 13 mmol/L; Blood Urea Nitrogen 22 mg/dL (7-17); Calcium 8.7 mg/dL (8.4-10.2); Carbon Dioxide 16 mmol/L (22-30); Chloride 108 mmol/L (98-107); Glucose 269 mg/dL (74-99); Magnesium 2.1 mg/dL (1.6-2.3); Non-African American GFR(CKD) 45 (>60 ml/min/1.73 sqM); Potassium 4.1 mmol/L (3.5-5.1); Sodium 137 mmol/L (137-145); Total Bilirubin 0.6 mg/dL (0.2-1.3); Total Protein 7.2 g/dL (6.3-8.2)
[2023-07-02 23:51] VITALS: RESP 18
[2023-07-03] MEDS ORDERED: SODIUM CHLORIDE 0.9% 500 ML 500 ML IV STA
[2023-07-03] MEDS ORDERED: INSULIN REGULAR 100 UNIT/ML VIAL (IV) SQ STA
--- NOTE | 2023-07-03 00:28 | XR ---
EXAM: XR Chest, 1 View CLINICAL HISTORY: ITS.REASON XR Reason: cough TECHNIQUE: Frontal view of the chest. COMPARISON: 04/04/2023 FINDINGS: Lungs: Unremarkable. No consolidation. Pleural space: Unremarkable. No pneumothorax. No pleural effusions. Heart: Unremarkable. No cardiomegaly. Mediastinum: Unremarkable. Bones/joints: No acute osseous abnormalities. IMPRESSION: No acute cardiopulmonary disease.
[2023-07-03 00:37] VITALS: BP 118/70; PULSE 74
== END 2023-07-03 00:46 | disposition home or self-care (01) ==
LOC: EC 21:18
DX: U07.1 COVID-19 (principal); I10 Essential (primary) hypertension; K21.9 Gastro-esophageal reflux disease without esophagitis; E11.40 Type 2 diabetes mellitus with diabetic neuropathy, unspecified; E78.5 Hyperlipidemia, unspecified; E07.9 Disorder of thyroid, unspecified; Z79.84 Long term (current) use of oral hypoglycemic drugs; Z79.890 Hormone replacement therapy; Z79.899 Other long term (current) drug therapy; Z88.5 Allergy status to narcotic agent; Z90.49 Acquired absence of other specified parts of digestive tract
CPT/HCPCS: 36415; 71045; 80053; 83605; 83735; 84484; 85025; 99283

== ENCOUNTER → 2024-06-07 | Outpatient (CLI) | payer MEDICARE ==
--- NOTE | 2024-06-08 08:01 | MM ---
Reason for Exam: Screening (asymptomatic). Last mammogram was performed 1 year(s) and 3 month(s) ago. Patient History: Menarche at age 9. First Full-Term at age 19. Hysterectomy at age 42. Postmenopausal. Patient has history of breast feeding. Risk Values: Taniya 5 year model risk: 1.6%. NCI Lifetime model risk: 6.2%. Prior Study Comparison: 01/08/2022 Bilateral Screening Mammogram, [facility]. 01/20/2022 Left Diagnostic Mammogram, [facility]. 03/02/2023 Bilateral MG screening mammo w CAD, [facility]. Tissue Density: The breasts are heterogeneously dense, which may obscure small masses. Findings: Analyzed By CAD. The pattern is symmetrical. No significant interval change is evident. Spherical calcifications or left breast. Couple punctate calcifications right breast. No significant interval changes evident. No suspicious groups of microcalcifications, spiculated or lobular masses, architectural distortion or other secondary signs of malignancy are mammographically apparent. Overall Assessment: Benign, BI-RAD 2 Management: Screening Mammogram of both breasts in 1 year. A negative mammogram report should not preclude additional follow up of suspicious palpable abnormalities. Patient should continue monthly self breast exam. A clinical breast exam by your physician is recommended on an annual basis and results should be correlated with mammographic findings. Note on Taniya scores and lifetime risk: 1. A Taniya score greater than 3% is considered moderate risk. If this is the case, consider specialist referral to assess eligibility for a risk reducing agent. 2. If overall lifetime risk for the development of breast cancer is 20% or higher, the patient may qualify for future screening with alternating mammogram and breast MRI. Electronically signed and approved by: Cody Jin D.O. Radiologis
== END | disposition home or self-care (01) ==
LOC: RADMAMWWP 16:20
PROVIDERS: ATTEND Pediatrics
DX: Z12.31 Encounter for screening mammogram for malignant neoplasm of breast (principal); Z78.0 Asymptomatic menopausal state
CPT/HCPCS: 77063; 77067

== ENCOUNTER → 2024-11-17 | Outpatient (CLI) | payer MEDICARE, OTHER ==
--- NOTE | 2024-11-17 11:20 | XR ---
EXAMINATION TYPE: XR hand limited RT DATE OF EXAM: 11/17/2024 COMPARISON: NONE CLINICAL INDICATION: Female, 63 years old with history of M79.89 SWELLING RIGHT MIDDLE FINGER; TECHNIQUE: Two views are submitted. FINDINGS: The osseous structures are intact. Mild DIP joint narrowing of all digits. Mild MCP joint narrowing o f all digits. Mild first carpal metacarpal joint narrowing. No erosive changes. Faint density along t he dorsal surface of the DIP joint second digit and adjacent to the DIP joints of the third and fourt h digits on the frontal view likely related to calcifications tendon. There is no acute fracture or dislocation. IMPRESSION: 1. No definite acute fracture or dislocation if symptoms persist, follow-up study in 7 to 10 days wo uld be suggested 2. Arthropathy most typical of osteoarthritis. [facility], , 11/17/2024 11:17 AM
== END | disposition home or self-care (01) ==
LOC: RADXRMAIN 10:59
PROVIDERS: ATTEND Pediatrics
DX: M19.041 Primary osteoarthritis, right hand (principal); M79.89 Other specified soft tissue disorders

== ENCOUNTER → 2025-05-10 | Outpatient (CLI) | payer MEDICARE ==
--- NOTE | 2025-05-10 18:47 | CA ---
Transthoracic Echo Report Name: Hien Gamino Age: 64 Gender: F : 1960 Exam Date: 05/10/2025 15:18 Exam Location: [facility] Ht (in): 66 Wt (lb): 200 Ordering Physician: Bernard Sanchez MD Attending/Referring Phys: Bernard Sanchez MD [employer] Developer Lissy Russell, [facility] Procedure CPT: Indications: R01.1 CARDIAC MURMUR, R94.31 ABN EKG Cardiac Hx: Technical Quality: Fair Contrast 1: Total Dose (mL): Contrast 2: Total Dose (mL): MEASUREMENTS (Male / Female) Normal Values 2D ECHO LV Diastolic Diameter PLAX 4.4 cm 4.2 - 5.9 / 3.9 - 5.3 cm LV Systolic Diameter PLAX 2.0 cm IVS Diastolic Thickness 1.0 cm 0.6 - 1.0 / 0.6 - 0.9 cm LVPW Diastolic Thickness 1.6 cm 0.6 - 1.0 / 0.6 - 0.9 cm LV Relative Wall Thickness 0.6 RV Internal Dim ED PLAX 2.9 cm LVOT Diameter 1.9 cm LA Systolic Diameter LX 3.5 cm 3.0 - 4.0 / 2.7 - 3.8 cm LV Diastolic Volume MOD BP 45.9 cm??? 67 - 155 / 56 - 104 cm??? LV Systolic Volume MOD BP 14.7 cm??? 22 - 58 / 19 - 49 cm??? LV Ejection Fraction MOD BP 68.0 % >= 55 % LV Cardiac Index MOD BP 926.5 cm???/min???m??? LV Diastolic Volume MOD 4C 38.2 cm??? LV Systolic Volume MOD 4C 16.2 cm??? LV Ejection Fraction MOD 4C 57.4 % LV Cardiac Index MOD 4C 650.9 cm???/min???m??? LV Diastolic Length 4C 6.4 cm LV Systolic Length 4C 5.4 cm LV Diastolic Volume MOD 2C 52.2 cm??? LV Systolic Volume MOD 2C 13.2 cm??? LV Ejection Fraction MOD 2C 74.8 % LV Cardiac Index MOD 2C 1161.1 cm???/min???m??? LV Diastolic Length 2C 7.0 cm LV Systolic Length 2C 5.2 cm LA Volume 41.1 cm??? 18 - 58 / 22 - 52 cm??? LA Volume Index 19.7 cm???/m??? 16 - 28 cm???/m??? M-MODE Aortic Root Diameter MM 3.2 cm LA Systolic Diameter MM 3.4 cm LA Ao Ratio MM 1.1 AV Cusp Separation MM 0.7 cm DOPPLER AV Peak Velocity 350.5 cm/s AV Peak Gradient 49.1 mmHg AV Mean Velocity 233.0 cm/s AV Mean Gradient 26.6 mmHg AV Velocity Time Integral 80.0 cm MV Area PHT 2.1 cm??? Mitral E Point Velocity 99.8 cm/s Mitral A Point Velocity 99.3 cm/s Mitral E to A Ratio 1.0 MV Deceleration Time 354.5 ms TR Peak Velocity 272.4 cm/s TR Peak Gradient 29.7 mmHg Right Ventricular Systolic Press 34.7 mmHg FINDINGS Left Ventricle Left ventricular ejection fraction is estimated at 55-60 %. Normal left ventricular systolic function with no obvious regional wall motion abnormalities. Left ventricular cavity size normal. Moderately increased left ventricular wall thickness. Right Ventricle Mild right ventricular dilatation. Mild pulmonary hypertension. Right Atrium Mild right atrial dilatation. Left Atrium Mild left atrial dilatation. Mitral Valve Mitral valve thickened. Mild mitral regurgitation. Aortic Valve Possible bicuspid aortic valve. Moderate aortic stenosis with a peak gradient of 49 mmHg and a mean gradient of 27mmHg. Trace aortic regurgitation. Tricuspid Valve Structurally normal tricuspid valve. Mild tricuspid regurgitation. No tricuspid stenosis. Pulmonic Valve Structurally normal pulmonic valve. No pulmonic stenosis. No pulmonic regurgitation. Pericardium No pericardial or pleural effusion. Aorta Normal size aortic root and proximal ascending aorta. CONCLUSIONS 1. Normal left ventricular size and systolic function 2. Mild mitral and tricuspid regurgitation with mild pulmonary hypertension. 3. Heavily calcified aortic valve, probable bicuspid with moderate aortic stenosis. Previewed by: Dr. Chucky Nixon MD (Electronically Signed) Final Date: 10 May 2025 18:46
== END | disposition home or self-care (01) ==
LOC: RADECHMAIN 15:10
PROVIDERS: ATTEND Pediatrics
DX: I08.3 Combined rheumatic disorders of mitral, aortic and tricuspid valves (principal); R01.1 Cardiac murmur, unspecified; R94.31 Abnormal electrocardiogram [ECG] [EKG]; I27.20 Pulmonary hypertension, unspecified
CPT/HCPCS: 93306